=== PATIENT | female | born 1975 | race African-American/Black ===

== ENCOUNTER 2017-01-10 23:50 | Inpatient (IN) | payer MEDICAID ==
[~2017-01-10] VITALS: Ht 170.2 cm; Wt 160.5 kg
[~2017-01-10 23:50] MED LIST: AML5T PO; ATOR20TA PO; FURO20TA PO; LEVO500T3 PO; METH2.5T3 PO; OMEP20TA44 PO; PERCOT PO; POTA10SO11 PO
[2017-01-11] MEDS ORDERED: IPRATROPIUM BROM 0.5 MG/2.5ML INH SOL NEB ONE
[2017-01-11] MEDS ORDERED: methylPREDNISolone SOD SUCC 125 MG/2 ML VL IV ONE
[2017-01-11] MEDS ORDERED: ALBUTEROL SULF 2.5 MG/0.5ML(0.5%) NEB SOLN NEB ONE
[2017-01-11 00:15] LABS: DEFINITIVE VIEW TRANSMISSION; Hematocrit 44.7 % (36.0-46.0); Hemoglobin 14.7 g/dL (12.2-16.2); Mean Corpuscular Hemoglobin 31.8 pg (28.0-32.0); Mean Corpuscular Hgb Conc. 32.8 g/dL (32.0-36.0); Mean Platelet Volume 7.6 fL (7.4-10.4); Platelet Count (auto) 296 10^3/uL (140-450); Red Cell Distribution Width 15.9 % (11.6-16.0); SUSPECT VIEW TRANSMISSION; White Blood Cell 14.6 10^3/uL (4.4-10.8)
[2017-01-11] MEDS ORDERED: ONDANSETRON HCL 4 MG/2 ML VIAL IV ONE (00:30)
[2017-01-11] MEDS ORDERED: SODIUM CHLORIDE 0.9% 1,000 ML IV ONE (00:30)
[2017-01-11] MEDS ORDERED: KETOROLAC TROMETH 30 MG/ML 1ML VIAL IV ONE (00:30)
[2017-01-11 00:31] LABS: Anion Gap 10 (5-15); Blood Urea Nitrogen 7 mg/dL (7-18); Carbon Dioxide 25 mmol/L (21-32); Chloride 106 mmol/L (98-107); Glucose 122 mg/dL (74-106); Potassium 3.7 mmol/L (3.5-5.1); Sodium 141 mmol/L (136-145)
[2017-01-11 00:32] LABS: Albumin 3.2 g/dL (3.4-5.0); Aspartate Aminotransferase 36 U/L (15-37); Calcium 8.5 mg/dL (8.5-10.1); GFR African American 92 mL/min; GFR Non-African American 76 mL/min
[2017-01-11 00:36] LABS: Alkaline Phosphatase 86 U/L (45-117); Bilirubin, Total 0.3 mg/dL (0.2-1.0); Total Protein 7.1 g/dL (6.4-8.2)
[2017-01-11 00:38] LABS: Metamyelocytes % 0; Myelocytes % 0; Promyelocytes % 0; Reactive Lymphocytes 0
[2017-01-11 00:57] LABS: B-Type Natriuretic Peptide 9.5 pg/mL (0-100); Temperature: 22.2 C (20.0-25.0)
[2017-01-11] MEDS ORDERED: ONDANSETRON HCL 4 MG/2 ML VIAL ONE (01:04)
[2017-01-11 01:43] LABS: Hypersegmented Neutrophils Present; Platelet Estimate Adequate; RBC Morphology Normal
[2017-01-11] MEDS ORDERED: HYDROcodone-ACET 10/325MG TAB PO ONE (03:45)
[2017-01-11] MEDS ORDERED: IPRATROPIUM BROM 0.5 MG/2.5ML INH SOL NEB PRN ×2 (05:45→15:15)
[2017-01-11] MEDS ORDERED: MORPHINE SULF INJ 2 MG/ML SYRINGE 1ML IV PRN (05:45)
[2017-01-11] MEDS ORDERED: ALBUTEROL SULF 2.5 MG/0.5ML(0.5%) NEB SOLN NEB PRN ×2 (05:45→15:15)
[2017-01-11] MEDS ORDERED: NITROGLYCERIN 0.4 MG SL TAB SL PRN (05:45)
[2017-01-11] MEDS ORDERED: ACETAMINOPHEN 325 MG TAB PO PRN (05:45)
[2017-01-11] MEDS ORDERED: ONDANSETRON HCL 4 MG/2 ML VIAL IV PRN (05:45)
[2017-01-11 08:00] VITALS: BP 148/98
[2017-01-11 08:22] LABS: Urine Bilirubin Negative (Negative); Urine Blood Negative /uL (Negative); Urine Color Yellow (Yellow); Urine Ketone TRACE (Negative); Urine Mucus FEW (None Seen); Urine Nitrite Negative (Negative); Urine RBC 14 /hpf (0 - 4); Urine Squamous Epithelial Cell FEW /hpf (<5); Urine Urobilinogen Normal (Negative)
[2017-01-11 08:26] LABS: Urine Glucose 3+ mg/dL (Normal)
[2017-01-11] MEDS: cefTRIAXone 1GM/50ML D5W 50 ML IV SCH (08:58)
[2017-01-11] MEDS: ENOXAPARIN SOD 40 MG/0.4 ML SYRINGE SC SCH (09:19)
[2017-01-11] MEDS: MORPHINE SULF INJ 2 MG/ML SYRINGE 1ML IV PRN ×3 (09:19→20:13)
[2017-01-11] MEDS: FUROSEMIDE 20 MG TAB PO SCH (09:20)
[2017-01-11] MEDS: POTASSIUM CHL 20 Meq TABLET PO SCH (09:20)
[2017-01-11] MEDS: FAMOTIDINE 20 MG TAB PO SCH ×2 (09:20→22:51)
[2017-01-11] MEDS: methylPREDNISolone SOD SUCC 125 MG/2 ML VL IV SCH ×2 (09:20→22:51)
[2017-01-11] MEDS: amLODIPine BESYLATE 5 MG TAB PO SCH (09:21)
[2017-01-11 12:07] VITALS: BP 135/87
[2017-01-11 14:46] VITALS: BP 135/87
[2017-01-11 16:59] VITALS: BP 135/82
[2017-01-11] MEDS: ALBUTEROL SULF 2.5 MG/0.5ML(0.5%) NEB SOLN NEB SCH ×2 (17:44→21:51)
[2017-01-11] MEDS: IPRATROPIUM BROM 0.5 MG/2.5ML INH SOL NEB SCH ×2 (17:44→21:51)
[2017-01-11 22:00] VITALS: BP 139/90
[2017-01-11] MEDS: ATORVASTATIN 20 MG TAB PO SCH (22:51)
[2017-01-11] MEDS: TEMAZEPAM 15 MG CAP PO PRN (23:36)
[2017-01-12] MEDS: IPRATROPIUM BROM 0.5 MG/2.5ML INH SOL NEB SCH ×6 (02:00→22:28)
[2017-01-12] MEDS: ALBUTEROL SULF 2.5 MG/0.5ML(0.5%) NEB SOLN NEB SCH ×6 (02:00→22:28)
[2017-01-12 05:04] VITALS: BP 121/73
[2017-01-12 06:03] LABS: Hematocrit 43.8 % (36.0-46.0); Hemoglobin 14.3 g/dL (12.2-16.2); Mean Corpuscular Hemoglobin 32.1 pg (28.0-32.0); Mean Corpuscular Hgb Conc. 32.5 g/dL (32.0-36.0); Mean Corpuscular Volume 98.7 fL (80.0-100.0); Mean Platelet Volume 7.8 fL (7.4-10.4); Platelet Count (auto) 300 10^3/uL (140-450); Red Cell Distribution Width 16.9 % (11.6-16.0); SUSPECT VIEW TRANSMISSION; White Blood Cell 22.5 10^3/uL (4.4-10.8)
[2017-01-12 06:07] LABS: Metamyelocytes % 0; Myelocytes % 0; Promyelocytes % 0; Reactive Lymphocytes 0
[2017-01-12 06:33] LABS: BUN/Creatinine Ratio 13.6; Bilirubin, Total 0.2 mg/dL (0.2-1.0); Calcium 8.9 mg/dL (8.5-10.1); Magnesium 2.5 mg/dL (1.6-2.6); Potassium 5.1 mmol/L (3.5-5.1); Total Protein 7.3 g/dL (6.4-8.2)
[2017-01-12 06:57] LABS: Anisocytosis Slight; Macrocytosis Slight; Platelet Estimate Adequate; Polychromasia Slight
[2017-01-12] MEDS: MORPHINE SULF INJ 2 MG/ML SYRINGE 1ML IV PRN ×2 (08:37→13:48)
[2017-01-12] MEDS: cefTRIAXone 1GM/50ML D5W 50 ML IV SCH (08:37)
[2017-01-12 09:12] VITALS: BP 122/59
[2017-01-12] MEDS: FAMOTIDINE 20 MG TAB PO SCH ×2 (09:33→21:06)
[2017-01-12] MEDS: POTASSIUM CHL 20 Meq TABLET PO SCH (09:33)
[2017-01-12] MEDS: ENOXAPARIN SOD 40 MG/0.4 ML SYRINGE SC SCH (09:33)
[2017-01-12] MEDS: FUROSEMIDE 20 MG TAB PO SCH (09:34)
[2017-01-12] MEDS: methylPREDNISolone SOD SUCC 125 MG/2 ML VL IV SCH ×2 (09:35→21:06)
[2017-01-12] MEDS: amLODIPine BESYLATE 5 MG TAB PO SCH (09:35)
[2017-01-12] MEDS ORDERED: NICOTINE 21MG/24 HR TOPICAL PATCH TD ONE (12:45)
[2017-01-12 13:00] VITALS: BP_SYST 137; BP_SYST 184; BP_DIAS 87; BP_DIAS 90
[2017-01-12] MEDS ORDERED: diphenhdrAMINE HCL 25 MG CAP PO PRN (14:00)
[2017-01-12 15:16] LABS: Lactic Acid w/Reflex 3.7 mmol/L (0.4-2.0)
[2017-01-12 15:29] LABS: REFLEX LACTIC ACID YES OR NO YES
[2017-01-12] MEDS: HYDROcodone-ACET 5/325MG TAB PO PRN (21:04)
[2017-01-12] MEDS: ATORVASTATIN 20 MG TAB PO SCH (21:06)
[2017-01-12 22:00] VITALS: BP 108/51
[2017-01-12] MEDS: TEMAZEPAM 15 MG CAP PO PRN (22:14)
[2017-01-13] VITALS (7 sets, daily range): BP systolic 96–151; BP diastolic 66–91
[2017-01-13] MEDS: MORPHINE SULF INJ 2 MG/ML SYRINGE 1ML IV PRN ×3 (00:51→21:56)
[2017-01-13] MEDS: IPRATROPIUM BROM 0.5 MG/2.5ML INH SOL NEB SCH ×6 (02:00→22:42)
[2017-01-13] MEDS: ALBUTEROL SULF 2.5 MG/0.5ML(0.5%) NEB SOLN NEB SCH ×6 (02:00→22:42)
[2017-01-13 06:27] LABS: Basophils # (auto) 0.1 uL; Basophils % (auto) 0.5 % (0.0-2.0); Eosinophils # (auto) 0 uL; Hematocrit 41.6 % (36.0-46.0); Hemoglobin 13.9 g/dL (12.2-16.2); Lymphocytes % (auto) 4.9 % (10.0-50.0); Mean Corpuscular Hemoglobin 32.4 pg (28.0-32.0); Mean Corpuscular Hgb Conc. 33.5 g/dL (32.0-36.0); Mean Corpuscular Volume 96.7 fL (80.0-100.0); Mean Platelet Volume 8.2 fL (7.4-10.4); Monocytes # (auto) 0.4 uL; Monocytes % (auto) 2.1 % (0.0-12.0); Neutrophils # (auto) 18.8 uL; Neutrophils % (auto) 92.5 % (37.0-80.0); Platelet Count (auto) 295 10^3/uL (140-450); Red Cell Distribution Width 16.3 % (11.6-16.0); SUSPECT VIEW TRANSMISSION; White Blood Cell 20.3 10^3/uL (4.4-10.8)
[2017-01-13 06:52] LABS: BUN/Creatinine Ratio 18.8; Calcium 8.4 mg/dL (8.5-10.1); Magnesium 2.5 mg/dL (1.6-2.6); Potassium 4.3 mmol/L (3.5-5.1)
[2017-01-13] MEDS: amLODIPine BESYLATE 5 MG TAB PO SCH (10:00)
[2017-01-13] MEDS: FAMOTIDINE 20 MG TAB PO SCH ×2 (10:10→21:56)
[2017-01-13] MEDS: ENOXAPARIN SOD 40 MG/0.4 ML SYRINGE SC SCH (10:11)
[2017-01-13] MEDS: methylPREDNISolone SOD SUCC 125 MG/2 ML VL IV SCH ×2 (10:11→21:55)
[2017-01-13] MEDS: FUROSEMIDE 20 MG TAB PO SCH (10:11)
[2017-01-13] MEDS: NICOTINE 21MG/24 HR TOPICAL PATCH TD SCH (11:00)
[2017-01-13] MEDS ORDERED: DEXTROSE (50%) 50ML SYRG IV PRN ×2 (12:15→22:30)
[2017-01-13] MEDS: ACCU-CHEK COMFORT CURVE STRIP VI SCH ×3 (12:23→21:56)
[2017-01-13] MEDS: InsuLIN REG 1unit/0.01ml Soln (100units/ml) SC SCH ×3 (12:23→22:03)
[2017-01-13] MEDS: DOXYCYCLINE HYC 100MG/250ML 250 ML IV SCH (16:40)
[2017-01-13] MEDS: HYDROcodone-ACET 5/325MG TAB PO PRN (18:36)
[2017-01-13] MEDS: TEMAZEPAM 15 MG CAP PO PRN (21:56)
[2017-01-13] MEDS: ATORVASTATIN 20 MG TAB PO SCH (21:56)
[2017-01-14] VITALS (8 sets, daily range): BP systolic 98–158; BP diastolic 66–98
[2017-01-14] MEDS: DOXYCYCLINE HYC 100MG/250ML 250 ML IV SCH ×2 (01:35→14:00)
[2017-01-14] MEDS: ALBUTEROL SULF 2.5 MG/0.5ML(0.5%) NEB SOLN NEB SCH ×6 (02:00→22:28)
[2017-01-14] MEDS: IPRATROPIUM BROM 0.5 MG/2.5ML INH SOL NEB SCH ×6 (02:00→22:28)
[2017-01-14] MEDS: MORPHINE SULF INJ 2 MG/ML SYRINGE 1ML IV PRN ×4 (05:31→19:52)
[2017-01-14 05:56] LABS: Basophils # (auto) 0.1 uL; Basophils % (auto) 0.8 % (0.0-2.0); Eosinophils # (auto) 0 uL; Hematocrit 43.2 % (36.0-46.0); Hemoglobin 14.4 g/dL (12.2-16.2); Lymphocytes # (auto) 1.2 uL; Lymphocytes % (auto) 6.9 % (10.0-50.0); Mean Corpuscular Hemoglobin 32.5 pg (28.0-32.0); Mean Corpuscular Hgb Conc. 33.4 g/dL (32.0-36.0); Mean Corpuscular Volume 97.3 fL (80.0-100.0); Mean Platelet Volume 8.3 fL (7.4-10.4); Monocytes # (auto) 0.6 uL; Monocytes % (auto) 3.3 % (0.0-12.0); Platelet Count (auto) 294 10^3/uL (140-450); Red Cell Distribution Width 16.1 % (11.6-16.0); White Blood Cell 16.8 10^3/uL (4.4-10.8)
[2017-01-14 06:23] LABS: BUN/Creatinine Ratio 19.5; Calcium 8.1 mg/dL (8.5-10.1); Potassium 4.2 mmol/L (3.5-5.1)
[2017-01-14] MEDS: ACCU-CHEK COMFORT CURVE STRIP VI SCH ×3 (06:33→21:57)
[2017-01-14] MEDS: InsuLIN REG 1unit/0.01ml Soln (100units/ml) SC SCH ×4 (07:00→22:11)
[2017-01-14] MEDS: ENOXAPARIN SOD 40 MG/0.4 ML SYRINGE SC SCH (10:07)
[2017-01-14] MEDS: methylPREDNISolone SOD SUCC 125 MG/2 ML VL IV SCH (10:08)
[2017-01-14] MEDS: NICOTINE 21MG/24 HR TOPICAL PATCH TD SCH (10:08)
[2017-01-14] MEDS: FAMOTIDINE 20 MG TAB PO SCH ×2 (10:08→21:57)
[2017-01-14] MEDS: FUROSEMIDE 20 MG TAB PO SCH (10:09)
[2017-01-14] MEDS: amLODIPine BESYLATE 5 MG TAB PO SCH (10:11)
[2017-01-14 11:59] LABS: Lactic Acid w/Reflex 2.1 mmol/L (0.4-2.0)
[2017-01-14 12:03] LABS: REFLEX LACTIC ACID YES OR NO YES
[2017-01-14] MEDS ORDERED: DEXTROSE (50%) 50ML SYRG IV PRN (20:15)
[2017-01-14] MEDS: ATORVASTATIN 20 MG TAB PO SCH (21:57)
[2017-01-14] MEDS: TEMAZEPAM 15 MG CAP PO PRN (21:57)
[2017-01-14] MEDS ORDERED: methylPREDNISolone SOD SUCC 125 MG/2 ML VL IV SCH (22:00)
[2017-01-14] MEDS: methylPREDNISolone SOD SUCC 40 MG/ML VL IV SCH (22:09)
[2017-01-15] MEDS: MORPHINE SULF INJ 2 MG/ML SYRINGE 1ML IV PRN ×4 (00:22→15:10)
[2017-01-15] MEDS: DOXYCYCLINE HYC 100MG/250ML 250 ML IV SCH (01:31)
[2017-01-15] MEDS: IPRATROPIUM BROM 0.5 MG/2.5ML INH SOL NEB SCH ×4 (02:00→14:39)
[2017-01-15] MEDS: ALBUTEROL SULF 2.5 MG/0.5ML(0.5%) NEB SOLN NEB SCH ×4 (02:00→14:39)
[2017-01-15 05:03] VITALS: BP 139/79
[2017-01-15 05:47] LABS: Basophils # (auto) 0 uL; Eosinophils # (auto) 0 uL; Hematocrit 44.3 % (36.0-46.0); Hemoglobin 14.8 g/dL (12.2-16.2); Lymphocytes # (auto) 1.6 uL; Lymphocytes % (auto) 7.9 % (10.0-50.0); Mean Corpuscular Hemoglobin 32.5 pg (28.0-32.0); Mean Corpuscular Hgb Conc. 33.4 g/dL (32.0-36.0); Mean Corpuscular Volume 97.1 fL (80.0-100.0); Mean Platelet Volume 7.7 fL (7.4-10.4); Monocytes # (auto) 1.3 uL; Monocytes % (auto) 6.1 % (0.0-12.0); Neutrophils # (auto) 17.5 uL; Platelet Count (auto) 339 10^3/uL (140-450); Red Cell Distribution Width 16.2 % (11.6-16.0); White Blood Cell 20.4 10^3/uL (4.4-10.8)
[2017-01-15 06:22] LABS: Calcium 7.9 mg/dL (8.5-10.1); Potassium 4.4 mmol/L (3.5-5.1)
[2017-01-15] MEDS: ACCU-CHEK COMFORT CURVE STRIP VI SCH (06:53)
[2017-01-15] MEDS: InsuLIN REG 1unit/0.01ml Soln (100units/ml) SC SCH (06:57)
[2017-01-15] MEDS ORDERED: InsuLIN REG 1unit/0.01ml Soln (100units/ml) SC SCH (07:00)
[2017-01-15] MEDS: methylPREDNISolone SOD SUCC 40 MG/ML VL IV SCH (08:55)
[2017-01-15] MEDS: ENOXAPARIN SOD 40 MG/0.4 ML SYRINGE SC SCH (08:56)
[2017-01-15] MEDS: FAMOTIDINE 20 MG TAB PO SCH (08:57)
[2017-01-15] MEDS: amLODIPine BESYLATE 5 MG TAB PO SCH (08:58)
[2017-01-15] MEDS: FUROSEMIDE 20 MG TAB PO SCH (08:59)
[2017-01-15 09:00] VITALS: BP 156/94
[2017-01-15] MEDS: NICOTINE 21MG/24 HR TOPICAL PATCH TD SCH (10:00)
[2017-01-15] MEDS ORDERED: metFORMIN HYDROCHLORIDE 500 MG TAB PO ONE (11:00)
[2017-01-15] MEDS ORDERED: DOXY-216 PO (11:07)
[2017-01-15] MEDS ORDERED: ALBUAER3 IN (11:07)
[2017-01-15] MEDS ORDERED: METF-312 PO (11:07)
[2017-01-15] MEDS ORDERED: LISI-646 PO (11:09)
[2017-01-15] MEDS ORDERED: NIC21P TOP (11:09)
[2017-01-15 13:08] VITALS: BP 142/89
[2017-01-15 13:36] VITALS: BP 156/94
[2017-01-15] MEDS ORDERED: metFORMIN HYDROCHLORIDE 500 MG TAB PO SCH (18:00)
== END 2017-01-15 15:50 | disposition home or self-care (01) | DRG 133 ==
LOC: ER 23:50 → TELE 23:51 → TELE-EAST 01-11 07:45 → EAST 01-12 11:48
PROVIDERS: ADMIT Nurse Practitioner; ATTEND Internal Medicine
PROC: 5A09457 Assistance with Respiratory Ventilation, 24-96 Consecutive Hours, Continuous Positive Airway Pressure (ICD-10-PCS; principal; 2017-01-10)
DX: J96.01 Acute respiratory failure with hypoxia (principal); J45.52 Severe persistent asthma with status asthmaticus; I11.0 Hypertensive heart disease with heart failure; J44.0 Chronic obstructive pulmonary disease with (acute) lower respiratory infection; J44.1 Chronic obstructive pulmonary disease with (acute) exacerbation; I50.9 Heart failure, unspecified; Z68.43 Body mass index [BMI] 50.0-59.9, adult; E66.01 Morbid (severe) obesity due to excess calories; J20.9 Acute bronchitis, unspecified; G47.33 Obstructive sleep apnea (adult) (pediatric); E78.5 Hyperlipidemia, unspecified; E11.9 Type 2 diabetes mellitus without complications; F12.90 Cannabis use, unspecified, uncomplicated; F17.210 Nicotine dependence, cigarettes, uncomplicated; J96.21 Acute and chronic respiratory failure with hypoxia; K21.9 Gastro-esophageal reflux disease without esophagitis; T38.0X5A Adverse effect of glucocorticoids and synthetic analogues, initial encounter; Z80.1 Family history of malignant neoplasm of trachea, bronchus and lung; Z80.3 Family history of malignant neoplasm of breast; Z80.41 Family history of malignant neoplasm of ovary; Z80.8 Family history of malignant neoplasm of other organs or systems; Z82.3 Family history of stroke; Z82.49 Family history of ischemic heart disease and other diseases of the circulatory system; Z83.3 Family history of diabetes mellitus; Z87.442 Personal history of urinary calculi; E04.1 Nontoxic single thyroid nodule; F32.9 Major depressive disorder, single episode, unspecified; M19.90 Unspecified osteoarthritis, unspecified site; M06.9 Rheumatoid arthritis, unspecified; Z98.51 Tubal ligation status; Z80.9 Family history of malignant neoplasm, unspecified; Z71.89 Other specified counseling; Z80.0 Family history of malignant neoplasm of digestive organs; Z82.0 Family history of epilepsy and other diseases of the nervous system; Z86.73 Personal history of transient ischemic attack (TIA), and cerebral infarction without residual deficits; Z71.6 Tobacco abuse counseling
CPT/HCPCS: 36415; 36600; 71010; 71020; 76536; 80048; 80053; 80061; 81001; 81025; 82805; 82962; 83036; 83605; 83735; 83880; 84443; 84484; 85007; 85025; 85027; 87040; 93005; 94640; 96374; 96375; J0696; J1815; J1885; J2405; J3490

== ENCOUNTER 2017-02-10 11:21 | Inpatient (IN) | payer MEDICAID ==
[~2017-02-10] VITALS: Ht 170.2 cm; Wt 165.9 kg
[~2017-02-10 11:21] MED LIST changes: +ALBUAER3 IN; +DOXY-216 PO; +LEVO500T21 PO; -LEVO500T3 PO; +LISI-646 PO; +METF-370 PO; +NIC21P TOP
[2017-02-10] MEDS ORDERED: SODIUM CHLORIDE 0.9% 250 ML IV ONE (11:46)
[2017-02-10 12:13] LABS: Basophils # (auto) 0 uL; Basophils % (auto) 0.2 % (0.0-2.0); Eosinophils # (auto) 0.2 uL; Eosinophils % (auto) 2.2 % (0.0-7.0); Hematocrit 44.7 % (36.0-46.0); Lymphocytes # (auto) 2.5 uL; Lymphocytes % (auto) 28.1 % (10.0-50.0); Mean Corpuscular Hemoglobin 32.9 pg (28.0-32.0); Mean Corpuscular Hgb Conc. 33.6 g/dL (32.0-36.0); Mean Corpuscular Volume 97.9 fL (80.0-100.0); Mean Platelet Volume 7.9 fL (7.4-10.4); Monocytes # (auto) 0.9 uL; Monocytes % (auto) 9.7 % (0.0-12.0); Neutrophils # (auto) 5.3 uL; Neutrophils % (auto) 59.8 % (37.0-80.0); Platelet Count (auto) 313 10^3/uL (140-450); Red Cell Distribution Width 15.6 % (11.6-16.0); White Blood Cell 8.8 10^3/uL (4.4-10.8)
[2017-02-10 12:51] LABS: Albumin 3.3 g/dL (3.4-5.0); BUN/Creatinine Ratio 12.1; Bilirubin, Total 0.3 mg/dL (0.2-1.0); Calcium 8.6 mg/dL (8.5-10.1); Potassium 4.1 mmol/L (3.5-5.1); Total Protein 6.7 g/dL (6.4-8.2)
[2017-02-10] MEDS ORDERED: ONDANSETRON HCL 4 MG/2 ML VIAL IV ONE (13:30)
[2017-02-10] MEDS ORDERED: HYDROmorphone HCL 2 MG/ML VL IV ONE (13:30)
[2017-02-10] MEDS ORDERED: cefTRIAXone 1GM/50ML D5W 50 ML IV ONE (15:00)
[2017-02-10] MEDS ORDERED: CLINDAMYCIN 300MG IV 50 ML IV ONE (15:00)
[2017-02-10] MEDS ORDERED: DEXTROSE (50%) 50ML SYRG IV PRN (15:15)
[2017-02-10] MEDS ORDERED: DOCUSATE SOD 100 MG CAP PO PRN (15:15)
[2017-02-10] MEDS ORDERED: ACETAMINOPHEN 325 MG TAB PO PRN (15:15)
[2017-02-10] MEDS ORDERED: cloNIDine HCL 0.1 MG TAB PO PRN (15:15)
[2017-02-10] MEDS ORDERED: TEMAZEPAM 15 MG CAP PO PRN (15:15)
[2017-02-10] MEDS ORDERED: HYDROcodone-ACET 5/325MG TAB PO PRN (15:15)
[2017-02-10] MEDS ORDERED: LISINOPRIL 20 MG TAB PO ONE (15:30)
[2017-02-10] MEDS ORDERED: NICOTINE 21MG/24 HR TOPICAL PATCH TD ONE (15:30)
[2017-02-10] MEDS ORDERED: ENOXAPARIN SOD 40 MG/0.4 ML SYRINGE SC ONE (15:30)
[2017-02-10] MEDS ORDERED: amLODIPine BESYLATE 5 MG TAB PO ONE (15:30)
[2017-02-10] MEDS ORDERED: FAMOTIDINE 20 MG TAB PO ONE (15:30)
[2017-02-10] MEDS ORDERED: PANTOPRAZOLE 40 MG TAB PO ONE (15:30)
[2017-02-10] MEDS ORDERED: MULTIPLE VITAMIN TAB PO ONE (15:30)
[2017-02-10 17:18] VITALS: BP 150/80
[2017-02-10 17:41] VITALS: BP 150/80
[2017-02-10] MEDS: ACCU-CHEK COMFORT CURVE STRIP VI SCH ×2 (17:46→22:00)
[2017-02-10] MEDS: HYDROmorphone HCL 2 MG/ML VL IV PRN ×2 (17:59→22:15)
[2017-02-10] MEDS: ONDANSETRON HCL 4 MG/2 ML VIAL IV PRN ×2 (17:59→22:15)
[2017-02-10] MEDS: FUROSEMIDE 20 MG TAB PO SCH (18:00)
[2017-02-10] MEDS: InsuLIN REG 1unit/0.01ml Soln (100units/ml) SC SCH ×2 (18:02→22:00)
[2017-02-10] MEDS: Boost Glucose Control 8 Ounces PO SCH (18:34)
[2017-02-10 21:36] VITALS: BP 137/82
[2017-02-10] MEDS: POTASSIUM CHL 20 Meq TABLET PO SCH (22:33)
[2017-02-10] MEDS: SODIUM CHLOR 0.9% PF (SALINE LOCK) 10ML VIAL IV SCH (22:33)
[2017-02-10] MEDS: CLINDAMYCIN 300MG IV 50 ML IV SCH (22:33)
[2017-02-10] MEDS: FAMOTIDINE 20 MG TAB PO SCH (22:33)
[2017-02-10] MEDS: ATORVASTATIN 20 MG TAB PO SCH (22:33)
[2017-02-10 22:58] LABS: Urine Bilirubin Negative (Negative); Urine Blood 1+ /uL (Negative); Urine Color Yellow (Yellow); Urine Glucose Normal (Normal); Urine Ketone Negative (Negative); Urine Mucus FEW (None Seen); Urine Nitrite Negative (Negative); Urine RBC 33 /hpf (0 - 4); Urine Squamous Epithelial Cell FEW /hpf (<5); Urine pH 5.5 (5.0-8.0)
[2017-02-11] VITALS (8 sets, daily range): BP systolic 122–150; BP diastolic 65–84
[2017-02-11] MEDS: ALBUTEROL SULF 2.5 MG/0.5ML(0.5%) NEB SOLN NEB SCH ×4 (00:26→19:46)
[2017-02-11] MEDS: ONDANSETRON HCL 4 MG/2 ML VIAL IV PRN ×5 (03:14→19:52)
[2017-02-11] MEDS: HYDROmorphone HCL 2 MG/ML VL IV PRN ×5 (03:15→19:52)
[2017-02-11] MEDS: CLINDAMYCIN 300MG IV 50 ML IV SCH ×3 (06:03→22:00)
[2017-02-11] MEDS: SODIUM CHLOR 0.9% PF (SALINE LOCK) 10ML VIAL IV SCH ×3 (06:03→22:15)
[2017-02-11] MEDS: InsuLIN REG 1unit/0.01ml Soln (100units/ml) SC SCH ×4 (06:05→22:00)
[2017-02-11] MEDS: FUROSEMIDE 20 MG TAB PO SCH ×2 (06:05→17:05)
[2017-02-11] MEDS: ACCU-CHEK COMFORT CURVE STRIP VI SCH ×4 (06:05→22:15)
[2017-02-11 08:10] LABS: Albumin 2.7 g/dL (3.4-5.0); BUN/Creatinine Ratio 10.8; Calcium 7.8 mg/dL (8.5-10.1)
[2017-02-11 08:23] LABS: Bilirubin, Total 0.3 mg/dL (0.2-1.0); Total Protein 6.1 g/dL (6.4-8.2)
[2017-02-11 08:41] LABS: Basophils # (auto) 0 uL; Basophils % (auto) 0.2 % (0.0-2.0); Eosinophils # (auto) 0.2 uL; Eosinophils % (auto) 2.3 % (0.0-7.0); Hematocrit 41.8 % (36.0-46.0); Hemoglobin 14.1 g/dL (12.2-16.2); Lymphocytes # (auto) 2.6 uL; Lymphocytes % (auto) 32.4 % (10.0-50.0); Mean Corpuscular Hgb Conc. 33.6 g/dL (32.0-36.0); Mean Corpuscular Volume 98.2 fL (80.0-100.0); Mean Platelet Volume 7.5 fL (7.4-10.4); Monocytes # (auto) 0.8 uL; Monocytes % (auto) 10.1 % (0.0-12.0); Neutrophils # (auto) 4.4 uL; Platelet Count (auto) 292 10^3/uL (140-450); Red Cell Distribution Width 15.9 % (11.6-16.0); White Blood Cell 7.9 10^3/uL (4.4-10.8)
[2017-02-11] MEDS: cefTRIAXone 1GM/50ML D5W 50 ML IV SCH (08:42)
[2017-02-11] MEDS: Boost Glucose Control 8 Ounces PO SCH ×3 (08:42→17:05)
[2017-02-11] MEDS: ENOXAPARIN SOD 40 MG/0.4 ML SYRINGE SC SCH (09:26)
[2017-02-11] MEDS: NICOTINE 21MG/24 HR TOPICAL PATCH TD SCH (09:26)
[2017-02-11] MEDS: PANTOPRAZOLE 40 MG TAB PO SCH (09:27)
[2017-02-11] MEDS: LISINOPRIL 20 MG TAB PO SCH (09:27)
[2017-02-11] MEDS: FAMOTIDINE 20 MG TAB PO SCH ×2 (09:28→22:00)
[2017-02-11] MEDS: MULTIPLE VITAMIN TAB PO SCH (09:28)
[2017-02-11] MEDS: amLODIPine BESYLATE 5 MG TAB PO SCH (09:29)
[2017-02-11] MEDS: POTASSIUM CHL 20 Meq TABLET PO SCH ×2 (09:29→22:00)
[2017-02-11] MEDS: ATORVASTATIN 20 MG TAB PO SCH (22:00)
[2017-02-12] MEDS: ONDANSETRON HCL 4 MG/2 ML VIAL IV PRN ×4 (00:44→23:22)
[2017-02-12] MEDS: HYDROmorphone HCL 2 MG/ML VL IV PRN ×6 (00:44→23:22)
[2017-02-12 05:00] VITALS: BP 169/72
[2017-02-12] MEDS: FUROSEMIDE 20 MG TAB PO SCH ×2 (05:23→18:28)
[2017-02-12] MEDS: CLINDAMYCIN 300MG IV 50 ML IV SCH ×3 (05:23→22:01)
[2017-02-12] MEDS: SODIUM CHLOR 0.9% PF (SALINE LOCK) 10ML VIAL IV SCH ×3 (06:15→22:01)
[2017-02-12] MEDS: InsuLIN REG 1unit/0.01ml Soln (100units/ml) SC SCH ×4 (06:15→22:00)
[2017-02-12] MEDS: ACCU-CHEK COMFORT CURVE STRIP VI SCH ×4 (06:15→22:02)
[2017-02-12] MEDS: ALBUTEROL SULF 2.5 MG/0.5ML(0.5%) NEB SOLN NEB SCH ×4 (06:16→20:00)
[2017-02-12 08:00] VITALS: BP 142/65
[2017-02-12 09:00] VITALS: BP 111/67
[2017-02-12] MEDS: LISINOPRIL 20 MG TAB PO SCH (10:34)
[2017-02-12] MEDS: POTASSIUM CHL 20 Meq TABLET PO SCH ×2 (10:35→22:01)
[2017-02-12] MEDS: MULTIPLE VITAMIN TAB PO SCH (10:35)
[2017-02-12] MEDS: amLODIPine BESYLATE 5 MG TAB PO SCH (10:36)
[2017-02-12] MEDS: FAMOTIDINE 20 MG TAB PO SCH ×2 (10:36→22:01)
[2017-02-12] MEDS: PANTOPRAZOLE 40 MG TAB PO SCH (10:36)
[2017-02-12] MEDS: NICOTINE 21MG/24 HR TOPICAL PATCH TD SCH (10:37)
[2017-02-12] MEDS: ENOXAPARIN SOD 40 MG/0.4 ML SYRINGE SC SCH (10:37)
[2017-02-12] MEDS: cefTRIAXone 1GM/50ML D5W 50 ML IV SCH (10:37)
[2017-02-12] MEDS: Boost Glucose Control 8 Ounces PO SCH ×3 (10:41→18:27)
[2017-02-12 13:00] VITALS: BP 136/74
[2017-02-12 17:04] VITALS: BP 128/66
[2017-02-12] MEDS: ATORVASTATIN 20 MG TAB PO SCH (22:01)
[2017-02-12 22:17] VITALS: BP 139/79
[2017-02-13] MEDS ORDERED: diphenhdrAMINE HCL 50 MG/1 ML VL ONE (00:31)
[2017-02-13] MEDS ORDERED: diphenhdrAMINE HCL 50 MG/1 ML VL IV PRN (00:45)
[2017-02-13] MEDS: ALBUTEROL SULF 2.5 MG/0.5ML(0.5%) NEB SOLN NEB SCH ×3 (01:09→12:00)
[2017-02-13 05:46] VITALS: BP 113/69
[2017-02-13] MEDS: SODIUM CHLOR 0.9% PF (SALINE LOCK) 10ML VIAL IV SCH ×2 (05:49→14:01)
[2017-02-13] MEDS: CLINDAMYCIN 300MG IV 50 ML IV SCH ×2 (05:49→14:01)
[2017-02-13] MEDS: ACCU-CHEK COMFORT CURVE STRIP VI SCH ×2 (05:50→11:11)
[2017-02-13] MEDS: FUROSEMIDE 20 MG TAB PO SCH (05:50)
[2017-02-13] MEDS: InsuLIN REG 1unit/0.01ml Soln (100units/ml) SC SCH ×2 (05:50→11:12)
[2017-02-13] MEDS: HYDROmorphone HCL 2 MG/ML VL IV PRN ×3 (05:51→14:38)
[2017-02-13] MEDS: ONDANSETRON HCL 4 MG/2 ML VIAL IV PRN (05:51)
[2017-02-13 08:00] VITALS: BP 117/73
[2017-02-13] MEDS: Boost Glucose Control 8 Ounces PO SCH ×2 (08:34→12:47)
[2017-02-13 09:00] VITALS: BP 117/73
[2017-02-13] MEDS: NICOTINE 21MG/24 HR TOPICAL PATCH TD SCH (10:00)
[2017-02-13] MEDS: POTASSIUM CHL 20 Meq TABLET PO SCH (10:14)
[2017-02-13] MEDS: MULTIPLE VITAMIN TAB PO SCH (10:14)
[2017-02-13] MEDS: FAMOTIDINE 20 MG TAB PO SCH (10:14)
[2017-02-13] MEDS: amLODIPine BESYLATE 5 MG TAB PO SCH (10:14)
[2017-02-13] MEDS: cefTRIAXone 1GM/50ML D5W 50 ML IV SCH (10:14)
[2017-02-13] MEDS: PANTOPRAZOLE 40 MG TAB PO SCH (10:15)
[2017-02-13] MEDS: ENOXAPARIN SOD 40 MG/0.4 ML SYRINGE SC SCH (10:15)
[2017-02-13] MEDS: LISINOPRIL 20 MG TAB PO SCH (10:15)
[2017-02-13] MEDS ORDERED: CLIN1CAP4 PO (10:16)
[2017-02-13 12:33] VITALS: BP 117/73
[2017-02-13 12:44] VITALS: BP 127/83
== END 2017-02-13 15:50 | disposition home or self-care (01) | DRG 197 ==
LOC: ER 11:21 → WEST WING 11:22
PROVIDERS: ADMIT Internal Medicine; ATTEND Internal Medicine
DX: I83.92 Asymptomatic varicose veins of left lower extremity (principal); I11.0 Hypertensive heart disease with heart failure; L03.116 Cellulitis of left lower limb; E44.1 Mild protein-calorie malnutrition; F11.20 Opioid dependence, uncomplicated; K76.0 Fatty (change of) liver, not elsewhere classified; I50.9 Heart failure, unspecified; N20.0 Calculus of kidney; M71.20 Synovial cyst of popliteal space [Baker], unspecified knee; N13.9 Obstructive and reflux uropathy, unspecified; J44.9 Chronic obstructive pulmonary disease, unspecified; K21.9 Gastro-esophageal reflux disease without esophagitis; E66.01 Morbid (severe) obesity due to excess calories; E78.5 Hyperlipidemia, unspecified; F32.9 Major depressive disorder, single episode, unspecified; F17.210 Nicotine dependence, cigarettes, uncomplicated; M19.90 Unspecified osteoarthritis, unspecified site; E11.9 Type 2 diabetes mellitus without complications; G89.29 Other chronic pain; G47.30 Sleep apnea, unspecified; Z98.51 Tubal ligation status; Z80.1 Family history of malignant neoplasm of trachea, bronchus and lung; Z81.8 Family history of other mental and behavioral disorders; Z86.73 Personal history of transient ischemic attack (TIA), and cerebral infarction without residual deficits; Z82.49 Family history of ischemic heart disease and other diseases of the circulatory system; Z82.61 Family history of arthritis; Z83.3 Family history of diabetes mellitus; Z82.3 Family history of stroke; Z68.43 Body mass index [BMI] 50.0-59.9, adult
CPT/HCPCS: 36415; 51702; 70450; 74176; 76775; 80053; 80307; 81001; 82270; 82962; 83036; 84443; 84702; 85025; 85379; 87040; 87045; 87086; 87493; 87899; 93971; 94640; 94660; 94761; 96361; 96365; 96367; 96372; 96375; J0696; J1815; J2405; J3490

== ENCOUNTER 2017-03-20 16:16 | Emergency (ER) | payer MEDICAID ==
[~2017-03-20] VITALS: Ht 170.2 cm; Wt 154.2 kg
[~2017-03-20 16:16] MED LIST changes: +CLIN1CAP4 PO; -DOXY-216 PO; -LEVO500T21 PO; -PERCOT PO
[2017-03-20 16:51] VITALS: BP 134/94
[2017-03-20 17:35] LABS: Basophils # (auto) 0.1 uL; Basophils % (auto) 0.6 % (0.0-2.0); CONDITION Y; Eosinophils # (auto) 0.3 uL; Eosinophils % (auto) 2.2 % (0.0-7.0); Hematocrit 47.4 % (36.0-46.0); Hemoglobin 16.1 g/dL (12.2-16.2); Lymphocytes % (auto) 25.5 % (10.0-50.0); Mean Corpuscular Hemoglobin 32.8 pg (28.0-32.0); Mean Corpuscular Hgb Conc. 33.9 g/dL (32.0-36.0); Mean Corpuscular Volume 96.8 fL (80.0-100.0); Monocytes % (auto) 8.5 % (0.0-12.0); Neutrophils # (auto) 7.5 uL; Neutrophils % (auto) 63.2 % (37.0-80.0); Platelet Count (auto) 281 10^3/uL (140-450); Red Cell Distribution Width 15.5 % (11.6-16.0); White Blood Cell 11.9 10^3/uL (4.4-10.8)
[2017-03-20 17:57] LABS: Albumin 3.4 g/dL (3.4-5.0); Anion Gap 10 (5-15); Aspartate Aminotransferase 29 U/L (15-37); BUN/Creatinine Ratio 7.9; Blood Urea Nitrogen 8 mg/dL (7-18); Calcium 8.1 mg/dL (8.5-10.1); Carbon Dioxide 26 mmol/L (21-32); Chloride 105 mmol/L (98-107); GFR African American 77 mL/min; GFR Non-African American 64 mL/min; Glucose 84 mg/dL (74-106); Magnesium 1.7 mg/dL (1.6-2.6); Potassium 3.8 mmol/L (3.5-5.1); Sodium 141 mmol/L (136-145)
[2017-03-20 18:03] LABS: Alkaline Phosphatase 101 U/L (45-117); Bilirubin, Total 0.3 mg/dL (0.2-1.0); Total Protein 7.4 g/dL (6.4-8.2)
[2017-03-20 18:20] LABS: B-Type Natriuretic Peptide 4.72 pg/mL (0-100)
[2017-03-20 18:43] LABS: Temperature: 23.7 C (20.0-25.0)
== END 2017-03-20 21:09 | disposition left against medical advice (07) ==
LOC: ER 16:38
DX: R10.9 Unspecified abdominal pain (principal); R11.2 Nausea with vomiting, unspecified; R50.9 Fever, unspecified; Z53.21 Procedure and treatment not carried out due to patient leaving prior to being seen by health care provider
CPT/HCPCS: 36415; 80053; 83735; 83880; 84484; 84702; 85025; 93005

== ENCOUNTER 2017-03-27 23:48 | Emergency (ER) | payer MEDICAID ==
[~2017-03-27] VITALS: Ht 170.2 cm; Wt 149.7 kg
[2017-03-28 00:04] VITALS: BP 155/80
[2017-03-28 00:34] LABS: Basophils # (auto) 0.1 uL; Basophils % (auto) 1.2 % (0.0-2.0); Eosinophils # (auto) 0.3 uL; Hematocrit 45.3 % (36.0-46.0); Hemoglobin 14.6 g/dL (12.2-16.2); Lymphocytes # (auto) 2.8 uL; Lymphocytes % (auto) 26.3 % (10.0-50.0); Mean Corpuscular Hgb Conc. 32.3 g/dL (32.0-36.0); Mean Corpuscular Volume 95.8 fL (80.0-100.0); Monocytes # (auto) 1.1 uL; Monocytes % (auto) 9.8 % (0.0-12.0); Neutrophils # (auto) 6.5 uL; Neutrophils % (auto) 59.7 % (37.0-80.0); Platelet Count (auto) 280 10^3/uL (140-450); Red Cell Distribution Width 14.4 % (11.6-16.0); White Blood Cell 10.8 10^3/uL (4.4-10.8)
[2017-03-28 00:50] LABS: INR 0.93 (0.9-1.15); Prothrombin Time 10.1 sec (9.37-12.3)
[2017-03-28 00:58] LABS: Albumin 3.1 g/dL (3.4-5.0); Amylase 55 U/L (25-115); Anion Gap 8 (5-15); Aspartate Aminotransferase 18 U/L (15-37); BUN/Creatinine Ratio 9.5; Blood Urea Nitrogen 8 mg/dL (7-18); Calcium 8.4 mg/dL (8.5-10.1); Carbon Dioxide 26 mmol/L (21-32); Chloride 108 mmol/L (98-107); GFR African American 96 mL/min; GFR Non-African American 79 mL/min; Glucose 138 mg/dL (74-106); Sodium 142 mmol/L (136-145)
[2017-03-28 01:03] LABS: Alkaline Phosphatase 81 U/L (45-117); Bilirubin, Total 0.2 mg/dL (0.2-1.0); Total Protein 6.9 g/dL (6.4-8.2)
== END 2017-03-28 05:33 | disposition left against medical advice (07) ==
LOC: ER 23:48
DX: R10.9 Unspecified abdominal pain (principal); R11.2 Nausea with vomiting, unspecified; M79.605 Pain in left leg; M79.604 Pain in right leg; Z53.21 Procedure and treatment not carried out due to patient leaving prior to being seen by health care provider
CPT/HCPCS: 36415; 80053; 82150; 83690; 84484; 85025; 85610; 85730; 93005

== ENCOUNTER 2017-03-28 14:12 | Inpatient (IN) | payer MEDICAID ==
[~2017-03-28] VITALS: Ht 165.1 cm; Wt 161.0 kg
[2017-03-28 14:53] LABS: Basophils # (auto) 0 uL; Basophils % (auto) 0.3 % (0.0-2.0); CONDITION Y; Eosinophils # (auto) 0.2 uL; Eosinophils % (auto) 2.3 % (0.0-7.0); Hematocrit 43.8 % (36.0-46.0); Lymphocytes # (auto) 2.4 uL; Lymphocytes % (auto) 23.5 % (10.0-50.0); Mean Corpuscular Hemoglobin 32.8 pg (28.0-32.0); Mean Corpuscular Hgb Conc. 34.3 g/dL (32.0-36.0); Mean Corpuscular Volume 95.5 fL (80.0-100.0); Mean Platelet Volume 7.5 fL (7.4-10.4); Monocytes # (auto) 0.8 uL; Monocytes % (auto) 7.5 % (0.0-12.0); Neutrophils # (auto) 6.7 uL; Neutrophils % (auto) 66.4 % (37.0-80.0); Platelet Count (auto) 271 10^3/uL (140-450); Red Cell Distribution Width 15.9 % (11.6-16.0); White Blood Cell 10.1 10^3/uL (4.4-10.8)
[2017-03-28 15:07] LABS: Calcium 8.1 mg/dL (8.5-10.1); Potassium 3.8 mmol/L (3.5-5.1)
[2017-03-28 15:09] LABS: BUN/Creatinine Ratio 10.8
[2017-03-28 15:11] LABS: Bilirubin, Total 0.2 mg/dL (0.2-1.0); Total Protein 6.7 g/dL (6.4-8.2)
[2017-03-28] MEDS ORDERED: HYDROmorphone HCL 2 MG/ML VL IV ONE (15:15)
[2017-03-28] MEDS ORDERED: ONDANSETRON HCL 4 MG/2 ML VIAL IV ONE (15:15)
[2017-03-28] MEDS ORDERED: SODIUM CHLORIDE 0.9% 1,000 ML IV ONE ×2 (15:15→18:00)
[2017-03-28 17:08] LABS: Amylase 49 U/L (25-115)
[2017-03-28] MEDS ORDERED: KETOROLAC TROMETH 30 MG/ML 1ML VIAL IV ONE (17:45)
[2017-03-28 18:04] LABS: Urine Bilirubin Negative (Negative); Urine Color Yellow (Yellow); Urine Glucose Normal (Normal); Urine Ketone Negative (Negative); Urine Mucus FEW (None Seen); Urine Nitrite Negative (Negative); Urine RBC 11 /hpf (0 - 4); Urine Squamous Epithelial Cell FEW /hpf (<5); Urine pH 6.5 (5.0-8.0)
[2017-03-28 18:05] LABS: Urine Blood 1+ /uL (Negative)
[2017-03-28 18:20] LABS: B-Type Natriuretic Peptide 14.71 pg/mL (0-100)
[2017-03-28 18:28] LABS: Temperature: 22.9 C (20.0-25.0)
[2017-03-28] MEDS ORDERED: ACETAMINOPHEN 500 MG TAB PO PRN (18:30)
[2017-03-28] MEDS ORDERED: HYDROcodone-ACET 5/325MG TAB PO PRN (18:30)
[2017-03-28] MEDS ORDERED: LORazepam 0.5 MG TAB PO PRN (18:30)
[2017-03-28] MEDS ORDERED: TEMAZEPAM 15 MG CAP PO PRN (18:30)
[2017-03-28] MEDS ORDERED: ONDANSETRON HCL 4 MG/2 ML VIAL IV PRN (18:30)
[2017-03-28] MEDS ORDERED: DEXTROSE (50%) 50ML SYRG IV PRN (18:45)
[2017-03-28] MEDS ORDERED: NITROGLYCERIN 0.4 MG SL TAB SL PRN (18:45)
[2017-03-28] MEDS ORDERED: MORPHINE SULF INJ 2 MG/ML SYRINGE 1ML IV PRN (18:45)
[2017-03-28] MEDS ORDERED: amLODIPine BESYLATE 5 MG TAB PO ONE (19:00)
[2017-03-28] MEDS ORDERED: LISINOPRIL 20 MG TAB PO ONE (19:00)
[2017-03-28] MEDS: diphenhdrAMINE HCL 50 MG/1 ML VL IV PRN (19:35)
[2017-03-28] MEDS: MORPHINE SULF INJ 2 MG/ML SYRINGE 1ML IV PRN (19:35)
[2017-03-28 22:30] VITALS: BP 134/61
[2017-03-28] MEDS: ACCU-CHEK COMFORT CURVE STRIP VI SCH (23:00)
[2017-03-28] MEDS: InsuLIN REG 1unit/0.01ml Soln (100units/ml) SC SCH (23:00)
[2017-03-28] MEDS: ATORVASTATIN 20 MG TAB PO SCH (23:21)
[2017-03-29] MEDS: diphenhdrAMINE HCL 50 MG/1 ML VL IV PRN ×5 (00:04→22:29)
[2017-03-29] MEDS: MORPHINE SULF INJ 2 MG/ML SYRINGE 1ML IV PRN ×5 (00:05→22:21)
[2017-03-29 01:17] VITALS: BP 134/61
[2017-03-29 05:00] VITALS: BP 145/86
[2017-03-29] MEDS: ACCU-CHEK COMFORT CURVE STRIP VI SCH ×4 (06:13→22:30)
[2017-03-29] MEDS: InsuLIN REG 1unit/0.01ml Soln (100units/ml) SC SCH ×4 (06:13→22:00)
[2017-03-29 06:35] LABS: Basophils # (auto) 0 uL; Basophils % (auto) 0.3 % (0.0-2.0); CONDITION Y; Eosinophils # (auto) 0.3 uL; Hematocrit 42.8 % (36.0-46.0); Lymphocytes # (auto) 2.4 uL; Lymphocytes % (auto) 23.4 % (10.0-50.0); Mean Corpuscular Hemoglobin 32.1 pg (28.0-32.0); Mean Corpuscular Hgb Conc. 32.8 g/dL (32.0-36.0); Mean Corpuscular Volume 97.9 fL (80.0-100.0); Mean Platelet Volume 7.8 fL (7.4-10.4); Monocytes % (auto) 9.7 % (0.0-12.0); Neutrophils # (auto) 6.4 uL; Neutrophils % (auto) 63.6 % (37.0-80.0); Platelet Count (auto) 263 10^3/uL (140-450); Red Cell Distribution Width 15.6 % (11.6-16.0); White Blood Cell 10.1 10^3/uL (4.4-10.8)
[2017-03-29 07:05] LABS: Albumin 2.7 g/dL (3.4-5.0); Potassium 4.3 mmol/L (3.5-5.1)
[2017-03-29 07:08] LABS: BUN/Creatinine Ratio 12.5; Bilirubin, Total 0.2 mg/dL (0.2-1.0); Total Protein 6.2 g/dL (6.4-8.2)
[2017-03-29 09:00] VITALS: BP 122/73
[2017-03-29] MEDS: LISINOPRIL 20 MG TAB PO SCH (09:55)
[2017-03-29] MEDS: amLODIPine BESYLATE 5 MG TAB PO SCH (09:56)
[2017-03-29 13:00] VITALS: BP 133/74
[2017-03-29 16:58] VITALS: BP 114/70
[2017-03-29] MEDS: FUROSEMIDE 40 MG/4 ML VIAL IV SCH (17:36)
[2017-03-29 22:00] VITALS: BP 118/70
[2017-03-29] MEDS: POTASSIUM CHL 10 Meq TABLET PO SCH (22:29)
[2017-03-29] MEDS: ATORVASTATIN 20 MG TAB PO SCH (22:30)
[2017-03-30] MEDS: MORPHINE SULF INJ 2 MG/ML SYRINGE 1ML IV PRN ×5 (02:56→20:17)
[2017-03-30] MEDS: diphenhdrAMINE HCL 50 MG/1 ML VL IV PRN ×5 (02:57→20:17)
[2017-03-30] MEDS: FUROSEMIDE 40 MG/4 ML VIAL IV SCH ×2 (06:12→17:40)
[2017-03-30] MEDS: InsuLIN REG 1unit/0.01ml Soln (100units/ml) SC SCH ×4 (06:48→23:00)
[2017-03-30] MEDS: ACCU-CHEK COMFORT CURVE STRIP VI SCH ×4 (06:48→22:58)
[2017-03-30 09:00] VITALS: BP 145/74
[2017-03-30] MEDS: POTASSIUM CHL 10 Meq TABLET PO SCH ×2 (09:49→22:58)
[2017-03-30] MEDS: amLODIPine BESYLATE 5 MG TAB PO SCH (09:50)
[2017-03-30] MEDS: LISINOPRIL 20 MG TAB PO SCH (09:50)
[2017-03-30 13:00] VITALS: BP 150/78
[2017-03-30 17:00] VITALS: BP 141/78
[2017-03-30 21:46] VITALS: BP 139/84
[2017-03-30] MEDS: ATORVASTATIN 20 MG TAB PO SCH (22:57)
[2017-03-30] MEDS ORDERED: CYCLOBENZAPRINE HCL 10 MG TAB PO ONE (23:30)
[2017-03-31] MEDS: MORPHINE SULF INJ 2 MG/ML SYRINGE 1ML IV PRN ×6 (00:43→22:59)
[2017-03-31] MEDS: diphenhdrAMINE HCL 50 MG/1 ML VL IV PRN ×5 (00:43→22:59)
[2017-03-31 04:48] VITALS: BP 151/82
[2017-03-31] MEDS: FUROSEMIDE 40 MG/4 ML VIAL IV SCH ×2 (06:20→18:14)
[2017-03-31] MEDS: ACCU-CHEK COMFORT CURVE STRIP VI SCH ×4 (06:21→21:17)
[2017-03-31] MEDS: InsuLIN REG 1unit/0.01ml Soln (100units/ml) SC SCH ×4 (06:25→21:18)
[2017-03-31 06:48] LABS: BUN/Creatinine Ratio 16.9; Calcium 8.7 mg/dL (8.5-10.1); Potassium 3.9 mmol/L (3.5-5.1)
[2017-03-31 08:00] VITALS: BP 114/82
[2017-03-31 09:00] VITALS: BP 114/82
[2017-03-31] MEDS: CYCLOBENZAPRINE HCL 10 MG TAB PO PRN ×2 (09:15→19:50)
[2017-03-31] MEDS: POTASSIUM CHL 10 Meq TABLET PO SCH ×2 (09:16→19:49)
[2017-03-31] MEDS: amLODIPine BESYLATE 5 MG TAB PO SCH (09:16)
[2017-03-31] MEDS: LISINOPRIL 20 MG TAB PO SCH (09:16)
[2017-03-31] MEDS ORDERED: ALUM & MAG HYDROX-SIMETH LIQ(MAALOX) 30 ML PO ONE (11:45)
[2017-03-31] MEDS ORDERED: ALUM & MAG HYDROX-SIMETH LIQ(MAALOX) 30 ML PO PRN (11:45)
[2017-03-31 12:28] VITALS: BP 117/63
[2017-03-31 16:56] VITALS: BP 135/87
[2017-03-31] MEDS: ATORVASTATIN 20 MG TAB PO SCH (19:49)
[2017-03-31 21:55] VITALS: BP 148/73
[2017-04-01 04:52] VITALS: BP 97/55
[2017-04-01] MEDS: diphenhdrAMINE HCL 50 MG/1 ML VL IV PRN ×2 (05:46→10:35)
[2017-04-01] MEDS: MORPHINE SULF INJ 2 MG/ML SYRINGE 1ML IV PRN ×3 (05:47→14:09)
[2017-04-01] MEDS: FUROSEMIDE 40 MG/4 ML VIAL IV SCH (06:01)
[2017-04-01] MEDS: InsuLIN REG 1unit/0.01ml Soln (100units/ml) SC SCH ×2 (06:07→11:30)
[2017-04-01] MEDS: ACCU-CHEK COMFORT CURVE STRIP VI SCH ×2 (06:07→11:30)
[2017-04-01 09:00] VITALS: BP 125/73
[2017-04-01 09:01] LABS: Allen Test Yes; Base Excess -0.4 mmol/L (-2.0-2.0); Blood COHb 0.7 % (0.5-1.5); Blood MetHb 0.3 % (0.0-1.5); HCO3 24.4 mmol/L (22-26.0); HHb 7.9 % (0.0-5.0); MODE ROOM AIR; O2Hb 91.1 % (94.0-97.0); PCO2 40.8 mmHg (35.0-45.0); PCO2(T) 40.8 mmHg (35.0-45.0); PO2 71.2 mmHg (80.0-100.0); PO2(T) 71.2 mmHg (80.0-100.0); Sample Type Arterial; pH 7.395 (7.350-7.450)
[2017-04-01] MEDS: POTASSIUM CHL 10 Meq TABLET PO SCH (10:12)
[2017-04-01] MEDS: LISINOPRIL 20 MG TAB PO SCH (10:12)
[2017-04-01] MEDS: amLODIPine BESYLATE 5 MG TAB PO SCH (10:13)
[2017-04-01 11:29] VITALS: BP 125/73
[2017-04-01 13:00] VITALS: BP 124/62
== END 2017-04-01 14:40 | disposition home or self-care (01) | DRG 465 ==
LOC: ER 14:12 → EDBD 14:12 → TELE 14:13 → TELE-CENTR 22:50 → CENTRAL 03-30 14:30
PROVIDERS: ADMIT Nurse Practitioner Family; ATTEND Internal Medicine
DX: N20.0 Calculus of kidney (principal); I50.33 Acute on chronic diastolic (congestive) heart failure; E66.2 Morbid (severe) obesity with alveolar hypoventilation; K76.0 Fatty (change of) liver, not elsewhere classified; I11.0 Hypertensive heart disease with heart failure; E86.0 Dehydration; J44.9 Chronic obstructive pulmonary disease, unspecified; M71.20 Synovial cyst of popliteal space [Baker], unspecified knee; M19.90 Unspecified osteoarthritis, unspecified site; E11.9 Type 2 diabetes mellitus without complications; F17.210 Nicotine dependence, cigarettes, uncomplicated; F32.9 Major depressive disorder, single episode, unspecified; F20.9 Schizophrenia, unspecified; G89.29 Other chronic pain; E78.5 Hyperlipidemia, unspecified; K21.9 Gastro-esophageal reflux disease without esophagitis; Z86.73 Personal history of transient ischemic attack (TIA), and cerebral infarction without residual deficits; Z86.718 Personal history of other venous thrombosis and embolism; Z79.84 Long term (current) use of oral hypoglycemic drugs; Z87.442 Personal history of urinary calculi; Z79.899 Other long term (current) drug therapy; Z85.118 Personal history of other malignant neoplasm of bronchus and lung; Z82.3 Family history of stroke; Z98.51 Tubal ligation status
CPT/HCPCS: 36415; 36600; 71010; 71020; 73560; 74176; 80048; 80053; 81001; 82150; 82805; 82962; 83036; 83690; 83880; 84443; 84702; 85025; 85379; 93005; 93306; 93970; 96361; 96374; 96375; 96376; J1815; J1885; J2405

== ENCOUNTER 2017-05-20 14:57 | Emergency (ER) | payer MEDICAID ==
[~2017-05-20] VITALS: Ht 170.2 cm; Wt 149.7 kg
[~2017-05-20 14:57] MED LIST changes: -CLIN1CAP4 PO; -NIC21P TOP
[2017-05-20 15:06] VITALS: BP 153/80
[2017-05-20 15:34] LABS: Basophils # (auto) 0.1 uL; Eosinophils # (auto) 0.2 uL; Eosinophils % (auto) 1.3 % (0.0-7.0); Hematocrit 47.5 % (36.0-46.0); Hemoglobin 15.9 g/dL (12.2-16.2); Lymphocytes # (auto) 3.1 uL; Lymphocytes % (auto) 26.9 % (10.0-50.0); Mean Corpuscular Hemoglobin 32.4 pg (28.0-32.0); Mean Corpuscular Hgb Conc. 33.4 g/dL (32.0-36.0); Mean Platelet Volume 7.4 fL (7.4-10.4); Monocytes # (auto) 1.1 uL; Monocytes % (auto) 9.6 % (0.0-12.0); Neutrophils % (auto) 61.2 % (37.0-80.0); Nucleated Red Blood Cells % 0.1 %; Platelet Count (auto) 267 10^3/uL (140-450); Red Cell Distribution Width 15.4 % (11.6-16.0); White Blood Cell 11.5 10^3/uL (4.4-10.8)
[2017-05-20 16:11] LABS: Albumin 3.3 g/dL (3.4-5.0); Alkaline Phosphatase 90 U/L (45-117); Anion Gap 6 (5-15); Aspartate Aminotransferase 24 U/L (15-37); BUN/Creatinine Ratio 13.7; Bilirubin, Total 0.3 mg/dL (0.2-1.0); Blood Urea Nitrogen 10 mg/dL (7-18); Calcium 8.9 mg/dL (8.5-10.1); Carbon Dioxide 27 mmol/L (21-32); Chloride 105 mmol/L (98-107); GFR African American 112 mL/min; GFR Non-African American 93 mL/min; Glucose 109 mg/dL (74-106); Magnesium 2.1 mg/dL (1.6-2.6); Potassium 3.7 mmol/L (3.5-5.1); Sodium 138 mmol/L (136-145); Total Protein 7.3 g/dL (6.4-8.2)
[2017-05-20 16:56] LABS: Urine Bilirubin Negative (Negative); Urine Blood 2+ /uL (Negative); Urine Color Yellow (Yellow); Urine Glucose Normal (Normal); Urine Ketone Negative (Negative); Urine Mucus FEW (None Seen); Urine Nitrite Negative (Negative); Urine RBC 5 /hpf (0 - 4); Urine Squamous Epithelial Cell FEW /hpf (<5); Urine Urobilinogen Normal (Negative)
== END 2017-05-20 19:50 | disposition left against medical advice (07) ==
LOC: ER 14:59
DX: R06.02 Shortness of breath (principal); Z53.21 Procedure and treatment not carried out due to patient leaving prior to being seen by health care provider
CPT/HCPCS: 36415; 71020; 80053; 81001; 83735; 84484; 85025; 93005

== ENCOUNTER 2017-10-24 10:06 | Emergency (ER) | payer MEDICAID ==
[~2017-10-24] VITALS: Ht 170.2 cm; Wt 158.8 kg
[~2017-10-24 10:06] MED LIST changes: +ASPI81CH43 PO; -ATOR20TA PO; +ATOR20TA50 PO; +CAR3125T PO; +CLOP75TA28 PO; -FURO20TA PO; +INSREGI SC; -LISI-646 PO; +LISI10TA6 PO; +SPIR25TA88 PO
[2017-10-24 10:30] VITALS: BP 175/112
[2017-10-24] MEDS ORDERED: amLODIPine BESYLATE 5 MG TAB PO ONE (10:45)
[2017-10-24] MEDS ORDERED: methylPREDNISolone SOD SUCC 125 MG/2 ML VL IV ONE (12:00)
[2017-10-24] MEDS ORDERED: ALBUTEROL SULF 2.5 MG/0.5ML(0.5%) NEB SOLN NEB ONE (12:00)
[2017-10-24] MEDS ORDERED: IPRATROPIUM BROM 0.5 MG/2.5ML INH SOL NEB ONE (12:00)
[2017-10-24] MEDS ORDERED: FUROSEMIDE 40 MG/4 ML VIAL IV ONE (12:00)
[2017-10-24 12:29] LABS: Basophils # (auto) 0.1 uL; Basophils % (auto) 0.9 % (0.0-2.0); Eosinophils # (auto) 0.1 uL; Eosinophils % (auto) 1.2 % (0.0-7.0); Hematocrit 48.3 % (36.0-46.0); Hemoglobin 16.2 g/dL (12.2-16.2); Lymphocytes % (auto) 25.2 % (10.0-50.0); Mean Corpuscular Hemoglobin 32.9 pg (28.0-32.0); Mean Corpuscular Hgb Conc. 33.5 g/dL (32.0-36.0); Mean Corpuscular Volume 98.1 fL (80.0-100.0); Monocytes # (auto) 1.1 uL; Monocytes % (auto) 13.8 % (0.0-12.0); Neutrophils # (auto) 4.7 uL; Neutrophils % (auto) 58.9 % (37.0-80.0); Nucleated Red Blood Cells % 0.1 %; Platelet Count (auto) 227 10^3/uL (140-450); Red Blood Cells 4.92 10^6/uL (4.0-5.20); White Blood Cell 7.9 10^3/uL (4.4-10.8)
[2017-10-24 12:42] LABS: Alanine Aminotransferase 83 U/L (13-56); Albumin 3.5 g/dL (3.4-5.0); Anion Gap 7 (5-15); Aspartate Aminotransferase 65 U/L (15-37); Blood Urea Nitrogen 10 mg/dL (7-18); Calcium 8.8 mg/dL (8.5-10.1); Carbon Dioxide 29 mmol/L (21-32); Chloride 100 mmol/L (98-107); GFR African American 97 mL/min; GFR Non-African American 80 mL/min; Glucose 91 mg/dL (74-106); Potassium 4.1 mmol/L (3.5-5.1); Sodium 136 mmol/L (136-145)
[2017-10-24 13:02] LABS: Alkaline Phosphatase 103 U/L (45-117); Bilirubin, Total 0.3 mg/dL (0.2-1.0); Total Protein 7.7 g/dL (6.4-8.2)
== END 2017-10-24 16:16 | disposition left against medical advice (07) ==
LOC: ER 10:06
DX: I11.0 Hypertensive heart disease with heart failure (principal); R07.89 Other chest pain; I50.9 Heart failure, unspecified; E11.9 Type 2 diabetes mellitus without complications; J44.9 Chronic obstructive pulmonary disease, unspecified; F17.210 Nicotine dependence, cigarettes, uncomplicated; Z88.6 Allergy status to analgesic agent; Z79.899 Other long term (current) drug therapy; Z53.29 Procedure and treatment not carried out because of patient's decision for other reasons
CPT/HCPCS: 36415; 71046; 80053; 84484; 85025; 93005

== ENCOUNTER 2017-12-17 21:31 | Emergency (ER) | payer MEDICAID ==
[~2017-12-17] VITALS: Ht 180.3 cm; Wt 162.4 kg
[2017-12-17] MEDS: ENALAPRILAT 1.25 MG/ML-1ML VIAL IV ONE (22:00)
[2017-12-17] MEDS ORDERED: NITROGLYCERIN 0.4 MG SL TAB SL ONE (22:15)
[2017-12-17 22:23] LABS: Basophils # (auto) 0.1 uL; Eosinophils # (auto) 0.3 uL; Eosinophils % (auto) 2.3 % (0.0-7.0); Hematocrit 45.7 % (36.0-46.0); Hemoglobin 15.7 g/dL (12.2-16.2); Lymphocytes # (auto) 2.5 uL; Lymphocytes % (auto) 22.8 % (10.0-50.0); Mean Corpuscular Hemoglobin 33.9 pg (28.0-32.0); Mean Corpuscular Hgb Conc. 34.4 g/dL (32.0-36.0); Mean Corpuscular Volume 98.5 fL (80.0-100.0); Monocytes # (auto) 0.9 uL; Monocytes % (auto) 8.1 % (0.0-12.0); Neutrophils # (auto) 7.1 uL; Neutrophils % (auto) 65.8 % (37.0-80.0); Nucleated Red Blood Cells % 0.1 %; Platelet Count (auto) 279 10^3/uL (140-450); Red Blood Cells 4.64 10^6/uL (4.0-5.20); Red Cell Distribution Width 15.1 % (11.8-14.3); White Blood Cell 10.8 10^3/uL (4.4-10.8)
[2017-12-17 22:42] LABS: Alanine Aminotransferase 38 U/L (13-56); Albumin 3.1 g/dL (3.4-5.0); Alkaline Phosphatase 100 U/L (45-117); Anion Gap 6 (5-15); Aspartate Aminotransferase 32 U/L (15-37); BUN/Creatinine Ratio 8.4; Bilirubin, Total < 0.1 mg/dL (0.2-1.0); Blood Urea Nitrogen 8 mg/dL (7-18); Calcium 8.2 mg/dL (8.5-10.1); Carbon Dioxide 27 mmol/L (21-32); Chloride 107 mmol/L (98-107); GFR African American 83 mL/min; GFR Non-African American 69 mL/min; Glucose 153 mg/dL (74-106); INR 0.88 (0.9-1.15); Magnesium 2.3 mg/dL (1.6-2.6); Partial Thromboplastin Time 24.3 sec (22.64-33.71); Potassium 4.2 mmol/L (3.5-5.1); Prothrombin Time 9.6 sec (9.37-12.3); Sodium 140 mmol/L (136-145); Total Protein 7.3 g/dL (6.4-8.2)
[2017-12-18] MEDS: ENALAPRILAT 1.25 MG/ML-1ML VIAL IV ONE (00:45)
[2017-12-18 01:43] VITALS: BP 159/101
[2017-12-18 01:59] LABS: Amylase 46 U/L (25-115); Lipase 191 U/L (73-393)
[2017-12-18] MEDS ORDERED: LORazepam 2MG/ML-1ML VIAL IV ONE (02:15)
== END 2017-12-18 04:42 | disposition home or self-care (01) ==
LOC: ER 21:31
DX: F41.9 Anxiety disorder, unspecified (principal); E11.22 Type 2 diabetes mellitus with diabetic chronic kidney disease; I13.0 Hypertensive heart and chronic kidney disease with heart failure and stage 1 through stage 4 chronic kidney disease, or unspecified chronic kidney disease; N18.9 Chronic kidney disease, unspecified; J44.9 Chronic obstructive pulmonary disease, unspecified; F32.9 Major depressive disorder, single episode, unspecified; E11.9 Type 2 diabetes mellitus without complications; F17.210 Nicotine dependence, cigarettes, uncomplicated; E78.5 Hyperlipidemia, unspecified; E66.9 Obesity, unspecified; Z68.42 Body mass index [BMI] 45.0-49.9, adult; Z85.43 Personal history of malignant neoplasm of ovary; Z87.442 Personal history of urinary calculi; Z79.4 Long term (current) use of insulin
CPT/HCPCS: 36415; 71046; 74176; 80053; 82150; 83690; 83735; 83880; 84484; 84702; 85025; 85610; 85730; 93005; 93970; 94761; 96372; 96374; 96375; 99285; J2060

== ENCOUNTER 2018-01-26 02:03 | Emergency (ER) | payer MEDICAID ==
[~2018-01-26] VITALS: Ht 175.3 cm; Wt 136.1 kg
[2018-01-26 02:51] LABS: Hematocrit 46.5 % (36.0-46.0); Hemoglobin 15.5 g/dL (12.2-16.2); Mean Corpuscular Hemoglobin 32.5 pg (28.0-32.0); Mean Corpuscular Hgb Conc. 33.3 g/dL (32.0-36.0); Mean Corpuscular Volume 97.5 fL (80.0-100.0); Platelet Count (auto) 227 10^3/uL (140-450); Red Blood Cells 4.77 10^6/uL (4.0-5.20); Red Cell Distribution Width 15.6 % (11.8-14.3); White Blood Cell 11.4 10^3/uL (4.4-10.8)
[2018-01-26 03:00] LABS: Band Neutrophils % (manual) 0; Basophils % (manual) 0 (0.0-2.0); Blast Cells 0; Metamyelocytes % 0; Myelocytes % 0; Promyelocytes % 0; Reactive Lymphocytes 0
[2018-01-26 03:05] LABS: INR 0.93 (0.9-1.15); Partial Thromboplastin Time 26.9 sec (23.78-33.04)
[2018-01-26 03:07] LABS: Alanine Aminotransferase 47 U/L (13-56); Albumin 2.9 g/dL (3.4-5.0); Anion Gap 8 (5-15); Aspartate Aminotransferase 36 U/L (15-37); BUN/Creatinine Ratio 11.4; Blood Urea Nitrogen 8 mg/dL (7-18); Carbon Dioxide 26 mmol/L (21-32); Chloride 104 mmol/L (98-107); GFR African American 118 mL/min; GFR Non-African American 98 mL/min; Glucose 120 mg/dL (74-106); Magnesium 2.1 mg/dL (1.6-2.6); Potassium 4.1 mmol/L (3.5-5.1); Sodium 138 mmol/L (136-145)
[2018-01-26 03:10] LABS: Alkaline Phosphatase 80 U/L (45-117); Bilirubin, Total 0.3 mg/dL (0.2-1.0)
[2018-01-26 03:15] LABS: Beta HCG, Quantitative < 1 mlU/mL (1-3); Thyroid Stimulating Hormone 1.62 uIU/mL (0.358-3.74)
[2018-01-26 03:34] LABS: Eosinophils % (manual) 1 (0-7); Lymphocytes % (manual) 15 (10.0-50.0); Monocytes % (manual) 6 (0-12)
[2018-01-26] MEDS ORDERED: SODIUM CHLORIDE 0.9% 1,000 ML IV ONE (07:23)
[2018-01-26] MEDS ORDERED: METOCLOPRAMIDE HCL 5MG/ml INJ 2ml VIAL IV ONE (07:30)
[2018-01-26] MEDS ORDERED: KETOROLAC TROMETH 30 MG/ML 1ML VIAL IV ONE (07:30)
[2018-01-26 09:24] VITALS: BP 177/94
== END 2018-01-26 11:44 | disposition home or self-care (01) ==
LOC: ER 02:03 → EDBD 02:03 → ER 11:44
DX: R07.89 Other chest pain (principal); M06.9 Rheumatoid arthritis, unspecified; E66.01 Morbid (severe) obesity due to excess calories; N39.0 Urinary tract infection, site not specified; I13.0 Hypertensive heart and chronic kidney disease with heart failure and stage 1 through stage 4 chronic kidney disease, or unspecified chronic kidney disease; E11.22 Type 2 diabetes mellitus with diabetic chronic kidney disease; N18.9 Chronic kidney disease, unspecified; I50.9 Heart failure, unspecified; E78.5 Hyperlipidemia, unspecified; F17.210 Nicotine dependence, cigarettes, uncomplicated; Z68.41 Body mass index [BMI] 40.0-44.9, adult; Z79.899 Other long term (current) drug therapy; Z88.6 Allergy status to analgesic agent
CPT/HCPCS: 36415; 51702; 71045; 80053; 83735; 83880; 84443; 84484; 84702; 85007; 85027; 85610; 85730; 93005; 94761; 96361; 96374; 96375; 99285; J1885; J2765

== ENCOUNTER 2018-11-18 20:08 | Emergency (ER) | payer OTHER ==
[~2018-11-18] VITALS: Ht 170.2 cm; Wt 158.8 kg
[~2018-11-18 20:08] MED LIST changes: +OXY10CRT PO
[2018-11-18] MEDS ORDERED: HYDROmorphone HCL 2 MG/ML VL ONE (21:03)
[2018-11-18] MEDS ORDERED: ONDANSETRON HCL 4 MG/2 ML VIAL ONE (21:04)
[2018-11-18] MEDS ORDERED: ONDANSETRON HCL 4 MG/2 ML VIAL IV ONE (22:00)
[2018-11-18] MEDS ORDERED: HYDROmorphone HCL 2 MG/ML VL IV ONE (22:00)
[2018-11-18 22:42] LABS: Basophils # (auto) 0.2 uL; Basophils % (auto) 1.7 % (0.0-2.0); Eosinophils # (auto) 0.2 uL; Eosinophils % (auto) 2.1 % (0.0-7.0); Hematocrit 45.3 % (36.0-46.0); Hemoglobin 15.3 g/dL (12.2-16.2); Lymphocytes # (auto) 2.6 uL; Lymphocytes % (auto) 23.4 % (10.0-50.0); Mean Corpuscular Hemoglobin 33.5 pg (28.0-32.0); Mean Corpuscular Hgb Conc. 33.7 g/dL (32.0-36.0); Mean Corpuscular Volume 99.3 fL (80.0-100.0); Monocytes # (auto) 0.8 uL; Monocytes % (auto) 7.6 % (0.0-12.0); Neutrophils # (auto) 7.2 uL; Neutrophils % (auto) 65.2 % (37.0-80.0); Nucleated Red Blood Cells % 0.1 %; Platelet Count (auto) 244 10^3/uL (140-450); Red Blood Cells 4.56 10^6/uL (4.0-5.20); Red Cell Distribution Width 14.2 % (11.8-14.3)
[2018-11-18 23:04] LABS: Alanine Aminotransferase 60 U/L (13-56); Albumin 2.9 g/dL (3.4-5.0); Anion Gap 7 (5-15); Blood Urea Nitrogen 11 mg/dL (7-18); Calcium 8.3 mg/dL (8.5-10.1); Carbon Dioxide 27 mmol/L (21-32); Chloride 105 mmol/L (98-107); Glucose 138 mg/dL (74-106); INR 0.93 (0.9-1.15); Magnesium 1.9 mg/dL (1.6-2.6); Partial Thromboplastin Time 26.5 sec (23.78-33.04); Potassium 3.7 mmol/L (3.5-5.1); Sodium 139 mmol/L (136-145)
[2018-11-18 23:09] LABS: Alkaline Phosphatase 96 U/L (45-117); Aspartate Aminotransferase 45 U/L (15-37); BUN/Creatinine Ratio 15.1; Bilirubin, Total 0.2 mg/dL (0.2-1.0); GFR African American 112 mL/min; GFR Non-African American 92 mL/min; Total Protein 6.7 g/dL (6.4-8.2)
[2018-11-19] MEDS ORDERED: FUROSEMIDE 20 MG/2 ML VIAL ONE (00:13)
[2018-11-19] MEDS ORDERED: FUROSEMIDE 20 MG/2 ML VIAL IV ONE (00:15)
[2018-11-19 01:58] VITALS: BP 123/78
[2018-11-19] MEDS ORDERED: ONDANSETRON HCL 4 MG/2 ML VIAL ONE (02:41)
[2018-11-19] MEDS ORDERED: HYDROmorphone HCL 2 MG/ML VL ONE (02:41)
[2018-11-19] MEDS ORDERED: ONDANSETRON HCL 4 MG/2 ML VIAL IV ONE (02:45)
[2018-11-19] MEDS ORDERED: HYDROmorphone HCL 2 MG/ML VL IV ONE ×2 (02:45)
== END 2018-11-19 03:15 | disposition home or self-care (01) ==
LOC: EDBD 20:08 → ER 20:08
DX: R07.89 Other chest pain (principal); G89.4 Chronic pain syndrome; I13.0 Hypertensive heart and chronic kidney disease with heart failure and stage 1 through stage 4 chronic kidney disease, or unspecified chronic kidney disease; E11.22 Type 2 diabetes mellitus with diabetic chronic kidney disease; N18.9 Chronic kidney disease, unspecified; I50.9 Heart failure, unspecified; E78.5 Hyperlipidemia, unspecified; M19.90 Unspecified osteoarthritis, unspecified site; F17.210 Nicotine dependence, cigarettes, uncomplicated; Z98.51 Tubal ligation status; Z87.442 Personal history of urinary calculi; Z79.4 Long term (current) use of insulin; Z79.899 Other long term (current) drug therapy
CPT/HCPCS: 36415; 71045; 80053; 80320; 83735; 83880; 84443; 84484; 85025; 85610; 85730; 93005; 96374; 96375; 96376; 99284; J1170; J2405

== ENCOUNTER 2018-11-19 17:13 | Emergency (ER) | payer OTHER ==
[~2018-11-19] VITALS: Ht 170.2 cm; Wt 158.3 kg
[2018-11-19] MEDS ORDERED: cloNIDine HCL 0.1 MG TAB PO ONE (20:00)
[2018-11-19] MEDS ORDERED: ONDANSETRON HCL 4 MG/2 ML VIAL IV ONE (21:30)
[2018-11-19] MEDS ORDERED: HYDROmorphone HCL 2 MG/ML VL IV ONE (21:30)
[2018-11-19 22:33] LABS: Urine Bacteria NONE SEEN /hpf (None Seen); Urine Blood 2+ /uL (Negative); Urine Mucus FEW (None Seen); Urine Specific Gravity 1.024 (1.001-1.035); Urine WBC 4 /hpf (0 - 5)
[2018-11-19 23:00] VITALS: BP 139/72
== END 2018-11-19 23:21 | disposition home or self-care (01) ==
LOC: ER 17:13
DX: T83.84XA Pain due to genitourinary prosthetic devices, implants and grafts, initial encounter (principal); G89.29 Other chronic pain; M54.9 Dorsalgia, unspecified; E11.22 Type 2 diabetes mellitus with diabetic chronic kidney disease; I13.0 Hypertensive heart and chronic kidney disease with heart failure and stage 1 through stage 4 chronic kidney disease, or unspecified chronic kidney disease; N18.9 Chronic kidney disease, unspecified; I50.9 Heart failure, unspecified; F17.210 Nicotine dependence, cigarettes, uncomplicated; J44.9 Chronic obstructive pulmonary disease, unspecified; E78.5 Hyperlipidemia, unspecified; Z90.710 Acquired absence of both cervix and uterus; Z79.4 Long term (current) use of insulin; Z98.51 Tubal ligation status
CPT/HCPCS: 74176; 81001; 96374; 96375; 99284; J1170; J1940; J2405

== ENCOUNTER 2019-05-04 15:57 | Emergency (ER) | payer OTHER ==
[~2019-05-04] VITALS: Ht 170.2 cm; Wt 136.1 kg
[2019-05-04] MEDS ORDERED: SODIUM CHLORIDE 0.9% 1,000 ML IV ONE ×2 (16:05)
[2019-05-04 16:11] VITALS: BP 166/113
[2019-05-04] MEDS ORDERED: ASPirin 81 mg TAB PO ONE (16:45)
[2019-05-04 16:46] LABS: Basophils # (auto) 0.1 uL; Basophils % (auto) 0.7 % (0.0-2.0); Eosinophils # (auto) 0.2 uL; Lymphocytes # (auto) 1.9 uL; Monocytes # (auto) 0.8 uL
[2019-05-04 16:49] LABS: Eosinophils % (auto) 2.3 % (0.0-7.0); Hematocrit 46.3 % (36.0-46.0); Hemoglobin 15.8 g/dL (12.2-16.2); Lymphocytes % (auto) 24.3 % (10.0-50.0); Mean Corpuscular Hemoglobin 35.8 pg (28.0-32.0); Mean Corpuscular Hgb Conc. 34.2 g/dL (32.0-36.0); Mean Corpuscular Volume 104.9 fL (80.0-100.0); Monocytes % (auto) 9.4 % (0.0-12.0); Neutrophils # (auto) 5.1 uL; Neutrophils % (auto) 63.3 % (37.0-80.0); Nucleated Red Blood Cells % 0.1 %; Platelet Count (auto) 207 10^3/uL (140-450); Red Blood Cells 4.41 10^6/uL (4.0-5.20); Red Cell Distribution Width 15.8 % (11.8-14.3)
[2019-05-04 17:02] LABS: Urine Bacteria NONE SEEN /hpf (None Seen); Urine Blood TRACE /uL (Negative); Urine Specific Gravity 1.017 (1.001-1.035); Urine WBC 2 /hpf (0 - 5)
[2019-05-04 17:06] LABS: Alanine Aminotransferase 65 U/L (13-56); Albumin 2.9 g/dL (3.4-5.0); Anion Gap 7 (5-15); Blood Urea Nitrogen 9 mg/dL (7-18); Calcium 8.5 mg/dL (8.5-10.1); Carbon Dioxide 24 mmol/L (21-32); Chloride 106 mmol/L (98-107); Glucose 149 mg/dL (74-106); Potassium 3.9 mmol/L (3.5-5.1); Sodium 137 mmol/L (136-145)
[2019-05-04 17:11] LABS: Alkaline Phosphatase 91 U/L (45-117); Aspartate Aminotransferase 69 U/L (15-37); Bilirubin, Total 0.3 mg/dL (0.2-1.0); GFR African American 97 mL/min; GFR Non-African American 80 mL/min; INR 0.94 (0.9-1.15); Partial Thromboplastin Time 24.4 sec (23.64-32.05)
== END 2019-05-04 22:29 | disposition home or self-care (01) ==
LOC: EDBD 15:57 → ER 15:57 → EDUNIT# 15:57 → ER 22:29
DX: I24.9 Acute ischemic heart disease, unspecified (principal); I10 Essential (primary) hypertension; E11.9 Type 2 diabetes mellitus without complications; M19.90 Unspecified osteoarthritis, unspecified site; J44.9 Chronic obstructive pulmonary disease, unspecified; E78.5 Hyperlipidemia, unspecified; I13.0 Hypertensive heart and chronic kidney disease with heart failure and stage 1 through stage 4 chronic kidney disease, or unspecified chronic kidney disease; E11.22 Type 2 diabetes mellitus with diabetic chronic kidney disease; N18.9 Chronic kidney disease, unspecified; I50.9 Heart failure, unspecified; F17.210 Nicotine dependence, cigarettes, uncomplicated; Z79.01 Long term (current) use of anticoagulants; Z79.4 Long term (current) use of insulin; Z79.82 Long term (current) use of aspirin; Z79.899 Other long term (current) drug therapy; Z86.73 Personal history of transient ischemic attack (TIA), and cerebral infarction without residual deficits; Z87.442 Personal history of urinary calculi; Z90.710 Acquired absence of both cervix and uterus; Z98.51 Tubal ligation status
CPT/HCPCS: 36415; 71045; 80053; 81001; 83880; 84484; 85025; 85610; 85730; 93005

== ENCOUNTER 2020-07-27 12:07 | Emergency (ER) | payer OTHER ==
[~2020-07-27] VITALS: Ht 170.2 cm; Wt 137.9 kg
[~2020-07-27 12:07] MED LIST changes: +LISI-648 PO; -LISI10TA6 PO; +METH2.5T PO; -METH2.5T3 PO
[2020-07-27] MEDS ORDERED: ASPirin 81 mg TAB PO ONE (16:15)
[2020-07-27] MEDS ORDERED: MORPHINE SULF INJ 2 MG/ML SYRINGE 1ML IV ONE ×2 (17:15→18:45)
[2020-07-27] MEDS ORDERED: ONDANSETRON HCL 4 MG/2 ML VIAL IV ONE (17:15)
[2020-07-27] MEDS ORDERED: NITROGLYCERIN 0.4 MG SL TAB SL ONE (17:15)
[2020-07-27 17:57] LABS: Eosinophils # (auto) 0.3 10 ^3/uL (0-0.8); Nucleated Red Blood Cells % 0.1 %
[2020-07-27 17:59] LABS: Basophils # (auto) 0 10 ^3/uL (0-0.2); Basophils % (auto) 0.2 % (0.0-2.0); Eosinophils % (auto) 2.2 % (0.0-7.0); Hematocrit 42.8 % (36.0-46.0); Hemoglobin 14.9 g/dL (12.2-16.2); Mean Corpuscular Hemoglobin 35.8 pg (28.0-32.0); Mean Corpuscular Hgb Conc. 34.8 g/dL (32.0-36.0); Mean Corpuscular Volume 102.8 fL (80.0-100.0); Monocytes # (auto) 1.1 10 ^3/uL (0-1.3); Monocytes % (auto) 9.2 % (0.0-12.0); Neutrophils # (auto) 7.2 10 ^3/uL (1.6-8.6); Neutrophils % (auto) 62.4 % (37.0-80.0); Platelet Count (auto) 233 10^3/uL (140-450); Red Blood Cells 4.16 10^6/uL (4.0-5.20); Red Cell Distribution Width 15.3 % (11.8-14.3); White Blood Cell 11.5 10^3/uL (4.4-10.8)
[2020-07-27 18:01] VITALS: BP 158/85
[2020-07-27 18:18] LABS: INR 0.97 (0.9-1.15); Partial Thromboplastin Time 24.5 sec (23.0-31.2)
[2020-07-27 18:21] LABS: Alanine Aminotransferase 46 U/L (13-56); Anion Gap 5 (5-15); Aspartate Aminotransferase 36 U/L (15-37); BUN/Creatinine Ratio 11.1; Bilirubin, Total 0.3 mg/dL (0.2-1.0); Blood Urea Nitrogen 8 mg/dL (7-18); Calcium 8.5 mg/dL (8.5-10.1); Carbon Dioxide 27 mmol/L (21-32); Chloride 104 mmol/L (98-107); GFR African American 113 mL/min; GFR Non-African American 93 mL/min; Glucose 92 mg/dL (74-106); Potassium 4.1 mmol/L (3.5-5.1); Sodium 136 mmol/L (136-145); Total Protein 6.9 g/dL (6.4-8.2)
[2020-07-27 18:23] LABS: Alkaline Phosphatase 86 U/L (45-117)
== END 2020-07-27 19:35 | disposition home or self-care (01) ==
LOC: ER 12:07
DX: M71.22 Synovial cyst of popliteal space [Baker], left knee (principal); M71.21 Synovial cyst of popliteal space [Baker], right knee; E11.22 Type 2 diabetes mellitus with diabetic chronic kidney disease; I13.0 Hypertensive heart and chronic kidney disease with heart failure and stage 1 through stage 4 chronic kidney disease, or unspecified chronic kidney disease; N18.9 Chronic kidney disease, unspecified; I50.9 Heart failure, unspecified; E78.5 Hyperlipidemia, unspecified; Z98.51 Tubal ligation status; Z90.710 Acquired absence of both cervix and uterus; Z87.442 Personal history of urinary calculi; Z20.828 Contact with and (suspected) exposure to other viral communicable diseases
CPT/HCPCS: 36415; 71045; 80053; 83880; 84443; 84484; 85025; 85379; 85610; 85730; 87426; 93005; 93970; 96374; 96375; 96376; 99285; C9803; J2270; J2405; U0003

== ENCOUNTER 2020-12-22 11:49 | Emergency (ER) | payer OTHER ==
[~2020-12-22] VITALS: Ht 170.2 cm; Wt 136.1 kg
[~2020-12-22 11:49] MED LIST changes: +SPIR25TA PO; -SPIR25TA88 PO
[2020-12-22] MEDS ORDERED: FUROSEMIDE 40 MG/4 ML VIAL IV ONE (12:15)
[2020-12-22 12:59] LABS: Basophils # (auto) 0.1 10 ^3/uL (0-0.2); Basophils % (auto) 0.5 % (0.0-2.0); Eosinophils # (auto) 0.3 10 ^3/uL (0-0.8); Hematocrit 44.2 % (36.0-46.0); Hemoglobin 15.4 g/dL (12.2-16.2); Lymphocytes # (auto) 2.3 10 ^3/uL (0.4-5.4); Lymphocytes % (auto) 23.1 % (10.0-50.0); Mean Corpuscular Hemoglobin 35.8 pg (28.0-32.0); Mean Corpuscular Hgb Conc. 34.9 g/dL (32.0-36.0); Mean Corpuscular Volume 102.7 fL (80.0-100.0); Monocytes # (auto) 1.1 10 ^3/uL (0-1.3); Monocytes % (auto) 10.9 % (0.0-12.0); Neutrophils # (auto) 6.3 10 ^3/uL (1.6-8.6); Neutrophils % (auto) 62.5 % (37.0-80.0); Nucleated Red Blood Cells % 0.1 %; Platelet Count (auto) 228 10^3/uL (140-450); Red Cell Distribution Width 14.1 % (11.8-14.3)
[2020-12-22 13:14] LABS: INR 1.12 (0.9-1.15); Partial Thromboplastin Time 27.3 sec (23.0-31.2)
[2020-12-22 13:28] LABS: Anion Gap 7 (5-15); Blood Urea Nitrogen 6 mg/dL (7-18); Calcium 8.7 mg/dL (8.5-10.1); Carbon Dioxide 25 mmol/L (21-32); Chloride 105 mmol/L (98-107); Glucose 119 mg/dL (74-106); Potassium 4.3 mmol/L (3.5-5.1); Sodium 137 mmol/L (136-145)
[2020-12-22 13:34] LABS: Alanine Aminotransferase 44 U/L (13-56); Alkaline Phosphatase 78 U/L (45-117); Aspartate Aminotransferase 42 U/L (15-37); BUN/Creatinine Ratio 10.5; Bilirubin, Total 0.3 mg/dL (0.2-1.0); GFR African American 148 mL/min; GFR Non-African American 122 mL/min
[2020-12-22] MEDS ORDERED: IOHEXOL 350 MG/ML 100ML IJ ONE (13:59)
[2020-12-22 14:26] LABS: Urine Bacteria FEW /hpf (None Seen); Urine Blood Negative /uL (Negative); Urine Mucus FEW (None Seen); Urine Specific Gravity 1.011 (1.001-1.035); Urine WBC 1 /hpf (0 - 5)
[2020-12-22] MEDS ORDERED: ONDANSETRON HCL 4 MG/2 ML VIAL IV ONE (14:30)
[2020-12-22] MEDS ORDERED: MORPHINE SULF INJ 2 MG/ML SYRINGE 1ML IV ONE (14:30)
[2020-12-22 15:09] VITALS: BP 128/69
== END 2020-12-22 16:25 | disposition home or self-care (01) ==
LOC: EDBD 11:49 → ER 11:49 → EDUNIT# 11:49 → ER 16:18
DX: E11.22 Type 2 diabetes mellitus with diabetic chronic kidney disease (principal); I13.0 Hypertensive heart and chronic kidney disease with heart failure and stage 1 through stage 4 chronic kidney disease, or unspecified chronic kidney disease; N18.9 Chronic kidney disease, unspecified; R07.89 Other chest pain; I50.9 Heart failure, unspecified; F17.210 Nicotine dependence, cigarettes, uncomplicated; Z86.73 Personal history of transient ischemic attack (TIA), and cerebral infarction without residual deficits; Z87.442 Personal history of urinary calculi; Z90.710 Acquired absence of both cervix and uterus
CPT/HCPCS: 36415; 71045; 71275; 80053; 81001; 83880; 84484; 85025; 85379; 85610; 85730; 93005; 93971; 96374; 96375; 99285; J1940; J2270; J2405; Q9967

== ENCOUNTER 2021-05-10 15:34 | Emergency (ER) | payer OTHER ==
[~2021-05-10] VITALS: Ht 170.2 cm; Wt 136.1 kg
[~2021-05-10 15:34] MED LIST changes: -LISI-648 PO; +LISI-716 PO
[2021-05-10 16:24] LABS: Basophils # (auto) 0.1 10 ^3/uL (0-0.2); Basophils % (auto) 0.8 % (0.0-2.0); Eosinophils # (auto) 0.2 10 ^3/uL (0-0.8); Eosinophils % (auto) 3.4 % (0.0-7.0); Hemoglobin 14.2 g/dL (12.2-16.2); Lymphocytes % (auto) 28.9 % (10.0-50.0); Mean Corpuscular Hemoglobin 36.7 pg (28.0-32.0); Mean Corpuscular Hgb Conc. 35.5 g/dL (32.0-36.0); Mean Corpuscular Volume 103.4 fL (80.0-100.0); Monocytes % (auto) 13.4 % (0.0-12.0); Neutrophils # (auto) 3.8 10 ^3/uL (1.6-8.6); Neutrophils % (auto) 53.5 % (37.0-80.0); Nucleated Red Blood Cells % 0.1 %; Red Blood Cells 3.87 10^6/uL (4.0-5.20); Red Cell Distribution Width 17.6 % (11.8-14.3); White Blood Cell 7.1 10^3/uL (4.4-10.8)
[2021-05-10 16:46] LABS: Albumin 3.2 g/dL (3.4-5.0); BUN/Creatinine Ratio 11.6; Calcium 9.2 mg/dL (8.5-10.1); Magnesium 1.8 mg/dL (1.6-2.6); Potassium 4.2 mmol/L (3.5-5.1)
[2021-05-10 16:49] LABS: Bilirubin, Total 0.3 mg/dL (0.2-1.0); Total Protein 7.3 g/dL (6.4-8.2)
[2021-05-10] MEDS ORDERED: MORPHINE SULFATE INJECTION 2 MG/ML SYRG IV ONE (18:15)
[2021-05-10] MEDS ORDERED: ONDANSETRON HCL 4 MG/2 ML VIAL IV ONE (18:15)
[2021-05-10] MEDS ORDERED: ONDANSETRON ODT 4 MG TAB PO ONE (18:30)
[2021-05-10 21:13] VITALS: BP 154/98
[2021-05-10] MEDS ORDERED: diphenhdrAMINE HCL 50 MG/1 ML VL IV ONE (21:30)
[2021-05-10 23:50] LABS: Urine Bacteria NONE SEEN /hpf (None Seen); Urine Blood Negative /uL (Negative); Urine Mucus FEW (None Seen); Urine Specific Gravity 1.024 (1.001-1.035); Urine WBC 15 /hpf (0 - 5)
== END 2021-05-11 00:28 | disposition home or self-care (01) ==
LOC: ER 15:34
DX: R10.13 Epigastric pain (principal); I13.0 Hypertensive heart and chronic kidney disease with heart failure and stage 1 through stage 4 chronic kidney disease, or unspecified chronic kidney disease; E11.22 Type 2 diabetes mellitus with diabetic chronic kidney disease; N18.9 Chronic kidney disease, unspecified; I50.9 Heart failure, unspecified; Z87.891 Personal history of nicotine dependence; Z86.73 Personal history of transient ischemic attack (TIA), and cerebral infarction without residual deficits; Z90.710 Acquired absence of both cervix and uterus; Z79.82 Long term (current) use of aspirin; Z79.4 Long term (current) use of insulin; Z79.01 Long term (current) use of anticoagulants; Z79.899 Other long term (current) drug therapy
CPT/HCPCS: 36415; 71045; 74176; 80053; 81001; 83735; 85025; 96374; 96375; 99285; J1200; J2270; J2405; Q0162

== ENCOUNTER 2021-12-04 18:45 | Emergency (ER) | payer OTHER ==
[~2021-12-04] VITALS: Ht 170.2 cm; Wt 145.1 kg
[2021-12-04 19:58] LABS: Basophils # (auto) 0.1 10 ^3/uL (0-0.2); Eosinophils # (auto) 0.2 10 ^3/uL (0-0.8)
[2021-12-04 19:59] LABS: Basophils % (auto) 0.6 % (0.0-2.0); Eosinophils % (auto) 2.2 % (0.0-7.0); Hematocrit 43.4 % (36.0-46.0); Hemoglobin 15.5 g/dL (12.2-16.2); Mean Corpuscular Hemoglobin 35.6 pg (28.0-32.0); Mean Corpuscular Hgb Conc. 35.7 g/dL (32.0-36.0); Mean Corpuscular Volume 99.8 fL (80.0-100.0); Monocytes # (auto) 0.9 10 ^3/uL (0-1.3); Monocytes % (auto) 9.5 % (0.0-12.0); Neutrophils # (auto) 5.5 10 ^3/uL (1.6-8.6); Neutrophils % (auto) 56.7 % (37.0-80.0); Nucleated Red Blood Cells % 0.1 %; Red Blood Cells 4.35 10^6/uL (4.0-5.20); Red Cell Distribution Width 15.3 % (11.8-14.3); White Blood Cell 9.8 10^3/uL (4.4-10.8)
[2021-12-04 20:04] LABS: Urine Bacteria NONE SEEN /hpf (None Seen); Urine Blood Negative /uL (Negative); Urine Mucus FEW (None Seen); Urine Specific Gravity 1.032 (1.001-1.035); Urine WBC 5 /hpf (0 - 5)
[2021-12-04 20:12] LABS: Albumin 3.4 g/dL (3.4-5.0); Calcium 8.9 mg/dL (8.5-10.1)
[2021-12-04 20:18] LABS: BUN/Creatinine Ratio 9.9; Bilirubin, Total 0.3 mg/dL (0.2-1.0); Total Protein 7.4 g/dL (6.4-8.2)
[2021-12-05] MEDS ORDERED: MORPHINE SULFATE 4 MG/ML SYR/VIAL IV ONE (00:15)
[2021-12-05] MEDS ORDERED: ONDANSETRON HCL 4 MG/2 ML VIAL IV ONE (00:15)
[2021-12-05 02:17] VITALS: BP 164/101
[2021-12-05] MEDS ORDERED: AZIT250T8 PO (02:22)
[2021-12-05] MEDS ORDERED: AZIT250T9 PO (02:30)
[2021-12-05] MEDS ORDERED: AMOX250C3 PO (02:35)
== END 2021-12-05 02:41 | disposition home or self-care (01) ==
LOC: ER 18:47
DX: I13.0 Hypertensive heart and chronic kidney disease with heart failure and stage 1 through stage 4 chronic kidney disease, or unspecified chronic kidney disease (principal); E11.22 Type 2 diabetes mellitus with diabetic chronic kidney disease; N18.9 Chronic kidney disease, unspecified; I50.9 Heart failure, unspecified; F17.210 Nicotine dependence, cigarettes, uncomplicated; Z86.73 Personal history of transient ischemic attack (TIA), and cerebral infarction without residual deficits; Z90.710 Acquired absence of both cervix and uterus; Z79.899 Other long term (current) drug therapy; Z79.82 Long term (current) use of aspirin; Z79.01 Long term (current) use of anticoagulants
CPT/HCPCS: 36415; 71045; 80053; 81001; 83690; 83880; 84484; 85025; 85379; 93005; 96374; 96375; 99285; J2270; J2405

== ENCOUNTER 2022-01-22 09:20 | Emergency (ER) | payer OTHER ==
[~2022-01-22] VITALS: Ht 170.2 cm; Wt 145.1 kg
[~2022-01-22 09:20] MED LIST changes: +AMOX250C3 PO; +AZIT250T8 PO; +AZIT250T9 PO
[2022-01-22 09:36] VITALS: BP 167/85
== END 2022-01-22 10:29 | disposition left against medical advice (07) ==
LOC: ER 09:20
DX: R07.9 Chest pain, unspecified (principal); R06.02 Shortness of breath; F17.210 Nicotine dependence, cigarettes, uncomplicated; E11.22 Type 2 diabetes mellitus with diabetic chronic kidney disease; I13.0 Hypertensive heart and chronic kidney disease with heart failure and stage 1 through stage 4 chronic kidney disease, or unspecified chronic kidney disease; N18.9 Chronic kidney disease, unspecified; I50.9 Heart failure, unspecified; Z86.73 Personal history of transient ischemic attack (TIA), and cerebral infarction without residual deficits; Z87.442 Personal history of urinary calculi; Z90.710 Acquired absence of both cervix and uterus; Z98.51 Tubal ligation status
CPT/HCPCS: 93005

== ENCOUNTER 2022-09-03 06:34 | Inpatient (IN) | payer MEDICAID, OTHER ==
[~2022-09-03] VITALS: Ht 170.2 cm; Wt 150.0 kg
[2022-09-03 07:30] LABS: Basophils # (auto) 0 10 ^3/uL (0-0.2); Eosinophils # (auto) 0 10 ^3/uL (0-0.8); Eosinophils % (auto) 0.3 % (0.0-7.0); Lymphocytes # (auto) 0.4 10 ^3/uL (0.4-5.4); Neutrophils # (auto) 2.5 10 ^3/uL (1.6-8.6); White Blood Cell 3.2 10^3/uL (4.4-10.8)
[2022-09-03 07:33] LABS: Hematocrit 39.8 % (36.0-46.0); Hemoglobin 13.9 g/dL (12.2-16.2); Lymphocytes % (auto) 13.2 % (10.0-50.0); Mean Corpuscular Hemoglobin 36.9 pg (28.0-32.0); Mean Corpuscular Hgb Conc. 35.1 g/dL (32.0-36.0); Mean Corpuscular Volume 105.3 fL (80.0-100.0); Monocytes # (auto) 0.3 10 ^3/uL (0-1.3); Monocytes % (auto) 7.9 % (0.0-12.0); Neutrophils % (auto) 78.6 % (37.0-80.0); Nucleated Red Blood Cells % 0.2 %; Red Blood Cells 3.78 10^6/uL (4.0-5.20); Red Cell Distribution Width 17.9 % (11.8-14.3)
[2022-09-03 07:58] LABS: Albumin 3.1 g/dL (3.4-5.0); BUN/Creatinine Ratio 14.6; Calcium 8.1 mg/dL (8.5-10.1); Potassium 4.8 mmol/L (3.5-5.1)
[2022-09-03] MEDS ORDERED: IPRATROPIUM BROM 0.5 MG/2.5ML INH SOL NEB ONE (08:00)
[2022-09-03] MEDS ORDERED: methylPREDNISolone SOD SUCC 125 MG/2 ML VL IV ONE (08:00)
[2022-09-03] MEDS ORDERED: ALBUTEROL SULF 2.5 MG/0.5ML(0.5%) NEB SOLN NEB ONE (08:00)
[2022-09-03 08:01] LABS: Bilirubin, Total 0.7 mg/dL (0.2-1.0); Total Protein 6.2 g/dL (6.4-8.2)
[2022-09-03] MEDS ORDERED: cefTRIAXone 1GM/50ML D5W 50 ML IV ONE (08:15)
[2022-09-03] MEDS ORDERED: AZITHROMYCIN 500MG/ 250ML 250 ML IV ONE (08:15)
[2022-09-03] MEDS ORDERED: ENOXAPARIN SOD 150 MG/1 ML SYRINGE SC ONE (09:00)
[2022-09-03] MEDS ORDERED: ACETAMINOPHEN 325 MG TAB PO PRN (09:45)
[2022-09-03] MEDS ORDERED: DEXTROSE (50%) 50ML SYRG IV PRN (09:45)
[2022-09-03] MEDS ORDERED: ALBUTEROL SULF 2.5 MG/0.5ML(0.5%) NEB SOLN NEB PRN (09:45)
[2022-09-03] MEDS ORDERED: HYDROcodone-ACET 5/325MG TAB PO PRN (09:45)
[2022-09-03] MEDS ORDERED: FUROSEMIDE 20 MG/2 ML VIAL IV ONE (10:00)
[2022-09-03] MEDS ORDERED: METHOTREXATE 2.5 MG TAB PO SCH (10:00)
[2022-09-03] MEDS: OMEPRAZOLE 40 MG PO SCH (10:00)
[2022-09-03] MEDS: AZITHROMYCIN 500MG/ 250ML 250 ML IV SCH (10:00)
[2022-09-03] MEDS: ENOXAPARIN SOD 40 MG/0.4 ML SYRINGE SC SCH (10:00)
[2022-09-03] MEDS: methylPREDNISolone SOD SUCC 125 MG/2 ML VL IV SCH ×2 (10:00→22:14)
[2022-09-03] MEDS: LISINOPRIL 10 MG TAB PO SCH ×2 (10:00→21:59)
[2022-09-03] MEDS: ASCORBIC ACID 500 MG TAB PO SCH ×2 (10:24→22:16)
[2022-09-03] MEDS: ZINC SULFATE 220mg CAP or TAB PO SCH (10:24)
[2022-09-03] MEDS: MULTIPLE VITAMIN TAB PO SCH (10:24)
[2022-09-03] MEDS: SODIUM CHLORIDE 0.9% 1,000 ML IV SCH (10:33)
[2022-09-03] MEDS: IPRATROPIUM BROM 0.5 MG/2.5ML INH SOL NEB SCH ×4 (10:38→22:53)
[2022-09-03] MEDS: ALBUTEROL SULF 2.5 MG/0.5ML(0.5%) NEB SOLN NEB SCH ×4 (10:38→22:53)
[2022-09-03] MEDS: CARVEDILOL 3.125 MG TAB PO SCH ×2 (11:14→22:15)
[2022-09-03] MEDS: amLODIPine BESYLATE 5 MG TAB PO SCH (11:14)
[2022-09-03] MEDS: ASPirin 81 mg TAB PO SCH (11:14)
[2022-09-03] MEDS: SPIRONOLACTONE 25 MG TAB PO SCH (11:51)
[2022-09-03] MEDS: ACCU-CHEK COMFORT CURVE STRIP VI SCH ×3 (11:52→22:09)
[2022-09-03] MEDS: InsuLIN REG 1unit/0.01ml Soln (100units/ml) SC SCH ×3 (11:53→22:17)
[2022-09-03 12:53] LABS: Urine Bacteria FEW /hpf (None Seen); Urine Blood Negative /uL (Negative); Urine WBC 2 /hpf (0 - 5)
[2022-09-03 15:28] VITALS: BP 107/76
[2022-09-03] MEDS: ATORVASTATIN 20 MG TAB PO SCH (22:14)
[2022-09-03] MEDS: POTASSIUM CHL 20 Meq TABLET PO SCH (22:16)
[2022-09-03] MEDS: OXYCODONE W/ ACETAMINOPHEN 5/325MG TABLET PO PRN (23:52)
[2022-09-04] MEDS: SODIUM CHLORIDE 0.9% 1,000 ML IV SCH (00:44)
[2022-09-04 00:52] VITALS: BP 109/74
[2022-09-04] MEDS ORDERED: ATOR80TA PO (01:56)
[2022-09-04 05:00] VITALS: BP 135/86
[2022-09-04] MEDS: ALBUTEROL SULF 2.5 MG/0.5ML(0.5%) NEB SOLN NEB SCH ×5 (05:55→22:11)
[2022-09-04] MEDS: IPRATROPIUM BROM 0.5 MG/2.5ML INH SOL NEB SCH ×5 (05:55→22:12)
[2022-09-04] MEDS: ACCU-CHEK COMFORT CURVE STRIP VI SCH ×7 (06:00→21:25)
[2022-09-04] MEDS: InsuLIN REG 1unit/0.01ml Soln (100units/ml) SC SCH ×4 (06:15→21:37)
[2022-09-04 06:23] LABS: Mean Corpuscular Hemoglobin 36.5 pg (28.0-32.0); Mean Corpuscular Hgb Conc. 34.3 g/dL (32.0-36.0)
[2022-09-04 06:26] LABS: Hemoglobin 12.3 g/dL (12.2-16.2); Mean Corpuscular Volume 106.6 fL (80.0-100.0); Red Blood Cells 3.37 10^6/uL (4.0-5.20); Red Cell Distribution Width 17.7 % (11.8-14.3); White Blood Cell 6.5 10^3/uL (4.4-10.8)
[2022-09-04 06:42] LABS: Potassium 4.2 mmol/L (3.5-5.1)
[2022-09-04 06:47] LABS: Albumin 2.4 g/dL (3.4-5.0); BUN/Creatinine Ratio 23.7; Calcium 8.1 mg/dL (8.5-10.1)
[2022-09-04 06:50] LABS: Bilirubin, Total 0.3 mg/dL (0.2-1.0); Total Protein 6.2 g/dL (6.4-8.2)
[2022-09-04 07:27] LABS: Basophils % (manual) 0 (0.0-2.0); Blast Cells 0; Eosinophils % (manual) 0 (0-7); Myelocytes % 0; Promyelocytes % 0; Reactive Lymphocytes 0
[2022-09-04] MEDS: cefTRIAXone 1GM/50ML D5W 50 ML IV SCH (08:16)
[2022-09-04 09:00] VITALS: BP 107/59
[2022-09-04] MEDS: AZITHROMYCIN 500MG/ 250ML 250 ML IV SCH (09:23)
[2022-09-04] MEDS: OMEPRAZOLE 40 MG PO SCH (09:23)
[2022-09-04] MEDS: ASPirin 81 mg TAB PO SCH (09:23)
[2022-09-04] MEDS: methylPREDNISolone SOD SUCC 125 MG/2 ML VL IV SCH ×2 (09:23→21:22)
[2022-09-04] MEDS: CARVEDILOL 3.125 MG TAB PO SCH ×3 (09:24→21:23)
[2022-09-04] MEDS: POTASSIUM CHL 20 Meq TABLET PO SCH ×2 (09:24→09:58)
[2022-09-04] MEDS: SPIRONOLACTONE 25 MG TAB PO SCH (09:24)
[2022-09-04] MEDS: ZINC SULFATE 220mg CAP or TAB PO SCH (09:24)
[2022-09-04] MEDS: CLOPIDOGREL BISULFATE 75 MG TAB PO SCH (09:25)
[2022-09-04] MEDS: MULTIPLE VITAMIN TAB PO SCH (09:25)
[2022-09-04] MEDS: amLODIPine BESYLATE 5 MG TAB PO SCH (09:25)
[2022-09-04] MEDS: ENOXAPARIN SOD 40 MG/0.4 ML SYRINGE SC SCH (09:25)
[2022-09-04] MEDS: ASCORBIC ACID 500 MG TAB PO SCH (09:25)
[2022-09-04] MEDS: LISINOPRIL 10 MG TAB PO SCH (09:25)
[2022-09-04] MEDS ORDERED: FUROSEMIDE 20 MG TAB PO ONE (09:45)
[2022-09-04] MEDS ORDERED: DEXTROSE (50%) 50ML SYRG IV PRN (09:45)
[2022-09-04 10:18] LABS: Band Neutrophils % (manual) 76; Lymphocytes % (manual) 4 (10.0-50.0); Metamyelocytes % 3; Monocytes % (manual) 4 (0-12)
[2022-09-04] MEDS: NICOTINE 21MG/24 HR TOPICAL PATCH TD SCH (10:47)
[2022-09-04] MEDS: OXYCODONE W/ ACETAMINOPHEN 5/325MG TABLET PO PRN ×2 (10:47→19:29)
[2022-09-04 12:30] VITALS: BP 101/52
[2022-09-04 15:53] LABS: Creatinine, Urine 93 mg/dL (30.0-125.0); Protein, Urine 47.2 mg/dL (0.0-11.9); Sodium Urine < 5 mmol/L (40-220)
[2022-09-04 16:40] LABS: Cholesterol 159 mg/dL (< 200)
[2022-09-04 16:43] LABS: HDL Cholesterol 57 mg/dL (40-59); LDL Cholesterol 45 mg/dL (< 100); Triglycerides 371 mg/dL (< 150)
[2022-09-04 17:22] VITALS: BP 128/77
[2022-09-04] MEDS: LORazepam 0.5 MG TAB PO PRN (21:21)
[2022-09-04] MEDS: GABAPENTIN 300 MG CAP PO SCH (21:22)
[2022-09-04] MEDS: ATORVASTATIN 20 MG TAB PO SCH (21:22)
[2022-09-04] MEDS: INSULIN LANTUS (GLARGINE) 1 /0.01ml (100units/ml) SC SCH (21:37)
[2022-09-04 22:00] VITALS: BP 118/64
[2022-09-05] MEDS: ALBUTEROL SULF 2.5 MG/0.5ML(0.5%) NEB SOLN NEB SCH ×3 (02:00→10:38)
[2022-09-05] MEDS: IPRATROPIUM BROM 0.5 MG/2.5ML INH SOL NEB SCH ×6 (02:00→22:14)
[2022-09-05 05:00] VITALS: BP 117/63
[2022-09-05] MEDS: ACCU-CHEK COMFORT CURVE STRIP VI SCH ×8 (06:05→22:26)
[2022-09-05 06:11] LABS: White Blood Cell 9.9 10^3/uL (4.4-10.8)
[2022-09-05] MEDS: InsuLIN REG 1unit/0.01ml Soln (100units/ml) SC SCH ×4 (06:13→22:40)
[2022-09-05 06:15] LABS: Hematocrit 35.1 % (36.0-46.0); Hemoglobin 12.2 g/dL (12.2-16.2); Mean Corpuscular Hemoglobin 36.6 pg (28.0-32.0); Mean Corpuscular Hgb Conc. 34.7 g/dL (32.0-36.0); Mean Corpuscular Volume 105.3 fL (80.0-100.0); Red Blood Cells 3.34 10^6/uL (4.0-5.20); Red Cell Distribution Width 17.5 % (11.8-14.3)
[2022-09-05 06:22] LABS: Calcium 8.3 mg/dL (8.5-10.1); Potassium 4.7 mmol/L (3.5-5.1)
[2022-09-05 06:25] LABS: BUN/Creatinine Ratio 33.8
[2022-09-05 06:53] LABS: Basophils % (manual) 0 (0.0-2.0); Blast Cells 0; Eosinophils % (manual) 0 (0-7); Myelocytes % 0; Reactive Lymphocytes 0
[2022-09-05 08:27] LABS: Band Neutrophils % (manual) 9; Lymphocytes % (manual) 5 (10.0-50.0); Metamyelocytes % 2; Monocytes % (manual) 6 (0-12); Promyelocytes % 2
[2022-09-05 09:00] VITALS: BP 126/84
[2022-09-05] MEDS: ENOXAPARIN SOD 40 MG/0.4 ML SYRINGE SC SCH (09:16)
[2022-09-05] MEDS: cefTRIAXone 1GM/50ML D5W 50 ML IV SCH (09:16)
[2022-09-05] MEDS: methylPREDNISolone SOD SUCC 125 MG/2 ML VL IV SCH ×3 (09:16→22:39)
[2022-09-05] MEDS: MULTIPLE VITAMIN TAB PO SCH (09:17)
[2022-09-05] MEDS: NICOTINE 21MG/24 HR TOPICAL PATCH TD SCH (09:17)
[2022-09-05] MEDS: amLODIPine BESYLATE 5 MG TAB PO SCH (09:18)
[2022-09-05] MEDS: CARVEDILOL 3.125 MG TAB PO SCH ×2 (09:19→22:40)
[2022-09-05] MEDS: ASPirin 81 mg TAB PO SCH (09:19)
[2022-09-05] MEDS: SPIRONOLACTONE 25 MG TAB PO SCH (09:20)
[2022-09-05] MEDS: CLOPIDOGREL BISULFATE 75 MG TAB PO SCH (09:20)
[2022-09-05] MEDS: POTASSIUM CHL 20 Meq TABLET PO SCH (09:20)
[2022-09-05] MEDS: POTASSIUM CHL 10 Meq TABLET PO SCH (10:00)
[2022-09-05] MEDS: AZITHROMYCIN 500MG/ 250ML 250 ML IV SCH (10:45)
[2022-09-05] MEDS: FUROSEMIDE 20 MG TAB PO SCH (11:30)
[2022-09-05] MEDS: OXYCODONE W/ ACETAMINOPHEN 5/325MG TABLET PO PRN ×2 (11:34→18:08)
[2022-09-05 13:00] VITALS: BP 125/85
[2022-09-05] MEDS ORDERED: ALBUTEROL MEDNEB 2.5 mg/3ml NEB ONE (13:54)
[2022-09-05] MEDS ORDERED: ALBUTEROL MEDNEB 2.5 mg/3ml NEB NEB PRN (14:30)
[2022-09-05 17:00] VITALS: BP 119/74
[2022-09-05] MEDS: ALBUTEROL MEDNEB 2.5 mg/3ml NEB NEB SCH ×2 (19:01→22:14)
[2022-09-05] MEDS ORDERED: OMEPRAZOLE 20MG/10ML ORAL SUSP PO SCH (21:15)
[2022-09-05 22:00] VITALS: BP 161/100
[2022-09-05] MEDS ORDERED: PANTOPRAZOLE 40 MG TAB PO ONE (22:00)
[2022-09-05] MEDS ORDERED: PANTOPRAZOLE 40 MG TAB PO SCH (22:00)
[2022-09-05] MEDS: LORazepam 0.5 MG TAB PO PRN (22:39)
[2022-09-05] MEDS: GABAPENTIN 300 MG CAP PO SCH (22:40)
[2022-09-05] MEDS: ATORVASTATIN 20 MG TAB PO SCH (22:40)
[2022-09-05] MEDS: INSULIN LANTUS (GLARGINE) 1 /0.01ml (100units/ml) SC SCH (22:42)
[2022-09-05] MEDS: guaiFENesin 200 MG/10 ML UD PO PRN (23:52)
[2022-09-06] VITALS (7 sets, daily range): BP systolic 138–174; BP diastolic 69–107
[2022-09-06] MEDS: OXYCODONE W/ ACETAMINOPHEN 5/325MG TABLET PO PRN ×4 (01:03→23:50)
[2022-09-06] MEDS: ALBUTEROL MEDNEB 2.5 mg/3ml NEB NEB SCH ×6 (02:53→22:34)
[2022-09-06] MEDS: IPRATROPIUM BROM 0.5 MG/2.5ML INH SOL NEB SCH ×6 (02:53→22:34)
[2022-09-06] MEDS: ACCU-CHEK COMFORT CURVE STRIP VI SCH ×8 (06:03→22:08)
[2022-09-06] MEDS: InsuLIN REG 1unit/0.01ml Soln (100units/ml) SC SCH ×4 (06:42→22:18)
[2022-09-06] MEDS: cefTRIAXone 1GM/50ML D5W 50 ML IV SCH (09:42)
[2022-09-06] MEDS: AZITHROMYCIN 500MG/ 250ML 250 ML IV SCH (09:42)
[2022-09-06] MEDS: NICOTINE 21MG/24 HR TOPICAL PATCH TD SCH (09:43)
[2022-09-06] MEDS: MULTIPLE VITAMIN TAB PO SCH (09:44)
[2022-09-06] MEDS: methylPREDNISolone SOD SUCC 125 MG/2 ML VL IV SCH ×2 (09:44→21:20)
[2022-09-06] MEDS: ASPirin 81 mg TAB PO SCH (09:44)
[2022-09-06] MEDS: CLOPIDOGREL BISULFATE 75 MG TAB PO SCH (09:45)
[2022-09-06] MEDS: PANTOPRAZOLE 40 MG TAB PO SCH (09:45)
[2022-09-06] MEDS: POTASSIUM CHL 10 Meq TABLET PO SCH (09:45)
[2022-09-06] MEDS: amLODIPine BESYLATE 5 MG TAB PO SCH (09:46)
[2022-09-06] MEDS: CARVEDILOL 3.125 MG TAB PO SCH ×2 (09:47→21:23)
[2022-09-06] MEDS: FUROSEMIDE 20 MG TAB PO SCH (09:47)
[2022-09-06] MEDS: SPIRONOLACTONE 25 MG TAB PO SCH (09:47)
[2022-09-06] MEDS: ENOXAPARIN SOD 40 MG/0.4 ML SYRINGE SC SCH (09:48)
[2022-09-06] MEDS: guaiFENesin 200 MG/10 ML UD PO PRN (09:49)
[2022-09-06] MEDS ORDERED: OMEPRAZOLE 20MG/10ML ORAL SUSP PO SCH (10:00)
[2022-09-06] MEDS ORDERED: SALINE 0.65 % NASAL SPRAY 45ML BOTTLE EACHNOSTRI ONE (10:45)
[2022-09-06] MEDS: SALINE 0.65 % NASAL SPRAY 45ML BOTTLE EACHNOSTRI SCH ×3 (12:00→22:16)
[2022-09-06] MEDS: PROMETHAZINE W/CODEINE 5 ML ORAL SYRUP PO PRN ×2 (12:48→22:15)
[2022-09-06] MEDS: LORazepam 0.5 MG TAB PO PRN (21:20)
[2022-09-06] MEDS: GABAPENTIN 300 MG CAP PO SCH (21:20)
[2022-09-06] MEDS: ATORVASTATIN 20 MG TAB PO SCH (21:23)
[2022-09-06] MEDS: INSULIN LANTUS (GLARGINE) 1 /0.01ml (100units/ml) SC SCH (22:16)
[2022-09-07] MEDS: ALBUTEROL MEDNEB 2.5 mg/3ml NEB NEB SCH ×8 (02:00→22:29)
[2022-09-07] MEDS: IPRATROPIUM BROM 0.5 MG/2.5ML INH SOL NEB SCH ×8 (02:00→22:29)
[2022-09-07 05:00] VITALS: BP 143/77
[2022-09-07] MEDS: SALINE 0.65 % NASAL SPRAY 45ML BOTTLE EACHNOSTRI SCH ×4 (06:06→21:42)
[2022-09-07] MEDS: OXYCODONE W/ ACETAMINOPHEN 5/325MG TABLET PO PRN ×3 (06:06→22:56)
[2022-09-07] MEDS: ACCU-CHEK COMFORT CURVE STRIP VI SCH ×8 (06:20→21:29)
[2022-09-07] MEDS: InsuLIN REG 1unit/0.01ml Soln (100units/ml) SC SCH ×4 (06:20→21:44)
[2022-09-07 08:31] VITALS: BP 157/87
[2022-09-07] MEDS ORDERED: MILK OF MAGNESIA 30ML SUSP PO PRN (09:15)
[2022-09-07] MEDS: cefTRIAXone 1GM/50ML D5W 50 ML IV SCH (09:19)
[2022-09-07] MEDS: methylPREDNISolone SOD SUCC 125 MG/2 ML VL IV SCH (09:21)
[2022-09-07] MEDS: ASPirin 81 mg TAB PO SCH (09:21)
[2022-09-07] MEDS: POTASSIUM CHL 10 Meq TABLET PO SCH (09:23)
[2022-09-07] MEDS: PANTOPRAZOLE 40 MG TAB PO SCH (09:23)
[2022-09-07] MEDS: CARVEDILOL 3.125 MG TAB PO SCH ×2 (09:23→21:42)
[2022-09-07] MEDS: amLODIPine BESYLATE 5 MG TAB PO SCH (09:24)
[2022-09-07] MEDS: NICOTINE 21MG/24 HR TOPICAL PATCH TD SCH (09:25)
[2022-09-07] MEDS: FUROSEMIDE 20 MG TAB PO SCH (09:25)
[2022-09-07] MEDS: MULTIPLE VITAMIN TAB PO SCH (09:25)
[2022-09-07] MEDS: SPIRONOLACTONE 25 MG TAB PO SCH (09:25)
[2022-09-07] MEDS: PROMETHAZINE W/CODEINE 5 ML ORAL SYRUP PO PRN (09:26)
[2022-09-07] MEDS: INSULIN LANTUS (GLARGINE) 1 /0.01ml (100units/ml) SC SCH ×2 (09:47→21:43)
[2022-09-07] MEDS ORDERED: FUROSEMIDE 20 MG/2 ML VIAL IV ONE (10:15)
[2022-09-07] MEDS ORDERED: POTASSIUM CHL 20 Meq TABLET PO ONE (10:15)
[2022-09-07 12:30] VITALS: BP 152/78
[2022-09-07 16:31] VITALS: BP 154/89
[2022-09-07] MEDS: GABAPENTIN 300 MG CAP PO SCH (21:42)
[2022-09-07] MEDS: ATORVASTATIN 20 MG TAB PO SCH (21:42)
[2022-09-07 22:00] VITALS: BP 158/105
[2022-09-08] MEDS: ALBUTEROL MEDNEB 2.5 mg/3ml NEB NEB SCH ×6 (02:00→22:08)
[2022-09-08] MEDS: IPRATROPIUM BROM 0.5 MG/2.5ML INH SOL NEB SCH ×6 (02:00→22:08)
[2022-09-08 05:00] VITALS: BP 149/88
[2022-09-08 05:58] LABS: Potassium 3.9 mmol/L (3.5-5.1)
[2022-09-08 06:05] LABS: BUN/Creatinine Ratio 41.2; Calcium 8.1 mg/dL (8.5-10.1)
[2022-09-08] MEDS: ACCU-CHEK COMFORT CURVE STRIP VI SCH ×5 (06:05→22:00)
[2022-09-08] MEDS: SALINE 0.65 % NASAL SPRAY 45ML BOTTLE EACHNOSTRI SCH ×4 (06:15→23:18)
[2022-09-08] MEDS: InsuLIN REG 1unit/0.01ml Soln (100units/ml) SC SCH ×4 (06:15→22:00)
[2022-09-08 08:44] VITALS: BP 140/87
[2022-09-08] MEDS: FLUTICASONE PROP NASAL SPR 0.05 % (50MCG) 16GM EACHNOSTRI SCH ×2 (10:00→23:18)
[2022-09-08] MEDS: cefTRIAXone 1GM/50ML D5W 50 ML IV SCH (11:54)
[2022-09-08] MEDS: NICOTINE 21MG/24 HR TOPICAL PATCH TD SCH (11:55)
[2022-09-08] MEDS: predniSONE 20 MG TAB PO SCH (11:57)
[2022-09-08] MEDS: ASPirin 81 mg TAB PO SCH (11:57)
[2022-09-08] MEDS: PANTOPRAZOLE 40 MG TAB PO SCH (11:58)
[2022-09-08] MEDS: MULTIPLE VITAMIN TAB PO SCH (11:58)
[2022-09-08] MEDS: INSULIN LANTUS (GLARGINE) 1 /0.01ml (100units/ml) SC SCH ×2 (12:00→22:00)
[2022-09-08] MEDS: SPIRONOLACTONE 25 MG TAB PO SCH (12:00)
[2022-09-08] MEDS: amLODIPine BESYLATE 5 MG TAB PO SCH (12:01)
[2022-09-08] MEDS: FUROSEMIDE 20 MG TAB PO SCH (12:08)
[2022-09-08] MEDS: POTASSIUM CHL 10 Meq TABLET PO SCH (12:09)
[2022-09-08] MEDS: CARVEDILOL 3.125 MG TAB PO SCH ×2 (12:10→23:20)
[2022-09-08] MEDS: OXYCODONE W/ ACETAMINOPHEN 5/325MG TABLET PO PRN ×2 (12:21→23:55)
[2022-09-08 12:49] VITALS: BP 136/84
[2022-09-08] MEDS: PSEUDOEPHEDRINE HCL 30 MG TAB PO SCH ×2 (15:30→22:00)
[2022-09-08 16:49] VITALS: BP 140/87
[2022-09-08] MEDS ORDERED: CALCIUM CARB 500 MG CHEW TAB PO PRN (18:00)
[2022-09-08 21:50] VITALS: BP 128/89
[2022-09-08] MEDS: ATORVASTATIN 20 MG TAB PO SCH (23:20)
[2022-09-08] MEDS: GABAPENTIN 300 MG CAP PO SCH (23:20)
[2022-09-09] MEDS: IPRATROPIUM BROM 0.5 MG/2.5ML INH SOL NEB SCH ×4 (02:08→14:03)
[2022-09-09] MEDS: ALBUTEROL MEDNEB 2.5 mg/3ml NEB NEB SCH ×4 (02:08→14:03)
[2022-09-09 05:00] VITALS: BP 119/61
[2022-09-09] MEDS: PSEUDOEPHEDRINE HCL 30 MG TAB PO SCH ×2 (06:00→15:07)
[2022-09-09] MEDS: SALINE 0.65 % NASAL SPRAY 45ML BOTTLE EACHNOSTRI SCH ×2 (06:00→12:24)
[2022-09-09] MEDS: ACCU-CHEK COMFORT CURVE STRIP VI SCH ×2 (06:56→12:24)
[2022-09-09] MEDS: InsuLIN REG 1unit/0.01ml Soln (100units/ml) SC SCH ×2 (07:02→12:24)
[2022-09-09] MEDS: OXYCODONE W/ ACETAMINOPHEN 5/325MG TABLET PO PRN (07:17)
[2022-09-09 08:00] VITALS: BP 121/67
[2022-09-09 08:37] VITALS: BP 121/67
[2022-09-09] MEDS: cefTRIAXone 1GM/50ML D5W 50 ML IV SCH (09:18)
[2022-09-09] MEDS: ASPirin 81 mg TAB PO SCH (09:19)
[2022-09-09] MEDS: CARVEDILOL 3.125 MG TAB PO SCH (09:20)
[2022-09-09] MEDS: POTASSIUM CHL 10 Meq TABLET PO SCH (09:21)
[2022-09-09] MEDS: MULTIPLE VITAMIN TAB PO SCH (09:21)
[2022-09-09] MEDS: predniSONE 20 MG TAB PO SCH (09:21)
[2022-09-09] MEDS: amLODIPine BESYLATE 5 MG TAB PO SCH (09:21)
[2022-09-09] MEDS: SPIRONOLACTONE 25 MG TAB PO SCH (09:22)
[2022-09-09] MEDS: FUROSEMIDE 20 MG TAB PO SCH (09:22)
[2022-09-09] MEDS: NICOTINE 21MG/24 HR TOPICAL PATCH TD SCH (09:23)
[2022-09-09] MEDS: FLUTICASONE PROP NASAL SPR 0.05 % (50MCG) 16GM EACHNOSTRI SCH (09:32)
[2022-09-09] MEDS: INSULIN LANTUS (GLARGINE) 1 /0.01ml (100units/ml) SC SCH (09:42)
[2022-09-09] MEDS: PANTOPRAZOLE 40 MG TAB PO SCH (10:37)
[2022-09-09] MEDS ORDERED: PRED20TA2 PO (11:58)
[2022-09-09] MEDS ORDERED: LEVO500T31 PO (11:59)
[2022-09-09 12:37] VITALS: BP 125/73
[2022-09-09 13:00] VITALS: BP 125/76
[2022-09-09 13:11] VITALS: BP 125/76
== END 2022-09-09 15:10 | disposition home or self-care (01) | DRG 133 ==
LOC: ER 06:34 → OVERFLOW 09:41 → CENTRAL 23:30
PROVIDERS: ADMIT Nurse Practitioner Family; ATTEND Internal Medicine
DX: J96.20 Acute and chronic respiratory failure, unspecified whether with hypoxia or hypercapnia (principal); N17.0 Acute kidney failure with tubular necrosis; I50.31 Acute diastolic (congestive) heart failure; J18.9 Pneumonia, unspecified organism; I13.0 Hypertensive heart and chronic kidney disease with heart failure and stage 1 through stage 4 chronic kidney disease, or unspecified chronic kidney disease; E11.22 Type 2 diabetes mellitus with diabetic chronic kidney disease; Z99.81 Dependence on supplemental oxygen; Z68.43 Body mass index [BMI] 50.0-59.9, adult; J44.1 Chronic obstructive pulmonary disease with (acute) exacerbation; Z20.822 Contact with and (suspected) exposure to COVID-19; I48.91 Unspecified atrial fibrillation; E66.01 Morbid (severe) obesity due to excess calories; E78.5 Hyperlipidemia, unspecified; M19.90 Unspecified osteoarthritis, unspecified site; N18.9 Chronic kidney disease, unspecified; Z86.73 Personal history of transient ischemic attack (TIA), and cerebral infarction without residual deficits; Z83.3 Family history of diabetes mellitus; Z82.62 Family history of osteoporosis; Z82.5 Family history of asthma and other chronic lower respiratory diseases; Z82.49 Family history of ischemic heart disease and other diseases of the circulatory system; Z87.442 Personal history of urinary calculi; Z90.710 Acquired absence of both cervix and uterus; Z72.0 Tobacco use; Z82.3 Family history of stroke; Z82.0 Family history of epilepsy and other diseases of the nervous system; Z81.8 Family history of other mental and behavioral disorders; Z80.8 Family history of malignant neoplasm of other organs or systems; Z80.41 Family history of malignant neoplasm of ovary; Z80.3 Family history of malignant neoplasm of breast; Z80.1 Family history of malignant neoplasm of trachea, bronchus and lung; Z80.0 Family history of malignant neoplasm of digestive organs; F32.A Depression, unspecified
CPT/HCPCS: 36415; 71045; 76775; 78582; 80048; 80053; 80061; 81001; 82570; 82962; 83036; 83880; 83935; 84156; 84300; 84443; 84484; 85007; 85025; 85027; 85379; 87426; 87804; 93005; 93306; 94640; 96365; 96367; 96372; 96375; 96376; 99291; G0378; J0696; J1815

== ENCOUNTER 2022-10-25 15:49 | Emergency (ER) | payer MEDICAID ==
[~2022-10-25 15:49] MED LIST changes: +ATOR80TA PO; +LEVO500T31 PO; +PRED20TA2 PO
[2022-10-25] MEDS ORDERED: ONDANSETRON HCL 4 MG/2 ML VIAL IV ONE (16:30)
[2022-10-25] MEDS ORDERED: MORPHINE SULFATE 4 MG/ML SYR/VIAL IV ONE (16:30)
[2022-10-25 16:55] LABS: Basophils # (auto) 0 10 ^3/uL (0-0.2); Basophils % (auto) 0.2 % (0.0-2.0); Eosinophils # (auto) 0.1 10 ^3/uL (0-0.8); Eosinophils % (auto) 1.9 % (0.0-7.0); Hematocrit 40.1 % (36.0-46.0); Hemoglobin 14.2 g/dL (12.2-16.2); Lymphocytes # (auto) 2.1 10 ^3/uL (0.4-5.4); Lymphocytes % (auto) 34.4 % (10.0-50.0); Mean Corpuscular Hemoglobin 38.1 pg (28.0-32.0); Mean Corpuscular Hgb Conc. 35.4 g/dL (32.0-36.0); Mean Corpuscular Volume 107.5 fL (80.0-100.0); Monocytes # (auto) 0.4 10 ^3/uL (0-1.3); Neutrophils # (auto) 3.5 10 ^3/uL (1.6-8.6); Neutrophils % (auto) 57.5 % (37.0-80.0); Nucleated Red Blood Cells % 0.1 %; Red Blood Cells 3.73 10^6/uL (4.0-5.20); Red Cell Distribution Width 15.6 % (11.8-14.3); White Blood Cell 6.1 10^3/uL (4.4-10.8)
[2022-10-25 17:18] LABS: Calcium 8.7 mg/dL (8.5-10.1); Potassium 4.4 mmol/L (3.5-5.1)
[2022-10-25 17:25] LABS: Albumin 3.6 g/dL (3.4-5.0); BUN/Creatinine Ratio 11.2; Bilirubin, Total 0.4 mg/dL (0.2-1.0); Magnesium 2.2 mg/dL (1.6-2.6); Total Protein 6.6 g/dL (6.4-8.2)
[2022-10-25] MEDS ORDERED: AZIT1POW PO ×2 (17:55→18:01)
[2022-10-25] MEDS ORDERED: TRAM-297 PO ×2 (17:55→18:01)
[2022-10-25] MEDS ORDERED: METH4PAK PO ×2 (17:55→18:01)
[2022-10-25 21:25] VITALS: BP 158/90
== END 2022-10-25 21:25 | disposition home or self-care (01) ==
LOC: ER 15:49 → EDBD 15:49 → ER 21:25
DX: R07.89 Other chest pain (principal); J20.9 Acute bronchitis, unspecified; I13.0 Hypertensive heart and chronic kidney disease with heart failure and stage 1 through stage 4 chronic kidney disease, or unspecified chronic kidney disease; E11.22 Type 2 diabetes mellitus with diabetic chronic kidney disease; N18.9 Chronic kidney disease, unspecified; I50.9 Heart failure, unspecified; J44.9 Chronic obstructive pulmonary disease, unspecified; E78.5 Hyperlipidemia, unspecified; F17.210 Nicotine dependence, cigarettes, uncomplicated; Z86.73 Personal history of transient ischemic attack (TIA), and cerebral infarction without residual deficits; Z90.710 Acquired absence of both cervix and uterus; Z79.899 Other long term (current) drug therapy; Z79.82 Long term (current) use of aspirin; Z79.4 Long term (current) use of insulin; Z79.2 Long term (current) use of antibiotics; Z79.1 Long term (current) use of non-steroidal anti-inflammatories (NSAID)
CPT/HCPCS: 36415; 71045; 80053; 83735; 83880; 84484; 85025; 93005; 96374; 96375; 99285; J2270; J2405

== ENCOUNTER 2023-01-11 16:48 | Emergency (ER) | payer MEDICAID ==
[~2023-01-11] VITALS: Ht 167.6 cm; Wt 68.1 kg
[~2023-01-11 16:48] MED LIST changes: -AMOX250C3 PO; -ATOR20TA50 PO; -AZIT250T8 PO; -AZIT250T9 PO; -CLOP75TA28 PO; +GABA300C10 PO; -LEVO500T31 PO; +LOSA-39 PO; -OXY10CRT PO; -PRED20TA2 PO
[2023-01-11] MEDS ORDERED: ONDANSETRON HCL 4 MG/2 ML VIAL IM ONE (17:15)
[2023-01-11] MEDS ORDERED: HYDROmorphone HCL 2 MG/ML VL/or syr IM ONE (17:15)
[2023-01-11 17:55] LABS: Basophils # (auto) 0 10 ^3/uL (0-0.2); Eosinophils # (auto) 0.2 10 ^3/uL (0-0.8); Hemoglobin 14.4 g/dL (12.2-16.2)
[2023-01-11 17:57] LABS: Basophils % (auto) 0.2 % (0.0-2.0); Eosinophils % (auto) 1.7 % (0.0-7.0); Hematocrit 42.1 % (36.0-46.0); Lymphocytes # (auto) 3.1 10 ^3/uL (0.4-5.4); Lymphocytes % (auto) 30.6 % (10.0-50.0); Mean Corpuscular Hemoglobin 36.5 pg (28.0-32.0); Mean Corpuscular Hgb Conc. 34.2 g/dL (32.0-36.0); Mean Corpuscular Volume 106.5 fL (80.0-100.0); Monocytes # (auto) 1.1 10 ^3/uL (0-1.3); Monocytes % (auto) 10.7 % (0.0-12.0); Neutrophils # (auto) 5.8 10 ^3/uL (1.6-8.6); Neutrophils % (auto) 56.8 % (37.0-80.0); Nucleated Red Blood Cells % 0.4 %; Red Blood Cells 3.95 10^6/uL (4.0-5.20); Red Cell Distribution Width 15.2 % (11.8-14.3); White Blood Cell 10.2 10^3/uL (4.4-10.8)
[2023-01-11 18:11] LABS: Albumin 3.5 g/dL (3.4-5.0); BUN/Creatinine Ratio 18.8 (10.0-20.0); Calcium 8.7 mg/dL (8.5-10.1); Potassium 3.8 mmol/L (3.5-5.1)
[2023-01-11 18:14] LABS: Bilirubin, Total 0.2 mg/dL (0.2-1.0); Total Protein 6.6 g/dL (6.4-8.2)
[2023-01-11 19:56] LABS: Urine Bacteria FEW /hpf (None Seen); Urine Blood 1+ /uL (Negative); Urine Budding Yeast OCCASIONAL /hpf (None Seen); Urine Mucus FEW (None Seen); Urine Specific Gravity 1.029 (1.001-1.035); Urine WBC 6 /hpf (0 - 5)
[2023-01-11 20:17] VITALS: BP 145/88
== END 2023-01-11 22:17 | disposition left against medical advice (07) ==
LOC: EDBD 16:48 → ER 16:48
DX: M47.24 Other spondylosis with radiculopathy, thoracic region (principal); R11.2 Nausea with vomiting, unspecified; F17.210 Nicotine dependence, cigarettes, uncomplicated; M19.90 Unspecified osteoarthritis, unspecified site; E11.22 Type 2 diabetes mellitus with diabetic chronic kidney disease; I13.0 Hypertensive heart and chronic kidney disease with heart failure and stage 1 through stage 4 chronic kidney disease, or unspecified chronic kidney disease; N18.9 Chronic kidney disease, unspecified; I50.9 Heart failure, unspecified; J44.9 Chronic obstructive pulmonary disease, unspecified; F32.9 Major depressive disorder, single episode, unspecified; E78.5 Hyperlipidemia, unspecified; Z86.73 Personal history of transient ischemic attack (TIA), and cerebral infarction without residual deficits; Z87.442 Personal history of urinary calculi; Z87.440 Personal history of urinary (tract) infections
CPT/HCPCS: 36415; 74176; 80053; 81001; 83690; 85025; 96372; 99284; J1170; J2405

== ENCOUNTER 2023-03-14 12:49 | Emergency (ER) | payer MEDICAID ==
[~2023-03-14] VITALS: Ht 170.2 cm; Wt 138.6 kg
[~2023-03-14 12:49] MED LIST changes: +GABA-1250 PO; -GABA300C10 PO; -LISI-716 PO; +LISI10TA34 PO; -LOSA-39 PO; +LOSA100T58 PO
[2023-03-14 15:22] LABS: Basophils # (auto) 0 10 ^3/uL (0-0.2); Basophils % (auto) 0.3 % (0.0-2.0); Eosinophils # (auto) 0.1 10 ^3/uL (0-0.8); Lymphocytes # (auto) 1.7 10 ^3/uL (0.4-5.4); Monocytes # (auto) 1.3 10 ^3/uL (0-1.3); Nucleated Red Blood Cells % 0.2 %
[2023-03-14 15:23] LABS: Eosinophils % (auto) 1.6 % (0.0-7.0); Hematocrit 37.2 % (36.0-46.0); Lymphocytes % (auto) 18.8 % (10.0-50.0); Mean Corpuscular Hemoglobin 37.8 pg (28.0-32.0); Mean Corpuscular Hgb Conc. 34.9 g/dL (32.0-36.0); Mean Corpuscular Volume 108.2 fL (80.0-100.0); Monocytes % (auto) 14.3 % (0.0-12.0); Red Blood Cells 3.43 10^6/uL (4.0-5.20); Red Cell Distribution Width 16.9 % (11.8-14.3); White Blood Cell 9.2 10^3/uL (4.4-10.8)
[2023-03-14 15:47] LABS: INR 1.04 (0.9-1.15); Partial Thromboplastin Time 25.1 SEC (24.5-34.5)
[2023-03-14 15:51] LABS: Albumin 3.9 g/dL (3.4-5.0); BUN/Creatinine Ratio 14.3 (10.0-20.0); Calcium 8.3 mg/dL (8.5-10.1); Magnesium 2.2 mg/dL (1.6-2.6); Potassium 4.3 mmol/L (3.5-5.1)
[2023-03-14 15:54] LABS: Bilirubin, Total 0.4 mg/dL (0.2-1.0); Total Protein 6.8 g/dL (6.4-8.2)
[2023-03-14] MEDS ORDERED: AZITHROMYCIN 500MG/ 250ML 250 ML IV ONE (16:15)
[2023-03-14] MEDS ORDERED: DexAMETHasone SOD PHOS 10MG/1ML VIAL INJ IV ONE (16:15)
[2023-03-14] MEDS ORDERED: ALBUTEROL SULF 2.5 MG/0.5ML(0.5%) NEB SOLN NEB ONE (16:15)
[2023-03-14] MEDS ORDERED: MORPHINE SULFATE 4 MG/ML SYR/VIAL IV ONE (17:15)
[2023-03-14] MEDS ORDERED: diphenhdrAMINE HCL 50 MG/1 ML VL IV ONE (22:00)
[2023-03-14] MEDS ORDERED: PRED20TA2 PO (22:21)
[2023-03-14] MEDS ORDERED: IPRA0.00 IN (22:21)
[2023-03-14] MEDS ORDERED: VALA1TAB PO (22:21)
[2023-03-14] MEDS ORDERED: AZITTAB PO (22:21)
[2023-03-14 22:30] VITALS: BP 144/74
== END 2023-03-14 22:56 | disposition home or self-care (01) ==
LOC: EDBD 12:49 → ER 12:49
DX: R07.89 Other chest pain (principal); J44.1 Chronic obstructive pulmonary disease with (acute) exacerbation; E11.22 Type 2 diabetes mellitus with diabetic chronic kidney disease; I13.0 Hypertensive heart and chronic kidney disease with heart failure and stage 1 through stage 4 chronic kidney disease, or unspecified chronic kidney disease; N18.9 Chronic kidney disease, unspecified; I50.89 Other heart failure; E78.5 Hyperlipidemia, unspecified; F17.210 Nicotine dependence, cigarettes, uncomplicated; F12.10 Cannabis abuse, uncomplicated; Z87.442 Personal history of urinary calculi; Z86.73 Personal history of transient ischemic attack (TIA), and cerebral infarction without residual deficits; Z90.710 Acquired absence of both cervix and uterus; Z98.51 Tubal ligation status
CPT/HCPCS: 36415; 71045; 80053; 83735; 83880; 84484; 85025; 85610; 85730; 93005; 94640; 96365; 96366; 96375; 99285; J0456; J1100; J2270

== ENCOUNTER 2023-03-18 13:44 | Inpatient (IN) | payer MEDICAID ==
[~2023-03-18] VITALS: Ht 167.6 cm; Wt 146.3 kg
[~2023-03-18 13:44] MED LIST changes: +AZITTAB PO; +IPRA0.00 IN; +PRED20TA2 PO; +VALA1TAB PO
[2023-03-18] MEDS ORDERED: MORPHINE SULFATE 4 MG/ML SYR/VIAL IV ONE ×2 (14:30→20:00)
[2023-03-18] MEDS ORDERED: ONDANSETRON HCL 4 MG/2 ML VIAL IV ONE ×2 (14:30→20:00)
[2023-03-18 14:39] LABS: Albumin 3.7 g/dL (3.4-5.0); BUN/Creatinine Ratio 13.1 (10.0-20.0); Calcium 8.4 mg/dL (8.5-10.1); Potassium 4.1 mmol/L (3.5-5.1)
[2023-03-18 14:42] LABS: Bilirubin, Total 0.4 mg/dL (0.2-1.0); Total Protein 6.5 g/dL (6.4-8.2)
[2023-03-18 14:48] LABS: Basophils # (auto) 0 10 ^3/uL (0-0.2); Basophils % (auto) 0.3 % (0.0-2.0); Eosinophils # (auto) 0.1 10 ^3/uL (0-0.8); Hematocrit 38.1 % (36.0-46.0); Neutrophils # (auto) 9.5 10 ^3/uL (1.6-8.6)
[2023-03-18 14:49] LABS: Eosinophils % (auto) 0.7 % (0.0-7.0); Lymphocytes # (auto) 1.7 10 ^3/uL (0.4-5.4); Lymphocytes % (auto) 13.9 % (10.0-50.0); Mean Corpuscular Hemoglobin 37.2 pg (28.0-32.0); Mean Corpuscular Hgb Conc. 34.2 g/dL (32.0-36.0); Mean Corpuscular Volume 108.5 fL (80.0-100.0); Monocytes % (auto) 8.1 % (0.0-12.0); Nucleated Red Blood Cells % 0.6 %; Red Blood Cells 3.51 10^6/uL (4.0-5.20); Red Cell Distribution Width 16.5 % (11.8-14.3); White Blood Cell 12.3 10^3/uL (4.4-10.8)
[2023-03-18 15:41] LABS: Urine Bacteria NONE SEEN /hpf (None Seen); Urine Blood Negative /uL (Negative); Urine Mucus FEW (None Seen); Urine Specific Gravity 1.036 (1.001-1.035); Urine WBC 2 /hpf (0 - 5)
[2023-03-18] MEDS ORDERED: FUROSEMIDE 40 MG/4 ML VIAL IV ONE (17:00)
[2023-03-18] MEDS ORDERED: DexAMETHasone SOD PHOS 10MG/1ML VIAL INJ IV ONE (17:15)
[2023-03-18] MEDS ORDERED: ALBUTEROL SULF 2.5 MG/0.5ML(0.5%) NEB SOLN NEB PRN (22:00)
[2023-03-18] MEDS ORDERED: DEXTROSE (50%) 50ML SYRG IV PRN (22:00)
[2023-03-18] MEDS ORDERED: NITROGLYCERIN 0.4 MG SL TAB SL PRN (22:00)
[2023-03-18] MEDS ORDERED: IPRATROPIUM BROM 0.5 MG/2.5ML INH SOL NEB PRN (22:00)
[2023-03-18] MEDS ORDERED: ACETAMINOPHEN 325 MG TAB PO PRN (22:00)
[2023-03-18] MEDS ORDERED: AZITHROMYCIN 500MG/ 250ML 250 ML IV ONE (22:00)
[2023-03-18] MEDS: ACCU-CHEK COMFORT CURVE STRIP VI SCH (23:36)
[2023-03-18] MEDS: CARVEDILOL 3.125 MG TAB PO SCH (23:45)
[2023-03-18] MEDS: InsuLIN REG 1unit/0.01ml Soln (100units/ml) SC SCH (23:46)
[2023-03-18] MEDS: ATORVASTATIN 20 MG TAB PO SCH (23:46)
[2023-03-19] MEDS ORDERED: TEMAZEPAM 15 MG CAP PO ONE (00:30)
[2023-03-19 01:15] VITALS: BP 177/97
[2023-03-19] MEDS: HYDROcodone-ACET 5/325MG TAB PO PRN ×3 (01:42→10:38)
[2023-03-19] MEDS: ACCU-CHEK COMFORT CURVE STRIP VI SCH ×4 (06:11→22:02)
[2023-03-19] MEDS: FUROSEMIDE 20 MG/2 ML VIAL IV SCH ×2 (06:38→17:53)
[2023-03-19] MEDS: InsuLIN REG 1unit/0.01ml Soln (100units/ml) SC SCH ×4 (06:39→22:24)
[2023-03-19 06:44] LABS: Potassium 4.2 mmol/L (3.5-5.1)
[2023-03-19 06:53] LABS: Albumin 3.7 g/dL (3.4-5.0); BUN/Creatinine Ratio 18.8 (10.0-20.0); Bilirubin, Total 0.4 mg/dL (0.2-1.0); Calcium 8.9 mg/dL (8.5-10.1); Total Protein 7.3 g/dL (6.4-8.2)
[2023-03-19 06:57] LABS: Basophils # (auto) 0 10 ^3/uL (0-0.2); Eosinophils # (auto) 0 10 ^3/uL (0-0.8); Eosinophils % (auto) 0.1 % (0.0-7.0); Hemoglobin 13.4 g/dL (12.2-16.2); Lymphocytes # (auto) 1.1 10 ^3/uL (0.4-5.4); Monocytes # (auto) 0.7 10 ^3/uL (0-1.3); Neutrophils # (auto) 10.4 10 ^3/uL (1.6-8.6); Nucleated Red Blood Cells % 0.2 %; White Blood Cell 12.2 10^3/uL (4.4-10.8)
[2023-03-19 06:59] LABS: Hematocrit 37.9 % (36.0-46.0); Mean Corpuscular Hemoglobin 38.2 pg (28.0-32.0); Mean Corpuscular Hgb Conc. 35.2 g/dL (32.0-36.0); Mean Corpuscular Volume 108.4 fL (80.0-100.0); Monocytes % (auto) 5.4 % (0.0-12.0); Neutrophils % (auto) 85.5 % (37.0-80.0); Red Cell Distribution Width 16.7 % (11.8-14.3)
[2023-03-19] MEDS ORDERED: AZITHROMYCIN 500MG/ 250ML 250 ML IV SCH (10:00)
[2023-03-19] MEDS ORDERED: PANTOPRAZOLE 40 MG TAB PO SCH (10:00)
[2023-03-19] MEDS ORDERED: amLODIPine BESYLATE 5 MG TAB PO SCH (10:00)
[2023-03-19] MEDS ORDERED: predniSONE 20 MG TAB PO SCH (10:00)
[2023-03-19] MEDS: ENOXAPARIN SOD 40 MG/0.4 ML SYRINGE SC SCH (10:35)
[2023-03-19] MEDS: SPIRONOLACTONE 25 MG TAB PO SCH (10:36)
[2023-03-19] MEDS: CARVEDILOL 3.125 MG TAB PO SCH ×2 (10:37→22:23)
[2023-03-19] MEDS: LISINOPRIL 10 MG TAB PO SCH (10:38)
[2023-03-19] MEDS: MORPHINE SULFATE INJ 2 MG/ml SYRG IV PRN ×2 (13:38→20:35)
[2023-03-19] MEDS: NICOTINE 21MG/24 HR TOPICAL PATCH TD SCH (15:24)
[2023-03-19] MEDS: OXYCODONE W/ ACETAMINOPHEN 5/325MG TABLET PO PRN ×2 (17:53→19:43)
[2023-03-19] MEDS: IPRATROPIUM BROM 0.5 MG/2.5ML INH SOL NEB SCH (20:03)
[2023-03-19] MEDS: ALBUTEROL SULF 2.5 MG/0.5ML(0.5%) NEB SOLN NEB SCH (20:03)
[2023-03-19] MEDS: ATORVASTATIN 20 MG TAB PO SCH (22:22)
[2023-03-19] MEDS: methylPREDNISolone SOD SUCC 40 MG/ML VL IV SCH (22:22)
[2023-03-19] MEDS: TEMAZEPAM 15 MG CAP PO PRN (22:22)
[2023-03-19] MEDS: CEFEPIME 1GM/ 50ML 50 ML IV SCH (22:22)
[2023-03-20] MEDS: BUDESONIDE (INHALATION) 0.5 MG/2 ML NEB NEB SCH ×3 (01:48→18:00)
[2023-03-20] MEDS: ALBUTEROL SULF 2.5 MG/0.5ML(0.5%) NEB SOLN NEB SCH ×4 (01:48→18:00)
[2023-03-20] MEDS: IPRATROPIUM BROM 0.5 MG/2.5ML INH SOL NEB SCH ×4 (01:48→18:00)
[2023-03-20] MEDS: MORPHINE SULFATE INJ 2 MG/ml SYRG IV PRN ×4 (03:46→22:10)
[2023-03-20] MEDS: ONDANSETRON HCL 4 MG/2 ML VIAL IV PRN ×2 (03:47→20:49)
[2023-03-20] MEDS ORDERED: ALBUTEROL SULF 2.5 MG/0.5ML(0.5%) NEB SOLN NEB PRN (05:30)
[2023-03-20] MEDS ORDERED: IPRATROPIUM BROM 0.5 MG/2.5ML INH SOL NEB PRN (05:30)
[2023-03-20 06:11] LABS: Basophils # (auto) 0 10 ^3/uL (0-0.2); Eosinophils # (auto) 0 10 ^3/uL (0-0.8); Eosinophils % (auto) 0.1 % (0.0-7.0); Hemoglobin 12.8 g/dL (12.2-16.2); Monocytes # (auto) 0.8 10 ^3/uL (0-1.3); White Blood Cell 11.7 10^3/uL (4.4-10.8)
[2023-03-20 06:14] LABS: Hematocrit 37.1 % (36.0-46.0); Lymphocytes # (auto) 0.9 10 ^3/uL (0.4-5.4); Lymphocytes % (auto) 7.3 % (10.0-50.0); Mean Corpuscular Hemoglobin 37.5 pg (28.0-32.0); Mean Corpuscular Hgb Conc. 34.6 g/dL (32.0-36.0); Mean Corpuscular Volume 108.6 fL (80.0-100.0); Monocytes % (auto) 6.5 % (0.0-12.0); Neutrophils # (auto) 10.1 10 ^3/uL (1.6-8.6); Neutrophils % (auto) 86.1 % (37.0-80.0); Nucleated Red Blood Cells % 0.2 %; Red Blood Cells 3.42 10^6/uL (4.0-5.20); Red Cell Distribution Width 16.4 % (11.8-14.3)
[2023-03-20] MEDS: FUROSEMIDE 20 MG/2 ML VIAL IV SCH ×2 (06:19→17:13)
[2023-03-20] MEDS: CEFEPIME 1GM/ 50ML 50 ML IV SCH ×3 (06:19→21:15)
[2023-03-20 06:24] LABS: BUN/Creatinine Ratio 16.7 (10.0-20.0); Calcium 8.3 mg/dL (8.5-10.1); Potassium 4.2 mmol/L (3.5-5.1)
[2023-03-20] MEDS: ACCU-CHEK COMFORT CURVE STRIP VI SCH ×4 (07:00→21:13)
[2023-03-20] MEDS: InsuLIN REG 1unit/0.01ml Soln (100units/ml) SC SCH ×4 (07:03→21:14)
[2023-03-20] MEDS: OXYCODONE W/ ACETAMINOPHEN 5/325MG TABLET PO PRN ×2 (08:06→17:12)
[2023-03-20] MEDS: CARVEDILOL 3.125 MG TAB PO SCH ×2 (09:55→21:16)
[2023-03-20] MEDS: LISINOPRIL 10 MG TAB PO SCH (09:55)
[2023-03-20] MEDS: NICOTINE 21MG/24 HR TOPICAL PATCH TD SCH (09:55)
[2023-03-20] MEDS: SPIRONOLACTONE 25 MG TAB PO SCH (09:55)
[2023-03-20] MEDS: methylPREDNISolone SOD SUCC 40 MG/ML VL IV SCH ×2 (09:55→21:11)
[2023-03-20] MEDS: ENOXAPARIN SOD 40 MG/0.4 ML SYRINGE SC SCH (09:56)
[2023-03-20 12:53] VITALS: BP 151/87
[2023-03-20] MEDS ORDERED: FENO145T27 PO (16:05)
[2023-03-20] MEDS ORDERED: TIRZ7.5I SC (16:05)
[2023-03-20] MEDS ORDERED: VALA1TAB34 PO (16:05)
[2023-03-20 16:30] VITALS: BP 152/88
[2023-03-20] MEDS: ATORVASTATIN 20 MG TAB PO SCH (21:15)
[2023-03-20 22:00] VITALS: BP 132/77
[2023-03-20] MEDS ORDERED: MELATONIN 5 MG TAB PO ONE (22:00)
[2023-03-21 05:00] VITALS: BP 146/68
[2023-03-21 06:17] LABS: Basophils # (auto) 0.1 10 ^3/uL (0-0.2); Eosinophils # (auto) 0 10 ^3/uL (0-0.8); Hemoglobin 14.2 g/dL (12.2-16.2); Lymphocytes # (auto) 1.2 10 ^3/uL (0.4-5.4); Mean Corpuscular Hemoglobin 37.5 pg (28.0-32.0); Nucleated Red Blood Cells % 0.1 %; Red Cell Distribution Width 16.5 % (11.8-14.3)
[2023-03-21 06:21] LABS: Basophils % (auto) 0.7 % (0.0-2.0); Eosinophils % (auto) 0.1 % (0.0-7.0); Hematocrit 41.1 % (36.0-46.0); Lymphocytes % (auto) 7.7 % (10.0-50.0); Mean Corpuscular Hgb Conc. 34.5 g/dL (32.0-36.0); Mean Corpuscular Volume 108.7 fL (80.0-100.0); Monocytes # (auto) 1.3 10 ^3/uL (0-1.3); Monocytes % (auto) 8.6 % (0.0-12.0); Neutrophils # (auto) 12.7 10 ^3/uL (1.6-8.6); Neutrophils % (auto) 82.9 % (37.0-80.0); Red Blood Cells 3.78 10^6/uL (4.0-5.20); White Blood Cell 15.4 10^3/uL (4.4-10.8)
[2023-03-21 06:30] LABS: Potassium 4.7 mmol/L (3.5-5.1)
[2023-03-21 06:38] LABS: Albumin 3.7 g/dL (3.4-5.0); BUN/Creatinine Ratio 17.8 (10.0-20.0); Bilirubin, Total 0.4 mg/dL (0.2-1.0); Calcium 9.2 mg/dL (8.5-10.1); Total Protein 7.6 g/dL (6.4-8.2)
[2023-03-21] MEDS: IPRATROPIUM BROM 0.5 MG/2.5ML INH SOL NEB SCH ×5 (06:57→23:59)
[2023-03-21] MEDS: ALBUTEROL SULF 2.5 MG/0.5ML(0.5%) NEB SOLN NEB SCH ×4 (06:57→19:47)
[2023-03-21] MEDS: ACCU-CHEK COMFORT CURVE STRIP VI SCH ×4 (06:59→22:18)
[2023-03-21] MEDS: CEFEPIME 1GM/ 50ML 50 ML IV SCH ×3 (07:10→22:17)
[2023-03-21] MEDS: methylPREDNISolone SOD SUCC 40 MG/ML VL IV SCH ×3 (07:11→22:18)
[2023-03-21] MEDS: MORPHINE SULFATE INJ 2 MG/ml SYRG IV PRN ×4 (07:11→20:06)
[2023-03-21] MEDS: FUROSEMIDE 20 MG/2 ML VIAL IV SCH ×2 (07:11→17:10)
[2023-03-21] MEDS: InsuLIN REG 1unit/0.01ml Soln (100units/ml) SC SCH ×4 (07:20→22:23)
[2023-03-21 09:14] VITALS: BP 141/92
[2023-03-21] MEDS: BUDESONIDE (INHALATION) 0.5 MG/2 ML NEB NEB SCH ×2 (10:00→19:47)
[2023-03-21] MEDS: ENOXAPARIN SOD 40 MG/0.4 ML SYRINGE SC SCH (10:11)
[2023-03-21] MEDS: SPIRONOLACTONE 25 MG TAB PO SCH (10:11)
[2023-03-21] MEDS: LISINOPRIL 10 MG TAB PO SCH (10:11)
[2023-03-21] MEDS: NICOTINE 21MG/24 HR TOPICAL PATCH TD SCH (10:12)
[2023-03-21] MEDS: CARVEDILOL 3.125 MG TAB PO SCH ×2 (10:19→22:17)
[2023-03-21] MEDS: OXYCODONE W/ ACETAMINOPHEN 5/325MG TABLET PO PRN ×2 (10:27→17:03)
[2023-03-21] MEDS ORDERED: IOHEXOL 350 MG/ML 100ML IJ ONE (13:43)
[2023-03-21] MEDS ORDERED: BACLOFEN 10 MG TAB PO PRN (13:45)
[2023-03-21] MEDS: ONDANSETRON HCL 4 MG/2 ML VIAL IV PRN (19:57)
[2023-03-21 22:00] VITALS: BP 113/52
[2023-03-21] MEDS: ATORVASTATIN 20 MG TAB PO SCH (22:16)
[2023-03-21] MEDS: TEMAZEPAM 15 MG CAP PO PRN (22:28)
[2023-03-22 00:57] VITALS: BP 113/52
[2023-03-22] MEDS: ONDANSETRON HCL 4 MG/2 ML VIAL IV PRN ×2 (03:57→11:05)
[2023-03-22] MEDS: MORPHINE SULFATE INJ 2 MG/ml SYRG IV PRN ×2 (03:57→11:06)
[2023-03-22 05:00] VITALS: BP 119/54
[2023-03-22] MEDS: methylPREDNISolone SOD SUCC 40 MG/ML VL IV SCH ×2 (05:17→13:44)
[2023-03-22] MEDS: CEFEPIME 1GM/ 50ML 50 ML IV SCH (05:22)
[2023-03-22] MEDS: ACCU-CHEK COMFORT CURVE STRIP VI SCH ×2 (05:29→11:06)
[2023-03-22] MEDS: ALBUTEROL SULF 2.5 MG/0.5ML(0.5%) NEB SOLN NEB SCH ×3 (06:06→11:41)
[2023-03-22] MEDS: IPRATROPIUM BROM 0.5 MG/2.5ML INH SOL NEB SCH ×2 (06:06→11:41)
[2023-03-22] MEDS: BUDESONIDE (INHALATION) 0.5 MG/2 ML NEB NEB SCH (06:07)
[2023-03-22] MEDS: FUROSEMIDE 20 MG/2 ML VIAL IV SCH (06:28)
[2023-03-22] MEDS: InsuLIN REG 1unit/0.01ml Soln (100units/ml) SC SCH ×2 (06:41→11:35)
[2023-03-22] MEDS: ENOXAPARIN SOD 40 MG/0.4 ML SYRINGE SC SCH (08:26)
[2023-03-22] MEDS: NICOTINE 21MG/24 HR TOPICAL PATCH TD SCH (08:26)
[2023-03-22] MEDS: CARVEDILOL 3.125 MG TAB PO SCH (08:27)
[2023-03-22] MEDS: SPIRONOLACTONE 25 MG TAB PO SCH (08:27)
[2023-03-22] MEDS: LISINOPRIL 10 MG TAB PO SCH (08:27)
[2023-03-22 08:31] VITALS: BP 129/70
[2023-03-22] MEDS: OXYCODONE W/ ACETAMINOPHEN 5/325MG TABLET PO PRN (08:34)
[2023-03-22 12:53] VITALS: BP 132/52
[2023-03-22] MEDS ORDERED: PRED20TA2 PO (13:05)
[2023-03-22] MEDS ORDERED: NEBU1MIS14 XX (13:06)
[2023-03-22 13:13] VITALS: BP 127/81
== END 2023-03-22 15:03 | disposition home or self-care (01) | DRG 137 ==
LOC: ER 13:44 → EDBD 13:44 → TELE 21:54 → TELE-WESTW 03-20 12:31
PROVIDERS: ADMIT Nurse Practitioner Acute Care; ATTEND Nurse Practitioner Acute Care
DX: J15.6 Pneumonia due to other Gram-negative bacteria (principal); J96.21 Acute and chronic respiratory failure with hypoxia; I50.33 Acute on chronic diastolic (congestive) heart failure; I24.9 Acute ischemic heart disease, unspecified; Z68.43 Body mass index [BMI] 50.0-59.9, adult; J44.0 Chronic obstructive pulmonary disease with (acute) lower respiratory infection; E11.22 Type 2 diabetes mellitus with diabetic chronic kidney disease; I13.0 Hypertensive heart and chronic kidney disease with heart failure and stage 1 through stage 4 chronic kidney disease, or unspecified chronic kidney disease; J44.1 Chronic obstructive pulmonary disease with (acute) exacerbation; E66.01 Morbid (severe) obesity due to excess calories; E78.5 Hyperlipidemia, unspecified; F17.210 Nicotine dependence, cigarettes, uncomplicated; G89.4 Chronic pain syndrome; N18.9 Chronic kidney disease, unspecified; M06.9 Rheumatoid arthritis, unspecified; G47.33 Obstructive sleep apnea (adult) (pediatric); Z82.5 Family history of asthma and other chronic lower respiratory diseases; Z79.891 Long term (current) use of opiate analgesic; Z80.1 Family history of malignant neoplasm of trachea, bronchus and lung; Z98.891 History of uterine scar from previous surgery; Z99.81 Dependence on supplemental oxygen; Z90.710 Acquired absence of both cervix and uterus; Z87.442 Personal history of urinary calculi; Z86.73 Personal history of transient ischemic attack (TIA), and cerebral infarction without residual deficits
CPT/HCPCS: 36415; 36600; 70491; 71045; 71046; 80048; 80053; 81001; 82805; 82962; 83880; 84484; 85025; 85379; 93005; 94640; G0378; J1100; J1815; J2405

== ENCOUNTER 2023-08-22 17:43 | Emergency (ER) | payer MEDICAID ==
[~2023-08-22] VITALS: Ht 170.2 cm; Wt 118.1 kg
[~2023-08-22 17:43] MED LIST changes: +FENO145T27 PO; +NEBU1MIS14 XX; +TIRZ7.5I SC; +VALA1TAB34 PO
[2023-08-22 19:23] VITALS: BP 143/92; PULSE 98; RESP 18; O2SAT 95
== END 2023-08-22 17:50 | disposition left against medical advice (07) ==
LOC: ER 17:43 → EDBD 17:43 → EDUNIT# 17:43 → ER 17:50
DX: R10.2 Pelvic and perineal pain (principal); Z53.21 Procedure and treatment not carried out due to patient leaving prior to being seen by health care provider

== ENCOUNTER 2023-09-20 15:01 | Emergency (ER) | payer MEDICAID ==
[~2023-09-20] VITALS: Ht 170.2 cm; Wt 112.2 kg
[2023-09-20] MEDS ORDERED: HYDROmorphone HCL 2 MG/ML VL/or syr IM ONE (15:45)
[2023-09-20] MEDS ORDERED: ONDANSETRON ODT 4 MG TAB PO ONE (15:45)
[2023-09-20 16:21] VITALS: TEMP 99.2; O2SAT 94
[2023-09-20 16:39] LABS: Basophils # (auto) 0 10 ^3/uL (0-0.2); Basophils % (auto) 0.2 % (0.0-2.0); Hemoglobin 14.9 g/dL (12.2-16.2)
[2023-09-20 16:41] LABS: Eosinophils # (auto) 0.1 10 ^3/uL (0-0.8); Eosinophils % (auto) 1.1 % (0.0-7.0); Hematocrit 43.2 % (36.0-46.0); Lymphocytes # (auto) 1.3 10 ^3/uL (0.4-5.4); Lymphocytes % (auto) 11.1 % (10.0-50.0); Mean Corpuscular Hemoglobin 35.1 pg (28.0-32.0); Mean Corpuscular Hgb Conc. 34.5 g/dL (32.0-36.0); Mean Corpuscular Volume 101.6 fL (80.0-100.0); Monocytes % (auto) 8.5 % (0.0-12.0); Neutrophils # (auto) 9.6 10 ^3/uL (1.6-8.6); Neutrophils % (auto) 79.1 % (37.0-80.0); Nucleated Red Blood Cells % 0.1 %; Red Blood Cells 4.25 10^6/uL (4.0-5.20); Red Cell Distribution Width 18.1 % (11.8-14.3); White Blood Cell 12.2 10^3/uL (4.4-10.8)
[2023-09-20 16:59] VITALS: BP 152/99; PULSE 89; RESP 18
[2023-09-20 17:04] LABS: Alanine Aminotransferase 31 U/L (7-40); Albumin 4.3 g/dL (3.2-4.8); Alkaline Phosphatase 63 U/L (46-116); Anion Gap 5 (5-15); Aspartate Aminotransferase 28 U/L (13-40); BUN/Creatinine Ratio 7.4 (10.0-20.0); Blood Urea Nitrogen 6 mg/dL (9-23); Calcium 9.6 mg/dL (8.5-10.1); Carbon Dioxide 27 mmol/L (20-30); Chloride 105 mmol/L (98-107); Glucose 76 mg/dL (74-106); Potassium 3.8 mmol/L (3.5-5.1); Sodium 137 mmol/L (136-145)
[2023-09-20 17:05] LABS: Bilirubin, Total 0.7 mg/dL (0.2-1.0); Total Protein 6.9 g/dL (5.7-8.2)
[2023-09-20 18:58] LABS: COVID19 ANTIGEN SOFIA FIA NEGATIVE (NEGATIVE); Rapid Influenza A Negative (Negative); Rapid Influenza B Negative (Negative)
[2023-09-20 20:13] LABS: Urine Bacteria NONE SEEN /hpf (None Seen); Urine Blood Negative /uL (Negative); Urine Clarity Clear (Clear); Urine Color Yellow (Yellow); Urine Mucus FEW (None Seen); Urine Protein, UAD TRACE (Negative); Urine Specific Gravity 1.021 (1.001-1.035); Urine WBC 2 /hpf (0 - 5); Urine pH 6.5 (5.0-8.0)
[2023-09-20] MEDS ORDERED: ZOFR4T PO (20:33)
== END 2023-09-20 21:33 | disposition home or self-care (01) ==
LOC: ER 15:01
DX: M16.11 Unilateral primary osteoarthritis, right hip (principal); A08.4 Viral intestinal infection, unspecified; E11.22 Type 2 diabetes mellitus with diabetic chronic kidney disease; I13.0 Hypertensive heart and chronic kidney disease with heart failure and stage 1 through stage 4 chronic kidney disease, or unspecified chronic kidney disease; N18.9 Chronic kidney disease, unspecified; I50.89 Other heart failure; J44.9 Chronic obstructive pulmonary disease, unspecified; E78.5 Hyperlipidemia, unspecified; F17.210 Nicotine dependence, cigarettes, uncomplicated; F12.10 Cannabis abuse, uncomplicated; Z86.73 Personal history of transient ischemic attack (TIA), and cerebral infarction without residual deficits; Z87.442 Personal history of urinary calculi; Z90.710 Acquired absence of both cervix and uterus; Z20.822 Contact with and (suspected) exposure to COVID-19
CPT/HCPCS: 36415; 71045; 73502; 80053; 81001; 85025; 87426; 87804; 96372; 99284; J1170; Q0162; 72100

== ENCOUNTER 2024-01-13 12:00 | Emergency (ER) | payer MEDICAID ==
[~2024-01-13] VITALS: Ht 170.2 cm; Wt 111.2 kg
[~2024-01-13 12:00] MED LIST changes: -CAR3125T PO; +CARV-214 PO; +LOSA-535 PO; -LOSA100T58 PO; +METO-281 PO; +PANT40TA2 PO; +ZOFR4T PO
[2024-01-13] MEDS: cefTRIAXone SOD 1,000 MG VL IM ONE (16:44)
[2024-01-13] MEDS: KETOROLAC TROMETH 30 MG/ML 1ML VIAL IM ONE (16:45)
[2024-01-13] MEDS ORDERED: BACDST PO (17:14)
[2024-01-13] MEDS ORDERED: CEPH500C PO (17:14)
[2024-01-13 18:00] VITALS: BP 135/97; PULSE 95; RESP 17; TEMP 98.7; O2SAT 98
== END 2024-01-13 18:03 | disposition home or self-care (01) ==
LOC: ER 12:00
DX: L03.317 Cellulitis of buttock (principal); K76.89 Other specified diseases of liver; B02.9 Zoster without complications; M19.90 Unspecified osteoarthritis, unspecified site; I13.0 Hypertensive heart and chronic kidney disease with heart failure and stage 1 through stage 4 chronic kidney disease, or unspecified chronic kidney disease; E11.22 Type 2 diabetes mellitus with diabetic chronic kidney disease; N18.9 Chronic kidney disease, unspecified; I50.9 Heart failure, unspecified; J44.9 Chronic obstructive pulmonary disease, unspecified; F32.A Depression, unspecified; E78.5 Hyperlipidemia, unspecified; F17.210 Nicotine dependence, cigarettes, uncomplicated; F12.10 Cannabis abuse, uncomplicated; Z79.899 Other long term (current) drug therapy; Z86.73 Personal history of transient ischemic attack (TIA), and cerebral infarction without residual deficits; Z87.442 Personal history of urinary calculi; Z98.51 Tubal ligation status; Z87.440 Personal history of urinary (tract) infections; Z90.710 Acquired absence of both cervix and uterus
CPT/HCPCS: 96372; 99284; J0696; J1885

== ENCOUNTER 2024-04-22 08:34 | Inpatient (IN) | payer MEDICAID ==
[~2024-04-22] VITALS: Ht 170.2 cm; Wt 104.5 kg
[~2024-04-22 08:34] MED LIST changes: +BACDST PO; +CEPH500C PO
[2024-04-22 09:12] LABS: Urine Bacteria FEW /hpf (None Seen); Urine Blood Negative /uL (Negative); Urine Clarity Turbid (Clear); Urine Color Yellow (Yellow); Urine Mucus FEW (None Seen); Urine Protein, UAD Negative (Negative); Urine Specific Gravity 1.019 (1.001-1.035); Urine Urobilinogen 2 mg/dL (Negative); Urine WBC 29 /hpf (0 - 5); Urine pH 6.5 (5.0-9.0)
[2024-04-22 09:53] LABS: Basophils # (auto) 0 10 ^3/uL (0-0.2); Eosinophils # (auto) 0.1 10 ^3/uL (0-0.8); Mean Corpuscular Hemoglobin 37.6 pg (28.0-32.0); Neutrophils # (auto) 3.5 10 ^3/uL (1.6-8.6); Nucleated Red Blood Cells % 0.1 %
[2024-04-22 09:55] LABS: Basophils % (auto) 0.4 % (0.0-2.0); Eosinophils % (auto) 2.2 % (0.0-7.0); Hematocrit 40.5 % (36.0-46.0); Hemoglobin 14.4 g/dL (12.2-16.2); Lymphocytes # (auto) 2.3 10 ^3/uL (0.4-5.4); Mean Corpuscular Hgb Conc. 35.5 g/dL (32.0-36.0); Mean Corpuscular Volume 105.8 fL (80.0-100.0); Monocytes # (auto) 0.4 10 ^3/uL (0-1.3); Monocytes % (auto) 6.7 % (0.0-12.0); Neutrophils % (auto) 54.7 % (37.0-80.0); Red Blood Cells 3.83 10^6/uL (4.0-5.20); Red Cell Distribution Width 14.7 % (11.8-14.3); White Blood Cell 6.4 10^3/uL (4.4-10.8)
[2024-04-22 10:23] LABS: Alanine Aminotransferase 27 U/L (7-40); Albumin 4.3 g/dL (3.2-4.8); Alkaline Phosphatase 52 U/L (46-116); Anion Gap 1 (5-15); Aspartate Aminotransferase 37 U/L (13-40); BUN/Creatinine Ratio 13.8 (10.0-20.0); Bilirubin, Total 0.5 mg/dL (0.2-1.0); Blood Urea Nitrogen 11 mg/dL (9-23); Calcium 9.6 mg/dL (8.7-10.4); Carbon Dioxide 29 mmol/L (20-30); Chloride 108 mmol/L (98-107); Glucose 83 mg/dL (74-106); Magnesium 1.9 mg/dL (1.6-2.6); Sodium 138 mmol/L (136-145)
[2024-04-22 10:37] LABS: INR 1.03 (0.9-1.15); Partial Thromboplastin Time 24.6 SEC (24.5-34.5); Prothrombin Time 10.9 sec (9.3-11.8)
[2024-04-22] MEDS: cefTRIAXone 1GM/50ML D5W 50 ML IV ONE (12:00)
[2024-04-22 12:23] VITALS: TEMP 98.9; O2SAT 100
[2024-04-22] MEDS ORDERED: ACETAMINOPHEN 325 MG TAB PO PRN (12:45)
[2024-04-22] MEDS ORDERED: NITROGLYCERIN 0.4 MG SL TAB SL PRN (12:45)
[2024-04-22] MEDS ORDERED: ONDANSETRON HCL 4 MG/2 ML VIAL IV PRN (12:45)
[2024-04-22] MEDS ORDERED: DOCUSATE SOD 100 MG CAP PO PRN (12:45)
[2024-04-22] MEDS ORDERED: MORPHINE SULFATE INJ 2 MG/ml SYRG IV PRN ×2 (12:45)
[2024-04-22 12:54] VITALS: BP 155/99; PULSE 78; RESP 16
[2024-04-22] MEDS: ONDANSETRON HCL 4 MG/2 ML VIAL IV ONE (12:54)
[2024-04-22] MEDS: MORPHINE SULFATE 4 MG/ML SYR/VIAL IV ONE (12:54)
[2024-04-22] MEDS ORDERED: DEXTROSE (50%) 50ML SYRG IV PRN (13:00)
[2024-04-22] MEDS: SODIUM CHLOR 0.9% PF (SALINE LOCK) 10ML VIAL/SYR IV SCH (14:14)
[2024-04-22] MEDS ORDERED: InsuLIN REG 1unit/0.01ml Soln (100units/ml) SC SCH ×2 (17:00→22:00)
[2024-04-22] MEDS ORDERED: ACCU-CHEK COMFORT CURVE STRIP VI SCH (17:00)
[2024-04-22] MEDS ORDERED: GABAPENTIN 300 MG CAP PO SCH (22:00)
[2024-04-22] MEDS ORDERED: ATORVASTATIN 20 MG TAB PO SCH (22:00)
[2024-04-22] MEDS ORDERED: ASCORBIC ACID 500 MG TAB PO SCH (22:00)
[2024-04-23] MEDS ORDERED: cefTRIAXone 1GM/50ML D5W 50 ML IV SCH (09:00)
[2024-04-23] MEDS ORDERED: PANTOPRAZOLE 40 MG TAB PO SCH (10:00)
[2024-04-23] MEDS ORDERED: ZINC SULFATE 220mg CAP or TAB PO SCH (10:00)
[2024-04-23] MEDS ORDERED: MULTIPLE VITAMIN TAB PO SCH (10:00)
[2024-04-23] MEDS ORDERED: LOSARTAN POTASSIUM 50 MG TAB PO SCH (10:00)
[2024-04-23] MEDS ORDERED: PATIENTS OWN MEDICATION (Fenofibrate 1 TAB) PO SCH (10:00)
== END 2024-04-22 15:20 | disposition left against medical advice (07) | DRG 463 ==
LOC: EDBD 08:34 → ER 08:43 → OVERFLOW 12:53
PROVIDERS: ADMIT Nurse Practitioner Family; ATTEND Nurse Practitioner Family
DX: N39.0 Urinary tract infection, site not specified (principal); I50.9 Heart failure, unspecified; K76.0 Fatty (change of) liver, not elsewhere classified; I11.0 Hypertensive heart disease with heart failure; E11.9 Type 2 diabetes mellitus without complications; K38.1 Appendicular concretions; F32.A Depression, unspecified; E78.5 Hyperlipidemia, unspecified; M54.9 Dorsalgia, unspecified; F17.210 Nicotine dependence, cigarettes, uncomplicated; J44.9 Chronic obstructive pulmonary disease, unspecified; E66.01 Morbid (severe) obesity due to excess calories; M06.9 Rheumatoid arthritis, unspecified; G89.29 Other chronic pain; Z79.2 Long term (current) use of antibiotics; Z79.899 Other long term (current) drug therapy; Z79.82 Long term (current) use of aspirin; Z90.710 Acquired absence of both cervix and uterus; Z87.442 Personal history of urinary calculi; Z86.73 Personal history of transient ischemic attack (TIA), and cerebral infarction without residual deficits; Z68.36 Body mass index [BMI] 36.0-36.9, adult
CPT/HCPCS: 36415; 71046; 74176; 80053; 81001; 83735; 84484; 85025; 85610; 85730; 93005; G0378; J2405

== ENCOUNTER 2024-05-27 07:23 | Inpatient (IN) | payer MEDICAID ==
[2024-05-25 12:11] LABS: Basophils # (auto) 0 10 ^3/uL (0-0.2); Eosinophils # (auto) 0.2 10 ^3/uL (0-0.8); Lymphocytes # (auto) 3.4 10 ^3/uL (0.4-5.4); Monocytes # (auto) 0.6 10 ^3/uL (0-1.3); Red Cell Distribution Width 14.5 % (11.8-14.3)
[2024-05-25 12:14] LABS: Basophils % (auto) 0.4 % (0.0-2.0); Eosinophils % (auto) 3.2 % (0.0-7.0); Hematocrit 39.7 % (36.0-46.0); Hemoglobin 14.2 g/dL (12.2-16.2); Lymphocytes % (auto) 53.8 % (10.0-50.0); Mean Corpuscular Hemoglobin 37.6 pg (28.0-32.0); Mean Corpuscular Hgb Conc. 35.8 g/dL (32.0-36.0); Mean Corpuscular Volume 105.2 fL (80.0-100.0); Monocytes % (auto) 9.7 % (0.0-12.0); Neutrophils # (auto) 2.1 10 ^3/uL (1.6-8.6); Neutrophils % (auto) 32.9 % (37.0-80.0); Nucleated Red Blood Cells % 0.1 %; Platelet Count (auto) 279 10^3/uL (140-450); Red Blood Cells 3.77 10^6/uL (4.0-5.20); White Blood Cell 6.3 10^3/uL (4.4-10.8)
[2024-05-25 12:27] LABS: INR 1.04 (0.9-1.15); Partial Thromboplastin Time 25.1 SEC (24.5-34.5)
[2024-05-25 12:33] LABS: Urine Bacteria FEW /hpf (None Seen); Urine Blood Negative /uL (Negative); Urine Clarity Turbid (Clear); Urine Color Yellow (Yellow); Urine Hyaline Cast MANY /lpf (0 - 2); Urine Mucus FEW (None Seen); Urine Protein, UAD TRACE (Negative); Urine Specific Gravity 1.028 (1.001-1.035); Urine Urobilinogen Normal (Negative); Urine WBC 2 /hpf (0 - 5); Urine pH 5.5 (5.0-9.0)
[2024-05-25 13:04] LABS: Alanine Aminotransferase 19 U/L (7-40); Albumin 4.1 g/dL (3.2-4.8); Alkaline Phosphatase 54 U/L (46-116); Anion Gap 4 (5-15); Aspartate Aminotransferase 28 U/L (13-40); BUN/Creatinine Ratio 9.3 (10.0-20.0); Bilirubin, Total 0.4 mg/dL (0.2-1.0); Blood Urea Nitrogen 13 mg/dL (9-23); Calcium 9.7 mg/dL (8.7-10.4); Carbon Dioxide 26 mmol/L (20-30); Chloride 106 mmol/L (98-107); Glucose 83 mg/dL (74-106); Potassium 4.1 mmol/L (3.5-5.1); Sodium 136 mmol/L (136-145); Total Protein 6.9 g/dL (5.7-8.2)
[2024-05-27] VITALS (16 sets, daily range): BP systolic 107–140; BP diastolic 61–96; PULSE 52–79; RESP 10–21; TEMP 97.3–98; O2SAT 91–100
[~2024-05-27] VITALS: Ht 170.2 cm; Wt 104.0 kg
[~2024-05-27 07:23] MED LIST changes: -ALBUAER3 IN; -AML5T PO; -ATOR80TA PO; -AZITTAB PO; -BACDST PO; -CEPH500C PO; +CHOL20007 PO; +CYCL15CA27 PO; -FENO145T27 PO; +FENO54TA4 PO; +FURO1TAB31 PO; -IPRA0.00 IN; +MELO15TA29 PO; -METF-370 PO; -METO-281 PO; +MORP15TA PO; -NEBU1MIS14 XX; -OMEP20TA44 PO; -PANT40TA2 PO; +PERCOT PO; -POTA10SO11 PO; -PRED20TA2 PO; -SPIR25TA PO; +UPAD15TA PO; -VALA1TAB PO; -VALA1TAB34 PO; -ZOFR4T PO
[2024-05-27] MEDS ORDERED: ePHEDrine SULFATE 50 MG/ML AMP ONE (07:33)
[2024-05-27] MEDS ORDERED: fentaNYL CITRATE 100 MCG/2 ML VL ONE (07:33)
[2024-05-27] MEDS ORDERED: DexAMETHasone SOD PHOS 10MG/1ML VIAL INJ ONE (07:33)
[2024-05-27] MEDS ORDERED: ONDANSETRON HCL 4 MG/2 ML VIAL ONE (07:33)
[2024-05-27] MEDS ORDERED: PROPOFOL 10 MG/ML 20 ML IV ONE ×2 (07:33→09:55)
[2024-05-27] MEDS ORDERED: KETAMINE 50mg/ML 1ml syringe ONE (07:33)
[2024-05-27] MEDS ORDERED: MORPHINE SULF PF 5 MG/10 ML VIAL ONE (07:33)
[2024-05-27] MEDS ORDERED: GLYCOPYRROLATE 0.2 MG/ML 1ML VIAL ONE (07:33)
[2024-05-27] MEDS ORDERED: MIDAZOLAM HCL 2MG/2ML 2ml VIAL (1mg/ml) ONE (07:33)
[2024-05-27] MEDS ORDERED: EPINEPHrine HCL 1 MG/1 ML AMP ONE (07:38)
[2024-05-27] MEDS ORDERED: VANCOMYCIN HCL 1000 MG VL ONE (07:38)
[2024-05-27] MEDS ORDERED: TRANEXAMIC ACID 20 ML ONE (07:42)
[2024-05-27] MEDS ORDERED: ceFAZolin 2 GM/D5W100ml 100 ML IV ONE (08:10)
[2024-05-27] MEDS ORDERED: CEFEPIME 1GM/ 50ML 50 ML IV ONE (09:20)
[2024-05-27] MEDS ORDERED: MEPERIDINE HCL (25 MG/ML) 1ML VIAL ONE (11:14)
[2024-05-27] MEDS ORDERED: ONDANSETRON HCL 4 MG/2 ML VIAL IV PRN ×2 (11:15→11:30)
[2024-05-27] MEDS ORDERED: DexAMETHasone SOD PHOS 10MG/1ML VIAL INJ IV PRN (11:30)
[2024-05-27] MEDS ORDERED: oxyCODONE HCL 5MG TAB PO PRN (11:30)
[2024-05-27] MEDS ORDERED: SODIUM CHLORIDE 0.9% 1,000 ML IV SCH (11:30)
[2024-05-27] MEDS ORDERED: NALOXONE HCL 0.4 MG/ML VIAL IV PRN (11:30)
[2024-05-27] MEDS ORDERED: KETOROLAC TROMETH 30 MG/ML 1ML VIAL IV PRN (11:30)
[2024-05-27] MEDS: KETOROLAC TROMETH 30 MG/ML 1ML VIAL IV ONE (12:26)
[2024-05-27] MEDS: KETOROLAC TROMETH 30 MG/ML 1ML VIAL IV SCH (13:56)
[2024-05-27] MEDS: ACETAMINOPHEN 325 MG TAB PO SCH (13:56)
[2024-05-27] MEDS: oxyCODONE HCL 5MG TAB PO PRN (14:08)
[2024-05-27] MEDS ORDERED: DEXTROSE (50%) 50ML SYRG IV PRN (15:15)
[2024-05-27] MEDS ORDERED: CYCLOBENZAPRINE HCL 10 MG TAB PO PRN (15:15)
[2024-05-27] MEDS: ceFAZolin 2 GM/D5W50ml 50 ML IV SCH (15:47)
[2024-05-27] MEDS: diphenhdrAMINE HCL 50 MG/1 ML VL IV PRN (15:48)
[2024-05-27] MEDS: SODIUM CHLORIDE 0.9% 1,000 ML IV SCH (16:00)
[2024-05-27] MEDS: NICOTINE 7MG/24HR TOPICAL PATCH TD ONE (17:59)
[2024-05-27] MEDS: ACCU-CHEK COMFORT CURVE STRIP VI SCH (18:04)
[2024-05-27] MEDS: InsuLIN REG 1unit/0.01ml Soln (100units/ml) SC SCH (18:05)
[2024-05-27] MEDS: GABAPENTIN 300 MG CAP PO SCH (21:38)
[2024-05-27] MEDS: MORPHINE SULF 30 mg ER tab PO SCH (21:39)
[2024-05-27] MEDS: CARVEDILOL 3.125 MG TAB PO SCH (21:40)
[2024-05-27] MEDS ORDERED: LISINOPRIL 5 MG TAB PO SCH (22:00)
[2024-05-27] MEDS ORDERED: PATIENTS OWN MEDICATION (Lisinopril 10 MG) PO SCH (22:00)
[2024-05-27] MEDS: ceFAZolin 1GM/50ML 50 ML IV ONE ×2 (22:51→23:00)
[2024-05-28] VITALS (18 sets, daily range): BP systolic 105–139; BP diastolic 62–97; PULSE 55–67; RESP 14–18; TEMP 97.8–98.1; O2SAT 95–99
[2024-05-28] MEDS: ceFAZolin 1GM/50ML 50 ML IV ONE ×2 (06:00→06:47)
[2024-05-28 06:35] LABS: Basophils # (auto) 0 10 ^3/uL (0-0.2); Eosinophils # (auto) 0.1 10 ^3/uL (0-0.8); Monocytes # (auto) 0.5 10 ^3/uL (0-1.3); Red Cell Distribution Width 14.6 % (11.8-14.3)
[2024-05-28 06:38] LABS: Basophils % (auto) 0.2 % (0.0-2.0); Eosinophils % (auto) 1.7 % (0.0-7.0); Hematocrit 32.3 % (36.0-46.0); Hemoglobin 11.5 g/dL (12.2-16.2); Lymphocytes # (auto) 1.4 10 ^3/uL (0.4-5.4); Lymphocytes % (auto) 17.2 % (10.0-50.0); Mean Corpuscular Hemoglobin 38.1 pg (28.0-32.0); Mean Corpuscular Hgb Conc. 35.5 g/dL (32.0-36.0); Mean Corpuscular Volume 107.1 fL (80.0-100.0); Monocytes % (auto) 6.3 % (0.0-12.0); Neutrophils % (auto) 74.6 % (37.0-80.0); Platelet Count (auto) 181 10^3/uL (140-450); Red Blood Cells 3.01 10^6/uL (4.0-5.20)
[2024-05-28 06:49] LABS: Alanine Aminotransferase 18 U/L (7-40); Albumin 3.2 g/dL (3.2-4.8); Alkaline Phosphatase 37 U/L (46-116); Anion Gap 5 (5-15); Aspartate Aminotransferase 55 U/L (13-40); BUN/Creatinine Ratio 14.7 (10.0-20.0); Blood Urea Nitrogen 14 mg/dL (9-23); Calcium 8.5 mg/dL (8.7-10.4); Carbon Dioxide 22 mmol/L (20-30); Chloride 110 mmol/L (98-107); Glucose 78 mg/dL (74-106); Potassium 4.2 mmol/L (3.5-5.1); Sodium 137 mmol/L (136-145)
[2024-05-28 06:50] LABS: Bilirubin, Total 0.3 mg/dL (0.2-1.0); Total Protein 5.4 g/dL (5.7-8.2)
[2024-05-28] MEDS: NICOTINE 7MG/24HR TOPICAL PATCH TD SCH (08:56)
[2024-05-28] MEDS: FUROSEMIDE 40 MG TAB PO SCH (08:57)
[2024-05-28] MEDS: APIXABAN 2.5 MG TAB PO SCH (08:58)
[2024-05-28] MEDS ORDERED: LOSARTAN POTASSIUM 50 MG TAB PO SCH (10:00)
[2024-05-28] MEDS ORDERED: PATIENTS OWN MEDICATION (Losartan Potassium 1 TAB) PO SCH (10:00)
== END 2024-05-28 15:53 | disposition home or self-care (01) | DRG 324 ==
LOC: SUR 07:23 → OVERFLOW 11:25 → CENTRAL 14:58
PROVIDERS: ADMIT Orthopaedic Surgery; ATTEND Internal Medicine
PROC: 0SR904Z Replacement of Right Hip Joint with Ceramic on Polyethylene Synthetic Substitute, Open Approach (ICD-10-PCS; principal; 2024-05-27 08:42)
DX: M16.11 Unilateral primary osteoarthritis, right hip (principal); N17.0 Acute kidney failure with tubular necrosis; J96.10 Chronic respiratory failure, unspecified whether with hypoxia or hypercapnia; I50.32 Chronic diastolic (congestive) heart failure; I11.0 Hypertensive heart disease with heart failure; E66.9 Obesity, unspecified; M06.9 Rheumatoid arthritis, unspecified; G89.29 Other chronic pain; M79.7 Fibromyalgia; J44.9 Chronic obstructive pulmonary disease, unspecified; F17.210 Nicotine dependence, cigarettes, uncomplicated; E11.9 Type 2 diabetes mellitus without complications; Z86.718 Personal history of other venous thrombosis and embolism; Z80.0 Family history of malignant neoplasm of digestive organs; Z80.1 Family history of malignant neoplasm of trachea, bronchus and lung; Z80.3 Family history of malignant neoplasm of breast; Z80.41 Family history of malignant neoplasm of ovary; Z80.8 Family history of malignant neoplasm of other organs or systems; Z81.8 Family history of other mental and behavioral disorders; Z82.0 Family history of epilepsy and other diseases of the nervous system; Z82.3 Family history of stroke; Z82.49 Family history of ischemic heart disease and other diseases of the circulatory system; Z82.5 Family history of asthma and other chronic lower respiratory diseases; Z82.62 Family history of osteoporosis; Z83.3 Family history of diabetes mellitus; Z79.4 Long term (current) use of insulin; Z68.35 Body mass index [BMI] 35.0-35.9, adult
CPT/HCPCS: 36415; 71045; 72170; 73501; 80053; 81001; 82962; 83036; 84702; 85025; 85610; 85730; 86850; 86900; 86901; 97110; 97116; 97163; 97530; A4565; G0378; J0171; J1100; J1815; J1885; J2250; J2405; J2704

== ENCOUNTER 2024-09-08 08:57 | Inpatient (IN) | payer MEDICAID ==
[~2024-09-08] VITALS: Ht 170.2 cm; Wt 43.6 kg
--- NOTE | 2024-09-08 09:09 | ED.PDOC ---
History of Present Illness HPI Comments 49 y/o F presents with c/o right hip pain and swelling for 1x day, today. Patient endorses on cooking, last night, when she turned and heard a "pop," with symptoms onset ensuing afterwards. Patient comments on right hip replacement by Dr. Martin in May 2024. She denies having any additional associated symptoms or modifiers at this time. Chief Complaint: Lower Extremity Time Seen by MD: 09:00 Primary Care Provider: JAYSON Reviewed Notes: Nurses Notes, Medical Illustrator Notes, Medications, Allergies Allergies: Coded Allergies: No Known Drug Allergy (Verified Allergy, Unknown, 03/18/18) Home Meds Active Scripts Lisinopril (Lisinopril) 10 Mg Tab, 10 MG PO BID for 30 Days, #60 TAB Prov:[facility] 06/12/17 Insulin Regular (Human) (Novolin R) 100 Unit/Ml Inj, 0 UNITS SC ACHS for 30 Days, INJ Prov:[facility] 06/12/17 Carvedilol (COREG) 3.125 Mg Tab, 6.25 MG PO Q12HR for 30 Days, #120 TAB Prov:[facility] 06/12/17 Aspirin (Asa) 81 Mg Ch, 81 MG PO DAILY for 30 Days Prov:[facility] 06/12/17 Reported Medications Oxycodone W/ Acetaminophen (Percocet 5/325MG) 1 Tab Tb, 1 TAB PO QID, #120 TAB 05/25/24 Morphine Sulfate (Morphine Sulfate) 15 Mg Tab, 15 MG PO, TAB 05/25/24 Cyclobenzaprine HCl (Cyclobenzaprine Hydrochlo) 15 Mg Cap, 15 MG PO, CAP 05/25/24 Cholecalciferol (VITAMIN D3) 2,000 Unit Tab, 1 TAB PO DAILY, #30 TAB 5 Refills 05/25/24 Furosemide (Lasix) 40 Mg Tab, 40 MG PO, TAB 05/25/24 Meloxicam (Meloxicam) 15 Mg Tab, 1 TAB PO DAILY, #30 TAB 2 Refills 05/25/24 Upadacitinib (Rinvoq) 15 Mg Tab, 15 MG PO, TAB 05/25/24 Fenofibrate (Fenofibrate) 54 Mg Tab, 1 TAB PO DAILY, #30 TAB 5 Refills 05/25/24 Tirzepatide (Mounjaro) 7.5 Mg/0.5 Ml Inj, SC QWEEKLY 03/20/23 Losartan Potassium (Losartan Potassium) 100 Mg Tab, 1 TAB PO DAILY 11/12/22 Gabapentin (Gabapentin) 300 Mg Cap, 300 MG PO BID 11/12/22 Methotrexate (Methotrexate) 2.5 Mg Tab, 2.5 MG PO QWEEKLY, TAB 8 tablets weekly 11/17/13 Information Source: Patient, Emergency Med Personnel Mode of Arrival: EMS Severity: Moderate Timing: Days Duration: Since onset Prehospital treatment: None Past Medical History PAST MEDICAL HISTORY: Arthritis, CHF, CKF, COPD, CVA, Depression, DM, High Lipids, HTN, Kidney Stones, UTI'S Past Medical History (Other): DVT's without blood thinner medication placement Surgical History: , Hernia Repair, Hysterectomy, Tubal Ligation Surgical History (Other): right hip replacement INTERNATIONAL AFFAIRS VICE PRESIDENT History: No Pertinent INTERNATIONAL AFFA[employer] VICE PRESIDENT History Family History Family History: Reviewed,noncontributory to illness, Family hx of heart pascual, Family hx of lung pascual, Family hx of stroke Social History Smoker: Cigarettes, Less Than 1 Pack/Day Alcohol: Occasionally Drugs: Denies Drug Use Lives In: Home Musculoskeletal: reports: others (right hip pain and swelling ) All Other Systems: Reviewed and Negative (negative unless otherwise stated above or in HPI) Physical Exam General Appearance: No Apparent Distress, Normal HEENT: Normal ENT Inspection, Pharynx Normal, TMs Normal Neck: Full Range of Motion, Non-Tender, Normal, Normal Inspection Respiratory: Chest Non-Tender, Lungs Clear, No Accessory Muscle Use, No Respiratory Distress, Normal Breath Sounds Cardiovascular: No Edema, No JVD, No Murmur, No Gallop, Normal Peripheral Pulses, Regular Rate/Rhythm Breast Exam: Deferred Gastrointestinal: No Organomegaly, Non Tender, No Pulsatile Mass, Normal Bowel Sounds, Soft Genitalia: Deferred Pelvic: Deferred Rectal: Deferred Extremities: No calf tenderness, Normal capillary refill, No pedal edema, Other (shortening to right lower extremity, dorsalis pedis 2+) Musculoskeletal : Location: Right Extremity Location: Hip Apperance: Normal, Tenderness Neurologic: Alert, capital campaign fundraiser II-XII nml as Tested, No Motor Deficits, Normal Affect, Normal Mood, No Sensory Deficits Cerebellar Function: Normal Reflexes: Normal Skin: Dry, Normal Color, Warm Lymphatic: No Adenopathy Was a procedure done? Was a procedure done?: No Differential Dx Considerations may include: DVT, fracture, dislocation, contusions, bruising, hematoma, strain, sprain, contusion X-Ray, Labs, Meds, VS Vital Signs Date Time Temp Pulse Resp B/P (MAP) Pulse Ox O2 Delivery O2 Flow Rate FiO2 09/08/24 15:02 73 17 163/104 09/08/24 11:20 159/54 09/08/24 10:34 70 12 145/71 09/08/24 10:04 85 22 164/104 09/08/24 08:57 86 18 149/103 (118) 98 Lab Test 09/08/24 10:05 Range/Units White Blood Count 6.3 4.4-10.8 10^3/uL Red Blood Count 3.66 L 4.0-5.20 10^6/uL Hemoglobin 13.1 12.2-16.2 g/dL Hematocrit 38.1 36.0-46.0 % Mean Corpuscular Volume 103.9 H 80.0-100.0 fL Mean Corpuscular Hemoglobin 35.8 H 28.0-32.0 pg Mean Corpuscular Hemoglobin Concent 34.4 32.0-36.0 g/dL Red Cell Distribution Width 16.4 H 11.8-14.3 % Platelet Count 273 140-450 10^3/uL Mean Platelet Volume 6.5 L 6.9-10.8 fL Neutrophils (%) (Auto) 44.1 37.0-80.0 % Lymphocytes (%) (Auto) 47.3 10.0-50.0 % Monocytes (%) (Auto) 5.0 0.0-12.0 % Eosinophils (%) (Auto) 3.0 0.0-7.0 % Basophils (%) (Auto) 0.6 0.0-2.0 % Neutrophils # (Auto) 2.8 1.6-8.6 10 ^3/uL Lymphocytes # (Auto) 3.0 0.4-5.4 10 ^3/uL Monocytes # (Auto) 0.3 0-1.3 10 ^3/uL Eosinophils # (Auto) 0.2 0-0.8 10 ^3/uL Basophils # (Auto) 0 0-0.2 10 ^3/uL Nucleated Red Blood Cells 0.1 % Sodium Level 139 136-145 mmol/L Potassium Level 4.2 3.5-5.1 mmol/L Chloride Level 108 H 98-107 mmol/L Carbon Dioxide Level 23 20-31 mmol/L Anion Gap 8 5-15 Blood Urea Nitrogen 13 9-23 mg/dL Creatinine 0.86 0.550-1.02 mg/dL Glomerular Filtration Rate Calc 83 >90 mL/min BUN/Creatinine Ratio 15.1 10.0-20.0 Serum Glucose 77 74-106 mg/dL Calcium Level 9.6 8.7-10.4 mg/dL Current Medications Medications (Trade) Dose Ordered Sig/Lesia Route Start Time Stop Time Status Last Admin Morphine Sulfate 2 mg ONCE ONCE IV 09/08/24 09:15 09/08/24 09:16 DC 09/08/24 10:04 Fentanyl Citrate 25 mcg ONCE ONCE IV 09/08/24 10:00 09/08/24 10:01 DC 09/08/24 11:20 Sodium Chloride (Saline Lock Ns) 10 ml Q8HR IV 09/08/24 14:00 09/08/24 14:13 Ondansetron HCl (Zofran) 4 mg Q4HP PRN IV 09/08/24 12:15 09/08/24 15:03 Morphine Sulfate 2 mg Q4HPRN PRN IV 09/08/24 12:15 09/08/24 15:02 Time of 1ST Reevaluation: 09:30 Reevaluation 1ST: Unchanged Patient Education/Counseling: Diagnosis, Treatment Family Education/Counseling: No Family Present Departure 1 Departure Time of Disposition: 11:29 Impression: Primary Impression: Dislocation of hip prosthesis Qualified Codes: T84.029A - Dislocation of unspecified internal joint pro sthesis, initial encounter; Z96.649 - Presence of unspecified artificial hip joint Additional Impression: Hematoma Disposition: ADMITTED INPATIENT Condition: Stable Critical Care Note Critical Care Time?: Yes (55 min-critical care time only) Critical care comment: Due to concerns for patients condition deteriorating, the care required my highest level of attention and readiness to intervene. I assessed the patient, reviewed the medical records, ordered the appropriate tests and treatments, then reassessed for results and responsiveness. I communicated with medical personnel and consultants and formulated a plan of care. Total critical care time excludes any procedures Stability Stability form required: No Heart Score Heart Score: Heart Score Response (Comments) Value History N/A 0 EKG N/A 0 Age N/A 0 Risk Factors N/A 0 Troponin N/A 0 Total 0 I personally scribed for LYLE MAYES MD ([email or web address]) on 09/08/24 at 09:09. Electronically submitted by Won Saravia ([email or web address]). LYLE MAYES MD Sep 08, 2024 09:09
[2024-09-08] MEDS: MORPHINE SULFATE INJ 2 MG/ml SYRG IV ONE (10:04)
--- NOTE | 2024-09-08 10:15 | DVH ---
CLINICAL INFORMATION: 49 years old, Female; rip hip pain. TECHNIQUE: Axial CT images of the right hip were obtained without IV contrast. Coronal and sagittal r eformatted images were obtained, reviewed, and stored. All CT scans at this medical facility are p erformed using dose modulation techniques as appropriate to a performed exam including the following: Automated exposure control was utilized; adjustment of the MA and/or KV according to patient size; a nd use of iterative reconstruction technique. CTDIvol = 38.94, 0.41, 0.07 mGy DLP = 1506.06 mGy-cm COMPARISON: Radiographs dated 09/03/2024. FINDINGS: Dislocated right hip prosthesis with the femoral head component positioned anteriorly and s uperiorly relative to the acetabular cup. There is no evidence of acute fracture. Partially visualize d fluid collection along the lateral aspect of the right hip measuring at least 6.7 x 5.4 cm on the a xial images extending to 19.9 cm in craniocaudal dimension. Possible hematoma or postoperative collec tion. IMPRESSION: 1. Dislocated right hip prosthesis. 2. Large complex fluid collection in the subcutaneous tissues along the lateral aspect of the right h ip, possible hematoma or postoperative collection.
[2024-09-08 10:16] LABS: Basophils # (auto) 0 10 ^3/uL (0-0.2); Eosinophils # (auto) 0.2 10 ^3/uL (0-0.8); Hemoglobin 13.1 g/dL (12.2-16.2); Mean Corpuscular Hemoglobin 35.8 pg (28.0-32.0); Monocytes # (auto) 0.3 10 ^3/uL (0-1.3); Nucleated Red Blood Cells % 0.1 %; Red Cell Distribution Width 16.4 % (11.8-14.3)
[2024-09-08 10:18] LABS: Basophils % (auto) 0.6 % (0.0-2.0); Hematocrit 38.1 % (36.0-46.0); Lymphocytes % (auto) 47.3 % (10.0-50.0); Mean Corpuscular Hgb Conc. 34.4 g/dL (32.0-36.0); Mean Corpuscular Volume 103.9 fL (80.0-100.0); Neutrophils # (auto) 2.8 10 ^3/uL (1.6-8.6); Neutrophils % (auto) 44.1 % (37.0-80.0); Platelet Count (auto) 273 10^3/uL (140-450); Red Blood Cells 3.66 10^6/uL (4.0-5.20); White Blood Cell 6.3 10^3/uL (4.4-10.8)
[2024-09-08 10:40] LABS: Potassium 4.2 mmol/L (3.5-5.1); Sodium 139 mmol/L (136-145)
[2024-09-08 10:41] LABS: Anion Gap 8 (5-15); Calcium 9.6 mg/dL (8.7-10.4); Carbon Dioxide 23 mmol/L (20-31)
[2024-09-08 10:42] LABS: Chloride 108 mmol/L (98-107)
[2024-09-08 10:46] LABS: BUN/Creatinine Ratio 15.1 (10.0-20.0); Blood Urea Nitrogen 13 mg/dL (9-23); Glucose 77 mg/dL (74-106)
[2024-09-08] MEDS: fentaNYL CITRATE 100 MCG/2 ML VL IV ONE (11:20)
[2024-09-08] MEDS ORDERED: ACETAMINOPHEN 325 MG TAB PO PRN (12:15)
[2024-09-08] MEDS ORDERED: DEXTROSE (50%) 50ML SYRG IV PRN (12:15)
[2024-09-08] MEDS ORDERED: DOCUSATE SOD 100 MG CAP PO PRN (12:15)
[2024-09-08] MEDS: SODIUM CHLOR 0.9% PF (SALINE LOCK) 10ML VIAL/SYR IV SCH (14:13)
[2024-09-08] MEDS: MORPHINE SULFATE INJ 2 MG/ml SYRG IV PRN (15:02)
[2024-09-08] MEDS: ONDANSETRON HCL 4 MG/2 ML VIAL IV PRN (15:03)
--- NOTE | 2024-09-08 15:18 | DVHHP2 ---
History of Present Illness Reason for Visit: Dislocation of hip prosthesis History of Present Illness The patient is a 49-year-old female with multiple past medical history including CKF, CHF, COPD, CVA, DM, and hypertension who presented to [facility] ED with complaint of right hip pain and swelling for a proximally 1 day duration. Patient reports she was cooking last night when she turned and heard a pop sound from her right hips with symptoms of severe pain and swelling. Patient states she had right hip replacement by Dr. Martin in May 2024. Patient was seen and evaluated in the ED, laboratory data shows WBC 6.3, platelets 273, sodium 139, potassium 4.2, BUN 13, creatinine 0.86, GFR 83, glucose 77, calcium 9.6, blood pressure 159/54, pulse 85, temperature 97.9 F, O2 saturation 98% on room air. Left hip CT revealing dislocated right hip prosthesis. Patient was given IV morphine sulfate 2 mg x 1, please see medication orders section in the computer. On my assessment, patient denied chest pain, no headache, no dizziness, no diaphoresis, no shortness of breath, no nausea, no vomiting, no fever, no chills. Patient was admitted for further evaluation and medical management. Past Medical History Arthritis, CHF, CKF, COPD, CVA, Depression, DM, High Lipids, HTN, Kidney Stones, UTI'S DVT's without blood thinner medication placement Past Surgical History , Hernia Repair, Hysterectomy, Tubal Ligation, right hip replacement Family History Reviewed, noncontributory to the management of this case. Past Social History Patient lives at home, smokes cigarettes less than 1 pack per day, drinks alcohol occasionally, denies illicit drugs abuse. Review of Systems Constitutional: No: Fever, Chills, Sweats, Weakness, Malaise, Other Eyes: No: Pain, Vision change, Conjunctivae inflammation, Eyelid inflammation, Other, Redness ENT: No: Ear pain, Ear discharge, Nose pain, Nose discharge, Nose congestion, Mouth pain, Mouth swelling, Throat pain, Throat swelling, Other Respiratory: No: Cough, Dry, Shortness of breath, SOB with excertion, Wheezing, Hemoptysis, Pleuritic Pain, Sputum, Wheezing, Other Cardiovascular: No: Chest Pain, Palpitations, Orthopnea, Paroxysmal Noc. Dyspnea, Edema, Lt Headedness, Other Gastrointestinal: No: Nausea, Vomiting, Abdominal Pain, Diarrhea, Constipation, Melena, Hematochezia, Other Genitourinary: No Dysuria, No Frequency, No Incontinence, No Hematuria, No Retention, No Other Musculoskeletal: other (right hip pain and swelling ); No: neck pain, shoulder pain, arm pain, back pain, hand pain, leg pain, foot pain Skin: No: Rash, Lesions, Jaundice, Bruising, Other Neurological: No: Weakness, Numbness, Incoordination, Change in speech, Confusion, Seizures, Other Allergies: Coded Allergies: No Known Drug Allergy (Verified Allergy, Unknown, 03/18/18) Medications Current Medications Medications Dose Ordered Sig/Lesia Route Start Time Stop Time Status Last Admin Dose Admin Carvedilol 3.125 mg Q12HR PO 09/08/24 22:00 Aspirin 81 mg DAILY PO 09/09/24 10:00 Furosemide 40 mg DAILY IV 09/09/24 10:00 Hydralazine HCl 10 mg Q6HP PRN IV 09/08/24 12:15 Diagnostic Test (Pha) 1 strip ACHS 09/08/24 17:00 Insulin Human Regular ACHS SC 09/08/24 17:00 Dextrose 50 ml UD PRN IV 09/08/24 12:15 Sodium Chloride 10 ml Q8HR IV 09/08/24 14:00 09/08/24 14:13 10 ML Acetaminophen/ Hydrocodone Bitart 1 tab Q4HP PRN PO 09/08/24 12:15 Ondansetron HCl 4 mg Q4HP PRN IV 09/08/24 12:15 09/08/24 15:03 4 MG Docusate Sodium 100 mg BIDPRN PRN PO 09/08/24 12:15 Enoxaparin Sodium 40 mg DAILY SC 09/09/24 10:00 Acetaminophen 650 mg Q6HP PRN PO 09/08/24 12:15 Morphine Sulfate 2 mg Q4HPRN PRN IV 09/08/24 12:15 09/08/24 15:02 2 MG Exam Vital Signs Vital Signs Date Time Temp Pulse Resp B/P (MAP) Pulse Ox O2 Delivery O2 Flow Rate FiO2 09/08/24 15:02 73 17 163/104 09/08/24 08:57 98 General Appearance: Alert, Oriented X3, Cooperative, No acute distress HEENT: Atraumatic, PERRLA, EOMI, Mucous membr. moist/pink Respiratory: Clear to auscultation, Normal air movement Cardiovascular: Regular rate, Normal S1, Normal S2, No murmurs Abdominal: Normal bowel sounds, Soft, No tenderness, No hepatospenomegaly, No masses Extremities: No clubbing, No cyanosis, No edema, Normal pulses, Other (Right hip tenderness/swelling) Skin: No rashes, No breakdown, No significant lesion Neuro: Normal speech, Normal tone, Sensation intact, Cranial nerves 3-12 NL, Reflexes 2+, Other (Unsteady gait) Psych/Mental Status: Mental status NL, Mood NL Labs/Xrays Labs Test 09/08/24 10:05 Range/Units White Blood Count 6.3 4.4-10.8 10^3/uL Red Blood Count 3.66 L 4.0-5.20 10^6/uL Hemoglobin 13.1 12.2-16.2 g/dL Hematocrit 38.1 36.0-46.0 % Mean Corpuscular Volume 103.9 H 80.0-100.0 fL Mean Corpuscular Hemoglobin 35.8 H 28.0-32.0 pg Mean Corpuscular Hemoglobin Concent 34.4 32.0-36.0 g/dL Red Cell Distribution Width 16.4 H 11.8-14.3 % Platelet Count 273 140-450 10^3/uL Mean Platelet Volume 6.5 L 6.9-10.8 fL Neutrophils (%) (Auto) 44.1 37.0-80.0 % Lymphocytes (%) (Auto) 47.3 10.0-50.0 % Monocytes (%) (Auto) 5.0 0.0-12.0 % Eosinophils (%) (Auto) 3.0 0.0-7.0 % Basophils (%) (Auto) 0.6 0.0-2.0 % Neutrophils # (Auto) 2.8 1.6-8.6 10 ^3/uL Lymphocytes # (Auto) 3.0 0.4-5.4 10 ^3/uL Monocytes # (Auto) 0.3 0-1.3 10 ^3/uL Eosinophils # (Auto) 0.2 0-0.8 10 ^3/uL Basophils # (Auto) 0 0-0.2 10 ^3/uL Nucleated Red Blood Cells 0.1 % Sodium Level 139 136-145 mmol/L Potassium Level 4.2 3.5-5.1 mmol/L Chloride Level 108 H 98-107 mmol/L Carbon Dioxide Level 23 20-31 mmol/L Anion Gap 8 5-15 Blood Urea Nitrogen 13 9-23 mg/dL Creatinine 0.86 0.550-1.02 mg/dL Glomerular Filtration Rate Calc 83 >90 mL/min BUN/Creatinine Ratio 15.1 10.0-20.0 Serum Glucose 77 74-106 mg/dL Calcium Level 9.6 8.7-10.4 mg/dL PATIENT: JOHNNIE NUNEZ ACCT: [id number] UNIT: [id number] : 1975 LOC: ER ROOM / BED: / AGE / SEX: 49 / F ADM STATUS: REG ER SERVICE [id number] ORDERING PHYSICIAN: LYLE MAYES MD PROCEDURE(s): RHPCT - CT R HIP WITH OUT CONTRAST REASON: rip hip pain ORDER NUMBER(s): [id number], ACCESSION NUMBER(s): [id number] CLINICAL INFORMATION: 49 years old, Female; rip hip pain. TECHNIQUE: Axial CT images of the right hip were obtained without IV contrast. Coronal and sagittal reformatted images were obtained, reviewed, and stored. All CT scans at this medical facility are performed using dose modulation techniques as appropriate to a performed exam including the following: Automated exposure control was utilized; adjustment of the MA and/or KV according to patient size; and use of iterative reconstruction technique. CTDIvol = 38.94, 0.41, 0.07 mGy DLP = 1506.06 mGy-cm COMPARISON: Radiographs dated 09/03/2024. FINDINGS: Dislocated right hip prosthesis with the femoral head component positioned anteriorly and superiorly relative to the acetabular cup. There is no evidence of acute fracture. Partially visualized fluid collection along the lateral aspect of the right hip measuring at least 6.7 x 5.4 cm on the axial images extending to 19.9 cm in craniocaudal dimension. Possible hematoma or postoperative collection. IMPRESSION: 1. Dislocated right hip prosthesis. 2. Large complex fluid collection in the subcutaneous tissues along the lateral aspect of the right hip, possible hematoma or postoperative collection. Assessment/Plan Assessment/Plan Dislocation of hip prosthesis Unsteady gait Right hip pain Presence of unspecified artificial hip joint Hematoma Dislocation of unspecified internal joint prosthesis, initial encounter Plan 1. Admit to telemetry unit 2. Breathing treatment 3. Pain control management 4. Management of fluids and electrolytes 5. Consultation for orthopedic surgery 6. Diagnostic tests right hip CT 7. DVT prophylaxis-on Lovenox 8. Repeat labs CBC, CMP in a.m. 9. Continue with current medical management 10. Treatment plan discussed with patient and RN. Patient verbalized understanding. Plan discussed with: Patient, Other (RN) My Orders Orders - EMY DINH DNP Procedure Category Date Status Time Carvedilol Tablet PHA 09/08/24 In Process (Coreg Tablet) 22:00 Aspirin Tablet PHA 09/09/24 In Process 10:00 Furosemide Injection PHA 09/09/24 In Process (Lasix Injection) 10:00 Hydralazine Injection PHA 09/08/24 In Process (Apresoline Inject 12:15 Glucose Blood PHA 09/08/24 In Process (Accu-Chek Comfort 17:00 Insulin R (Human) PHA 09/08/24 In Process (Insulin R) 17:00 Dextrose 50% Syringe PHA 09/08/24 In Process 12:15 Allergies JULIET 09/08/24 In Process 12:10 Code Status CODE 09/08/24 Transmitted 12:10 Sodium Chloride Lock PHA 09/08/24 In Process (Saline Lock Ns) 14:00 Oxygen Per Hour RT 09/08/24 Transmitted 12:10 Hydrocodone-Acet PHA 09/08/24 In Process 5/325mg Tab ([place] 12:15 Ondansetron Hcl PHA 09/08/24 In Process (Zofran) 12:15 Docusate Sodium PHA 09/08/24 In Process Capsule (Colace 12:15 Enoxaparin Sodium PHA 09/09/24 In Process (Lovenox) 10:00 Fall Risk Precautions JULIET 09/08/[address] 12:10 Complete Blood Count LAB 09/09/24 Verified 04:00 Comprehensive LAB 09/09/24 Verified Metabolic Panel 04:00 Condition: Serious JULIET 09/08/24 In Process 12:10 Acetaminophen Tablet PHA 09/08/24 In Process (Tylenol Tablet) 12:15 Morphine Sulfate PHA 09/08/24 In Process Injection 12:15 Sequential JULIET 09/08/24 In Process Compression Device Problem List: (1) Dislocation of hip prosthesis (2) Right hip pain (3) Unsteady gait (4) Presence of unspecified artificial hip joint (5) Hematoma (6) Dislocation of unspecified internal joint prosthesis, initial encounter Date of Service: Sep 08, 2024 Billing Provider: EMY DINH DNP Common Visit Codes: [id number] INP/OBS CARE (HIGH) EMY DINH DNP Sep 08, 2024 15:18
[2024-09-08] MEDS ORDERED: MORPHINE SULFATE INJ 2 MG/ml SYRG IV PRN (15:30)
[2024-09-08] MEDS ORDERED: NITROGLYCERIN 0.4 MG SL TAB SL PRN (15:30)
[2024-09-08 17:10] VITALS: BP 149/94; PULSE 80; RESP 18; TEMP 98.6; O2SAT 99
[2024-09-08] MEDS: HYDROcodone-ACET 5/325MG TAB PO PRN (18:12)
[2024-09-08] MEDS: InsuLIN REG 1unit/0.01ml Soln (100units/ml) SC SCH (18:14)
[2024-09-08] MEDS: ACCU-CHEK COMFORT CURVE STRIP VI SCH (18:14)
[2024-09-08] MEDS ORDERED: MORP15TA PO (18:26)
[2024-09-08 18:54] LABS: Urine Bacteria None Seen /hpf (None Seen)
[2024-09-08 18:59] LABS: Urine Blood Negative /uL (Negative); Urine Clarity Clear (Clear); Urine Color Yellow (Yellow); Urine Hyaline Cast FEW /lpf (0 - 2); Urine Mucus FEW (None Seen); Urine Protein, UAD 1+ (Negative); Urine Specific Gravity 1.019 (1.001-1.035); Urine Squamous Epithelial Cell FEW /hpf (<5); Urine Urobilinogen Normal (Negative); Urine WBC 1 /hpf (0 - 5); Urine pH 6.5 (5.0-9.0)
[2024-09-08 20:00] VITALS: PULSE 87; RESP 17
[2024-09-08 21:00] VITALS: BP 124/71; PULSE 87; RESP 17; TEMP 97.7; O2SAT 94
[2024-09-08] MEDS: CARVEDILOL 3.125 MG TAB PO SCH (22:00)
[2024-09-09] VITALS (8 sets, daily range): BP systolic 122–170; BP diastolic 80–105; PULSE 69–106; RESP 16–18; TEMP 98.1–98.5; O2SAT 96–100
[2024-09-09] MEDS: hydrALAZINE HCL 20 MG/ML VL IV PRN (06:13)
[2024-09-09 06:36] LABS: Basophils # (auto) 0 10 ^3/uL (0-0.2); Eosinophils # (auto) 0.2 10 ^3/uL (0-0.8); Hemoglobin 12.5 g/dL (12.2-16.2); Lymphocytes # (auto) 1.6 10 ^3/uL (0.4-5.4); Monocytes # (auto) 0.4 10 ^3/uL (0-1.3)
[2024-09-09 06:39] LABS: Basophils % (auto) 0.3 % (0.0-2.0); Eosinophils % (auto) 2.9 % (0.0-7.0); Hematocrit 36.5 % (36.0-46.0); Lymphocytes % (auto) 21.2 % (10.0-50.0); Mean Corpuscular Hemoglobin 36.2 pg (28.0-32.0); Mean Corpuscular Hgb Conc. 34.2 g/dL (32.0-36.0); Mean Corpuscular Volume 105.9 fL (80.0-100.0); Monocytes % (auto) 5.3 % (0.0-12.0); Neutrophils # (auto) 5.4 10 ^3/uL (1.6-8.6); Neutrophils % (auto) 70.3 % (37.0-80.0); Nucleated Red Blood Cells % 0.1 %; Platelet Count (auto) 241 10^3/uL (140-450); Red Blood Cells 3.45 10^6/uL (4.0-5.20); White Blood Cell 7.7 10^3/uL (4.4-10.8)
[2024-09-09 07:06] LABS: Alanine Aminotransferase 19 U/L (7-40); Albumin 3.6 g/dL (3.2-4.8); Alkaline Phosphatase 51 U/L (46-116); Anion Gap 6 (5-15); Aspartate Aminotransferase 33 U/L (13-40); Bilirubin, Total 0.5 mg/dL (0.2-1.0); Blood Urea Nitrogen 12 mg/dL (9-23); Calcium 9.6 mg/dL (8.7-10.4); Carbon Dioxide 25 mmol/L (20-31); Glucose 80 mg/dL (74-106); Potassium 4.1 mmol/L (3.5-5.1); Sodium 139 mmol/L (136-145)
[2024-09-09 07:25] LABS: Chloride 108 mmol/L (98-107)
[2024-09-09] MEDS ORDERED: DexAMETHasone SOD PHOS 10MG/1ML VIAL INJ ONE (07:59)
[2024-09-09] MEDS ORDERED: LIDOCAINE HCL 2% TOP JELLY 5ML TOP ONE (07:59)
[2024-09-09] MEDS ORDERED: GLYCOPYRROLATE 0.2 MG/ML 1ML VIAL ONE (07:59)
[2024-09-09] MEDS ORDERED: PROPOFOL 10 MG/ML 20 ML IV ONE (07:59)
[2024-09-09] MEDS ORDERED: LIDOCAINE 2% (LOCAL ANESTH.) PF 5ml SDV ONE (07:59)
[2024-09-09] MEDS ORDERED: ONDANSETRON HCL 4 MG/2 ML VIAL ONE (07:59)
[2024-09-09] MEDS ORDERED: KETOROLAC TROMETH 30 MG/ML 1ML VIAL ONE (07:59)
--- NOTE | 2024-09-09 08:25 | DVHINCON2 ---
Date of service: Sep 09, 2024 Referring Physician ED Reason for Consultation right hip prosthetic dislocation History of Present Illness The patient is a 49-year-old female with pain right hip since 09/07/2024. Patient reports she was cooking dinner and sitting in swiveling walker then twisted and heard a pop in her right hip with associated pain and swelling. Patient came to ER yesterday and scheduled for urgent closed reduction but delayed due to patient being given meal in ER. Right total hip performed May 2024. Patient denies any other acute injuries though complains of swelling. Patient denied chest pain, headache, dizziness, shortness of breath, fever, or chills. Patient was admitted for further evaluation and medical management. Past Medical History CHF, CRF, COPD, CVA, Depression, DM, High Lipids, HTN, h/o Kidney Stones, h/o UTI'S h/o DVT's , rheumatoid arthritis, chronic pain/ narcotic therapy, obesity, h/o ovarian carcinoma Past Surgical History , Hernia Repair, Hysterectomy, Tubal Ligation, right hip replacement, IVC filter, gastric sleeve or bypass Family History Reviewed, noncontributory to the management of this case. Past Social History Patient lives at home, smokes cigarettes less than 1 pack per day, drinks alcohol occasionally, denies illicit drugs abuse. Family History: Cancer (lung) father GRANDMOM FH: schizophrenia brother Family history: Arthritis Family history: Asthma brother Family history: Cardiovascular disease mother father Family history: Diabetes mellitus mother Family history: Hypercholesterolemia (situation) Family history: Hypertension Family history: Thyroid disorder Renal stone Stroke mother father No Family History of: Alcoholism Cancer of colon Chronic obstructive lung disease (situation) Family history: Alzheimer's disease Family history: Autoimmune disease (situation) Family history: Blood disorder Family history: Congenital anomaly Family history: Coronary thrombosis Family history: Depression (situation) Family history: Diabetes in Family history: Glaucoma Family history: Osteoporosis Family history: Suicide (situation) Ischemic heart disease Malignant melanoma Malignant neoplasm of breast Malignant neoplasm of lung Malignant neoplasm of ovary Prostate cancer Seizure disorder (situation) Allergies: Coded Allergies: No Known Drug Allergy (Verified Allergy, Unknown, 03/18/18) Home Meds Active Scripts Lisinopril (Lisinopril) 10 Mg Tab, 10 MG PO BID for 30 Days, #60 TAB Prov:[facility] 06/12/17 Insulin Regular (Human) (Novolin R) 100 Unit/Ml Inj, 0 UNITS SC ACHS for 30 Days, INJ Prov:[facility] 06/12/17 Carvedilol (COREG) 3.125 Mg Tab, 6.25 MG PO Q12HR for 30 Days, #120 TAB [facility] 06/12/17 Aspirin (Asa) 81 Mg Ch, 81 MG PO DAILY for 30 Days Prov:JUSTO MICHEL [facility] 06/12/17 Reported Medications Morphine Sulfate (Morphine Sulfate) 15 Mg Tab, 1 TAB PO BID, #60 TAB 09/08/24 Oxycodone W/ Acetaminophen (Percocet 5/325MG) 1 Tab Tb, 1 TAB PO QID, #120 TAB 05/25/24 Morphine Sulfate (Morphine Sulfate) 15 Mg Tab, 15 MG PO, TAB 05/25/24 Cyclobenzaprine HCl (Cyclobenzaprine Hydrochlo) 15 Mg Cap, 15 MG PO, CAP 05/25/24 Cholecalciferol (VITAMIN D3) 2,000 Unit Tab, 1 TAB PO DAILY, #30 TAB 5 Refills 05/25/24 Furosemide (Lasix) 40 Mg Tab, 40 MG PO, TAB 05/25/24 Meloxicam (Meloxicam) 15 Mg Tab, 1 TAB PO DAILY, #30 TAB 2 Refills 05/25/24 Upadacitinib (Rinvoq) 15 Mg Tab, 15 MG PO, TAB 05/25/24 Fenofibrate (Fenofibrate) 54 Mg Tab, 1 TAB PO DAILY, #30 TAB 5 Refills 05/25/24 Tirzepatide (Mounjaro) 7.5 Mg/0.5 Ml Inj, SC QWEEKLY 03/20/23 Losartan Potassium (Losartan Potassium) 100 Mg Tab, 1 TAB PO DAILY 11/12/22 Gabapentin (Gabapentin) 300 Mg Cap, 300 MG PO BID 11/12/22 Methotrexate (Methotrexate) 2.5 Mg Tab, 2.5 MG PO QWEEKLY, TAB 8 tablets weekly 11/17/13 Current Medications Current Medications Medications (Trade) Dose Ordered Sig/Lesia Route PRN Reason Start Time Stop Time Status Last Admin Carvedilol (Coreg Tablet) 3.125 mg Q12HR PO 09/08/24 22:00 09/08/24 22:00 Aspirin 81 mg DAILY PO 09/09/24 10:00 Furosemide (Lasix Injection) 40 mg DAILY IV 09/09/24 10:00 Hydralazine HCl (Apresoline Injection) 10 mg Q6HP PRN IV SBP>150 09/08/24 12:15 09/09/24 06:13 Diagnostic Test (Pha) (Accu-Chek Comfort Curve T) 1 strip ACHS 09/08/24 17:00 09/09/24 06:11 Insulin Human Regular (InsuLIN R) ACHS SC 09/08/24 17:00 Dextrose 50 ml UD PRN IV Blood Sugar LESS THAN 60 09/08/24 12:15 Sodium Chloride (Saline Lock Ns) 10 ml Q8HR IV 09/08/24 14:00 09/09/24 06:04 Acetaminophen/ Hydrocodone Bitart ([place] 5/325MG Tab) 1 tab Q4HP PRN PO MODERATE PAIN (4-6 PAIN SCALE) 09/08/24 12:15 09/08/24 18:12 Ondansetron HCl (Zofran) 4 mg Q4HP PRN IV NAUSEA / VOMITING 09/08/24 12:15 09/08/24 15:03 Docusate Sodium (Colace Capsule) 100 mg BIDPRN PRN PO FOR CONSTIPATION 09/08/24 12:15 Enoxaparin Sodium (Lovenox) 40 mg DAILY SC 09/09/24 10:00 Acetaminophen (Tylenol Tablet) 650 mg Q6HP PRN PO PAIN SCALE 1-3 OR TEMP>100.4 09/08/24 12:15 Morphine Sulfate 2 mg Q4HPRN PRN IV SEVERE PAIN (7-10 PAIN SCALE) 09/08/24 12:15 09/09/24 05:34 Nitroglycerin (Ntrostat Sublingual) 0.4 mg Q5MINP PRN SL FOR CHEST PAIN 09/08/24 15:30 Morphine Sulfate 2 mg Q30M PRN IV FOR CHEST PAIN 09/08/24 15:30 Review of Systems negative on 10 point review except as above Vital Signs Vital Signs Date Time Temp Pulse Resp B/P (MAP) Pulse Ox O2 Delivery O2 Flow Rate FiO2 09/09/24 06:13 170/95 09/09/24 06:04 88 20 09/09/24 05:00 98.1 99 98.1 09/08/24 20:00 Nasal Cannula* 2 28 Physical Exam wdwn female in NAD alert and oriented x4 RLE short and rotated skin intact, wound healed , no erythema or local ttp fluctulant fluid collection on palpation Pain right hip with any PROM RLE no calf or foot edema no calf ttp intact flexion /extension ankle sensation intact 2+ DP pulse CT righthip: total hip anterior dislocation, large subq fluid collection Labs/Diagnostic Data Labs Test 09/09/24 06:07 09/09/24 05:24 09/08/24 18:53 Range/Units POC Glucose 86 70-106 mg/dl White Blood Count 7.7 4.4-10.8 10^3/uL Red Blood Count 3.45 L 4.0-5.20 10^6/uL Hemoglobin 12.5 12.2-16.2 g/dL Hematocrit 36.5 36.0-46.0 % Mean Corpuscular Volume 105.9 H 80.0-100.0 fL Mean Corpuscular Hemoglobin 36.2 H 28.0-32.0 pg Mean Corpuscular Hemoglobin Concent 34.2 32.0-36.0 g/dL Red Cell Distribution Width 16.0 H 11.8-14.3 % Platelet Count 241 140-450 10^3/uL Mean Platelet Volume 6.8 L 6.9-10.8 fL Neutrophils (%) (Auto) 70.3 37.0-80.0 % Lymphocytes (%) (Auto) 21.2 10.0-50.0 % Monocytes (%) (Auto) 5.3 0.0-12.0 % Eosinophils (%) (Auto) 2.9 0.0-7.0 % Basophils (%) (Auto) 0.3 0.0-2.0 % Neutrophils # (Auto) 5.4 1.6-8.6 10 ^3/uL Lymphocytes # (Auto) 1.6 0.4-5.4 10 ^3/uL Monocytes # (Auto) 0.4 0-1.3 10 ^3/uL Eosinophils # (Auto) 0.2 0-0.8 10 ^3/uL Basophils # (Auto) 0 0-0.2 10 ^3/uL Nucleated Red Blood Cells 0.1 % Sodium Level 139 136-145 mmol/L Potassium Level 4.1 3.5-5.1 mmol/L Chloride Level 108 H 98-107 mmol/L Carbon Dioxide Level 25 20-31 mmol/L Anion Gap 6 5-15 Blood Urea Nitrogen 12 9-23 mg/dL Creatinine 0.86 0.550-1.02 mg/dL Glomerular Filtration Rate Calc 83 >90 mL/min BUN/Creatinine Ratio 14.0 10.0-20.0 Serum Glucose 80 74-106 mg/dL Calcium Level 9.6 8.7-10.4 mg/dL Total Bilirubin 0.5 0.2-1.0 mg/dL Aspartate Amino Transferase (AST) 33 13-40 U/L Alanine Aminotransferase (ALT) 19 7-40 U/L Alkaline Phosphatase 51 46-116 U/L Total Protein 6.0 5.7-8.2 g/dL Albumin 3.6 3.2-4.8 g/dL Urine Color Yellow Yellow Urine Clarity Clear Clear Urine pH 6.5 5.0-9.0 Urine Specific [place] 1.019 1.001-1.035 Urine Protein 1+ H Negative Urine Ketones Negative Negative Urine Blood Negative Negative /uL Urine Nitrite Negative Negative Urine Bilirubin Negative Negative Urine Urobilinogen Normal Negative mg/dL Urine Leukocyte Esterase Negative Negative /uL Urine RBC 8 0 - 4 /hpf Urine WBC 1 0 - 5 /hpf Urine Squamous Epithelial Cells Few <5 /hpf Urine Bacteria None seen None Seen /hpf Urine Hyaline Casts Few 0 - 2 /lpf Urine Mucus Few None Seen Urine Glucose Normal Normal mg/dL Assessment acute right hip prosthetic dislocation seroma versus hematoma Plan/Recommendation Plan is for closed reduction under anesthesia I explained the diagnosis, prognosis, treatment options, procedure and risks which include but are not limited to failure of closed reduction, iatrogenic fracture, future recurrent dislocations, possibility of needing future open procedure, nerve injury, DVT, PE. Patient understood and agreed to proceed. All questions answered. Plan discussed with: Patient CLARK GRANADOS MD Sep 09, 2024 08:25
--- NOTE | 2024-09-09 09:28 | DVHOP2 ---
Operative Report - 2 Report Details Date: 09/09/24 Preop Diagnosis: Right prosthetic hip dislocation Postop Diagnosis: Right prosthetic hip dislocation Surgeon: Brian Martin MD Anesthesiologist: Edmund Smith CRNA Anesthesia: General Consent: The patient was informed of the risks and benefits of the procedure. These include but are not limited to complications of anesthesia, postoperative infection, incomplete relief of symptoms, recurrence of symptoms, damage to blood vessels, nerves and tendons, deep venous thrombosis, pulmonary embolism and possible need for repeat surgery in the future. Complications: None Estimated Blood Loss: None Fluids: See anesthesia record Findings: Right total hip anterior dislocation Indications for Surgery: Right total hip dislocation Name of Procedure Performed Closed reduction under anesthesia right total hip dislocation Procedure Details Procedure Details: Patient was brought to the operating room and left on her hospital bed and given general anesthetic. Surgical time-out performed verifying patient, laterality, and procedure. I then applied traction followed by internal rotation with palpable reduction and obvious improvement in deformity and leg length. X-ray confirmed right hip reduction. Patient tolerated the procedure well and was bro ught to recovery room in stable condition. Condition Stable Disposition Home BRIAN MARTIN MD Sep 09, 2024 09:28
--- NOTE | 2024-09-09 09:41 | DVH ---
CLINICAL INDICATION: HIP DISLOCATION TECHNIQUE: XY R HIP 1V XRAY Comparison: XY R HIP 1V XRAY on DOS: 05/27/24 FINDINGS/IMPRESSION: : Right hip arthroplasty. Unable to assess for definite satisfactory reduction as only single frontal view is provided.
[2024-09-09] MEDS ORDERED: fentaNYL CITRATE 100 MCG/2 ML VL IV PRN (09:45)
[2024-09-09] MEDS ORDERED: HYDROmorphone HCL 2 MG/ML VL/or syr IV PRN (09:45)
[2024-09-09] MEDS ORDERED: ePHEDrine SULFATE 50 MG/ML AMP IV PRN (09:45)
[2024-09-09] MEDS ORDERED: FLUMAZENIL 0.1 MG/ML INJ 10ML MDV IV PRN (09:45)
[2024-09-09] MEDS ORDERED: NALOXONE HCL 0.4 MG/ML VIAL IV PRN (09:45)
[2024-09-09] MEDS ORDERED: hydrALAZINE HCL 20 MG/ML VL IV PRN (09:45)
[2024-09-09] MEDS ORDERED: ONDANSETRON HCL 4 MG/2 ML VIAL IV PRN (09:45)
[2024-09-09] MEDS: FUROSEMIDE 40 MG/4 ML VIAL IV SCH (10:00)
[2024-09-09] MEDS ORDERED: HYDROcodone-ACET 5/325MG TAB PO PRN (10:00)
[2024-09-09] MEDS: oxyCODONE HCL 5MG TAB PO PRN (10:03)
[2024-09-09] MEDS: ASPirin 81 mg TAB PO SCH (10:58)
[2024-09-09] MEDS: ENOXAPARIN SOD 40 MG/0.4 ML SYRINGE SC SCH (10:59)
--- NOTE | 2024-09-09 11:40 | DVHPN2 ---
Subjective Patient states that her pain to her right hip has improved. Reviewed: Care Plan, H&P, Medications Changes from previous H/P or p: No Changes General: Per HPI Eyes: No Pain, No Vision change, No Conjunctivae inflammation, No Eyelid inflammation, No Other, No Redness ENT: No Ear pain, No Ear discharge, No Nose pain, No Nose discharge, No Nose congestion, No Mouth pain, No Mouth swelling, No Throat pain, No Throat swelling, No Other Cardiovascular: No Chest Pain, No Palpitations, No Orthopnea, No Paroxysmal Noc. Dyspnea, No Edema, No Lt Headedness, No Other Respiratory: No Cough, No Dry, No Shortness of breath, No SOB with excertion, No Wheezing, No Hemoptysis, No Pleuritic Pain, No Sputum, No Other Gastrointestinal: No Nausea, No Vomiting, No Abdominal Pain, No Diarrhea, No Constipation, No Melena, No Hematochezia, No Other Genitourinary: No Dysuria, No Frequency, No Incontinence, No Hematuria, No Retention, No Other Musculoskeletal: other (right hip pain and swelling ); No neck pain, No shoulder pain, No arm pain, No back pain, No hand pain, No leg pain, No foot pain Skin: No Rash, No Lesions, No Jaundice, No Bruising, No Other Objective Vitals Vital Signs Date Time Temp Pulse Resp B/P (MAP) Pulse Ox O2 Delivery O2 Flow Rate FiO2 09/09/24 11:00 83 148/84 09/09/24 10:23 Room Air 0 96 09/09/24 09:00 98.2 16 100 98.2 Intake/Output Intake and Output 09/09/24 06:59 Intake Total 800 ml Output Total 550 ml Balance 250 ml Intake Oral 800 ml Output Urine Total 550 ml General Appearance: Alert, Oriented X3, Cooperative, mild distress HEENT: Atraumatic, PERRLA Cardiovascular: Normal S1, Normal S2 Abdomen: Normal bowel sounds Musculoskeletal: Normal sensory function, Normal motor function Psych/Mental Status: Mental status NL, Mood NL Medications Current Medications Medications Dose Ordered Sig/Lesia Route Start Time Stop Time Status Last Admin Dose Admin Carvedilol 3.125 mg Q12HR PO 09/08/24 22:00 09/09/24 11:00 3.125 MG Aspirin 81 mg DAILY PO 09/09/24 10:00 09/09/24 10:58 81 MG Furosemide 40 mg DAILY IV 09/09/24 10:00 09/09/24 10:00 40 MG Hydralazine HCl 10 mg Q6HP PRN IV 09/08/24 12:15 09/09/24 06:13 10 MG Diagnostic Test (Pha) 1 strip ACHS 09/08/24 17:00 09/09/24 06:11 1 STRIP Insulin Human Regular ACHS SC 09/08/24 17:00 Dextrose 50 ml UD PRN IV 09/08/24 12:15 Sodium Chloride 10 ml Q8HR IV 09/08/24 14:00 09/09/24 06:04 10 ML Ondansetron HCl 4 mg Q4HP PRN IV 09/08/24 12:15 09/08/24 15:03 4 MG Docusate Sodium 100 mg BIDPRN PRN PO 09/08/24 12:15 Enoxaparin Sodium 40 mg DAILY SC 09/09/24 10:00 09/09/24 10:59 40 MG Acetaminophen 650 mg Q6HP PRN PO 09/08/24 12:15 Morphine Sulfate 2 mg Q4HPRN PRN IV 09/08/24 12:15 09/09/24 05:34 2 MG Nitroglycerin 0.4 mg Q5MINP PRN SL 09/08/24 15:30 Morphine Sulfate 2 mg Q30M PRN IV 09/08/24 15:30 Oxycodone HCl 10 mg ONCE PRN PO 09/09/24 09:45 09/09/24 10:03 10 MG Acetaminophen/ Hydrocodone Bitart 1 tab Q4HP PRN PO 09/09/24 10:00 Laboratory Results Laboratory Tests 09/09/24 05:24 Chemistry Test 09/09/24 05:24 Albumin 3.6 g/dL (3.2-4.8) Calcium Level 9.6 mg/dL (8.7-10.4) Total Protein 6.0 g/dL (5.7-8.2) LFT Test 09/09/24 05:24 Alanine Aminotransferase (ALT) 19 U/L (7-40) Alkaline Phosphatase 51 U/L (46-116) Aspartate Amino Transferase (AST) 33 U/L (13-40) Total Bilirubin 0.5 mg/dL (0.2-1.0) Urinalysis Test 09/08/24 18:53 09/09/24 08:40 Urine Color Yellow (Yellow) Urine Clarity Clear (Clear) Urine pH 6.5 (5.0-9.0) Urine Specific [place] 1.019 (1.001-1.035) Urine Protein 1+ (Negative) H Urine Ketones Negative (Negative) Urine Blood Negative /uL (Negative) Urine Nitrite Negative (Negative) Urine Bilirubin Negative (Negative) Urine Urobilinogen Normal mg/dL (Negative) Urine Leukocyte Esterase Negative /uL (Negative) Urine RBC 8 /hpf (0 - 4) Urine WBC 1 /hpf (0 - 5) Urine Squamous Epithelial Cells Few /hpf (<5) Urine Bacteria None seen /hpf (None Seen) Urine Hyaline Casts Few /lpf (0 - 2) Urine Mucus Few (None Seen) Urine Glucose Normal mg/dL (Normal) Urine Test Negative (Negative) Labs and/or images reviewed: Labs reviewed by me, Image(s) reviewed by me Assessment/Plan Assessment/Plan Impression: -dislocated right hip arthroplasty, status post closed reduction -chronic back pain -obesity -diabetes mellitus -osteoarthritis -primary hypertension Plan: -physical therapy consultation -DME: Walker -pain management -regular insulin sliding scale -reassess for discharge in a.m. Total time spent with patient discussing and formulating plan of care: 35 minutes. This medical document was created using an electronic medical record system with [employer] dictation system. Although this document has been carefully reviewed, there may still be some phonetic and typographical errors. These areas are purely typographical due to imperfections of the software programs, and do not reflect any compromise in the patient's medical care. Plan discussed with: Patient, Other (RN) My Orders Orders - LARY TEJADA NP Procedure Category Date Status Time Dme: Walker DME 09/09/24 Verified 11:35 Diphenhdramine PHA 09/09/24 Verified Capsule (Benadryl 11:45 Melatonin (Melatonin) PHA 09/09/24 Verified 22:00 Pt Request For Service PT 09/09/24 Verified 11:35 (Nf) Meloxicam PHA 09/10/24 Verified 10:00 Date of Service: Sep 09, 2024 Billing Provider: LARY TEJADA NP Common Visit Codes: [id number] INP/OBS CARE(HIGH) LARY TEJADA NP Sep 09, 2024 11:40
[2024-09-09] MEDS: diphenhdrAMINE HCL 25 MG CAP PO PRN (12:07)
[2024-09-09] MEDS: MELATONIN 5 MG TAB PO ONE (22:00)
[2024-09-10 01:00] VITALS: BP 136/86; PULSE 89; RESP 20; TEMP 98.5; O2SAT 93
[2024-09-10 05:00] VITALS: BP 132/84; PULSE 81; RESP 18; TEMP 98.2; O2SAT 94
[2024-09-10 08:00] VITALS: PULSE 72
[2024-09-10 08:47] VITALS: BP 136/89; PULSE 74; RESP 17; TEMP 98; O2SAT 95
--- NOTE | 2024-09-10 08:50 | DVH ---
Exam: US RIGHT LOWER EXTREMITY ULTRASOU Clinical History: right surgical hip for hematoma Comparison: CT dated 09/08/2024 Technique: Targeted sonographic evaluation of the soft tissues of the right hip was obtained utilizing grayscal e and color Doppler imaging. Findings/Impression: Fluid collection is present in the soft tissues lateral to the right hip measuring 9.8 x 7.3 x 9.4 cm possibly representing a postoperative seroma. Clinical correlation advised.
--- NOTE | 2024-09-10 10:21 | DVH ---
CLINICAL INDICATION: pain s/p fall TECHNIQUE: XY R KNEE 2V XRAY Comparison: None FINDINGS/IMPRESSION: : There is no evidence of acute fracture or dislocation. Severe tricompartmental degenerative changes. Coarse calcification in the lateral distal thigh may represent a prominent phlebolith or chronic post traumatic heterotopic ossification/calcification.
--- NOTE | 2024-09-10 10:27 | DVH ---
CLINICAL INDICATION: Pain, s/p fall TECHNIQUE: 2 radiographic views of the left knee were obtained. Comparison: None FINDINGS/IMPRESSION: There is no evidence of acute fracture or dislocation. Severe tricompartmental knee joint osteoarthrosis.
[2024-09-10 11:57] VITALS: BP 166/93; PULSE 98; RESP 17; TEMP 98.3; O2SAT 92
[2024-09-10] MEDS: MELOXICAM 15 MG PO SCH (12:03)
[2024-09-10 14:56] VITALS: BP 137/96; PULSE 88; RESP 17
--- NOTE | 2024-09-10 16:03 | DVHDS2 ---
Discharge Summary Date of Admission Sep 08, 2024 at 15:16 Date of Discharge: Sep 10, 2024 Admitting Diagnosis Dislocated right hip prosthesis Labs/Diagnostic Data: Laboratory Results Test 09/10/24 12:02 09/09/24 08:40 09/09/24 05:24 09/08/24 18:53 POC Glucose 112 mg/dl (70-106) Urine Test Negative (Negative) White Blood Count 7.7 10^3/uL (4.4-10.8) Red Blood Count 3.45 10^6/uL (4.0-5.20) Hemoglobin 12.5 g/dL (12.2-16.2) Hematocrit 36.5 % (36.0-46.0) Mean Corpuscular Volume 105.9 fL (80.0-100.0) Mean Corpuscular Hemoglobin 36.2 pg (28.0-32.0) Mean Corpuscular Hemoglobin Concent 34.2 g/dL (32.0-36.0) Red Cell Distribution Width 16.0 % (11.8-14.3) Platelet Count 241 10^3/uL (140-450) Mean Platelet Volume 6.8 fL (6.9-10.8) Neutrophils (%) (Auto) 70.3 % (37.0-80.0) Lymphocytes (%) (Auto) 21.2 % (10.0-50.0) Monocytes (%) (Auto) 5.3 % (0.0-12.0) Eosinophils (%) (Auto) 2.9 % (0.0-7.0) Basophils (%) (Auto) 0.3 % (0.0-2.0) Neutrophils # (Auto) 5.4 10 ^3/uL (1.6-8.6) Lymphocytes # (Auto) 1.6 10 ^3/uL (0.4-5.4) Monocytes # (Auto) 0.4 10 ^3/uL (0-1.3) Eosinophils # (Auto) 0.2 10 ^3/uL (0-0.8) Basophils # (Auto) 0 10 ^3/uL (0-0.2) Nucleated Red Blood Cells 0.1 % Sodium Level 139 mmol/L (136-145) Potassium Level 4.1 mmol/L (3.5-5.1) Chloride Level 108 mmol/L (98-107) Carbon Dioxide Level 25 mmol/L (20-31) Anion Gap 6 (5-15) Blood Urea Nitrogen 12 mg/dL (9-23) Creatinine 0.86 mg/dL (0.550-1.02) Glomerular Filtration Rate Calc 83 mL/min (>90) BUN/Creatinine Ratio 14.0 (10.0-20.0) Serum Glucose 80 mg/dL (74-106) Calcium Level 9.6 mg/dL (8.7-10.4) Total Bilirubin 0.5 mg/dL (0.2-1.0) Aspartate Amino Transferase (AST) 33 U/L (13-40) Alanine Aminotransferase (ALT) 19 U/L (7-40) Alkaline Phosphatase 51 U/L (46-116) Total Protein 6.0 g/dL (5.7-8.2) Albumin 3.6 g/dL (3.2-4.8) Beta HCG, Quantitative 1.7 mIU/mL (1.5-4.2) Urine Color Yellow (Yellow) Urine Clarity Clear (Clear) Urine pH 6.5 (5.0-9.0) Urine Specific [place] 1.019 (1.001-1.035) Urine Protein 1+ (Negative) Urine Ketones Negative (Negative) Urine Blood Negative /uL (Negative) Urine Nitrite Negative (Negative) Urine Bilirubin Negative (Negative) Urine Urobilinogen Normal mg/dL (Negative) Urine Leukocyte Esterase Negative /uL (Negative) Urine RBC 8 /hpf (0 - 4) Urine WBC 1 /hpf (0 - 5) Urine Squamous Epithelial Cells Few /hpf (<5) Urine Bacteria None seen /hpf (None Seen) Urine Hyaline Casts Few /lpf (0 - 2) Urine Mucus Few (None Seen) Urine Glucose Normal mg/dL (Normal) Other Laboratory Tests 09/09/24 05:24 Brief Hx & Hospital Course: History of Present Illness The patient is a 49-year-old female with multiple past medical history including CKF, CHF, COPD, CVA, DM, and hypertension who presented to [facility] ED with complaint of right hip pain and swelling for a proximally 1 day duration. Patient reports she was cooking last night when she turned and heard a pop sound from her right hips with symptoms of severe pain and swelling. Patient states she had right hip replacement by Dr. Martin in May 2024. Patient was seen and evaluated in the ED, laboratory data shows WBC 6.3, platelets 273, sodium 139, potassium 4.2, BUN 13, creatinine 0.86, GFR 83, glucose 77, calcium 9.6, blood pressure 159/54, pulse 85, temperature 97.9 F, O2 saturation 98% on room air. Left hip CT revealing dislocated right hip prosthesis. Patient was given IV morphine sulfate 2 mg x 1, please see medication orders section in the computer. On my assessment, patient denied chest pain, no headache, no dizziness, no diaphoresis, no shortness of breath, no nausea, no vomiting, no fever, no chills. Patient was admitted for further evaluation and medical management. Course of hospitalization: Patient was seen by orthopedic surgery, undergoing closed reduction on 09/09/2024. Patient has been seen by Physical therapy, with patient learning how to ambulate with minimal weight-bearing to right lower extremity with a walker. Patient will be discharged home and follow up with Orthopedic surgery within 1-2 weeks. Instructed to continue with mild weight-bearing to right lower extremity. While in the hospital, patient also had x-ray to bilateral knees which revealed chronic arthritic changes, no fractures. Ultrasound of right hip was also performed given swelling, negative findings hematoma. Findings were discussed with the patient. All questions answered. Physical examination General: Alert and Oriented x3. No acute distress. Well-nourished. Obese Eyes: EOMI. Anicteric. HENT: Moist mucous membranes. Lungs: Clear to auscultation bilaterally. No accessory muscle use. Cardiovascular: Regular rate and rhythm. No murmur. No JVD. Abdomen: Soft, non-tender and non-distended. No palpable masses. Extremities: No edema. Non-tender. Skin: No rashes or lesions. Warm. Neurologic: No focal neurological deficits. CN II-XII grossly intact, but not individually tested. Psychiatric: Cooperative. Appropriate mood and affect. Total time spent with patient discussing and formulating plan of care: 35 minutes. This medical document was created using an electronic medical record system with [employer] system. Although this document has been carefully reviewed, there may still be some phonetic and typographical errors. These areas are purely typographical due to imperfections of the software programs, and do not reflect any compromise in the patient's medical care. Consults/Reason for consult Orthopedic surgery: Right hip dislocation Operations or Procedures Closed reduction: 09/09/2024 Condition at Discharge: Fair Final Diagnosis/Problems List prosthetic hip dislocation Secondary Diagnosis: -chronic back pain -obesity -diabetes mellitus -osteoarthritis -primary hypertension Discharge Disposition: Home Discharge Instruct/Medications Diet: Consistent carbohydrate Activity: See Comment Activity comment: Do not cross legs. 10 % foot flat (partial) weight RLE with walker transfer off left leg Follow Up/Referral: call for appointment Dr Martin one week with right hip xrays Medications: resume home meds 36 Discharge Statement: "Patient was advised to return to the ER or call 911 if any headaches, dizziness, shortness of breath, chest pain, abdominal pain, bleeding, fevers, or worsening of medical condition. Patient was counseled about treatment plan, medications, possible side effects, patientverbalized understanding. All questions were answered to the best of my ability. This discharge took greater then 30 minutes in planning, reviewing documentation, counseling the patient, and discussing with other team members." DME: Diagnosis: Hip arthroplasty dislocation ASSESSMENT ASSESSMENT Assessment prosthetic hip dislocation Date of Service: Sep 10, 2024 Billing Provider: LARY TEJADA NP Common Visit Codes: [id number]/OBS DISCH DAY >30min LARY TEJADA NP Sep 10, 2024 16:03
== END 2024-09-10 16:00 | disposition home or self-care (01) | DRG 349 ==
LOC: ER 08:57 → EDBD 08:57 → TELE 15:16 → TELE-CENTR 16:35
PROVIDERS: ADMIT Nurse Practitioner Acute Care; ATTEND Nurse Practitioner Acute Care
PROC: 0QS6XZZ Reposition Right Upper Femur, External Approach (ICD-10-PCS; principal; 2024-09-09 09:05)
DX: T84.020A Dislocation of internal right hip prosthesis, initial encounter (principal); I13.0 Hypertensive heart and chronic kidney disease with heart failure and stage 1 through stage 4 chronic kidney disease, or unspecified chronic kidney disease; E11.22 Type 2 diabetes mellitus with diabetic chronic kidney disease; I50.9 Heart failure, unspecified; E66.9 Obesity, unspecified; F17.210 Nicotine dependence, cigarettes, uncomplicated; J44.9 Chronic obstructive pulmonary disease, unspecified; R26.81 Unsteadiness on feet; N18.9 Chronic kidney disease, unspecified; G89.29 Other chronic pain; Z90.710 Acquired absence of both cervix and uterus; Z86.73 Personal history of transient ischemic attack (TIA), and cerebral infarction without residual deficits; Z83.3 Family history of diabetes mellitus; Z82.62 Family history of osteoporosis; Z82.5 Family history of asthma and other chronic lower respiratory diseases; Z82.49 Family history of ischemic heart disease and other diseases of the circulatory system; Z82.3 Family history of stroke; Z82.0 Family history of epilepsy and other diseases of the nervous system; Z81.8 Family history of other mental and behavioral disorders; Z80.8 Family history of malignant neoplasm of other organs or systems; Z80.41 Family history of malignant neoplasm of ovary; Z80.3 Family history of malignant neoplasm of breast; Z80.1 Family history of malignant neoplasm of trachea, bronchus and lung; Z80.0 Family history of malignant neoplasm of digestive organs; Z85.43 Personal history of malignant neoplasm of ovary; Z86.718 Personal history of other venous thrombosis and embolism; Z87.442 Personal history of urinary calculi; Y84.8 Other medical procedures as the cause of abnormal reaction of the patient, or of later complication, without mention of misadventure at the time of the procedure; Y92.89 Other specified places as the place of occurrence of the external cause; Z68.34 Body mass index [BMI] 34.0-34.9, adult; Z79.4 Long term (current) use of insulin; Z79.82 Long term (current) use of aspirin; Z79.899 Other long term (current) drug therapy
CPT/HCPCS: 36415; 73501; 73560; 73700; 76881; 80048; 80053; 81001; 81025; 82962; 84702; 85025; 97110; 97116; 97163; 97530; 99291; G0378; J1100; J1815; J1885; J2003; J2405; J2704

== ENCOUNTER 2024-10-11 09:33 | Inpatient (IN) | payer MEDICAID ==
[~2024-10-11] VITALS: Ht 170.2 cm; Wt 111.5 kg
--- NOTE | 2024-10-11 09:52 | ED.PDOC ---
Musculoskeletal HPI Comments 49 year old female TEO presents to the ED with chief complaint of right hip dislocation. Patient reports that she had been sitting down when she twisted herself and accidentally dislocated her right hip. Patient relays that she had recent right hip replacement surgery and needed it redone on 09/07 for a previous dislocation, however, her orthopedist Dr. Martin had advised that if her right hip dislocates again, she needs the whole hip redone again. Patient states she had accidentally fell onto her right side when being transported to the car prior to her arrival. Patient notes she has had some mild chest pain and SOB for the past 2 days. Patient denies any numbness, weakness, dizziness, head injury, back injury, or N/V. Time Seen by MD: 09:44 Primary Care Provider: JAYSON Reviewed Notes: Nurses Notes, Bit Setter Notes, Medications, Allergies Allergies: Coded Allergies: No Known Drug Allergy (Verified Allergy, Unknown, 03/18/18) Home Meds Active Scripts Lisinopril (Lisinopril) 10 Mg Tab, 10 MG PO BID for 30 Days, #60 TAB Prov:[facility] 06/12/17 Insulin Regular (Human) (Novolin R) 100 Unit/Ml Inj, 0 UNITS SC ACHS for 30 Days, INJ Prov:JUSTO MICHEL [facility] 06/12/17 Carvedilol (COREG) 3.125 Mg Tab, 6.25 MG PO Q12HR for 30 Days, #120 TAB Prov:[facility] MICHEL [facility] 06/12/17 Aspirin (Asa) 81 Mg Ch, 81 MG PO DAILY for 30 Days Prov:JUSTO MICHEL [facility] 06/12/17 Reported Medications Morphine Sulfate (Morphine Sulfate) 15 Mg Tab, 1 TAB PO BID, #60 TAB 09/08/24 Oxycodone W/ Acetaminophen (Percocet 5/325MG) 1 Tab Tb, 1 TAB PO QID, #120 TAB 05/25/24 Morphine Sulfate (Morphine Sulfate) 15 Mg Tab, 15 MG PO, TAB 05/25/24 Cyclobenzaprine HCl (Cyclobenzaprine Hydrochlo) 15 Mg Cap, 15 MG PO, CAP 05/25/24 Cholecalciferol (VITAMIN D3) 2,000 Unit Tab, 1 TAB PO DAILY, #30 TAB 5 Refills 05/25/24 Furosemide (Lasix) 40 Mg Tab, 40 MG PO, TAB 05/25/24 Meloxicam (Meloxicam) 15 Mg Tab, 1 TAB PO DAILY, #30 TAB 2 Refills 05/25/24 Upadacitinib (Rinvoq) 15 Mg Tab, 15 MG PO, TAB 05/25/24 Fenofibrate (Fenofibrate) 54 Mg Tab, 1 TAB PO DAILY, #30 TAB 5 Refills 05/25/24 Tirzepatide (Mounjaro) 7.5 Mg/0.5 Ml Inj, SC QWEEKLY 03/20/23 Losartan Potassium (Losartan Potassium) 100 Mg Tab, 1 TAB PO DAILY 11/12/22 Gabapentin (Gabapentin) 300 Mg Cap, 300 MG PO BID 11/12/22 Methotrexate (Methotrexate) 2.5 Mg Tab, 2.5 MG PO QWEEKLY, TAB 8 tablets weekly 11/17/13 Information Source: Patient, Emergency Med Personnel Mode of Arrival: EMS Location: Right Extremity Location: Hip Timing: Hours Prehospital treatment: None Severity: Moderate Able to Move Extremity: No Bear Weight: No Pain: Moderate Mechanism: Twisting Circumstances: Spontaneous Onset of Symptoms: Spontaneous Symptoms: Pain DVT Risk Factors: NONE History of: Hip Operation Associated signs and symptoms: Hip pain Past Medical History PAST MEDICAL HISTORY: Arthritis, CHF, CKF, COPD, CVA, Depression, DM, High Lipids, HTN, Kidney Stones, UTI'S Surgical History: , Hernia Repair, Hysterectomy, Tubal Ligation Surgical History (Other): Rt hip replacement 09/07 TRUCKING SUPERVISOR History: No Pertinent TRUCKING SUPERVISOR History Family History Family History: Reviewed,noncontributory to illness, Family hx of heart pascual, Family hx of lung pascual, Family hx of stroke Social History Smoker: Cigarettes, Less Than 1 Pack/Day Alcohol: Occasionally Drugs: Denies Drug Use Lives In: Home Constitutional: denies: chills, diaphoresis, fatigue, fever, malaise, sweats, weakness, others EENTM: denies: blurred vision, double vision, ear bleeding, ear discharge, ear drainage, ear pain, ear ringing, eye pain, eye redness, hearing loss, mouth pain, mouth swelling, nasal discharge, nose bleeding, nose congestion, nose pain, photophobia, tearing, throat pain, throat swelling, voice changes, others Respiratory: reports: shortness of breath; denies: cough, hemoptysis, orthopnea, SOB at rest, SOB with excertion, stridor, wheezing, others Cardiovascular: reports: chest pain; denies: dizzy spells, diaphoresis, Dyspnea on exertion, edema, irregular heart beat, left arm pain, lightheadedness, palpitations, PND, syncope, others Gastrointestinal: denies: abdomen distended, abdominal pain, blood streaked bowels, constipated, diarrhea, dysphagia, difficulty swallowing, hematemesis, melena, nausea, poor appetite, poor fluid intake, rectal bleeding, rectal pain, vomiting, others Genitourinary: denies: abnormal vagina bleeding, burning, dyspareunia, dysuria, flank pain, frequency, hematuria, incontinence, pain, , vagina discharge, urgency, others Neurological: denies: dizziness, fainting, headache, left sided numbness, left sided weakness, numbness, paresthesia, pre-existing deficit, right sided numbness, right sided weakness, seizure, speech problems, tingling, tremors, weakness, others Musculoskeletal: reports: others (Rt hip pain/dislocation); denies: back pain, gout, joint pain, joint swelling, muscle pain, muscle stiffness, neck pain Integumetry: denies: bruises, change in color, change in hair/nails, dryness, laceration, lesions, lumps, rash, wounds, others Allergic/Immunocompromised: denies: Difficulty Healing, Frequent Infections, Hives, Itching, others Hematologic/Lymphatic: denies: anemia, blood clots, easy bleeding, easy bruising, swollen glands, others Endocrine: denies: excessive hunger, excessive sweating, excessive thirst, excessive urination, flushing, intolerance to cold, intolerance to heat, unexplained weight gain, unexplained weight loss, others Psychiatric: denies: anxiety, bipolar disorder, depression, hopeless, panic disorder, schizophrenia, sleepless, suicidal, others All Other Systems: Reviewed and Negative Physical Exam General Appearance: Moderate Distress, Normal HEENT: Normal ENT Inspection, PERRL/EOMI Neck: Full Range of Motion, Non-Tender, Normal, Normal Inspection Respiratory: Chest Non-Tender, Lungs Clear, No Accessory Muscle Use, No Respiratory Distress, Normal Breath Sounds Cardiovascular: No Edema, No JVD, No Murmur, No Gallop, Normal Peripheral Pulses, Regular Rate/Rhythm Breast Exam: Deferred Gastrointestinal: No Organomegaly, Non Tender, No Pulsatile Mass, Normal Bowel Sounds, Soft Genitalia: Deferred Pelvic: Deferred Rectal: Deferred Extremities: Decreased range of motion (Right lower extremity), No calf tenderness, Normal capillary refill, Non-tender, No pedal edema Musculoskeletal : Apperance: Normal Neurologic: Alert, unbundler II-XII nml as Tested, No Motor Deficits, Normal Affect, Normal Mood, No Sensory Deficits Cerebellar Function: NOT DONE Reflexes: NOT DONE Skin: Dry, Normal Color, Warm Peripheral Pulses: 3+ Radial (R), 3+ Radial (L) Lymphatic: No Adenopathy Was a procedure done? Was a procedure done?: No Differential Diagnosis EXT Differential Diagnosis: Dislocation X-Ray, Labs, Meds, VS Vital Signs Date Time Temp Pulse Resp B/P (MAP) Pulse Ox O2 Delivery O2 Flow Rate FiO2 10/11/24 10:42 70 17 140/65 10/11/24 10:16 70 19 159/60 (93) 99 10/11/24 10:13 Room Air* 0 21 10/11/24 10:12 70 19 159/60 10/11/24 09:49 98.2 85 16 162/98 (119) 99 Lab Test 10/11/24 10:40 Range/Units White Blood Count 14.9 H 4.4-10.8 10^3/uL Red Blood Count 3.88 L 4.0-5.20 10^6/uL Hemoglobin 13.5 12.2-16.2 g/dL Hematocrit 40.1 36.0-46.0 % Mean Corpuscular Volume 103.5 H 80.0-100.0 fL Mean Corpuscular Hemoglobin 34.9 H 28.0-32.0 pg Mean Corpuscular Hemoglobin Concent 33.7 32.0-36.0 g/dL Red Cell Distribution Width 16.0 H 11.8-14.3 % Platelet Count 378 140-450 10^3/uL Mean Platelet Volume 6.8 L 6.9-10.8 fL Neutrophils (%) (Auto) 80.0 37.0-80.0 % Lymphocytes (%) (Auto) 11.0 10.0-50.0 % Monocytes (%) (Auto) 8.9 0.0-12.0 % Eosinophils (%) (Auto) 0.0 0.0-7.0 % Basophils (%) (Auto) 0.1 0.0-2.0 % Neutrophils # (Auto) 11.9 H 1.6-8.6 10 ^3/uL Lymphocytes # (Auto) 1.6 0.4-5.4 10 ^3/uL Monocytes # (Auto) 1.3 0-1.3 10 ^3/uL Eosinophils # (Auto) 0 0-0.8 10 ^3/uL Basophils # (Auto) 0 0-0.2 10 ^3/uL Nucleated Red Blood Cells 0.1 % Sodium Level 139 136-145 mmol/L Potassium Level 4.0 3.5-5.1 mmol/L Chloride Level 108 H 98-107 mmol/L Carbon Dioxide Level 26 20-31 mmol/L Anion Gap 5 5-15 Blood Urea Nitrogen 20 9-23 mg/dL Creatinine 0.76 0.550-1.02 mg/dL Glomerular Filtration Rate Calc 96 >90 mL/min BUN/Creatinine Ratio 26.3 H 10.0-20.0 Serum Glucose 85 74-106 mg/dL Calcium Level 9.4 8.7-10.4 mg/dL Current Medications Medications (Trade) Dose Ordered Sig/Lesia Route Start Time Stop Time Status Last Admin Hydromorphone HCl (Dilaudid Injection) 1 mg ONCE ONCE IV 10/11/24 10:15 10/11/24 10:16 DC 10/11/24 10:12 Patient alert. Complaining of right hip pain. Hip dislocated. Vitals stable. Right lower extremity shortened. Was given Dilaudid. Saturation pristine on room air. Reviewed her previous visit. Explained to the patient. Continue cardiac monitoring. Orthopedic consultation. Time of 1ST Reevaluation: 10:44 Reevaluation 1ST: Unchanged Patient Education/Counseling: Diagnosis, Treatment Family Education/Counseling: No Family Present Departure 1 Departure Time of Disposition: 10:25 Impression: Primary Impression: Dislocation of hip prosthesis Qualified Codes: T84.029A - Dislocation of unspecified internal joint prosthesis, initial encounter; Z96.649 - Presence of unspecified artificial hip joint Disposition: ADMITTED INPATIENT Admit to: Med Surg Condition: Guarded Critical Care Note Critical Care Time?: Yes (45 min-critical care time only) Critical care comment: Hip dislocation Stability Stability form required: No Heart Score Heart Score: Heart Score Response (Comments) Value History N/A 0 EKG N/A 0 Age N/A 0 Risk Factors N/A 0 Troponin N/A 0 Total 0 I personally scribed for KAUSHIK JAMES MD ([email or web address]) on 10/11/24 at 09:52. Electronically submitted by Miguel Juarez ([email or web address]). KAUSHIK JAMES MD Oct 11, 2024 09:52
[2024-10-11] MEDS: HYDROcodone-ACET 10/325MG TAB PO ONE (10:09)
[2024-10-11] MEDS: HYDROmorphone HCL 2 MG/ML VL/or syr IV ONE ×2 (10:12→15:42)
[2024-10-11 10:56] LABS: Basophils # (auto) 0 10 ^3/uL (0-0.2); Basophils % (auto) 0.1 % (0.0-2.0); Eosinophils # (auto) 0 10 ^3/uL (0-0.8); Lymphocytes # (auto) 1.6 10 ^3/uL (0.4-5.4); Mean Corpuscular Volume 103.5 fL (80.0-100.0)
[2024-10-11 10:57] LABS: Hematocrit 40.1 % (36.0-46.0); Hemoglobin 13.5 g/dL (12.2-16.2); Mean Corpuscular Hemoglobin 34.9 pg (28.0-32.0); Mean Corpuscular Hgb Conc. 33.7 g/dL (32.0-36.0); Monocytes # (auto) 1.3 10 ^3/uL (0-1.3); Monocytes % (auto) 8.9 % (0.0-12.0); Neutrophils # (auto) 11.9 10 ^3/uL (1.6-8.6); Nucleated Red Blood Cells % 0.1 %; Platelet Count (auto) 378 10^3/uL (140-450); Red Blood Cells 3.88 10^6/uL (4.0-5.20); White Blood Cell 14.9 10^3/uL (4.4-10.8)
[2024-10-11 11:13] LABS: Sodium 139 mmol/L (136-145)
[2024-10-11 11:14] LABS: Anion Gap 5 (5-15); Calcium 9.4 mg/dL (8.7-10.4); Carbon Dioxide 26 mmol/L (20-31)
[2024-10-11 11:19] LABS: BUN/Creatinine Ratio 26.3 (10.0-20.0); Blood Urea Nitrogen 20 mg/dL (9-23); Glucose 85 mg/dL (74-106)
[2024-10-11 11:28] LABS: Chloride 108 mmol/L (98-107)
[2024-10-11 12:59] LABS: Urine Bacteria FEW /hpf (None Seen); Urine Blood Negative /uL (Negative); Urine Clarity Clear (Clear); Urine Color Yellow (Yellow); Urine Protein, UAD TRACE (Negative); Urine Squamous Epithelial Cell FEW /hpf (<5); Urine Urobilinogen 2 mg/dL (Negative); Urine WBC 5 /HPF (0-5); Urine pH 6.5 (5.0-9.0)
--- NOTE | 2024-10-11 14:31 | DVH ---
CLINICAL INFORMATION: 49 years old, Female; no clinical information provided TECHNIQUE: 2 views of the pelvis and right hip were obtained COMPARISON: XY PELVIS AP on DOS: 05/27/24 FINDINGS: Postsurgical changes of right total hip arthroplasty. Dislocation of the right hip prosthes is, with the femoral head positioned superiorly with respect to the acetabular cup. No acute fracture visualized. Mild soft tissue swelling. IMPRESSION: Dislocated right hip prosthesis as described above
[2024-10-11] MEDS ORDERED: HYDROcodone-ACET 5/325MG TAB PO PRN (16:45)
[2024-10-11] MEDS ORDERED: DEXTROSE (50%) 50ML SYRG IV PRN (16:45)
[2024-10-11] MEDS: InsuLIN REG 1unit/0.01ml Soln (100units/ml) SC SCH (17:00)
--- NOTE | 2024-10-11 17:13 | DVHHP2 ---
History of Present Illness Reason for Visit: Right hip pain History of Present Illness This 49-year-old female presents in the ED via EMS with a chief complaint of right hip pain. The patient reports that she had been sitting down when she twisted herself and accidentally dislocated right hip prosthesis. The patient with significant history of right total hip replacement initially in May 2024 and returned for a repair in August [address] Martin. Past medical history of hypertension, osteoarthritis, chronic pain syndrome, diabetes, COPD, CVA, hyperlipidemia, tobacco use, and obesity. Past Medical History As stated in HPI Past Surgical History Right hip surgery Family History Reviewed, non-contributory to the management of this case. Past Social History The patient lives at home Tobacco use one pack per day Denies illicit or ETOH abuse Review of Systems Constitutional: Yes: Malaise, Other (Chronic pain); No: Fever, Chills, Sweats, Weakness Eyes: No: Pain, Vision change, Conjunctivae inflammation, Eyelid inflammation, Other, Redness ENT: No: Ear pain, Ear discharge, Nose pain, Nose discharge, Nose congestion, Mouth pain, Mouth swelling, Throat pain, Throat swelling, Other Respiratory: No: Cough, Dry, Shortness of breath, SOB with excertion, Wheezing, Hemoptysis, Pleuritic Pain, Sputum, Wheezing, Other Cardiovascular: No: Chest Pain, Palpitations, Orthopnea, Paroxysmal Noc. Dyspnea, Edema, Lt Headedness, Other Gastrointestinal: No: Nausea, Vomiting, Abdominal Pain, Diarrhea, Constipation, Melena, Hematochezia, Other Genitourinary: No Dysuria, No Frequency, No Incontinence, No Hematuria, No Retention, No Other Musculoskeletal: other; No: neck pain, shoulder pain, arm pain, back pain, hand pain, leg pain, foot pain (Hip pain) Skin: No: Rash, Lesions, Jaundice, Bruising, Other Neurological: No: Weakness, Numbness, Incoordination, Change in speech, Con fusion, Seizures, Other Allergies: Coded Allergies: No Known Drug Allergy (Verified Allergy, Unknown, 03/18/18) Exam Vital Signs Vital Signs Date Time Temp Pulse Resp B/P (MAP) Pulse Ox O2 Delivery O2 Flow Rate FiO2 10/11/24 16:23 79 13 121/63 10/11/24 16:00 97 10/11/24 10:13 Room Air* 0 21 10/11/24 09:49 98.2 General Appearance: Alert, Oriented X3, Cooperative, moderate distress HEENT: Atraumatic, PERRLA, EOMI, Mucous membr. moist/pink Respiratory: Clear to auscultation, Normal air movement Cardiovascular: Regular rate, Normal S1, Normal S2 Abdominal: Normal bowel sounds, Soft, No tenderness Extremities: No clubbing, No cyanosis, Other (Right hip prosthesis dislocation, distal pulses intact, strong and palpable, capillary refill normal) Skin: No rashes Psych/Mental Status: Mental status NL Labs/Xrays Labs Test 10/11/24 11:55 10/11/24 10:40 Range/Units Urine Color Yellow Yellow Urine Clarity Clear Clear Urine pH 6.5 5.0-9.0 Urine Specific [place] 1.030 1.001-1.035 Urine Protein Trace H Negative Urine Ketones Negative Negative Urine Blood Negative Negative /uL Urine Nitrite Negative Negative Urine Bilirubin Negative Negative Urine Urobilinogen 2 H Negative mg/dL Urine Leukocyte Esterase Trace Negative /uL Urine RBC 2 0 - 4 /hpf Urine Microscopic WBC 5 0-5 /HPF Urine Squamous Epithelial Cells Few <5 /hpf Urine Calcium Oxalate Crystals Few None Seen Urine Bacteria Few H None Seen /hpf Urine Glucose Normal Normal mg/dL White Blood Count 14.9 H 4.4-10.8 10^3/uL Red Blood Count 3.88 L 4.0-5.20 10^6/uL Hemoglobin 13.5 12.2-16.2 g/dL Hematocrit 40.1 36.0-46.0 % Mean Corpuscular Volume 103.5 H 80.0-100.0 fL Mean Corpuscular Hemoglobin 34.9 H 28.0-32.0 pg Mean Corpuscular Hemoglobin Concent 33.7 32.0-36.0 g/dL Red Cell Distribution Width 16.0 H 11.8-14.3 % Platelet Count 378 140-450 10^3/uL Mean Platelet Volume 6.8 L 6.9-10.8 fL Neutrophils (%) (Auto) 80.0 37.0-80.0 % Lymphocytes (%) (Auto) 11.0 10.0-50.0 % Monocytes (%) (Auto) 8.9 0.0-12.0 % Eosinophils (%) (Auto) 0.0 0.0-7.0 % Basophils (%) (Auto) 0.1 0.0-2.0 % Neutrophils # (Auto) 11.9 H 1.6-8.6 10 ^3/uL Lymphocytes # (Auto) 1.6 0.4-5.4 10 ^3/uL Monocytes # (Auto) 1.3 0-1.3 10 ^3/uL Eosinophils # (Auto) 0 0-0.8 10 ^3/uL Basophils # (Auto) 0 0-0.2 10 ^3/uL Nucleated Red Blood Cells 0.1 % Sodium Level 139 136-145 mmol/L Potassium Level 4.0 3.5-5.1 mmol/L Chloride Level 108 H 98-107 mmol/L Carbon Dioxide Level 26 20-31 mmol/L Anion Gap 5 5-15 Blood Urea Nitrogen 20 9-23 mg/dL Creatinine 0.76 0.550-1.02 mg/dL Glomerular Filtration Rate Calc 96 >90 mL/min BUN/Creatinine Ratio 26.3 H 10.0-20.0 Serum Glucose 85 74-106 mg/dL Calcium Level 9.4 8.7-10.4 mg/dL PROCEDURE(s): PELVS - PELVIS AP REASON: u ORDER NUMBER(s): [id number], ACCESSION NUMBER(s): [id number] CLINICAL INFORMATION: 49 years old, Female; no clinical information provided TECHNIQUE: 2 views of the pelvis and right hip were obtained COMPARISON: XY PELVIS AP on DOS: 05/27/24 FINDINGS: Postsurgical changes of right total hip arthroplasty. Dislocation of the right hip prosthesis, with the femoral head positioned superiorly with respect to the acetabular cup. No acute fracture visualized. Mild soft tissue swelling. IMPRESSION: Dislocated right hip prosthesis as described above Assessment/Plan Assessment/Plan # dislocation of right hip prosthesis # s/p total right hip replacement # right hip pain Admit to medical unit Consult ortho Dr.Surdyka Agee PT PTT inr Meeks catheter # acute UTI Ceftriaxone Blood and urine culture # chronic pain syndrome # osteoarthritis Pain control Oxycodone Meloxicam # hypertension Carvedilol Lisinopril Hydralazine as needed Monitor BP # diabetes type 2 # diabetic peripheral neuropathy Insulin sliding scale Check A1c Statins Gabapentin # morbid obesity Lifestyle modification counseled # tobacco dependence Nicotine patch Smoking cessation counseled DVT prophylaxis Medical plan discussed with patient Plan discussed with: Patient My Orders Orders - NE DALEY Erik GRAPE CRUSHER Procedure Category Date Status Time Admit ADMIT 10/11/24 Transmitted 16:45 Code Status CODE 10/11/24 Transmitted 16:45 Hydrocodone-Acet PHA 10/11/24 Logged 5/325mg Tab ([place] 16:45 Ondansetron Hcl PHA 10/11/24 Logged (Zofran) 16:45 Enoxaparin Sodium PHA 10/12/24 Logged (Lovenox) 10:00 Fall Risk Precautions JULIET 10/11/[address] 16:45 Complete Blood Count LAB 10/12/24 Verified 04:00 Comprehensive LAB 10/12/24 Verified Metabolic Panel 04:00 Cardiac DIET 10/11/24 Transmitted Diet-2gna,Lofat,Lochol Dinner Condition: Fair JULIET 10/11/24 In Process 16:45 Acetaminophen Tablet PHA 10/11/24 Logged (Tylenol Tablet) 16:45 Morphine Sulfate PHA 10/11/24 Logged Injection 16:45 Orhtopedics Surgery REFER 10/11/24 Transmitted 16:45 Communication Order ORDERS 10/11/24 Transmitted 16:45 Glucose Blood PHA 10/11/24 Logged (Accu-Chek Comfort 17:00 Insulin R (Human) PHA 10/11/24 Logged (Insulin R) 17:00 Dextrose 50% Syringe PHA 10/11/24 Logged 16:45 Blood Culture DIOR 10/11/24 Logged 16:45 Urine Bacterial DIOR 10/11/24 Logged Culture 16:45 Ceftriaxone 1gm/50ml PHA 10/12/24 Logged D5w (Rocephin) 09:00 Ceftriaxone 1gm/50ml PHA 10/11/24 Logged D5w (Rocephin) 16:45 Hydralazine Injection PHA 10/11/24 Logged (Apresoline Inject 16:45 PTPTT LAB 10/11/24 Logged 16:45 Hemoglobin A1c LAB 10/11/24 Logged 16:45 Carvedilol Tablet PHA 10/11/24 Transmitted (Coreg Tablet) 22:00 Furosemide Tablet PHA 10/12/24 Transmitted (Lasix Tablet) 10:00 Gabapentin Capsule PHA 10/11/24 Transmitted (Neurontin Capsule) 22:00 Oxycodone W/ Acet PHA 10/11/24 Transmitted 5/325mg Tab (Percocet 18:00 (Nf) Fenofibrate PHA 10/12/24 Transmitted 10:00 (Nf) Lisinopril PHA 10/11/24 Transmitted 22:00 (Nf) Losartan PHA 10/12/24 Transmitted Potassium 10:00 (Nf) Meloxicam PHA 10/12/24 Transmitted 10:00 Date of Service: Oct 11, 2024 Billing Provider: NE DALEY Common Visit Codes: [id number] INP/OBS CARE (HIGH) NE DALEY Oct 11, 2024 17:13
[2024-10-11] MEDS: ACCU-CHEK COMFORT CURVE STRIP VI SCH (17:16)
[2024-10-11] MEDS: NICOTINE 14 MG/24HR TOPICAL PATCH TD ONE (17:23)
[2024-10-11] MEDS: cefTRIAXone 1GM/50ML D5W 50 ML IV ONE (17:23)
[2024-10-11 18:03] LABS: INR 0.97 (0.9-1.15); Partial Thromboplastin Time 21.9 SEC (24.5-34.5); Prothrombin Time 10.3 sec (9.3-11.8)
[2024-10-11] MEDS: OXYCODONE W/ ACETAMINOPHEN 5/325MG TABLET PO SCH (18:09)
[2024-10-11 18:58] VITALS: BP 157/93; PULSE 66; RESP 18; TEMP 98.1; O2SAT 96
[2024-10-11 21:00] VITALS: BP 161/80; PULSE 83; RESP 16; TEMP 98.6; O2SAT 96
[2024-10-11] MEDS: MORPHINE SULFATE INJ 2 MG/ml SYRG IV PRN (21:00)
[2024-10-11] MEDS ORDERED: PATIENTS OWN MEDICATION (Lisinopril 10 MG) PO SCH (22:00)
[2024-10-11] MEDS: GABAPENTIN 300 MG CAP PO SCH (22:35)
[2024-10-11] MEDS: MELATONIN 5 MG TAB PO PRN (22:36)
[2024-10-11] MEDS: CARVEDILOL 3.125 MG TAB PO SCH (22:37)
[2024-10-11] MEDS: hydrALAZINE HCL 20 MG/ML VL IV PRN (22:50)
[2024-10-12 05:00] VITALS: BP 152/74; PULSE 61; RESP 17; TEMP 97.7; O2SAT 98
[2024-10-12 07:08] LABS: Basophils # (auto) 0.1 10 ^3/uL (0-0.2); Eosinophils # (auto) 0.2 10 ^3/uL (0-0.8); Hemoglobin 13.4 g/dL (12.2-16.2); Lymphocytes # (auto) 1.9 10 ^3/uL (0.4-5.4); Monocytes # (auto) 0.9 10 ^3/uL (0-1.3)
[2024-10-12 07:11] LABS: Basophils % (auto) 0.7 % (0.0-2.0); Eosinophils % (auto) 1.7 % (0.0-7.0); Hematocrit 39.2 % (36.0-46.0); Lymphocytes % (auto) 20.8 % (10.0-50.0); Mean Corpuscular Hemoglobin 35.8 pg (28.0-32.0); Mean Corpuscular Hgb Conc. 34.1 g/dL (32.0-36.0); Mean Corpuscular Volume 104.8 fL (80.0-100.0); Neutrophils # (auto) 6.2 10 ^3/uL (1.6-8.6); Neutrophils % (auto) 66.8 % (37.0-80.0); Nucleated Red Blood Cells % 0.1 %; Platelet Count (auto) 306 10^3/uL (140-450); Red Blood Cells 3.74 10^6/uL (4.0-5.20); White Blood Cell 9.3 10^3/uL (4.4-10.8)
[2024-10-12 07:32] LABS: Alanine Aminotransferase 15 U/L (7-40); Alkaline Phosphatase 63 U/L (46-116); Calcium 8.8 mg/dL (8.7-10.4); Carbon Dioxide 28 mmol/L (20-31); Chloride 106 mmol/L (98-107)
[2024-10-12 07:33] LABS: Albumin 3.5 g/dL (3.2-4.8); Anion Gap 5 (5-15); Aspartate Aminotransferase 20 U/L (13-40); BUN/Creatinine Ratio 26.3 (10.0-20.0); Blood Urea Nitrogen 20 mg/dL (9-23); Glucose 86 mg/dL (74-106); Potassium 3.3 mmol/L (3.5-5.1); Sodium 139 mmol/L (136-145)
[2024-10-12 07:45] LABS: Bilirubin, Total 0.2 mg/dL (0.2-1.0)
[2024-10-12 08:20] VITALS: PULSE 64; RESP 16; O2SAT 99
[2024-10-12 09:00] VITALS: BP 141/89; PULSE 64; RESP 16; TEMP 97.4; O2SAT 99
[2024-10-12] MEDS: NICOTINE 14 MG/24HR TOPICAL PATCH TD SCH (10:00)
[2024-10-12 10:28] LABS: Hepatitis B Surface Antigen Negative (Negative); Hepatitis C Antibody Negative (Negative)
[2024-10-12] MEDS: LOSARTAN POTASSIUM 50 MG TAB PO SCH (10:32)
[2024-10-12] MEDS: ENOXAPARIN SOD 40 MG/0.4 ML SYRINGE SC SCH (10:34)
[2024-10-12] MEDS: FUROSEMIDE 40 MG TAB PO SCH (10:34)
[2024-10-12] MEDS: cefTRIAXone 1GM/50ML D5W 50 ML IV SCH (11:01)
--- NOTE | 2024-10-12 12:15 | DVHINCON2 ---
Date of service: Oct 12, 2024 Referring Physician ED Reason for Consultation Right hip prosthetic dislocation History of Present Illness This 49-year-old female presents in the ED via EMS with a chief complaint of right hip pain. The patient reports that she had been sitting down when she twi sted herself and accidentally dislocated right hip prosthesis. The patient with significant history of right total hip replacement initially in May 2024 and returned for reduction in August [address] Granados. Past medical history of hypertension, osteoarthritis, chronic pain syndrome, diabetes, COPD, CVA, hyperlipidemia, tobacco use, and obesity. Past Medical History As stated in HPI Past Surgical History Right total hip surgery May 2024 Family History Reviewed, non-contributory to the management of this case. Past Social History The patient lives at home Tobacco use one pack per day Denies illicit or ETOH abuse Family History: Cancer (lung) father GRANDMOM FH: schizophrenia brother Family history: Arthritis Family history: Asthma brother Family history: Cardiovascular disease mother father Family history: Diabetes mellitus mother Family history: Hypercholesterolemia (situation) Family history: Hypertension Family history: Thyroid disorder Renal stone Stroke mother father No Family History of: Alcoholism Cancer of colon Chronic obstructive lung disease (situation) Family history: Alzheimer's disease Family history: Autoimmune disease (situation) Family history: Blood disorder Family history: Congenital anomaly Family history: Coronary thrombosis Family history: Depression (situation) Family history: Diabetes in Family history: Glaucoma Family history: Osteoporosis Family history: Suicide (situation) Ischemic heart disease Malignant melanoma Malignant neoplasm of breast Malignant neoplasm of lung Malignant neoplasm of ovary Prostate cancer Seizure disorder (situation) Allergies: Coded Allergies: No Known Drug Allergy (Verified Allergy, Unknown, 03/18/18) Home Meds Active Scripts Lisinopril (Lisinopril) 10 Mg Tab, 10 MG PO BID for 30 Days, #60 TAB Prov:JUSTO MICHEL AGACNPBC 06/12/17 Insulin Regular (Human) (Novolin R) 100 Unit/Ml Inj, 0 UNITS SC ACHS for 30 Days, INJ Prov:JUSTO MICHEL AGACNPBC 06/12/17 Carvedilol (COREG) 3.125 Mg Tab, 6.25 MG PO Q12HR for 30 Days, #120 TAB Prov:JUSTO MICHEL AGACNPBC 06/12/17 Aspirin (Asa) 81 Mg Ch, 81 MG PO DAILY for 30 Days Prov:JUSTO MICHEL AGACNPBC 06/12/17 Reported Medications Morphine Sulfate (Morphine Sulfate) 15 Mg Tab, 1 TAB PO BID, #60 TAB 09/08/24 Oxycodone W/ Acetaminophen (Percocet 5/325MG) 1 Tab Tb, 1 TAB PO QID, #120 TAB 05/25/24 Morphine Sulfate (Morphine Sulfate) 15 Mg Tab, 15 MG PO, TAB 05/25/24 Cyclobenzaprine HCl (Cyclobenzaprine Hydrochlo) 15 Mg Cap, 15 MG PO, CAP 05/25/24 Cholecalciferol (VITAMIN D3) 2,000 Unit Tab, 1 TAB PO DAILY, #30 TAB 5 Refills 05/25/24 Furosemide (Lasix) 40 Mg Tab, 40 MG PO, TAB 05/25/24 Meloxicam (Meloxicam) 15 Mg Tab, 1 TAB PO DAILY, #30 TAB 2 Refills 05/25/24 Upadacitinib (Rinvoq) 15 Mg Tab, 15 MG PO, TAB 05/25/24 Fenofibrate (Fenofibrate) 54 Mg Tab, 1 TAB PO DAILY, #30 TAB 5 Refills 05/25/24 Tirzepatide (Mounjaro) 7.5 Mg/0.5 Ml Inj, SC QWEEKLY 03/20/23 Losartan Potassium (Losartan Potassium) 100 Mg Tab, 1 TAB PO DAILY 11/12/22 Gabapentin (Gabapentin) 300 Mg Cap, 300 MG PO BID 11/12/22 Methotrexate (Methotrexate) 2.5 Mg Tab, 2.5 MG PO QWEEKLY, TAB 8 tablets weekly 11/17/13 Current Medications Current Medications Medications (Trade) Dose Ordered Sig/Lesia Route PRN Reason Start Time Stop Time Status Last Admin Acetaminophen/ Hydrocodone Bitart (Wrights 5/325MG Tab) 1 tab Q4HP PRN PO MODERATE PAIN (4-6 PAIN SCALE) 10/11/24 16:45 Ondansetron HCl (Zofran) 4 mg Q4HP PRN IV NAUSEA / VOMITING 10/11/24 16:45 Enoxaparin Sodium (Lovenox) 40 mg DAILY SC 10/12/24 10:00 10/12/24 10:34 Acetaminophen (Tylenol Tablet) 650 mg Q6HP PRN PO PAIN SCALE 1-3 OR TEMP>100.4 10/11/24 16:45 Morphine Sulfate 2 mg Q4HPRN PRN IV SEVERE PAIN (7-10 PAIN SCALE) 10/11/24 16:45 10/12/24 10:51 Diagnostic Test (Pha) (Accu-Chek Comfort Curve T) 1 strip ACHS 10/11/24 17:00 10/12/24 05:56 Insulin Human Regular (InsuLIN R) ACHS SC 10/11/24 17:00 Dextrose 50 ml UD PRN IV Blood Sugar LESS THAN 60 10/11/24 16:45 Ceftriaxone Sodium 50 ml @ 100 mls/hr DAILY@09 IV 10/12/24 09:00 10/12/24 11:01 Hydralazine HCl (Apresoline Injection) 10 mg Q6HP PRN IV SBP>150 10/11/24 16:45 10/12/24 06:10 Carvedilol (Coreg Tablet) 6.25 mg Q12HR PO 10/11/24 22:00 10/12/24 10:33 Furosemide (Lasix Tablet) 40 mg DAILY PO 10/12/24 10:00 10/12/24 10:34 Gabapentin (Neurontin Capsule) 300 mg BID PO 10/11/24 22:00 10/12/24 10:34 Oxycodone/ Acetaminophen (Percocet 5/ 325MG Tablet) 1 tab QID PO 10/11/24 18:00 10/12/24 06:09 Patient Own Medication 1 tab DAILY PO 10/12/24 10:00 Patient Own Medication 10 mg BID PO 10/11/24 22:00 10/11/24 17:12 DC Losartan Potassium (Cozaar Tablet) 100 mg DAILY PO 10/12/24 10:00 10/12/24 10:32 Patient Own Medication 1 tab DAILY PO 10/12/24 10:00 Nicotine (Nicoderm 14MG/ 24HR) 1 patch DAILY TD 10/12/24 10:00 Melatonin (Melatonin) 10 mg HS PRN PO FOR INSOMNIA 10/11/24 22:00 10/11/24 22:36 Review of Systems Patient is recovering from recent cough and is currently being given IV anti biotics otherwise negative on 10 point review except as above Vital Signs Vital Signs Date Time Temp Pulse Resp B/P (MAP) Pulse Ox O2 Delivery O2 Flow Rate FiO2 10/12/24 10:51 72 18 119/82 10/12/24 09:00 97.4 99 97.4 10/11/24 20:00 Room Air* 0 21 Physical Exam Well-developed well-nourished female no acute distress Alert and oriented x4 Right lower extremity is short and rotated Any passive range of motion right lower extremity causes severe hip pain There is no calf edema or tenderness She is able to demonstrate some very minimal ankle dorsiflexion Sensation is diminished the lateral foot though this has been present since pre injury She has 2+ DP pulse X-ray right hip reveals prosthetic hip dislocation Labs/Diagnostic Data Labs Test 10/12/24 06:19 10/12/24 05:57 10/11/24 17:01 10/11/24 11:55 Range/Units White Blood Count 9.3 # 4.4-10.8 10^3/uL Red Blood Count 3.74 L 4.0-5.20 10^6/uL Hemoglobin 13.4 12.2-16.2 g/dL Hematocrit 39.2 36.0-46.0 % Mean Corpuscular Volume 104.8 H 80.0-100.0 fL Mean Corpuscular Hemoglobin 35.8 H 28.0-32.0 pg Mean Corpuscular Hemoglobin Concent 34.1 32.0-36.0 g/dL Red Cell Distribution Width 16.0 H 11.8-14.3 % Platelet Count 306 140-450 10^3/uL Mean Platelet Volume 6.9 6.9-10.8 fL Neutrophils (%) (Auto) 66.8 37.0-80.0 % Lymphocytes (%) (Auto) 20.8 10.0-50.0 % Monocytes (%) (Auto) 10.0 0.0-12.0 % Eosinophils (%) (Auto) 1.7 0.0-7.0 % Basophils (%) (Auto) 0.7 0.0-2.0 % Neutrophils # (Auto) 6.2 1.6-8.6 10 ^3/uL Lymphocytes # (Auto) 1.9 0.4-5.4 10 ^3/uL Monocytes # (Auto) 0.9 0-1.3 10 ^3/uL Eosinophils # (Auto) 0.2 0-0.8 10 ^3/uL Basophils # (Auto) 0.1 0-0.2 10 ^3/uL Nucleated Red Blood Cells 0.1 % Sodium Level 139 136-145 mmol/L Potassium Level 3.3 L 3.5-5.1 mmol/L Chloride Level 106 98-107 mmol/L Carbon Dioxide Level 28 20-31 mmol/L Anion Gap 5 5-15 Blood Urea Nitrogen 20 9-23 mg/dL Creatinine 0.76 0.550-1.02 mg/dL Glomerular Filtration Rate Calc 96 >90 mL/min BUN/Creatinine Ratio 26.3 H 10.0-20.0 Serum Glucose 86 74-106 mg/dL Calcium Level 8.8 8.7-10.4 mg/dL Total Bilirubin 0.2 0.2-1.0 mg/dL Aspartate Amino Transferase (AST) 20 13-40 U/L Alanine Aminotransferase (ALT) 15 7-40 U/L Alkaline Phosphatase 63 46-116 U/L Total Protein 6.0 5.7-8.2 g/dL Albumin 3.5 3.2-4.8 g/dL POC Glucose 83 70-106 mg/dl Prothrombin Time 10.3 9.3-11.8 sec Prothrombin Time INR 0.97 0.9-1.15 Activated Partial Thromboplast Time 21.9 L 24.5-34.5 SEC Hepatitis B Surface Antigen Negative Negative Hepatitis C Antibody Negative Negative Urine Color Yellow Yellow Urine Clarity Clear Clear Urine pH 6.5 5.0-9.0 Urine Specific [place] 1.030 1.001-1.035 Urine Protein Trace H Negative Urine Ketones Negative Negative Urine Blood Negative Negative /uL Urine Nitrite Negative Negative Urine Bilirubin Negative Negative Urine Urobilinogen 2 H Negative mg/dL Urine Leukocyte Esterase Trace Negative /uL Urine RBC 2 0 - 4 /hpf Urine Microscopic WBC 5 0-5 /HPF Urine Squamous Epithelial Cells Few <5 /hpf Urine Calcium Oxalate Crystals Few None Seen Urine Bacteria Few H None Seen /hpf Urine Glucose Normal Normal mg/dL Test 10/11/24 10:40 Range/Units Hemoglobin A1c < 4.0 <5.7 % A1C Microbiology Date/Time Source Procedure Growth Status 10/11/24 11:55 Voided Urine Urine Culture - Preliminary Resulted Assessment Recurrent dislocation right prosthetic hip Plan/Recommendation The patient has had two dislocations now without significant trauma for this reason I am recommending revision. Possibilities include the revising if acetabular shell and/or stem as well as placement of the dual mobility cup. I explained the diagnosis, prognosis, treatment options, procedure, and risks which include but are not limited to bleeding, transfusion, infection, recurrent dislocation, leg length discrepancy, nerve injury, DVT, and PE. Patient understood agreed to proceed. All questions answered. I anticipate surgery will be Saturday to allow time to get specialized equipment in house Plan discussed with: Patient CLARK GRANADOS MD Oct 12, 2024 12:15
[2024-10-12 13:00] VITALS: BP 123/80; PULSE 69; RESP 18; TEMP 98.4; O2SAT 98
--- NOTE | 2024-10-12 15:19 | DVHPN2 ---
Reviewed: Care Plan, H&P, Labs, Medications, Previous Orders, Radiology Changes from previous H/P or p: No Changes Eyes: No Pain, No Vision change, No Conjunctivae inflammation, No Eyelid inflammation, No Other, No Redness ENT: No Ear pain, No Ear discharge, No Nose pain, No Nose discharge, No Nose congestion, No Mouth pain, No Mouth swelling, No Throat pain, No Throat swelling, No Other Cardiovascular: No Chest Pain, No Palpitations, No Orthopnea, No Paroxysmal Noc. Dyspnea, No Edema, No Lt Headedness, No Other Respiratory: No Cough, No Dry, No Shortness of breath, No SOB with excertion, No Wheezing, No Hemoptysis, No Pleuritic Pain, No Sputum, No Other Gastrointestinal: No Nausea, No Vomiting, No Abdominal Pain, No Diarrhea, No Constipation, No Melena, No Hematochezia, No Other Genitourinary: No Dysuria, No Frequency, No Incontinence, No Hematuria, No Retention, No Other Musculoskeletal: other; No neck pain, No shoulder pain, No arm pain, No back pain, No hand pain, No leg pain, No foot pain (Hip pain) Skin: No Rash, No Lesions, No Jaundice, No Bruising, No Other Objective Vitals Vital Signs Date Time Temp Pulse Resp B/P (MAP) Pulse Ox O2 Delivery O2 Flow Rate FiO2 10/12/24 13:00 98.4 69 18 123/80 (94) 98 98.4 10/12/24 08:20 Room Air* 0 21 Intake/Output Intake and Output 10/12/24 07:00 Intake Total 700 ml Output Total 600 ml Balance 100 ml Intake Oral 700 ml Output Urine Total 600 ml Medications Current Medications Medications Dose Ordered Sig/Lesia Route Start Time Stop Time Status Last Admin Dose Admin Ondansetron HCl 4 mg Q4HP PRN IV 10/11/24 16:45 Enoxaparin Sodium 40 mg DAILY SC 10/12/24 10:00 10/12/24 10:34 40 MG Acetaminophen 650 mg Q6HP PRN PO 10/11/24 16:45 Diagnostic Test (Pha) 1 strip ACHS 10/11/24 17:00 10/12/24 12:29 1 STRIP Insulin Human Regular ACHS SC 10/11/24 17:00 Dextrose 50 ml UD PRN IV 10/11/24 16:45 Ceftriaxone Sodium 50 ml @ 100 mls/hr DAILY@09 IV 10/12/24 09:00 10/12/24 11:01 100 MLS/HR Hydralazine HCl 10 mg Q6HP PRN IV 10/11/24 16:45 10/12/24 06:10 10 MG Carvedilol 6.25 mg Q12HR PO 10/11/24 22:00 10/12/24 10:33 6.25 MG Furosemide 40 mg DAILY PO 10/12/24 10:00 10/12/24 10:34 40 MG Gabapentin 300 mg BID PO 10/11/24 22:00 10/12/24 10:34 300 MG Patient Own Medication 1 tab DAILY PO 10/12/24 10:00 Losartan Potassium 100 mg DAILY PO 10/12/24 10:00 10/12/24 10:32 100 MG Patient Own Medication 1 tab DAILY PO 10/12/24 10:00 Nicotine 1 patch DAILY TD 10/12/24 10:00 Melatonin 10 mg HS PRN PO 10/11/24 22:00 10/11/24 22:36 10 MG Morphine Sulfate 15 mg Q12HR PO 10/12/24 22:00 Oxycodone HCl 10 mg Q6HP PRN PO 10/12/24 12:30 Laboratory Results Laboratory Tests 10/12/24 06:19 Chemistry Test 10/12/24 06:19 Albumin 3.5 g/dL (3.2-4.8) Calcium Level 8.8 mg/dL (8.7-10.4) Total Protein 6.0 g/dL (5.7-8.2) Coagulation Test 10/11/24 17:01 Prothrombin Time 10.3 sec (9.3-11.8) Prothrombin Time INR 0.97 (0.9-1.15) Activated Partial Thromboplast Time 21.9 SEC (24.5-34.5) L LFT Test 10/12/24 06:19 Alanine Aminotransferase (ALT) 15 U/L (7-40) Alkaline Phosphatase 63 U/L (46-116) Aspartate Amino Transferase (AST) 20 U/L (13-40) Total Bilirubin 0.2 mg/dL (0.2-1.0) Urinalysis Test 10/11/24 11:55 Urine Color Yellow (Yellow) Urine Clarity Clear (Clear) Urine pH 6.5 (5.0-9.0) Urine Specific [place] 1.030 (1.001-1.035) Urine Protein Trace (Negative) H Urine Ketones Negative (Negative) Urine Blood Negative /uL (Negative) Urine Nitrite Negative (Negative) Urine Bilirubin Negative (Negative) Urine Urobilinogen 2 mg/dL (Negative) H Urine Leukocyte Esterase Trace /uL (Negative) Urine RBC 2 /hpf (0 - 4) Urine Microscopic WBC 5 /HPF (0-5) Urine Squamous Epithelial Cells Few /hpf (<5) Urine Calcium Oxalate Crystals Few (None Seen) Urine Bacteria Few /hpf (None Seen) H Urine Glucose Normal mg/dL (Normal) Microbiology Microbiology Date/Time Source Procedure Growth Status 10/11/24 11:55 Voided Urine Urine Culture - Preliminary Resulted Labs and/or images reviewed: Labs reviewed by me, Image(s) reviewed by me Assessment/Plan Assessment/Plan Recurrent dislocation right prosthetic hip Dr Martin planning for surgery on Saturday UTI: Rocephin Hypotension Osteoarthritis Chronic pain syndrome COPD CVA Hypercholesterolemia Moderate obesity Chronic current smoker Plan discussed with: Patient Date of Service: Oct 12, 2024 Billing Provider: LEILA RAMIREZ MD Common Visit Codes: [id number] INP/OBS CARE(HIGH) LEILA RAMIREZ MD Oct 12, 2024 15:19
[2024-10-12] MEDS: POTASSIUM CHL 20 Meq TABLET PO ONE (15:31)
[2024-10-12 16:55] VITALS: BP 110/60; PULSE 73; RESP 20; TEMP 98.6; O2SAT 98
[2024-10-12] MEDS: oxyCODONE HCL 5MG TAB PO PRN (17:43)
[2024-10-12] MEDS: MORPHINE SULF 15mg ER tab PO SCH (20:48)
[2024-10-12 21:00] VITALS: BP 131/86; PULSE 89; RESP 18; TEMP 98.5; O2SAT 98
[2024-10-12] MEDS: KETOROLAC TROMETH 30 MG/ML 1ML VIAL IV ONE (22:39)
[2024-10-13] VITALS (7 sets, daily range): BP systolic 97–122; BP diastolic 59–74; PULSE 60–76; RESP 16–20; TEMP 97.9–98.1; O2SAT 95–98
[2024-10-13] MEDS: ONDANSETRON HCL 4 MG/2 ML VIAL IV PRN (00:19)
--- NOTE | 2024-10-13 11:28 | DVHPN2 ---
Reviewed: Care Plan, H&P, Labs, Medications, Previous Orders, Radiology Changes from previous H/P or p: No Changes Eyes: No Pain, No Vision change, No Conjunctivae inflammation, No Eyelid inflammation, No Other, No Redness ENT: No Ear pain, No Ear discharge, No Nose pain, No Nose discharge, No Nose congestion, No Mouth pain, No Mouth swelling, No Throat pain, No Throat swelling, No Other Cardiovascular: No Chest Pain, No Palpitations, No Orthopnea, No Paroxysmal Noc. Dyspnea, No Edema, No Lt Headedness, No Other Respiratory: No Cough, No Dry, No Shortness of breath, No SOB with excertion, No Wheezing, No Hemoptysis, No Pleuritic Pain, No Sputum, No Other Gastrointestinal: No Nausea, No Vomiting, No Abdominal Pain, No Diarrhea, No Constipation, No Melena, No Hematochezia, No Other Genitourinary: No Dysuria, No Frequency, No Incontinence, No Hematuria, No Retention, No Other Musculoskeletal: other; No neck pain, No shoulder pain, No arm pain, No back pain, No hand pain, No leg pain, No foot pain (Hip pain) Skin: No Rash, No Lesions, No Jaundice, No Bruising, No Other Objective Vitals Vital Signs Date Time Temp Pulse Resp B/P (MAP) Pulse Ox O2 Delivery O2 Flow Rate FiO2 10/13/24 09:05 122/74 10/13/24 09:04 60 10/13/24 08:58 97.9 18 98 97.9 10/13/24 08:15 Room Air* 0 21 Intake/Output Intake and Output 10/13/24 07:00 Intake Total 2900 ml Output Total 3300 ml Balance -400 ml Intake Oral 2850 ml IV Total 50 ml Output Urine Total 3300 ml Medications Current Medications Medications Dose Ordered Sig/Lesia Route Start Time Stop Time Status Last Admin Dose Admin Ondansetron HCl 4 mg Q4HP PRN IV 10/11/24 16:45 10/13/24 00:19 4 MG Enoxaparin Sodium 40 mg DAILY SC 10/12/24 10:00 10/13/24 09:06 40 MG Acetaminophen 650 mg Q6HP PRN PO 10/11/24 16:45 Diagnostic Test (Pha) 1 strip ACHS 10/11/24 17:00 10/13/24 06:06 1 STRIP Insulin Human Regular ACHS SC 10/11/24 17:00 Dextrose 50 ml UD PRN IV 10/11/24 16:45 Ceftriaxone Sodium 50 ml @ 100 mls/hr DAILY@09 IV 10/12/24 09:00 10/13/24 08:50 100 MLS/HR Hydralazine HCl 10 mg Q6HP PRN IV 10/11/24 16:45 10/12/24 06:10 10 MG Carvedilol 6.25 mg Q12HR PO 10/11/24 22:00 10/13/24 09:04 6.25 MG Furosemide 40 mg DAILY PO 10/12/24 10:00 10/13/24 09:05 40 MG Gabapentin 300 mg BID PO 10/11/24 22:00 10/13/24 09:04 300 MG Patient Own Medication 1 tab DAILY PO 10/12/24 10:00 Losartan Potassium 100 mg DAILY PO 10/12/24 10:00 10/13/24 09:04 100 MG Patient Own Medication 1 tab DAILY PO 10/12/24 10:00 Nicotine 1 patch DAILY TD 10/12/24 10:00 10/13/24 09:06 1 PATCH Melatonin 10 mg HS PRN PO 10/11/24 22:00 10/11/24 22:36 10 MG Morphine Sulfate 15 mg Q12HR PO 10/12/24 22:00 10/13/24 11:02 15 MG Oxycodone HCl 10 mg Q6HP PRN PO 10/12/24 12:30 10/13/24 08:58 10 MG Laboratory Results Laboratory Tests 10/12/24 06:19 Urinalysis Test 10/11/24 11:55 Urine Color Yellow (Yellow) Urine Clarity Clear (Clear) Urine pH 6.5 (5.0-9.0) Urine Specific [place] 1.030 (1.001-1.035) Urine Protein Trace (Negative) H Urine Ketones Negative (Negative) Urine Blood Negative /uL (Negative) Urine Nitrite Negative (Negative) Urine Bilirubin Negative (Negative) Urine Urobilinogen 2 mg/dL (Negative) H Urine Leukocyte Esterase Trace /uL (Negative) Urine RBC 2 /hpf (0 - 4) Urine Microscopic WBC 5 /HPF (0-5) Urine Squamous Epithelial Cells Few /hpf (<5) Urine Calcium Oxalate Crystals Few (None Seen) Urine Bacteria Few /hpf (None Seen) H Urine Glucose Normal mg/dL (Normal) Microbiology Microbiology Date/Time Source Procedure Growth Status 10/11/24 17:01 Blood Blood Culture - Preliminary NO GROWTH AFTER 24 HOURS OF INCUBATION. Resulted 10/11/24 11:55 Voided Urine Urine Culture - Preliminary Resulted Labs and/or images reviewed: Labs reviewed by me, Image(s) reviewed by me Assessment/Plan Assessment/Plan Recurrent dislocation right prosthetic hip Dr Martin planning for surgery on Saturday Previous surgery for dislocation of the right hip: 09/10/2024 UTI: Urine cultures growing possible Enterococcus, continue Rocephin Hypotension Osteoarthritis Chronic pain syndrome COPD CVA Hypercholesterolemia Moderate obesity Chronic current smoker counseling Plan discussed with: Patient Date of Service: Oct 13, 2024 Billing Provider: LEILA RAMIREZ MD Common Visit Codes: [id number] INP/OBS CARE(HIGH) LEILA RAMIREZ MD Oct 13, 2024 11:28
[2024-10-13] MEDS ORDERED: KETOROLAC TROMETH 30 MG/ML 1ML VIAL IV PRN (12:00)
[2024-10-13] MEDS: KETOROLAC TROMETH 30 MG/ML 1ML VIAL IV SCH (12:10)
[2024-10-14] VITALS (7 sets, daily range): BP systolic 103–114; BP diastolic 59–66; PULSE 60–91; RESP 16–18; TEMP 97.1–98.7; O2SAT 93–99
[2024-10-14 06:00] LABS: Basophils # (auto) 0 10 ^3/uL (0-0.2); Basophils % (auto) 0.5 % (0.0-2.0); Eosinophils # (auto) 0.2 10 ^3/uL (0-0.8); Eosinophils % (auto) 2.2 % (0.0-7.0); Hematocrit 38.2 % (36.0-46.0); Hemoglobin 12.9 g/dL (12.2-16.2); Lymphocytes # (auto) 1.5 10 ^3/uL (0.4-5.4); Lymphocytes % (auto) 17.5 % (10.0-50.0); Mean Corpuscular Hemoglobin 35.3 pg (28.0-32.0); Mean Corpuscular Hgb Conc. 33.8 g/dL (32.0-36.0); Mean Corpuscular Volume 104.5 fL (80.0-100.0); Monocytes # (auto) 0.8 10 ^3/uL (0-1.3); Monocytes % (auto) 8.6 % (0.0-12.0); Neutrophils # (auto) 6.3 10 ^3/uL (1.6-8.6); Neutrophils % (auto) 71.2 % (37.0-80.0); Nucleated Red Blood Cells % 0.1 %; Platelet Count (auto) 307 10^3/uL (140-450); Red Blood Cells 3.65 10^6/uL (4.0-5.20); Red Cell Distribution Width 15.7 % (11.8-14.3); White Blood Cell 8.8 10^3/uL (4.4-10.8)
[2024-10-14] MEDS: ROPIVACAINE 0.5% (5MG/ML) 20ML AMPULE IJ ONE ×2 (07:06→08:16)
[2024-10-14] MEDS ORDERED: fentaNYL CITRATE 100 MCG/2 ML VL ONE (07:06)
[2024-10-14] MEDS ORDERED: MIDAZOLAM HCL 2MG/2ML 2ml VIAL (1mg/ml) ONE (07:07)
[2024-10-14] MEDS ORDERED: PROPOFOL 10 MG/ML 20 ML IV ONE (07:09)
[2024-10-14] MEDS: ceFAZolin 2 GM/D5W100ml 100 ML IV ONE (07:30)
[2024-10-14] MEDS: CEFEPIME 1GM/ 50ML 50 ML IV ONE (07:50)
[2024-10-14] MEDS: TRANEXAMIC ACID 20 ML ONE (07:55)
[2024-10-14] MEDS ORDERED: ePHEDrine SULFATE 50 MG/ML AMP ONE (08:12)
[2024-10-14] MEDS ORDERED: PHENYLEPHRINE HCL 10 MG/ML VL ONE (08:13)
[2024-10-14] MEDS: VANCOMYCIN HCL 1000 MG VL ONE (08:36)
--- NOTE | 2024-10-14 09:22 | DVHOP2 ---
Operative Report - 2 Report Details Date: 10/14/24 Preop Diagnosis: Recurrent dislocation right hip prosthesis Postop Diagnosis: Same Surgeon: Clark Granados MD Plant Associate: AGAPITO Jesus Anesthesiologist: Nata Anesthesia: Regional Drains: Prevena closed wound suction Implant: Patient was converted to [facility] dual mobility with 28 mm cobalt chrome head 42 mm inner sleeve and outer sleeve for 52 acetabular shell Consent: The patient was informed of the risks and benefits of the procedure. These include but are not limited to complications of anesthesia, postoperative infection, incomplete relief of symptoms, recurrence of symptoms, damage to blood vessels, nerves and tendons, deep venous thrombosis, pulmonary embolism and possible need for repeat surgery in the future. Complications: None Estimated Blood Loss: 50 cc Fluids: See anesthesia record Findings: Patient was easily reduced closed and after exposure the patient was actually stable on the table however she had ruptured her tensor fascia gary repair as well as her anterior gluteus medius repair and the anterior gluteus medius was atrophied and no longer repairable. She also had a large seroma with serosangui neous fluid. Acetabular shell and femoral implant were stable and there were no obvious signs of infection. Indications for Surgery: Recurrent dislocation right hip prosthesis Name of Procedure Performed Revision right acetabular shell to duomobility for recurrent dislocation right hip arthroplasty Procedure Details Procedure Details: Patient was brought to the operating room and given spinal anesthetic with adequate analgesia obtained. Patient was easily reduced on the table. Patient was transferred to the lateral decubitus position with the right hip up stabilized with hip positioners, lower extremities well padded, axillary roll applied. Preop patient received IV Ancef and IV cefepime as well as TXA. Surgical time-out was performed verifying patient, laterality, and procedure. Right hip and thigh were prepped and draped in sterile fashion. I made incision utilizing the previous incision. A large amount of serosanguineous fluid extruded and superficial fluid and tissues were cultured as well as deep tissues. It was immediately obvious that the fascia gary repair had dehisced as well as the gluteus medius anterior repair. Sutures were removed as encountered. I tested stability which was actually fairly good however given that the patient had suffered these recurrent dislocations I opted to revise the hip to a dual mobility type bearing. I dislocated the hip and tapped off the head with a tamp. I then used a curved osteotome to remove the polyethylene. I irrigated copiously with experience antibacterial irrigant. I tapped in the shell for the dual mobility. I then trialed and found the hip to be stable. Abrupt the 42 liner and combined it with the 28 mm femoral head on the back table I then cleared and dried the [place] taper and tapped it on and reduced the hip which was again quite stable. I applied a g of vancomycin in the deep wound. I carefully dissected out the fascia and repaired it with 1. Ethibond interrupted [id number]. I applied another g of vancomycin to the superficial wound and repaired the deep subQ with 0 Vicryl superficial subQ with 2-0 Vicryl and skin with katia. We then applied the Prevena closed wound suction dressing. Patient tolerated the procedure well was brought to recovery room in stable condition. Specimen: G stain, aerobic and anaerobic cultures of the deep and superficial soft tissues. Condition Stable Disposition Still a Patient CLARK GRANADOS MD Oct 14, 2024 09:22
--- NOTE | 2024-10-14 09:57 | DVH ---
CLINICAL INDICATION: postop TECHNIQUE: XY PELVIS AP Comparison: XY PELVIS AP on DOS: 10/11/24, XY PELVIS AP on DOS: 05/27/24 FINDINGS/IMPRESSION: : Right hip arthroplasty. Degenerative changes of the left hip.
[2024-10-14] MEDS: PREGABALIN 25 MG CAP PO SCH (10:00)
--- NOTE | 2024-10-14 11:00 | DVHPN2 ---
Reviewed: Care Plan, H&P, Labs, Medications, Previous Orders, Radiology Changes from previous H/P or p: No Changes Eyes: No Pain, No Vision change, No Conjunctivae inflammation, No Eyelid inflammation, No Other, No Redness ENT: No Ear pain, No Ear discharge, No Nose pain, No Nose discharge, No Nose congestion, No Mouth pain, No Mouth swelling, No Throat pain, No Throat swelling, No Other Cardiovascular: No Chest Pain, No Palpitations, No Orthopnea, No Paroxysmal Noc. Dyspnea, No Edema, No Lt Headedness, No Other Respiratory: No Cough, No Dry, No Shortness of breath, No SOB with excertion, No Wheezing, No Hemoptysis, No Pleuritic Pain, No Sputum, No Other Gastrointestinal: No Nausea, No Vomiting, No Abdominal Pain, No Diarrhea, No Constipation, No Melena, No Hematochezia, No Other Genitourinary: No Dysuria, No Frequency, No Incontinence, No Hematuria, No Retention, No Other Musculoskeletal: other; No neck pain, No shoulder pain, No arm pain, No back pain, No hand pain, No leg pain, No foot pain (Hip pain) Skin: No Rash, No Lesions, No Jaundice, No Bruising, No Other Objective Vitals Vital Signs Date Time Temp Pulse Resp B/P (MAP) Pulse Ox O2 Delivery O2 Flow Rate FiO2 10/14/24 10:00 97.1 63 16 103/63 (76) 98 97.1 10/14/24 09:22 Mask 6.0 10/14/24 09:22 98 Intake/Output Intake and Output 10/14/24 07:00 Intake Total 950 ml Output Total 2000 ml Balance -1050 ml Intake Oral 800 ml IV Total 150 ml Output Urine Total 2000 ml Medications Current Medications Medications Dose Ordered Sig/Lesia Route Start Time Stop Time Status Last Admin Dose Admin Ondansetron HCl 4 mg Q4HP PRN IV 10/11/24 16:45 10/13/24 00:19 4 MG Acetaminophen 650 mg Q6HP PRN PO 10/11/24 16:45 Diagnostic Test (Pha) 1 strip ACHS 10/11/24 17:00 10/14/24 06:17 1 STRIP Insulin Human Regular ACHS SC 10/11/24 17:00 10/13/24 22:32 2 UNITS Dextrose 50 ml UD PRN IV 10/11/24 16:45 Ceftriaxone Sodium 50 ml @ 100 mls/hr DAILY@09 IV 10/12/24 09:00 10/13/24 08:50 100 MLS/HR Hydralazine HCl 10 mg Q6HP PRN IV 10/11/24 16:45 10/12/24 06:10 10 MG Carvedilol 6.25 mg Q12HR PO 10/11/24 22:00 10/13/24 22:20 6.25 MG Furosemide 40 mg DAILY PO 10/12/24 10:00 10/13/24 09:05 40 MG Gabapentin 300 mg BID PO 10/11/24 22:00 10/13/24 22:20 300 MG Patient Own Medication 1 tab DAILY PO 10/12/24 10:00 Losartan Potassium 100 mg DAILY PO 10/12/24 10:00 10/13/24 09:04 100 MG Patient Own Medication 1 tab DAILY PO 10/12/24 10:00 Nicotine 1 patch DAILY TD 10/12/24 10:00 10/13/24 09:06 1 PATCH Melatonin 10 mg HS PRN PO 10/11/24 22:00 10/13/24 23:50 10 MG Morphine Sulfate 15 mg Q12HR PO 10/12/24 22:00 10/13/24 22:19 15 MG Oxycodone HCl 10 mg Q6HP PRN PO 10/12/24 12:30 10/13/24 15:20 10 MG Ketorolac Tromethamine 30 mg Q6HR IV 10/13/24 12:00 10/18/24 11:59 10/14/24 05:02 30 MG Pregabalin 50 mg BID PO 10/14/24 10:00 Apixaban 2.5 mg BID PO 10/15/24 10:00 11/19/24 09:59 Cefazolin Sodium/ Dextrose 50 ml @ 50 mls/hr Q8HR IV 10/14/24 14:00 10/14/24 22:59 Sodium Chloride 1,000 ml @ 125 mls/hr Q8H IV 10/14/24 11:30 Ketorolac Tromethamine 15 mg Q6HR IV 10/14/24 12:00 10/19/24 11:59 Laboratory Results Laboratory Tests 10/12/24 06:19 10/14/24 05:32 Urinalysis Test 10/11/24 11:55 Urine Color Yellow (Yellow) Urine Clarity Clear (Clear) Urine pH 6.5 (5.0-9.0) Urine Specific [place] 1.030 (1.001-1.035) Urine Protein Trace (Negative) H Urine Ketones Negative (Negative) Urine Blood Negative /uL (Negative) Urine Nitrite Negative (Negative) Urine Bilirubin Negative (Negative) Urine Urobilinogen 2 mg/dL (Negative) H Urine Leukocyte Esterase Trace /uL (Negative) Urine RBC 2 /hpf (0 - 4) Urine Microscopic WBC 5 /HPF (0-5) Urine Squamous Epithelial Cells Few /hpf (<5) Urine Calcium Oxalate Crystals Few (None Seen) Urine Bacteria Few /hpf (None Seen) H Urine Glucose Normal mg/dL (Normal) Microbiology Microbiology Date/Time Source Procedure Growth Status 10/11/24 17:01 Blood Blood Culture - Preliminary NO GROWTH AFTER 48 HOURS OF INCUBATION. Resulted 10/11/24 11:55 Voided Urine Urine Culture - Final Enterococcus faecalis Complete Labs and/or images reviewed: Labs reviewed by me, Image(s) reviewed by me Assessment/Plan Assessment/Plan Recurrent dislocation right prosthetic hip Status post Revision right acetabular shell to duomobility for recurrent dislocation right hip arthroplasty by Dr Martin on 10-14-24 Previous surgery for dislocation of the right hip: 09/10/2024 UTI: Urine cultures growing Enterococcus faecalis: DC Rocephin, start Invanz 1 g IV daily for 3 weeks Hypotension Osteoarthritis Chronic pain syndrome COPD CVA Hypercholesterolemia Moderate obesity Chronic current smoker counseling Noris test Physical therapy Plan discussed with: Patient My Orders Orders - LEILA RAMIREZ MD Procedure Category Date Status Time Ketorolac Injection PHA 10/13/24 In Process (Toradol Injection) 12:00 Date of Service: Oct 14, 2024 Billing Provider: LIELA RAMIREZ MD Common Visit Codes: [id number] INP/OBS CARE(HIGH) LEILA RAMIREZ MD Oct 14, 2024 11:00
[2024-10-14] MEDS: SODIUM CHLORIDE 0.9% 1,000 ML IV SCH (11:49)
[2024-10-14] MEDS: KETOROLAC TROMETH 30 MG/ML 1ML VIAL IV SCH (13:18)
[2024-10-14] MEDS: ceFAZolin 2 GM/D5W50ml 50 ML IV SCH (13:19)
[2024-10-14] MEDS: ERTAPENEM SOD INJ 1 GM in SODIUM CHL 0.9% 50 ML IV ONE (15:28)
[2024-10-14] MEDS: ACETAMINOPHEN 325 MG TAB PO PRN (16:55)
[2024-10-15] MEDS: HYDROcodone-ACET 10/325MG TAB PO ONE (00:15)
[2024-10-15 01:00] VITALS: BP 109/68; PULSE 88; RESP 18; TEMP 98.5; O2SAT 98
[2024-10-15 01:49] LABS: COVID19 ANTIGEN SOFIA FIA NEGATIVE (NEGATIVE)
[2024-10-15 05:00] VITALS: BP 108/46; PULSE 81; RESP 18; TEMP 98.6; O2SAT 96
[2024-10-15 06:35] LABS: Basophils # (auto) 0 10 ^3/uL (0-0.2); Eosinophils # (auto) 0.2 10 ^3/uL (0-0.8); Eosinophils % (auto) 1.8 % (0.0-7.0); Hemoglobin 12.6 g/dL (12.2-16.2); Mean Corpuscular Volume 103.8 fL (80.0-100.0); Nucleated Red Blood Cells % 0.1 %; Red Cell Distribution Width 15.6 % (11.8-14.3)
[2024-10-15 06:38] LABS: Basophils % (auto) 0.2 % (0.0-2.0); Hematocrit 36.9 % (36.0-46.0); Lymphocytes % (auto) 10.6 % (10.0-50.0); Mean Corpuscular Hemoglobin 35.3 pg (28.0-32.0); Monocytes # (auto) 0.8 10 ^3/uL (0-1.3); Monocytes % (auto) 8.9 % (0.0-12.0); Neutrophils # (auto) 7.3 10 ^3/uL (1.6-8.6); Neutrophils % (auto) 78.5 % (37.0-80.0); Platelet Count (auto) 272 10^3/uL (140-450); Red Blood Cells 3.56 10^6/uL (4.0-5.20); White Blood Cell 9.3 10^3/uL (4.4-10.8)
[2024-10-15 06:44] LABS: Anion Gap 6 (5-15); Calcium 8.8 mg/dL (8.7-10.4); Carbon Dioxide 25 mmol/L (20-31); Chloride 107 mmol/L (98-107); Sodium 138 mmol/L (136-145)
[2024-10-15 06:45] LABS: Potassium 3.5 mmol/L (3.5-5.1)
[2024-10-15 06:50] LABS: BUN/Creatinine Ratio 26.7 (10.0-20.0); Blood Urea Nitrogen 20 mg/dL (9-23); Glucose 97 mg/dL (74-106)
[2024-10-15 08:30] VITALS: BP 106/59; PULSE 63; RESP 20; TEMP 98.1; O2SAT 98
[2024-10-15] MEDS: ERTAPENEM SOD INJ 1 GM in SODIUM CHL 0.9% 50 ML IV SCH (10:00)
--- NOTE | 2024-10-15 10:05 | DVHPN2 ---
Reviewed: Care Plan, H&P, Labs, Medications, Previous Orders, Radiology Changes from previous H/P or p: No Changes Eyes: No Pain, No Vision change, No Conjunctivae inflammation, No Eyelid inflammation, No Other, No Redness ENT: No Ear pain, No Ear discharge, No Nose pain, No Nose discharge, No Nose congestion, No Mouth pain, No Mouth swelling, No Throat pain, No Throat swelling, No Other Cardiovascular: No Chest Pain, No Palpitations, No Orthopnea, No Paroxysmal Noc. Dyspnea, No Edema, No Lt Headedness, No Other Respiratory: No Cough, No Dry, No Shortness of breath, No SOB with excertion, No Wheezing, No Hemoptysis, No Pleuritic Pain, No Sputum, No Other Gastrointestinal: No Nausea, No Vomiting, No Abdominal Pain, No Diarrhea, No Constipation, No Melena, No Hematochezia, No Other Genitourinary: No Dysuria, No Frequency, No Incontinence, No Hematuria, No Retention, No Other Musculoskeletal: other; No neck pain, No shoulder pain, No arm pain, No back pain, No hand pain, No leg pain, No foot pain (Hip pain) Skin: No Rash, No Lesions, No Jaundice, No Bruising, No Other Objective Vitals Vital Signs Date Time Temp Pulse Resp B/P (MAP) Pulse Ox O2 Delivery O2 Flow Rate FiO2 10/15/24 08:30 98.1 63 20 106/59 (75) 98 98.1 10/14/24 20:00 Room Air* 0 21 Intake/Output Intake and Output 10/15/24 07:00 Intake Total 2220 ml Output Total 1750 ml Balance 470 ml Intake Oral 1750 ml IV Total 470 ml Output Urine Total 1750 ml Medications Current Medications Medications Dose Ordered Sig/Lesia Route Start Time Stop Time Status Last Admin Dose Admin Ondansetron HCl 4 mg Q4HP PRN IV 10/11/24 16:45 10/13/24 00:19 4 MG Acetaminophen 650 mg Q6HP PRN PO 10/11/24 16:45 10/14/24 16:55 650 MG Diagnostic Test (Pha) 1 strip ACHS 10/11/24 17:00 10/15/24 06:18 1 STRIP Insulin Human Regular ACHS SC 10/11/24 17:00 10/13/24 22:32 2 UNITS Dextrose 50 ml UD PRN IV 10/11/24 16:45 Hydralazine HCl 10 mg Q6HP PRN IV 10/11/24 16:45 10/12/24 06:10 10 MG Carvedilol 6.25 mg Q12HR PO 10/11/24 22:00 10/14/24 21:23 6.25 MG Furosemide 40 mg DAILY PO 10/12/24 10:00 10/14/24 11:51 40 MG Gabapentin 300 mg BID PO 10/11/24 22:00 10/14/24 21:10 300 MG Patient Own Medication 1 tab DAILY PO 10/12/24 10:00 Losartan Potassium 100 mg DAILY PO 10/12/24 10:00 10/13/24 09:04 100 MG Patient Own Medication 1 tab DAILY PO 10/12/24 10:00 Nicotine 1 patch DAILY TD 10/12/24 10:00 10/13/24 09:06 1 PATCH Melatonin 10 mg HS PRN PO 10/11/24 22:00 10/13/24 23:50 10 MG Morphine Sulfate 15 mg Q12HR PO 10/12/24 22:00 10/14/24 21:11 15 MG Oxycodone HCl 10 mg Q6HP PRN PO 10/12/24 12:30 10/15/24 00:58 10 MG Ketorolac Tromethamine 30 mg Q6HR IV 10/13/24 12:00 10/18/24 11:59 10/14/24 05:02 30 MG Pregabalin 50 mg BID PO 10/14/24 10:00 10/14/24 21:10 50 MG Apixaban 2.5 mg BID PO 10/15/24 10:00 11/19/24 09:59 Sodium Chloride 1,000 ml @ 125 mls/hr Q8H IV 10/14/24 11:30 10/14/24 11:49 125 MLS/HR Ketorolac Tromethamine 15 mg Q6HR IV 10/14/24 12:00 10/19/24 11:59 10/15/24 06:20 15 MG Ertapenem 1 gm/ Sodium Chloride 50 ml @ 100 mls/hr DAILY IV 10/15/24 10:00 Laboratory Results Laboratory Tests 10/15/24 05:36 Chemistry Test 10/15/24 05:36 Calcium Level 8.8 mg/dL (8.7-10.4) Urinalysis Test 10/11/24 11:55 Urine Color Yellow (Yellow) Urine Clarity Clear (Clear) Urine pH 6.5 (5.0-9.0) Urine Specific [place] 1.030 (1.001-1.035) Urine Protein Trace (Negative) H Urine Ketones Negative (Negative) Urine Blood Negative /uL (Negative) Urine Nitrite Negative (Negative) Urine Bilirubin Negative (Negative) Urine Urobilinogen 2 mg/dL (Negative) H Urine Leukocyte Esterase Trace /uL (Negative) Urine RBC 2 /hpf (0 - 4) Urine Microscopic WBC 5 /HPF (0-5) Urine Squamous Epithelial Cells Few /hpf (<5) Urine Calcium Oxalate Crystals Few (None Seen) Urine Bacteria Few /hpf (None Seen) H Urine Glucose Normal mg/dL (Normal) Microbiology Microbiology Date/Time Source Procedure Growth Status 10/14/24 08:05 Hip Gram Stain - Final Resulted 10/14/24 08:05 Hip Anaerobic Culture Pending Resulted 10/14/24 08:05 Hip Aerobic Culture Pending Resulted 10/11/24 17:01 Blood Blood Culture - Preliminary NO GROWTH AFTER 72 HOURS OF INCUBATION. Resulted 10/11/24 11:55 Voided Urine Urine Culture - Final Enterococcus faecalis Complete Labs and/or images reviewed: Labs reviewed by me, Image(s) reviewed by me Assessment/Plan Assessment/Plan Recurrent dislocation right prosthetic hip Status post Revision right acetabular shell to duomobility for recurrent dislocation right hip arthroplasty by Dr Martin on 10-14-24 Previous surgery for dislocation of the right hip: 09/10/2024 Complicated UTI cultures growing Enterococcus faecalis: Continue Invanz 1 g IV daily for three weeks Hypotension Osteoarthritis Chronic pain syndrome COPD CVA Hypercholesterolemia Moderate obesity Chronic current smoker counseling Noris test Physical therapy ordered Plan discussed with: Patient My Orders Orders - LEILA RAMIREZ MD Procedure Category Date Status Time Ertapenem Sod Inj PHA 10/15/24 In Process (Invanz) 10:00 Pt Request For Service PT 10/14/24 Logged 11:28 Pt Request For Service PT 10/15/24 Logged 09:48 Hydromorphone PHA 10/15/24 Logged Injection (Dilaudid 10:00 Date of Service: Oct 15, 2024 Billing Provider: LEILA RAMIREZ MD Common Visit Codes: [id number] INP/OBS CARE(HIGH) LEILA RAMIREZ MD Oct 15, 2024 10:05
[2024-10-15] MEDS: APIXABAN 2.5 MG TAB PO SCH (10:12)
[2024-10-15] MEDS: HYDROmorphone HCL 2 MG/ML VL/or syr IV PRN (11:17)
--- NOTE | 2024-10-15 11:50 | DVHPN2 ---
Progress Note - Dictate Date Seen: Oct 15, 2024 Medical Necessity Reason Pt with a Central, PICC or Fol: Yes The following are medically ne: Meeks Catheter Subjective Patient was lying comfortably in bed during my evaluation and reports some postoperative hip pain and has not yet been able to get up and walk with physical therapy due to the pain. Patient notes that the pain is somewhat improved with the help pain medication. Patient is otherwise feeling well denying any other complaints or concerns during my evaluation. vital signs Vital Sign Date Time Temp Pulse Resp B/P (MAP) Pulse Ox O2 Delivery O2 Flow Rate FiO2 10/15/24 11:17 65 20 106/59 10/15/24 08:30 98.1 98 98.1 10/14/24 20:00 Room Air* 0 21 Total Intake and Output 10/14/24 10/14/24 10/15/24 15:00 23:00 07:00 Intake Total 370 ml 1050 ml 800 ml Output Total 50 ml 600 ml 1100 ml Balance 320 ml 450 ml -300 ml medications Current Medications Medications Dose Ordered Sig/Lesia Route Start Time Stop Time Status Last Admin Dose Admin Ondansetron HCl 4 mg Q4HP PRN IV 10/11/24 16:45 10/13/24 00:19 4 MG Acetaminophen 650 mg Q6HP PRN PO 10/11/24 16:45 10/14/24 16:55 650 MG Diagnostic Test (Pha) 1 strip ACHS 10/11/24 17:00 10/15/24 06:18 1 STRIP Insulin Human Regular ACHS SC 10/11/24 17:00 10/13/24 22:32 2 UNITS Dextrose 50 ml UD PRN IV 10/11/24 16:45 Hydralazine HCl 10 mg Q6HP PRN IV 10/11/24 16:45 10/12/24 06:10 10 MG Carvedilol 6.25 mg Q12HR PO 10/11/24 22:00 10/15/24 10:14 6.25 MG Furosemide 40 mg DAILY PO 10/12/24 10:00 10/15/24 10:17 40 MG Gabapentin 300 mg BID PO 10/11/24 22:00 10/15/24 10:11 300 MG Patient Own Medication 1 tab DAILY PO 10/12/24 10:00 Losartan Potassium 100 mg DAILY PO 10/12/24 10:00 10/15/24 10:15 100 MG Patient Own Medication 1 tab DAILY PO 10/12/24 10:00 Nicotine 1 patch DAILY TD 10/12/24 10:00 10/15/24 10:21 1 PATCH Melatonin 10 mg HS PRN PO 10/11/24 22:00 10/13/24 23:50 10 MG Pregabalin 50 mg BID PO 10/14/24 10:00 10/15/24 10:11 50 MG Apixaban 2.5 mg BID PO 10/15/24 10:00 11/19/24 09:59 10/15/24 10:12 2.5 MG Sodium Chloride 1,000 ml @ 125 mls/hr Q8H IV 10/14/24 11:30 10/15/24 11:45 125 MLS/HR Ertapenem 1 gm/ Sodium Chloride 50 ml @ 100 mls/hr DAILY IV 10/15/24 10:00 Hydromorphone HCl 2 mg Q4HPRN PRN IV 10/15/24 10:00 10/15/24 11:17 2 MG objective A&O x4 in no acute distress Hip range of motion grossly limited with pain on movement Prevena dressing clean, dry, intact, and maintaining suction Mild distal edema and right calf tenderness to palpation Neurovascularly intact with cap refill less than 2 seconds laboratory and microbiology Laboratory Tests 10/15/24 05:36 Test 10/15/24 05:36 Range/Units Serum Glucose 97 74-106 mg/dL Assessment/Plan Continue current management as well as pain control. Pending culture results and placed consult for Infectious Disease for an evaluation given preliminary results show positive Gram stains. Advised patient to take it easy for the next six weeks and to avoid crossing her legs or any extraneous exercise. I have also ordered a venous Doppler ultrasound of her right lower extremity due to some mild edema and some calf tenderness to the patient on physical exam. We will reconvene with the patient tomorrow for further evaluation. She understood and agreed. Plan discussed with: Patient MILES RODRIGUEZ Oct 15, 2024 11:50
--- NOTE | 2024-10-15 12:45 | DVH ---
Right lower extremity venous duplex Clinical History: RLE edema and calf TTP s/p R FITO Comparison: None Findings: Duplex Doppler evaluation of the deep venous system of the right lower extremity from the common femo ral vein to the popliteal vein including color Doppler and spectral/pulsed waveform analysis was perf ormed. The common femoral vein demonstrates appropriate compressibility and waveform variability. There is compressibility/patency of the great saphenous vein at the proximal thigh. The femoral vein demonstrates appropriate compressibility and waveform variability. The deep femoral vein demonstrates appropriate compressibility and waveform variability. The popliteal vein demonstrates appropriate compressibility and waveform variability. There is normal compressibility at the tibioperoneal trunk. 6 cm right lower extremity Madison's cyst. Impression: No right femoropopliteal venous thrombosis. If clinical concern/symptoms persist or worsen, short-interval follow-up study is suggested.
[2024-10-15 13:00] VITALS: BP 103/52; PULSE 52; RESP 20; TEMP 98.1; O2SAT 95
[2024-10-15 16:30] VITALS: BP 100/55; PULSE 80; RESP 20; TEMP 97.7; O2SAT 96
--- NOTE | 2024-10-15 20:48 | DVHINCON2 ---
Family History: Cancer (lung) father GRANDMOM FH: schizophrenia brother Family history: Arthritis Family history: Asthma brother Family history: Cardiovascular disease mother father Family history: Diabetes mellitus mother Family history: Hypercholesterolemia (situation) Family history: Hypertension Family history: Thyroid disorder Renal stone Stroke mother father No Family History of: Alcoholism Cancer of colon Chronic obstructive lung disease (situation) Family history: Alzheimer's disease Family history: Autoimmune disease (situation) Family history: Blood disorder Family history: Congenital anomaly Family history: Coronary thrombosis Family history: Depression (situation) Family history: Diabetes in Family history: Glaucoma Family history: Osteoporosis Family history: Suicide (situation) Ischemic heart disease Malignant melanoma Malignant neoplasm of breast Malignant neoplasm of lung Malignant neoplasm of ovary Prostate cancer Seizure disorder (situation) Allergies: Coded Allergies: No Known Drug Allergy (Verified Allergy, Unknown, 03/18/18) Home Meds Active Scripts Lisinopril (Lisinopril) 10 Mg Tab, 10 MG PO BID for 30 Days, #60 TAB Prov:JUSTO MICHEL [facility] 06/12/17 Insulin Regular (Human) (Novolin R) 100 Unit/Ml Inj, 0 UNITS SC ACHS for 30 Days, INJ Prov:JUSTO MICHEL AGACNPBC 06/12/17 Carvedilol (COREG) 3.125 Mg Tab, 6.25 MG PO Q12HR for 30 Days, #120 TAB Prov:JUSTO MICHEL AGACNPBC 06/12/17 Aspirin (Asa) 81 Mg Ch, 81 MG PO DAILY for 30 Days Prov:JUSTO MICHEL AGAPB 06/12/17 Reported Medications Morphine Sulfate (Morphine Sulfate) 15 Mg Tab, 1 TAB PO BID, #60 TAB 09/08/24 Oxycodone W/ Acetaminophen (Percocet 5/325MG) 1 Tab Tb, 1 TAB PO QID, #120 TAB 05/25/24 Morphine Sulfate (Morphine Sulfate) 15 Mg Tab, 15 MG PO, TAB 05/25/24 Cyclobenzaprine HCl (Cyclobenzaprine Hydrochlo) 15 Mg Cap, 15 MG PO, CAP 05/25/24 Cholecalciferol (VITAMIN D3) 2,000 Unit Tab, 1 TAB PO DAILY, #30 TAB 5 Refills 05/25/24 Furosemide (Lasix) 40 Mg Tab, 40 MG PO, TAB 05/25/24 Meloxicam (Meloxicam) 15 Mg Tab, 1 TAB PO DAILY, #30 TAB 2 Refills 05/25/24 Upadacitinib (Rinvoq) 15 Mg Tab, 15 MG PO, TAB 05/25/24 Fenofibrate (Fenofibrate) 54 Mg Tab, 1 TAB PO DAILY, #30 TAB 5 Refills 05/25/24 Tirzepatide (Mounjaro) 7.5 Mg/0.5 Ml Inj, SC QWEEKLY 03/20/23 Losartan Potassium (Losartan Potassium) 100 Mg Tab, 1 TAB PO DAILY 11/12/22 Gabapentin (Gabapentin) 300 Mg Cap, 300 MG PO BID 11/12/22 Methotrexate (Methotrexate) 2.5 Mg Tab, 2.5 MG PO QWEEKLY, TAB 8 tablets weekly 11/17/13 Current Medications Current Medications Medications (Trade) Dose Ordered Sig/Lesia Route PRN Reason Start Time Stop Time Status Last Admin Apixaban (Eliquis) 2.5 mg BID PO 10/15/24 10:00 11/19/24 09:59 10/15/24 10:12 Ertapenem 1 gm/ Sodium Chloride 50 ml @ 100 mls/hr DAILY IV 10/15/24 10:00 10/15/24 10:00 Hydromorphone HCl (Dilaudid Injection) 2 mg Q4HPRN PRN IV MODERATE PAIN (4-6 PAIN SCALE) 10/15/24 10:00 10/15/24 15:37 Vital Signs Vital Signs Date Time Temp Pulse Resp B/P (MAP) Pulse Ox O2 Delivery O2 Flow Rate FiO2 10/15/24 19:45 69 20 106/64 10/15/24 16:30 97.7 96 97.7 10/15/24 08:00 Room Air* 0 21 Labs/Diagnostic Data Labs Test 10/15/24 17:17 10/15/24 05:36 10/15/24 01:15 10/14/24 05:32 Range/Units POC Glucose 103 70-106 mg/dl White Blood Count 9.3 4.4-10.8 10^3/uL Red Blood Count 3.56 L 4.0-5.20 10^6/uL Hemoglobin 12.6 12.2-16.2 g/dL Hematocrit 36.9 36.0-46.0 % Mean Corpuscular Volume 103.8 H 80.0-100.0 fL Mean Corpuscular Hemoglobin 35.3 H 28.0-32.0 pg Mean Corpuscular Hemoglobin Concent 34.0 32.0-36.0 g/dL Red Cell Distribution Width 15.6 H 11.8-14.3 % Platelet Count 272 140-450 10^3/uL Mean Platelet Volume 7.0 6.9-10.8 fL Neutrophils (%) (Auto) 78.5 37.0-80.0 % Lymphocytes (%) (Auto) 10.6 10.0-50.0 % Monocytes (%) (Auto) 8.9 0.0-12.0 % Eosinophils (%) (Auto) 1.8 0.0-7.0 % Basophils (%) (Auto) 0.2 0.0-2.0 % Neutrophils # (Auto) 7.3 1.6-8.6 10 ^3/uL Lymphocytes # (Auto) 1.0 0.4-5.4 10 ^3/uL Monocytes # (Auto) 0.8 0-1.3 10 ^3/uL Eosinophils # (Auto) 0.2 0-0.8 10 ^3/uL Basophils # (Auto) 0 0-0.2 10 ^3/uL Nucleated Red Blood Cells 0.1 % Sodium Level 138 136-145 mmol/L Potassium Level 3.5 3.5-5.1 mmol/L Chloride Level 107 98-107 mmol/L Carbon Dioxide Level 25 20-31 mmol/L Anion Gap 6 5-15 Blood Urea Nitrogen 20 9-23 mg/dL Creatinine 0.75 0.550-1.02 mg/dL Glomerular Filtration Rate Calc 98 >90 mL/min BUN/Creatinine Ratio 26.7 H 10.0-20.0 Serum Glucose 97 74-106 mg/dL Calcium Level 8.8 8.7-10.4 mg/dL SARS-CoV-2 Antigen (Rapid) Negative NEGATIVE Beta HCG, Quantitative 0.6 L 1.5-4.2 mIU/mL Test 10/12/24 06:19 10/11/24 17:01 10/11/24 11:55 10/11/24 10:40 Range/Units Total Bilirubin 0.2 0.2-1.0 mg/dL Aspartate Amino Transferase (AST) 20 13-40 U/L Alanine Aminotransferase (ALT) 15 7-40 U/L Alkaline Phosphatase 63 46-116 U/L Total Protein 6.0 5.7-8.2 g/dL Albumin 3.5 3.2-4.8 g/dL Prothrombin Time 10.3 9.3-11.8 sec Prothrombin Time INR 0.97 0.9-1.15 Activated Partial Thromboplast Time 21.9 L 24.5-34.5 SEC Hepatitis B Surface Antigen Negative Negative Hepatitis C Antibody Negative Negative Urine Color Yellow Yellow Urine Clarity Clear Clear Urine pH 6.5 5.0-9.0 Urine Specific [place] 1.030 1.001-1.035 Urine Protein Trace H Negative Urine Ketones Negative Negative Urine Blood Negative Negative /uL Urine Nitrite Negative Negative Urine Bilirubin Negative Negative Urine Urobilinogen 2 H Negative mg/dL Urine Leukocyte Esterase Trace Negative /uL Urine RBC 2 0 - 4 /hpf Urine Microscopic WBC 5 0-5 /HPF Urine Squamous Epithelial Cells Few <5 /hpf Urine Calcium Oxalate Crystals Few None Seen Urine Bacteria Few H None Seen /hpf Urine Glucose Normal Normal mg/dL Hemoglobin A1c < 4.0 <5.7 % A1C Microbiology Date/Time Source Procedure Growth Status 10/14/24 08:05 Hip Gram Stain - Final Resulted 10/14/24 08:05 Hip Anaerobic Culture - Preliminary Resulted 10/14/24 08:05 Hip Aerobic Culture - Preliminary Resulted 10/11/24 17:01 Blood Blood Culture - Preliminary NO GROWTH AFTER 72 HOURS OF INCUBATION. Resulted 10/11/24 11:55 Voided Urine Urine Culture - Final Enterococcus faecalis Complete OC MARES MD Oct 15, 2024 20:48
[2024-10-16] VITALS (7 sets, daily range): BP systolic 102–110; BP diastolic 57–72; PULSE 64–102; RESP 16–20; TEMP 97.4–99.3; O2SAT 93–100
[2024-10-16] MEDS: LACTULOSE 20Gm/30ML SOLN PO ONE (09:30)
--- NOTE | 2024-10-16 09:30 | DVHPN2 ---
Reviewed: Care Plan, H&P, Labs, Medications, Previous Orders, Radiology Changes from previous H/P or p: No Changes Eyes: No Pain, No Vision change, No Conjunctivae inflammation, No Eyelid inflammation, No Other, No Redness ENT: No Ear pain, No Ear discharge, No Nose pain, No Nose discharge, No Nose congestion, No Mouth pain, No Mouth swelling, No Throat pain, No Throat swelling, No Other Cardiovascular: No Chest Pain, No Palpitations, No Orthopnea, No Paroxysmal Noc. Dyspnea, No Edema, No Lt Headedness, No Other Respiratory: No Cough, No Dry, No Shortness of breath, No SOB with excertion, No Wheezing, No Hemoptysis, No Pleuritic Pain, No Sputum, No Other Gastrointestinal: No Nausea, No Vomiting, No Abdominal Pain, No Diarrhea, No Constipation, No Melena, No Hematochezia, No Other Genitourinary: No Dysuria, No Frequency, No Incontinence, No Hematuria, No Retention, No Other Musculoskeletal: other; No neck pain, No shoulder pain, No arm pain, No back pain, No hand pain, No leg pain, No foot pain (Hip pain) Skin: No Rash, No Lesions, No Jaundice, No Bruising, No Other Objective Vitals Vital Signs Date Time Temp Pulse Resp B/P (MAP) Pulse Ox O2 Delivery O2 Flow Rate FiO2 10/16/24 06:55 78 16 107/61 10/16/24 05:00 97.4 98 97.4 10/15/24 20:00 Room Air* 0 21 Intake/Output Intake and Output 10/16/24 07:00 Intake Total 2575 ml Output Total 1550 ml Balance 1025 ml Intake Oral 900 ml IV Total 1675 ml Output Urine Total 1550 ml Medications Current Medications Medications Dose Ordered Sig/Lesia Route Start Time Stop Time Status Last Admin Dose Admin Ondansetron HCl 4 mg Q4HP PRN IV 10/11/24 16:45 10/13/24 00:19 4 MG Acetaminophen 650 mg Q6HP PRN PO 10/11/24 16:45 10/14/24 16:55 650 MG Diagnostic Test (Pha) 1 strip ACHS 10/11/24 17:00 10/16/24 06:48 1 STRIP Insulin Human Regular ACHS SC 10/11/24 17:00 10/16/24 06:48 2 UNITS Dextrose 50 ml UD PRN IV 10/11/24 16:45 Hydralazine HCl 10 mg Q6HP PRN IV 10/11/24 16:45 10/12/24 06:10 10 MG Carvedilol 6.25 mg Q12HR PO 10/11/24 22:00 10/15/24 22:19 6.25 MG Furosemide 40 mg DAILY PO 10/12/24 10:00 10/15/24 10:17 40 MG Gabapentin 300 mg BID PO 10/11/24 22:00 10/15/24 22:16 300 MG Patient Own Medication 1 tab DAILY PO 10/12/24 10:00 Losartan Potassium 100 mg DAILY PO 10/12/24 10:00 10/15/24 10:15 100 MG Patient Own Medication 1 tab DAILY PO 10/12/24 10:00 Nicotine 1 patch DAILY TD 10/12/24 10:00 10/15/24 10:21 1 PATCH Melatonin 10 mg HS PRN PO 10/11/24 22:00 10/13/24 23:50 10 MG Pregabalin 50 mg BID PO 10/14/24 10:00 10/15/24 22:16 50 MG Apixaban 2.5 mg BID PO 10/15/24 10:00 11/19/24 09:59 10/15/24 22:16 2.5 MG Sodium Chloride 1,000 ml @ 125 mls/hr Q8H IV 10/14/24 11:30 10/16/24 00:33 125 MLS/HR Ertapenem 1 gm/ Sodium Chloride 50 ml @ 100 mls/hr DAILY IV 10/15/24 10:00 10/15/24 10:00 100 MLS/HR Hydromorphone HCl 2 mg Q4HPRN PRN IV 10/15/24 10:00 10/16/24 05:09 2 MG Laboratory Results Laboratory Tests 10/15/24 05:36 Urinalysis Test 10/11/24 11:55 Urine Color Yellow (Yellow) Urine Clarity Clear (Clear) Urine pH 6.5 (5.0-9.0) Urine Specific [place] 1.030 (1.001-1.035) Urine Protein Trace (Negative) H Urine Ketones Negative (Negative) Urine Blood Negative /uL (Negative) Urine Nitrite Negative (Negative) Urine Bilirubin Negative (Negative) Urine Urobilinogen 2 mg/dL (Negative) H Urine Leukocyte Esterase Trace /uL (Negative) Urine RBC 2 /hpf (0 - 4) Urine Microscopic WBC 5 /HPF (0-5) Urine Squamous Epithelial Cells Few /hpf (<5) Urine Calcium Oxalate Crystals Few (None Seen) Urine Bacteria Few /hpf (None Seen) H Urine Glucose Normal mg/dL (Normal) Microbiology Microbiology Date/Time Source Procedure Growth Status 10/14/24 08:05 Hip Gram Stain - Final Resulted 10/14/24 08:05 Hip Anaerobic Culture - Preliminary Resulted 10/14/24 08:05 Hip Aerobic Culture - Preliminary Resulted 10/11/24 17:01 Blood Blood Culture - Preliminary NO GROWTH AFTER 72 HOURS OF INCUBATION. Resulted 10/11/24 11:55 Voided Urine Urine Culture - Final Enterococcus faecalis Complete Labs and/or images reviewed: Labs reviewed by me, Image(s) reviewed by me Assessment/Plan Assessment/Plan Recurrent dislocation right prosthetic hip Status post Revision right acetabular shell to duomobility for recurrent dislocation right hip arthroplasty by Dr Martin on 10-14-24 Previous surgery for dislocation of the right hip: 09/10/2024 blood cultures negative, joint fluid cultures from the operation site negative for any bacteria. Complicated UTI cultures growing Enterococcus faecalis: Continue Invanz 1 g IV daily for three weeks Hypotension Osteoarthritis Chronic pain syndrome COPD CVA Hypercholesterolemia Moderate obesity Chronic current smoker counseling Noris test neg Physical therapy ordered Patient Willing to be discharged to [place] [facility] for 2-3 weeks of IV antibiotics for UTI Plan discussed with: Patient My Orders Orders - LEILA RAMIREZ MD Procedure Category Date Status Time Pt Request For Service PT 10/15/24 Logged 09:48 Hydromorphone PHA 10/15/24 In Process Injection (Dilaudid 10:00 Insert Midline ORDERS 10/15/24 Transmitted 10:48 Communication Order ORDERS 10/15/24 Transmitted 10:48 Lactulose Oral PHA 10/16/24 Logged 09:30 Date of Service: Oct 16, 2024 Billing Provider: LEILA RAMIREZ MD Common Visit Codes: [id number] INP/OBS CARE(HIGH) LEILA RAMIREZ MD Oct 16, 2024 09:30
--- NOTE | 2024-10-16 12:02 | DVHPN2 ---
Progress Note - Dictate Date Seen: Oct 16, 2024 Medical Necessity Reason Pt with a Central, PICC or Fol: Yes The following are medically ne: PICC Line, Meeks Catheter Subjective Patient has no new complaints. Awaiting arrangements for home IV antibiotics. vital signs Vital Sign Date Time Temp Pulse Resp B/P (MAP) Pulse Ox O2 Delivery O2 Flow Rate FiO2 10/16/24 09:40 68 110/65 10/16/24 09:34 20 10/16/24 08:30 98.7 93 98.7 10/15/24 20:00 Room Air* 0 21 Total Intake and Output 10/15/24 10/15/24 10/16/24 15:00 23:00 07:00 Intake Total 50 ml 680 ml 1845 ml Output Total 500 ml 1050 ml Balance 50 ml 180 ml 795 ml medications Current Medications Medications Dose Ordered Sig/Lesia Route Start Time Stop Time Status Last Admin Dose Admin Ondansetron HCl 4 mg Q4HP PRN IV 10/11/24 16:45 10/13/24 00:19 4 MG Acetaminophen 650 mg Q6HP PRN PO 10/11/24 16:45 10/14/24 16:55 650 MG Diagnostic Test (Pha) 1 strip ACHS 10/11/24 17:00 10/16/24 06:48 1 STRIP Insulin Human Regular ACHS SC 10/11/24 17:00 10/16/24 06:48 2 UNITS Dextrose 50 ml UD PRN IV 10/11/24 16:45 Hydralazine HCl 10 mg Q6HP PRN IV 10/11/24 16:45 10/12/24 06:10 10 MG Carvedilol 6.25 mg Q12HR PO 10/11/24 22:00 10/16/24 09:40 6.25 MG Furosemide 40 mg DAILY PO 10/12/24 10:00 10/16/24 09:39 40 MG Gabapentin 300 mg BID PO 10/11/24 22:00 10/16/24 09:39 300 MG Patient Own Medication 1 tab DAILY PO 10/12/24 10:00 Losartan Potassium 100 mg DAILY PO 10/12/24 10:00 10/16/24 09:38 100 MG Patient Own Medication 1 tab DAILY PO 10/12/24 10:00 Nicotine 1 patch DAILY TD 10/12/24 10:00 10/15/24 10:21 1 PATCH Melatonin 10 mg HS PRN PO 10/11/24 22:00 10/13/24 23:50 10 MG Pregabalin 50 mg BID PO 10/14/24 10:00 10/16/24 09:37 50 MG Apixaban 2.5 mg BID PO 10/15/24 10:00 11/19/24 09:59 10/15/24 22:16 2.5 MG Sodium Chloride 1,000 ml @ 125 mls/hr Q8H IV 10/14/24 11:30 10/16/24 00:33 125 MLS/HR Ertapenem 1 gm/ Sodium Chloride 50 ml @ 100 mls/hr DAILY IV 10/15/24 10:00 10/16/24 09:43 100 MLS/HR Hydromorphone HCl 2 mg Q4HPRN PRN IV 10/15/24 10:00 10/16/24 09:34 2 MG objective Alert and oriented x4 Right hip dressing is intact Calf has no edema or tenderness Distal neurovascularly intact Cultures reveal positive Gram stain for cocci though rare white cells and no positive cultures at this time. Incidentally, there was no definite evidence for infection intra operatively though she did have a large amount of serosanguineous fluid. Addition, she had dehisced her fascia repair as well as her gluteus medius repair. laboratory and microbiology Laboratory Tests 10/15/24 05:36 Test 10/15/24 05:36 Range/Units Serum Glucose 97 74-106 mg/dL Assessment/Plan Recurrent dislocation right prosthetic hip postop day 2. s/p revision to dual mobility cup, repair of fascial dehiscence, and antibacterial wash out Possible infection union Plan: Patient was instructed on partial weight-bearing right lower extremity with walker. Patient is to avoid any type of transfer or pivot on the right side. She does complain of some skin irritation from the Prevena so I advised switching her over to an Aquacel dressing which can stay on for about a week. After one week she should be switched to daily dry dressing IV antibiotics per Infectious Disease Follow up Orthopedics two weeks Stable for transfer when appropriate arrangements for home care had been made. We will need Infectious Disease recommendations for antibiotics prior to discharge. She will need home health nursing for the IV antibiotics. Plan discussed with: Patient CLARK GRANADOS MD Oct 16, 2024 12:02
[2024-10-16] MEDS: PIPERACILLIN-TAZO 4.5GM 100 ML IV SCH (18:42)
--- NOTE | 2024-10-16 20:53 | DVHINCON2 ---
YURI MARTINEZ RESIDENT 10/16/242052: Date of service: Oct 16, [address] leonard Reason for Consultation hip joint infection History of Present Illness Patient is 49-year-old female with past medical history of Chronic obstructive pulmonary disease, hypertension, diabetes mellitus, rheumatoid arthritis, nicotine dependence, questionable CHF, TIA, CKD, LAKISHA who came to the hospital for right hip pain. As per patient she has been having accident and dislocation of right hip prosthesis, with worsening swelling and pain. As per patient she underwent right hip total arthroplasty on 05/29/2024, requiring closed reduction on September 28, 2024 and patient underwent revision of right occipital ratio for recurrent dislocation of right hip arthroplasty on 10/14/2024. Patient denying any other symptoms at this point including fever, chills, abdominal pain, dysuria, any other symptoms. Infectious disease consultation was done for positive for g stain Gram-negative rods/Gram-positive cocci sample from right hip during procedure. No any other complaints at this point. Surgical historyL right hip arthroplasty on 05/29/2024 Closed reduction under anesthesia on 09/19/2024 Revision of right acetabular shell for recurrent dislocation on 10/14/2024 Allergies none Social history patient lives with family, tobacco use one pack per day, no alcohol use. Family History: Cancer (lung) father GRANDMOM FH: schizophrenia brother Family history: Arthritis Family history: Asthma brother Family history: Cardiovascular disease mother father Family history: Diabetes mellitus mother Family history: Hypercholesterolemia (situation) Family history: Hypertension Family history: Thyroid disorder Renal stone Stroke mother father No Family History of: Alcoholism Cancer of colon Chronic obstructive lung disease (situation) Family history: Alzheimer's disease Family history: Autoimmune disease (situation) Family history: Blood disorder Family history: Congenital anomaly Family history: Coronary thrombosis Family history: Depression (situation) Family history: Diabetes in Family history: Glaucoma Family history: Osteoporosis Family history: Suicide (situation) Ischemic heart disease Malignant melanoma Malignant neoplasm of breast Malignant neoplasm of lung Malignant neoplasm of ovary Prostate cancer Seizure disorder (situation) Allergies: Coded Allergies: No Known Drug Allergy (Verified Allergy, Unknown, 03/18/18) Home Meds Active Scripts Lisinopril (Lisinopril) 10 Mg Tab, 10 MG PO BID for 30 Days, #60 TAB Prov:JUSTO MICHEL AGACNPB 06/12/17 Insulin Regular (Human) (Novolin R) 100 Unit/Ml Inj, 0 UNITS SC ACHS for 30 Days, INJ Prov:JUST[facility]HEL [facility] 06/12/17 Carvedilol (COREG) 3.125 Mg Tab, 6.25 MG PO Q12HR for 30 Days, #120 TAB Prov:JUSTO MICHEL [facility] 06/12/17 Aspirin (Asa) 81 Mg Ch, 81 MG PO DAILY for 30 Days Prov:JUSTO MICHEL [facility] 06/12/17 Reported Medications Morphine Sulfate (Morphine Sulfate) 15 Mg Tab, 1 TAB PO BID, #60 TAB 09/08/24 Oxycodone W/ Acetaminophen (Percocet 5/325MG) 1 Tab Tb, 1 TAB PO QID, #120 TAB 05/25/24 Morphine Sulfate (Morphine Sulfate) 15 Mg Tab, 15 MG PO, TAB 05/25/24 Cyclobenzaprine HCl (Cyclobenzaprine Hydrochlo) 15 Mg Cap, 15 MG PO, CAP 05/25/24 Cholecalciferol (VITAMIN D3) 2,000 Unit Tab, 1 TAB PO DAILY, #30 TAB 5 Refills 05/25/24 Furosemide (Lasix) 40 Mg Tab, 40 MG PO, TAB 05/25/24 Meloxicam (Meloxicam) 15 Mg Tab, 1 TAB PO DAILY, #30 TAB 2 Refills 05/25/24 Upadacitinib (Rinvoq) 15 Mg Tab, 15 MG PO, TAB 05/25/24 Fenofibrate (Fenofibrate) 54 Mg Tab, 1 TAB PO DAILY, #30 TAB 5 Refills 05/25/24 Tirzepatide (Mounjaro) 7.5 Mg/0.5 Ml Inj, SC QWEEKLY 03/20/23 Losartan Potassium (Losartan Potassium) 100 Mg Tab, 1 TAB PO DAILY 11/12/22 Gabapentin (Gabapentin) 300 Mg Cap, 300 MG PO BID 11/12/22 Methotrexate (Methotrexate) 2.5 Mg Tab, 2.5 MG PO QWEEKLY, TAB 8 tablets weekly 11/17/13 Current Medications Current Medications Medications (Trade) Dose Ordered Sig/Lesia Route PRN Reason Start Time Stop Time Status Last Admin Piperacillin Sod/ Tazobactam Sod 100 ml @ 25 mls/hr Q6HR IV 10/16/24 18:00 10/16/24 18:42 Review of Systems Patient complaining of right hip pain, no any other new complaints. Eyes: No Pain, No Vision change, No Conjunctivae inflammation, No Eyelid inflammation, No Other, No Redness ENT: No Ear pain, No Ear discharge, No Nose pain, No Nose discharge, No Nose congestion, No Mouth pain, No Mouth swelling, No Throat pain, No Throat swell ing, No Other Cardiovascular: No Chest Pain, No Palpitations, No Orthopnea, No Paroxysmal Noc. Dyspnea, No Edema, No Lt Headedness, No Other Respiratory: No Cough, No Dry, No Shortness of breath, No SOB with excertion, No Wheezing, No Hemoptysis, No Pleuritic Pain, No Sputum, No Other Gastrointestinal: No Nausea, No Vomiting, No Abdominal Pain, No Diarrhea, No Constipation, No Melena, No Hematochezia, No Other Genitourinary: No Dysuria, No Frequency, No Incontinence, No Hematuria, No Retention, No Other Musculoskeletal: No other, No neck pain, No shoulder pain, No arm pain, No back pain, No hand pain, No leg pain, No foot pain Skin: No Rash, No Lesions, No Jaundice, No Bruising, No Other Vital Signs Vital Signs Date Time Temp Pulse Resp B/P (MAP) Pulse Ox O2 Delivery O2 Flow Rate FiO2 10/16/24 18:48 69 20 110/72 10/16/24 16:30 98.1 95 98.1 10/16/24 08:00 Room Air* 0 21 Physical Exam General Appearance: Cooperative. Well developed. Well nourished. NAD Head Exam: Normal inspection Neck Exam: Normal inspection. Non-tender. Normal alignment Pulmonary/Respiratory: Chest non-tender. Clear bilateral breath sounds Cardiovascular/Chest: Regular rate and rhythm. No murmurs. No JVD. Peripheral Pulses: 2+ Radial (R). 2+ Radial (L). 2+ Pedal (R). 2+ Pedal (L) Abdominal Exam: Normal bowel sounds. Soft. Nontender. No hepatospenomegaly. No masses Ankle Exam: Negative ankle edema Lower extremities: Negative lower extremity edema, presence of wound VAC over right hip. Neuro/Mental Status: A&O x4. Coherent Thoughts/Psych: Normal thought pattern. Appropriate mood and affect. Good judgement and insight Appearance: In no acute distress Skin Exam: Normal inspection. Normal color. Warm. Dry Labs/Diagnostic Data Labs Test 10/16/24 17:07 10/15/24 05:36 10/15/24 01:15 10/14/24 05:32 Range/Units POC Glucose 94 70-106 mg/dl White Blood Count 9.3 4.4-10.8 10^3/uL Red Blood Count 3.56 L 4.0-5.20 10^6/uL Hemoglobin 12.6 12.2-16.2 g/dL Hematocrit 36.9 36.0-46.0 % Mean Corpuscular Volume 103.8 H 80.0-100.0 fL Mean Corpuscular Hemoglobin 35.3 H 28.0-32.0 pg Mean Corpuscular Hemoglobin Concent 34.0 32.0-36.0 g/dL Red Cell Distribution Width 15.6 H 11.8-14.3 % Platelet Count 272 140-450 10^3/uL Mean Platelet Volume 7.0 6.9-10.8 fL Neutrophils (%) (Auto) 78.5 37.0-80.0 % Lymphocytes (%) (Auto) 10.6 10.0-50.0 % Monocytes (%) (Auto) 8.9 0.0-12.0 % Eosinophils (%) (Auto) 1.8 0.0-7.0 % Basophils (%) (Auto) 0.2 0.0-2.0 % Neutrophils # (Auto) 7.3 1.6-8.6 10 ^3/uL Lymphocytes # (Auto) 1.0 0.4-5.4 10 ^3/uL Monocytes # (Auto) 0.8 0-1.3 10 ^3/uL Eosinophils # (Auto) 0.2 0-0.8 10 ^3/uL Basophils # (Auto) 0 0-0.2 10 ^3/uL Nucleated Red Blood Cells 0.1 % Sodium Level 138 136-145 mmol/L Potassium Level 3.5 3.5-5.1 mmol/L Chloride Level 107 98-107 mmol/L Carbon Dioxide Level 25 20-31 mmol/L Anion Gap 6 5-15 Blood Urea Nitrogen 20 9-23 mg/dL Creatinine 0.75 0.550-1.02 mg/dL Glomerular Filtration Rate Calc 98 >90 mL/min BUN/Creatinine Ratio 26.7 H 10.0-20.0 Serum Glucose 97 74-106 mg/dL Calcium Level 8.8 8.7-10.4 mg/dL SARS-CoV-2 Antigen (Rapid) Negative NEGATIVE Beta HCG, Quantitative 0.6 L 1.5-4.2 mIU/mL Test 10/12/24 06:19 10/11/24 17:01 10/11/24 11:55 10/11/24 10:40 Range/Units Total Bilirubin 0.2 0.2-1.0 mg/dL Aspartate Amino Transferase (AST) 20 13-40 U/L Alanine Aminotransferase (ALT) 15 7-40 U/L Alkaline Phosphatase 63 46-116 U/L Total Protein 6.0 5.7-8.2 g/dL Albumin 3.5 3.2-4.8 g/dL Prothrombin Time 10.3 9.3-11.8 sec Prothrombin Time INR 0.97 0.9-1.15 Activated Partial Thromboplast Time 21.9 L 24.5-34.5 SEC Hepatitis B Surface Antigen Negative Negative Hepatitis C Antibody Negative Negative Urine Color Yellow Yellow Urine Clarity Clear Clear Urine pH 6.5 5.0-9.0 Urine Specific [place] 1.030 1.001-1.035 Urine Protein Trace H Negative Urine Ketones Negative Negative Urine Blood Negative Negative /uL Urine Nitrite Negative Negative Urine Bilirubin Negative Negative Urine Urobilinogen 2 H Negative mg/dL Urine Leukocyte Esterase Trace Negative /uL Urine RBC 2 0 - 4 /hpf Urine Microscopic WBC 5 0-5 /HPF Urine Squamous Epithelial Cells Few <5 /hpf Urine Calcium Oxalate Crystals Few None Seen Urine Bacteria Few H None Seen /hpf Urine Glucose Normal Normal mg/dL Hemoglobin A1c < 4.0 <5.7 % A1C Microbiology Date/Time Source Procedure Growth Status 10/14/24 08:05 Hip Gram Stain - Final Resulted 10/14/24 08:05 Hip Anaerobic Culture - Preliminary Resulted 10/14/24 08:05 Hip Aerobic Culture - Preliminary Resulted 10/11/24 17:01 Blood Blood Culture - Final NO GROWTH AFTER 5 DAYS OF INCUBATION. Complete 10/11/24 11:55 Voided Urine Urine Culture - Final Enterococcus faecalis Complete Assessment Right hip joint infection Status post Revision right acetabular shell to duomobility for recurrent dislocation right hip arthroplasty by Dr Martin on 10-14-24 UTI Osteoarthritis Morbid obesity History of Chronic obstructive pulmonary disease, not exacerbation History of CVA Plan/recommendation Dr Guo -continue IV Zosyn while patient is in hospital, social service has been consulted for arrangement of IV antibiotic IV Zosyn 18 g 24 hour continuously for six days via PICC line, weekly CBC, CMP, ESR, CRP -fax results to [phone] -follow with ID in four weeks -reviewed deep culture of right hip: G stain showed Gram-negative rods/Gram-positive cocci, no growth from culture. -reviewed operative report of status post revision right eye subdural shell: Patient was given IV antibiotic during operation, large amount of serosanguineous fluid extruded and superficial fluid and tissue were cultured during procedure. -urine culture showed Enterococcus faecalis, IV antibiotic change from ertapenem to Zosyn -rest of the management as per primary care physician -patient counseled on current plan and primary care physician and ID follow-up. Plan discussed with: Patient, Other (RN) OC GUO MD 10/18/24 1401: Family History: Cancer (lung) father GRANDMOM FH: schizophrenia brother Family history: Arthritis Family history: Asthma brother Family history: Cardiovascular disease mother father Family history: Diabetes mellitus mother Family history: Hypercholesterolemia (situation) Family history: Hypertension Family history: Thyroid disorder Renal stone Stroke mother father No Family History of: Alcoholism Cancer of colon Chronic obstructive lung disease (situation) Family history: Alzheimer's disease Family history: Autoimmune disease (situation) Family history: Blood disorder Family history: Congenital anomaly Family history: Coronary thrombosis Family history: Depression (situation) Family history: Diabetes in Family history: Glaucoma Family history: Osteoporosis Family history: Suicide (situation) Ischemic heart disease Malignant melanoma Malignant neoplasm of breast Malignant neoplasm of lung Malignant neoplasm of ovary Prostate cancer Seizure disorder (situation) Allergies: Coded Allergies: No Known Drug Allergy (Verified Allergy, Unknown, 03/18/18) Home Meds Active Scripts Lisinopril (Lisinopril) 10 Mg Tab, 10 MG PO BID for 30 Days, #60 TAB Prov:JUSTO MICHEL AGACNPBC 06/12/17 Insulin Regular (Human) (Novolin R) 100 Unit/Ml Inj, 0 UNITS SC ACHS for 30 Days, INJ Prov:JUSTO MICHEL AGACNPBC 06/12/17 Carvedilol (COREG) 3.125 Mg Tab, 6.25 MG PO Q12HR for 30 Days, #120 TAB Prov:JUSTO MICHEL AGACNPB 06/12/17 Aspirin (Asa) 81 Mg Ch, 81 MG PO DAILY for 30 Days Prov:JUSTO MICHEL AGACNPB 06/12/17 Reported Medications Morphine Sulfate (Morphine Sulfate) 15 Mg Tab, 1 TAB PO BID, #60 TAB 09/08/24 Oxycodone W/ Acetaminophen (Percocet 5/325MG) 1 Tab Tb, 1 TAB PO QID, #120 TAB 05/25/24 Morphine Sulfate (Morphine Sulfate) 15 Mg Tab, 15 MG PO, TAB 05/25/24 Cyclobenzaprine HCl (Cyclobenzaprine Hydrochlo) 15 Mg Cap, 15 MG PO, CAP 05/25/24 Cholecalciferol (VITAMIN D3) 2,000 Unit Tab, 1 TAB PO DAILY, #30 TAB 5 Refills 05/25/24 Furosemide (Lasix) 40 Mg Tab, 40 MG PO, TAB 05/25/24 Meloxicam (Meloxicam) 15 Mg Tab, 1 TAB PO DAILY, #30 TAB 2 Refills 05/25/24 Upadacitinib (Rinvoq) 15 Mg Tab, 15 MG PO, TAB 05/25/24 Fenofibrate (Fenofibrate) 54 Mg Tab, 1 TAB PO DAILY, #30 TAB 5 Refills 05/25/24 Tirzepatide (Mounjaro) 7.5 Mg/0.5 Ml Inj, SC QWEEKLY 03/20/23 Losartan Potassium (Losartan Potassium) 100 Mg Tab, 1 TAB PO DAILY 11/12/22 Gabapentin (Gabapentin) 300 Mg Cap, 300 MG PO BID 11/12/22 Methotrexate (Methotrexate) 2.5 Mg Tab, 2.5 MG PO QWEEKLY, TAB 8 tablets weekly 11/17/13 Assessment Attending Addendum: Case discussed with Dr. Martinez. at the time of visit. Seen by Dr Martinez and reviewed assesment and plan . Patient is a 49 year old female with a history of COPD , hypertension , diabetes , rheumatoid arthritis , nicotine dependance, JOSE ROBERTO CKD. presences with right hip pain and states she had an accident 05/2024 where she had a right hip arthroplasty and states it never really healed right and has swelling and was admitted for sepsis and pneumonia immediately afterwards . Her hip continued to be swollen and had difficulty walking and pain , had a dislocation and closed reduction procedure on 09/19 and states still continues to have swelling and had a hematoma that had to be drain and now she underwent revision of the right occipital ratio for recurrent dislocation of the right hip on 10/14/2024 and there was concern for infection during the operative procedure so orthopedics is requesting antibiotic recommendation from infectious disease . Has no allergy and lives with family ,smokes 1 pack of cigarette a day and no alcohol use . 12 point review of systems was performed and patient states having pain and swelling of the hip , physical exam shows shes S/P right hip arthroplasty with wound vac present over the hip draining dark fibrious exidate , temp is 98.1 and BP is 110/72 , whitecount is 9.3, BUN 20 and creatine 9.75 . during operative procedures microbiology cultures unknow , urine cultures growing enterococcus vicallus and sensitive to vancomycin and ampicillin . blood cultures are no growth to date . during operative procedure on 10/14 were notations of a large amount of serosyneous fluid that extruded from superficial tissues and cultures were aquired from the deep tissues and notations that the facia ladder repair had to hiss as well as the gluteus medius of the hip . the polyathylene was removed and the patient had a gram of vancomycin inserted . operative cultures preliminary showed gram negative rods on gram steam but no growth is seen , patient did receive ceftriaxone prior to surgery and currently on ertapenum plan : recommend stopping ertapenem and switch to Zosyn for 6 weeks via IV 18 grams every 24 hours and given continuously . patient should follow up with infectious disease in 4 weeks to determine if additional ideal antibiotic therapy is needed , expect patient will require several months of IV/oral antibiotics to keep infection at bay until inflammation is controlled given that this is a DAIR procedure and remains a high risk of reinfection . follow up on speciation sensitivities of operative cultures. patient should follow with orthopedics for wound care management remaining plan per Dr Martinez in agreement with assessment and plan per above, 12 point review of system was done to patient during physical exam . In addition recommend the plan i have listed YURI MARTINEZ Oct 16, 2024 20:53 CO GUO MD Oct 18, 2024 14:01
[2024-10-17] VITALS (8 sets, daily range): BP systolic 92–136; BP diastolic 43–84; PULSE 73–86; RESP 15–18; TEMP 97.2–99.3; O2SAT 92–100
--- NOTE | 2024-10-17 09:32 | DVHPN2 ---
Reviewed: Care Plan, H&P, Labs, Medications, Previous Orders, Radiology Changes from previous H/P or p: No Changes Eyes: No Pain, No Vision change, No Conjunctivae inflammation, No Eyelid inflammation, No Other, No Redness ENT: No Ear pain, No Ear discharge, No Nose pain, No Nose discharge, No Nose congestion, No Mouth pain, No Mouth swelling, No Throat pain, No Throat swelling, No Other Cardiovascular: No Chest Pain, No Palpitations, No Orthopnea, No Paroxysmal Noc. Dyspnea, No Edema, No Lt Headedness, No Other Respiratory: No Cough, No Dry, No Shortness of breath, No SOB with excertion, No Wheezing, No Hemoptysis, No Pleuritic Pain, No Sputum, No Other Gastrointestinal: No Nausea, No Vomiting, No Abdominal Pain, No Diarrhea, No Constipation, No Melena, No Hematochezia, No Other Genitourinary: No Dysuria, No Frequency, No Incontinence, No Hematuria, No Retention, No Other Musculoskeletal: other; No neck pain, No shoulder pain, No arm pain, No back pain, No hand pain, No leg pain, No foot pain (Hip pain) Skin: No Rash, No Lesions, No Jaundice, No Bruising, No Other Objective Vitals Vital Signs Date Time Temp Pulse Resp B/P (MAP) Pulse Ox O2 Delivery O2 Flow Rate FiO2 10/17/24 08:30 75 16 106/59 10/17/24 08:00 Room Air* 0 21 10/17/24 05:00 97.8 97 97.8 Intake/Output Intake and Output 10/17/24 07:00 Intake Total 1270 ml Output Total 420 ml Balance 850 ml Intake Oral 1020 ml IV Total 250 ml Output Urine Total 420 ml # Voids 3 # Bowel Movements 1 Medications Current Medications Medications Dose Ordered Sig/Lesia Route Start Time Stop Time Status Last Admin Dose Admin Ondansetron HCl 4 mg Q4HP PRN IV 10/11/24 16:45 10/13/24 00:19 4 MG Acetaminophen 650 mg Q6HP PRN PO 10/11/24 16:45 10/14/24 16:55 650 MG Diagnostic Test (Pha) 1 strip ACHS 10/11/24 17:00 10/17/24 06:22 1 STRIP Insulin Human Regular ACHS SC 10/11/24 17:00 10/16/24 06:48 2 UNITS Dextrose 50 ml UD PRN IV 10/11/24 16:45 Hydralazine HCl 10 mg Q6HP PRN IV 10/11/24 16:45 10/12/24 06:10 10 MG Carvedilol 6.25 mg Q12HR PO 10/11/24 22:00 10/16/24 22:56 6.25 MG Furosemide 40 mg DAILY PO 10/12/24 10:00 10/16/24 09:39 40 MG Gabapentin 300 mg BID PO 10/11/24 22:00 10/16/24 22:55 300 MG Patient Own Medication 1 tab DAILY PO 10/12/24 10:00 Losartan Potassium 100 mg DAILY PO 10/12/24 10:00 10/16/24 09:38 100 MG Patient Own Medication 1 tab DAILY PO 10/12/24 10:00 Nicotine 1 patch DAILY TD 10/12/24 10:00 10/15/24 10:21 1 PATCH Melatonin 10 mg HS PRN PO 10/11/24 22:00 10/13/24 23:50 10 MG Pregabalin 50 mg BID PO 10/14/24 10:00 10/16/24 22:55 50 MG Apixaban 2.5 mg BID PO 10/15/24 10:00 11/19/24 09:59 10/16/24 22:55 2.5 MG Sodium Chloride 1,000 ml @ 125 mls/hr Q8H IV 10/14/24 11:30 10/16/24 00:33 125 MLS/HR Hydromorphone HCl 2 mg Q4HPRN PRN IV 10/15/24 10:00 10/17/24 08:30 2 MG Piperacillin Sod/ Tazobactam Sod 100 ml @ 25 mls/hr Q6HR IV 10/16/24 18:00 10/17/24 06:18 25 MLS/HR Laboratory Results Laboratory Tests 10/15/24 05:36 Urinalysis Test 10/11/24 11:55 Urine Color Yellow (Yellow) Urine Clarity Clear (Clear) Urine pH 6.5 (5.0-9.0) Urine Specific [place] 1.030 (1.001-1.035) Urine Protein Trace (Negative) H Urine Ketones Negative (Negative) Urine Blood Negative /uL (Negative) Urine Nitrite Negative (Negative) Urine Bilirubin Negative (Negative) Urine Urobilinogen 2 mg/dL (Negative) H Urine Leukocyte Esterase Trace /uL (Negative) Urine RBC 2 /hpf (0 - 4) Urine Microscopic WBC 5 /HPF (0-5) Urine Squamous Epithelial Cells Few /hpf (<5) Urine Calcium Oxalate Crystals Few (None Seen) Urine Bacteria Few /hpf (None Seen) H Urine Glucose Normal mg/dL (Normal) Microbiology Microbiology Date/Time Source Procedure Growth Status 10/14/24 08:05 Hip Gram Stain - Final Resulted 10/14/24 08:05 Hip Anaerobic Culture - Preliminary Resulted 10/14/24 08:05 Hip Aerobic Culture - Preliminary Resulted 10/11/24 17:01 Blood Blood Culture - Final NO GROWTH AFTER 5 DAYS OF INCUBATION. Complete 10/11/24 11:55 Voided Urine Urine Culture - Final Enterococcus faecalis Complete Labs and/or images reviewed: Labs reviewed by me, Image(s) reviewed by me Assessment/Plan Assessment/Plan Right hip joint infection: Zosyn 18 g per 24 hours continuous for six days per ID Dr. Guo Status post Revision right acetabular shell to duomobility for recurrent dislocation right hip arthroplasty by Dr Martin on 10-14-24 UTI with E faecalis continue Zosyn Osteoarthritis Morbid obesity History of Chronic obstructive pulmonary disease, not exacerbation History of CVA COPD Hypercholesterolemia No penitentiary facility accepting the patient because of her age Plan discussed with: Patient My Orders Orders - LEILA RAMIREZ MD Procedure Category Date Status Time Pt Request For Service PT 10/16/24 Logged 09:42 Date of Service: Oct 17, 2024 Billing Provider: LEILA RAMIREZ MD Common Visit Codes: [id number] INP/OBS CARE(HIGH) LEILA RAMIREZ MD Oct 17, 2024 09:32
[2024-10-18 01:00] VITALS: BP 100/37; PULSE 68; RESP 18; TEMP 97.9; O2SAT 95
[2024-10-18 05:00] VITALS: BP 163/46; PULSE 61; RESP 17; TEMP 98.5; O2SAT 95
[2024-10-18 09:00] VITALS: BP 105/63; PULSE 70; RESP 20; TEMP 98.2; O2SAT 97
--- NOTE | 2024-10-18 10:35 | DVHPN2 ---
Reviewed: Care Plan, H&P, Labs, Medications, Previous Orders, Radiology Changes from previous H/P or p: No Changes Eyes: No Pain, No Vision change, No Conjunctivae inflammation, No Eyelid inflammation, No Other, No Redness ENT: No Ear pain, No Ear discharge, No Nose pain, No Nose discharge, No Nose congestion, No Mouth pain, No Mouth swelling, No Throat pain, No Throat swelling, No Other Cardiovascular: No Chest Pain, No Palpitations, No Orthopnea, No Paroxysmal Noc. Dyspnea, No Edema, No Lt Headedness, No Other Respiratory: No Cough, No Dry, No Shortness of breath, No SOB with excertion, No Wheezing, No Hemoptysis, No Pleuritic Pain, No Sputum, No Other Gastrointestinal: No Nausea, No Vomiting, No Abdominal Pain, No Diarrhea, No Constipation, No Melena, No Hematochezia, No Other Genitourinary: No Dysuria, No Frequency, No Incontinence, No Hematuria, No Retention, No Other Musculoskeletal: other; No neck pain, No shoulder pain, No arm pain, No back pain, No hand pain, No leg pain, No foot pain (Hip pain) Skin: No Rash, No Lesions, No Jaundice, No Bruising, No Other Objective Vitals Vital Signs Date Time Temp Pulse Resp B/P (MAP) Pulse Ox O2 Delivery O2 Flow Rate FiO2 10/18/24 09:20 116/73 10/18/24 08:45 72 18 10/18/24 08:00 Room Air* 0 21 10/18/24 05:00 98.5 95 98.5 Intake/Output Intake and Output 10/18/24 07:00 Intake Total 2260 ml Balance 2260 ml Intake Oral 2060 ml IV Total 200 ml # Voids 10 Medications Current Medications Medications Dose Ordered Sig/Lesia Route Start Time Stop Time Status Last Admin Dose Admin Ondansetron HCl 4 mg Q4HP PRN IV 10/11/24 16:45 10/13/24 00:19 4 MG Acetaminophen 650 mg Q6HP PRN PO 10/11/24 16:45 10/14/24 16:55 650 MG Diagnostic Test (Pha) 1 strip ACHS 10/11/24 17:00 10/18/24 06:11 1 STRIP Insulin Human Regular ACHS SC 10/11/24 17:00 10/16/24 06:48 2 UNITS Dextrose 50 ml UD PRN IV 10/11/24 16:45 Hydralazine HCl 10 mg Q6HP PRN IV 10/11/24 16:45 10/12/24 06:10 10 MG Carvedilol 6.25 mg Q12HR PO 10/11/24 22:00 10/17/24 21:24 6.25 MG Furosemide 40 mg DAILY PO 10/12/24 10:00 10/18/24 09:20 40 MG Gabapentin 300 mg BID PO 10/11/24 22:00 10/18/24 09:19 300 MG Patient Own Medication 1 tab DAILY PO 10/12/24 10:00 Losartan Potassium 100 mg DAILY PO 10/12/24 10:00 10/16/24 09:38 100 MG Patient Own Medication 1 tab DAILY PO 10/12/24 10:00 Nicotine 1 patch DAILY TD 10/12/24 10:00 10/15/24 10:21 1 PATCH Melatonin 10 mg HS PRN PO 10/11/24 22:00 10/17/24 22:19 10 MG Pregabalin 50 mg BID PO 10/14/24 10:00 10/18/24 09:19 50 MG Apixaban 2.5 mg BID PO 10/15/24 10:00 11/19/24 09:59 10/18/24 09:19 2.5 MG Sodium Chloride 1,000 ml @ 125 mls/hr Q8H IV 10/14/24 11:30 10/17/24 11:30 125 MLS/HR Hydromorphone HCl 2 mg Q4HPRN PRN IV 10/15/24 10:00 10/18/24 08:15 2 MG Piperacillin Sod/ Tazobactam Sod 100 ml @ 25 mls/hr Q6HR IV 10/16/24 18:00 10/18/24 06:06 25 MLS/HR Laboratory Results Laboratory Tests 10/15/24 05:36 Urinalysis Test 10/11/24 11:55 Urine Color Yellow (Yellow) Urine Clarity Clear (Clear) Urine pH 6.5 (5.0-9.0) Urine Specific [place] 1.030 (1.001-1.035) Urine Protein Trace (Negative) H Urine Ketones Negative (Negative) Urine Blood Negative /uL (Negative) Urine Nitrite Negative (Negative) Urine Bilirubin Negative (Negative) Urine Urobilinogen 2 mg/dL (Negative) H Urine Leukocyte Esterase Trace /uL (Negative) Urine RBC 2 /hpf (0 - 4) Urine Microscopic WBC 5 /HPF (0-5) Urine Squamous Epithelial Cells Few /hpf (<5) Urine Calcium Oxalate Crystals Few (None Seen) Urine Bacteria Few /hpf (None Seen) H Urine Glucose Normal mg/dL (Normal) Microbiology Microbiology Date/Time Source Procedure Growth Status 10/14/24 08:05 Hip Gram Stain - Final Resulted 10/14/24 08:05 Hip Anaerobic Culture - Preliminary Resulted 10/14/24 08:05 Hip Aerobic Culture - Preliminary Resulted 10/11/24 17:01 Blood Blood Culture - Final NO GROWTH AFTER 5 DAYS OF INCUBATION. Complete 10/11/24 11:55 Voided Urine Urine Culture - Final Enterococcus faecalis Complete Labs and/or images reviewed: Labs reviewed by me, Image(s) reviewed by me Assessment/Plan Assessment/Plan Right hip joint infection: Zosyn 18 g per 24 hours continuous for six days per ID Dr. Guo Status post Revision right acetabular shell to duomobility for recurrent dislocation right hip arthroplasty by Dr Martin on 10-14-24 UTI with E faecalis continue Zosyn Osteoarthritis Morbid obesity History of Chronic obstructive pulmonary disease, not exacerbation History of CVA COPD Chronic current smoker: Counseling Hypercholesterolemia No longterm facility accepting the patient because of her age Plan discussed with: Patient My Orders Orders - LEILA RAMIREZ MD Procedure Category Date Status Time * Wound Consult CONS 10/17/24 Transmitted Cleanse Wound With JULIET 10/17/24 In Process Wound Clean 13:41 Date of Service: Oct 18, 2024 Billing Provider: LEILA RAMIREZ MD Common Visit Codes: [id number] INP/OBS CARE(HIGH) LEILA RAMIREZ MD Oct 18, 2024 10:35
[2024-10-18 12:20] LABS: INR 0.95 (0.9-1.15); Prothrombin Time 10.1 sec (9.3-11.8)
[2024-10-18 13:00] VITALS: BP 96/65; PULSE 88; RESP 20; TEMP 98; O2SAT 95
[2024-10-18] MEDS: LIDOCAINE 1% (LOCAL ANESTH.) PF 5ml SDV ID ONE (14:30)
[2024-10-18] MEDS: HYDROmorphone HCL 2 MG/ML VL/or syr IV PRN (14:41)
[2024-10-18 17:00] VITALS: BP 131/57; PULSE 73; RESP 20; TEMP 99.5; O2SAT 93
[2024-10-18 21:00] VITALS: BP 134/78; PULSE 81; RESP 20; TEMP 99.2; O2SAT 94
--- NOTE | 2024-10-18 22:50 | DVHPN2 ---
Consult Progress Note Date Seen: Oct 18, 2024 Subjective Patient reports: Other (having some mild pain at the hip , some drainage in the wound VAC , wound VAC has been removed today , mild swelling and redness at surgical site ) Objective vital signs Vital Sign Date Time Temp Pulse Resp B/P (MAP) Pulse Ox O2 Delivery O2 Flow Rate FiO2 10/18/24 21:35 81 134/75 10/18/24 19:03 20 10/18/24 17:00 99.5 93 99.5 10/18/24 08:00 Room Air* 0 21 Total Intake and Output 10/17/24 10/17/24 10/18/24 15:00 23:00 07:00 Intake Total 100 ml 1660 ml 500 ml Balance 100 ml 1660 ml 500 ml medications Current Medications Medications Dose Ordered Sig/Lesia Route Start Time Stop Time Status Last Admin Dose Admin Ondansetron HCl 4 mg Q4HP PRN IV 10/11/24 16:45 10/13/24 00:19 4 MG Acetaminophen 650 mg Q6HP PRN PO 10/11/24 16:45 10/14/24 16:55 650 MG Diagnostic Test (Pha) 1 strip ACHS 10/11/24 17:00 10/18/24 17:00 1 STRIP Insulin Human Regular ACHS SC 10/11/24 17:00 10/18/24 21:40 2 UNITS Dextrose 50 ml UD PRN IV 10/11/24 16:45 Hydralazine HCl 10 mg Q6HP PRN IV 10/11/24 16:45 10/12/24 06:10 10 MG Carvedilol 6.25 mg Q12HR PO 10/11/24 22:00 10/18/24 21:35 6.25 MG Furosemide 40 mg DAILY PO 10/12/24 10:00 10/18/24 09:20 40 MG Gabapentin 300 mg BID PO 10/11/24 22:00 10/18/24 21:35 300 MG Patient Own Medication 1 tab DAILY PO 10/12/24 10:00 Losartan Potassium 100 mg DAILY PO 10/12/24 10:00 10/16/24 09:38 100 MG Patient Own Medication 1 tab DAILY PO 10/12/24 10:00 Nicotine 1 patch DAILY TD 10/12/24 10:00 10/15/24 10:21 1 PATCH Melatonin 10 mg HS PRN PO 10/11/24 22:00 10/17/24 22:19 10 MG Pregabalin 50 mg BID PO 10/14/24 10:00 10/18/24 21:34 50 MG Apixaban 2.5 mg BID PO 10/15/24 10:00 11/19/24 09:59 10/18/24 21:35 2.5 MG Sodium Chloride 1,000 ml @ 125 mls/hr Q8H IV 10/14/24 11:30 10/17/24 11:30 125 MLS/HR Piperacillin Sod/ Tazobactam Sod 100 ml @ 25 mls/hr Q6HR IV 10/16/24 18:00 10/18/24 20:46 25 MLS/HR Hydromorphone HCl 2 mg Q4HPRN PRN IV 10/18/24 11:45 10/18/24 19:03 2 MG Sodium Chloride 10 ml QSHIFT@10,22 IV 10/18/24 22:00 General Appearance: Cooperative. Well developed. Well nourished. NAD Head Exam: Normal inspection Neck Exam: Normal inspection. Non-tender. Normal alignment Pulmonary/Respiratory: Chest non-tender. Clear bilateral breath sounds Cardiovascular/Chest: Regular rate and rhythm. No murmurs. No JVD. Peripheral Pulses: 2+ Radial (R). 2+ Radial (L). 2+ Pedal (R). 2+ Pedal (L) Abdominal Exam: Normal bowel sounds. Soft. Nontender. No hepatospenomegaly. No masses Ankle Exam: Negative ankle edema Lower extremities: Negative lower extremity edema, presence of wound VAC over right hip. Neuro/Mental Status: A&O x4. Coherent Thoughts/Psych: Normal thought pattern. Appropriate mood and affect. Good judgement and insight Appearance: In no acute distress Skin Exam: Normal inspection. Normal color. Warm. Dry laboratory and microbiology Laboratory Tests 10/15/24 05:36 Test 10/15/24 05:36 Range/Units Serum Glucose 97 74-106 mg/dL Problem List/Assessment/Plan Problems(with codes): (1) ANGINA PECTORIS NEC/NOS (2) ABDOMINAL PAIN, UNSPECIFIED SITE (3) CHEST PAIN NOS (4) Pickwickian syndrome (5) Obesity (BMI 35.0-39.9 without comorbidity) (6) Hypertension (7) COPD Problem List/Assessment/Plan Assessment : Patient is a 49 year old female with a history of COPD , hypertension , diabetes , rheumatoid arthritis , nicotine dependance, JOSE ROBERTO CKD. presences with right hip pain and states she had an accident 05/2024 where she had a right hip arthroplasty and states it never really healed right and has swelling and was admitted for sepsis and pneumonia immediately afterwards . Her hip continued to be swollen and had difficulty walking and pain , had a dislocation and closed reduction procedure on 09/19 and states still continues to have swelling and had a hematoma that had to be drain and now she underwent revision of the right occipital ratio for recurrent dislocation of the right hip on 10/14/2024 and there was concern for infection during the operative procedure so orthopedics is requesting antibiotic recommendation from infectious disease . Has no allergy and lives with family ,smokes 1 pack of cigarette a day and no alcohol use . 12 point review of systems was performed and patient states having pain and swelling of the hip , physical exam shows shes S/P right hip arthroplasty with wound vac present over the hip draining dark fibrinous exidate , temp is 98.1 and BP is 110/72 , whitecount is 9.3, BUN 20 and creatine 9.75 . during operative procedures microbiology cultures unknown , urine cultures growing enterococcus vicallus and sensitive to vancomycin and ampicillin . blood cultures are no growth to date . during operative procedure on 10/14 were notations of a large amount of seroserous fluid that extruded from superficial tissues and cultures were acquired from the deep tissues and notations that the facia ladder repair had to hiss as well as the gluteus medius of the hip . the polyethylene was removed and the patient had a gram of vancomycin inserted . operative cultures preliminary showed gram negative rods on gram steam but no growth is seen , patient did receive ceftriaxone prior to surgery and currently on ertapenem 10/17: No drainage in the wound VAC . Patient is growing gram positive cocci on gram stain but cultures are continuing to remain negative plan : - Continue vancomycin for 6 weeks - Continue Ceftriaxone for 6 weeks - Will make adjustment to home antibiotic regimen -patient should follow up with infectious disease in 4 weeks to determine if additional ideal antibiotic therapy is needed -expect patient will require several months of IV/oral antibiotics to keep infection at bay until inflammation is controlled given that this is a DAIR procedure and remains a high risk of reinfection -follow up on speciation sensitivities of operative cultures -patient should follow with orthopedics for wound care management Plan discussed with: Other OC MARES MD Oct 18, 2024 22:50
--- NOTE | 2024-10-18 22:50 | DVHPN2 ---
Consult Progress Note Date Seen: Oct 17, 2024 Subjective Patient reports: Other (not having any pain on surgical site , site is still very swollen and tender on right hip. no drainage ) Objective vital signs Vital Sign Date Time Temp Pulse Resp B/P (MAP) Pulse Ox O2 Delivery O2 Flow Rate FiO2 10/18/24 21:35 81 134/75 10/18/24 19:03 20 10/18/24 17:00 99.5 93 99.5 10/18/24 08:00 Room Air* 0 21 Total Intake and Output 10/17/24 10/17/24 10/18/24 15:00 23:00 07:00 Intake Total 100 ml 1660 ml 500 ml Balance 100 ml 1660 ml 500 ml medications Current Medications Medications Dose Ordered Sig/Lesia Route Start Time Stop Time Status Last Admin Dose Admin Ondansetron HCl 4 mg Q4HP PRN IV 10/11/24 16:45 10/13/24 00:19 4 MG Acetaminophen 650 mg Q6HP PRN PO 10/11/24 16:45 10/14/24 16:55 650 MG Diagnostic Test (Pha) 1 strip ACHS 10/11/24 17:00 10/18/24 17:00 1 STRIP Insulin Human Regular ACHS SC 10/11/24 17:00 10/18/24 21:40 2 UNITS Dextrose 50 ml UD PRN IV 10/11/24 16:45 Hydralazine HCl 10 mg Q6HP PRN IV 10/11/24 16:45 10/12/24 06:10 10 MG Carvedilol 6.25 mg Q12HR PO 10/11/24 22:00 10/18/24 21:35 6.25 MG Furosemide 40 mg DAILY PO 10/12/24 10:00 10/18/24 09:20 40 MG Gabapentin 300 mg BID PO 10/11/24 22:00 10/18/24 21:35 300 MG Patient Own Medication 1 tab DAILY PO 10/12/24 10:00 Losartan Potassium 100 mg DAILY PO 10/12/24 10:00 10/16/24 09:38 100 MG Patient Own Medication 1 tab DAILY PO 10/12/24 10:00 Nicotine 1 patch DAILY TD 10/12/24 10:00 10/15/24 10:21 1 PATCH Melatonin 10 mg HS PRN PO 10/11/24 22:00 10/17/24 22:19 10 MG Pregabalin 50 mg BID PO 10/14/24 10:00 10/18/24 21:34 50 MG Apixaban 2.5 mg BID PO 10/15/24 10:00 11/19/24 09:59 10/18/24 21:35 2.5 MG Sodium Chloride 1,000 ml @ 125 mls/hr Q8H IV 10/14/24 11:30 10/17/24 11:30 125 MLS/HR Piperacillin Sod/ Tazobactam Sod 100 ml @ 25 mls/hr Q6HR IV 10/16/24 18:00 10/18/24 20:46 25 MLS/HR Hydromorphone HCl 2 mg Q4HPRN PRN IV 10/18/24 11:45 10/18/24 19:03 2 MG Sodium Chloride 10 ml QSHIFT@10,22 IV 10/18/24 22:00 General Appearance: Cooperative. Well developed. Well nourished. NAD Head Exam: Normal inspection Neck Exam: Normal inspection. Non-tender. Normal alignment Pulmonary/Respiratory: Chest non-tender. Clear bilateral breath sounds Cardiovascular/Chest: Regular rate and rhythm. No murmurs. No JVD. Peripheral Pulses: 2+ Radial (R). 2+ Radial (L). 2+ Pedal (R). 2+ Pedal (L) Abdominal Exam: Normal bowel sounds. Soft. Nontender. No hepatospenomegaly. No masses Ankle Exam: Negative ankle edema Lower extremities: Negative lower extremity edema, presence of wound VAC over right hip. Neuro/Mental Status: A&O x4. Coherent Thoughts/Psych: Normal thought pattern. Appropriate mood and affect. Good judgement and insight Appearance: In no acute distress Skin Exam: Normal inspection. Normal color. Warm. Dry laboratory and microbiology Laboratory Tests 10/15/24 05:36 Test 10/15/24 05:36 Range/Units Serum Glucose 97 74-106 mg/dL Problem List/Assessment/Plan Problems(with codes): (1) ANGINA PECTORIS NEC/NOS (2) ABDOMINAL PAIN, UNSPECIFIED SITE (3) CHEST PAIN NOS (4) Chest pain (5) Obesity (BMI 35.0-39.9 without comorbidity) (6) Musculoskeletal chest pain Problem List/Assessment/Plan Assessment : Patient is a 49 year old female with a history of COPD , hypertension , diabetes , rheumatoid arthritis , nicotine dependance, JOSE ROBERTO CKD. presences with right hip pain and states she had an accident 05/2024 where she had a right hip arthroplasty and states it never really healed right and has swelling and was admitted for sepsis and pneumonia immediately afterwards . Her hip continued to be swollen and had difficulty walking and pain , had a dislocation and closed reduction procedure on 09/19 and states still continues to have swelling and had a hematoma that had to be drain and now she underwent revision of the right occipital ratio for recurrent dislocation of the right hip on 10/14/2024 and there was concern for infection during the operative procedure so orthopedics is requesting antibiotic recommendation from infectious disease . Has no allergy and lives with family ,smokes 1 pack of cigarette a day and no alcohol use . 12 point review of systems was performed and patient states having pain and swelling of the hip , physical exam shows shes S/P right hip arthroplasty with wound vac present over the hip draining dark fibrinous exidate , temp is 98.1 and BP is 110/72 , whitecount is 9.3, BUN 20 and creatine 9.75 . during operative procedures microbiology cultures unknown , urine cultures growing enterococcus vicallus and sensitive to vancomycin and ampicillin . blood cultures are no growth to date . during operative procedure on 10/14 were notations of a large amount of seroserous fluid that extruded from superficial tissues and cultures were acquired from the deep tissues and notations that the facia ladder repair had to hiss as well as the gluteus medius of the hip . the polyethylene was removed and the patient had a gram of vancomycin inserted . operative cultures preliminary showed gram negative rods on gram steam but no growth is seen , patient did receive ceftriaxone prior to surgery and currently on ertapenem 10/17: No drainage in the wound VAC . Patient is growing gram positive cocci on gram stain but cultures are continuing to remain negative plan : - in light of gram negative cocci and gram negative chano on gram stain recommend initiating vancomycin for 6 weeks - Stop Zosyn - Start Ceftriaxone for 6 weeks - Will make adjustment to home antibiotic regimen -patient should follow up with infectious disease in 4 weeks to determine if additional ideal antibiotic therapy is needed -expect patient will require several months of IV/oral antibiotics to keep infection at bay until inflammation is controlled given that this is a DAIR procedure and remains a high risk of reinfection -follow up on speciation sensitivities of operative cultures -patient should follow with orthopedics for wound care management Plan discussed with: Other OC MARES MD Oct 18, 2024 22:50
[2024-10-18] MEDS ORDERED: VANCOMYCIN PER PHARMACY 0 MG IV SCH (23:00)
[2024-10-18] MEDS: SODIUM CHLOR 0.9% PF (SALINE LOCK) 10ML VIAL/SYR IV SCH (23:18)
[2024-10-18] MEDS: VANCOMYCIN 1GM/250ML KIT 250 ML IV SCH (23:19)
[2024-10-19] VITALS (7 sets, daily range): BP systolic 109–149; BP diastolic 47–103; PULSE 68–77; RESP 16–20; TEMP 97.3–99.3; O2SAT 93–96
[2024-10-19] MEDS: cefTRIAXone 2GM/50ML D5W 50 ML IV SCH (11:01)
--- NOTE | 2024-10-19 12:09 | DVHPN2 ---
Reviewed: Care Plan, H&P, Labs, Medications, Previous Orders, Radiology Changes from previous H/P or p: No Changes Eyes: No Pain, No Vision change, No Conjunctivae inflammation, No Eyelid inflammation, No Other, No Redness ENT: No Ear pain, No Ear discharge, No Nose pain, No Nose discharge, No Nose congestion, No Mouth pain, No Mouth swelling, No Throat pain, No Throat swelling, No Other Cardiovascular: No Chest Pain, No Palpitations, No Orthopnea, No Paroxysmal Noc. Dyspnea, No Edema, No Lt Headedness, No Other Respiratory: No Cough, No Dry, No Shortness of breath, No SOB with excertion, No Wheezing, No Hemoptysis, No Pleuritic Pain, No Sputum, No Other Gastrointestinal: No Nausea, No Vomiting, No Abdominal Pain, No Diarrhea, No Constipation, No Melena, No Hematochezia, No Other Genitourinary: No Dysuria, No Frequency, No Incontinence, No Hematuria, No Retention, No Other Musculoskeletal: other; No neck pain, No shoulder pain, No arm pain, No back pain, No hand pain, No leg pain, No foot pain (Hip pain) Skin: No Rash, No Lesions, No Jaundice, No Bruising, No Other Objective Vitals Vital Signs Date Time Temp Pulse Resp B/P (MAP) Pulse Ox O2 Delivery O2 Flow Rate FiO2 10/19/24 10:36 109/49 10/19/24 10:00 98 10/19/24 08:56 16 10/19/24 08:30 97.3 94 97.3 10/19/24 07:30 Room Air* 0 21 Intake/Output Intake and Output 10/19/24 07:00 Intake Total 2000 ml Output Total 1001 ml Balance 999 ml Intake Oral 1300 ml IV Total 700 ml Output Urine Total 1000 ml Stool Total 1 ml # Voids 7 Medications Current Medications Medications Dose Ordered Sig/Lesia Route Start Time Stop Time Status Last Admin Dose Admin Ondansetron HCl 4 mg Q4HP PRN IV 10/11/24 16:45 10/13/24 00:19 4 MG Acetaminophen 650 mg Q6HP PRN PO 10/11/24 16:45 10/14/24 16:55 650 MG Diagnostic Test (Pha) 1 strip ACHS 10/11/24 17:00 10/19/24 06:03 1 STRIP Insulin Human Regular ACHS SC 10/11/24 17:00 10/18/24 21:40 2 UNITS Dextrose 50 ml UD PRN IV 10/11/24 16:45 Hydralazine HCl 10 mg Q6HP PRN IV 10/11/24 16:45 10/12/24 06:10 10 MG Carvedilol 6.25 mg Q12HR PO 10/11/24 22:00 10/18/24 21:35 6.25 MG Furosemide 40 mg DAILY PO 10/12/24 10:00 10/19/24 10:36 40 MG Gabapentin 300 mg BID PO 10/11/24 22:00 10/19/24 10:35 300 MG Patient Own Medication 1 tab DAILY PO 10/12/24 10:00 Losartan Potassium 100 mg DAILY PO 10/12/24 10:00 10/16/24 09:38 100 MG Patient Own Medication 1 tab DAILY PO 10/12/24 10:00 Nicotine 1 patch DAILY TD 10/12/24 10:00 10/15/24 10:21 1 PATCH Melatonin 10 mg HS PRN PO 10/11/24 22:00 10/17/24 22:19 10 MG Pregabalin 50 mg BID PO 10/14/24 10:00 10/19/24 10:35 50 MG Apixaban 2.5 mg BID PO 10/15/24 10:00 11/19/24 09:59 10/19/24 10:35 2.5 MG Sodium Chloride 1,000 ml @ 125 mls/hr Q8H IV 10/14/24 11:30 10/17/24 11:30 125 MLS/HR Hydromorphone HCl 2 mg Q4HPRN PRN IV 10/18/24 11:45 10/19/24 08:56 2 MG Sodium Chloride 10 ml QSHIFT@10,22 IV 10/18/24 22:00 10/19/24 10:41 10 ML Vancomycin HCl 0 ml @ 0 mls/hr UD IV 10/18/24 23:00 UNV Ceftriaxone Sodium/Dextrose 50 ml @ 50 mls/hr DAILY IV 10/19/24 10:00 10/19/24 11:01 50 MLS/HR Laboratory Results Laboratory Tests 10/15/24 05:36 Urinalysis Test 10/11/24 11:55 Urine Color Yellow (Yellow) Urine Clarity Clear (Clear) Urine pH 6.5 (5.0-9.0) Urine Specific [place] 1.030 (1.001-1.035) Urine Protein Trace (Negative) H Urine Ketones Negative (Negative) Urine Blood Negative /uL (Negative) Urine Nitrite Negative (Negative) Urine Bilirubin Negative (Negative) Urine Urobilinogen 2 mg/dL (Negative) H Urine Leukocyte Esterase Trace /uL (Negative) Urine RBC 2 /hpf (0 - 4) Urine Microscopic WBC 5 /HPF (0-5) Urine Squamous Epithelial Cells Few /hpf (<5) Urine Calcium Oxalate Crystals Few (None Seen) Urine Bacteria Few /hpf (None Seen) H Urine Glucose Normal mg/dL (Normal) Microbiology Microbiology Date/Time Source Procedure Growth Status 10/14/24 08:05 Hip Gram Stain - Final Resulted 10/14/24 08:05 Hip Anaerobic Culture - Final Resulted 10/14/24 08:05 Hip Aerobic Culture - Preliminary Resulted 10/11/24 17:01 Blood Blood Culture - Final NO GROWTH AFTER 5 DAYS OF INCUBATION. Complete 10/11/24 11:55 Voided Urine Urine Culture - Final Enterococcus faecalis Complete Labs and/or images reviewed: Labs reviewed by me, Image(s) reviewed by me Assessment/Plan Assessment/Plan Right hip joint infection: Antibiotics changed to Rocephin 2 g IV daily, vancomycin 1 g IV daily by ID Dr. Guo Status post Revision right acetabular shell to duomobility for recurrent dislocation right hip arthroplasty by Dr Martin on 10-14-24 UTI with E faecalis continue Zosyn Osteoarthritis Morbid obesity History of Chronic obstructive pulmonary disease, not exacerbation History of CVA COPD Chronic current smoker: Counseling Hypercholesterolemia Lan [phone] Plan discussed with: Patient My Orders Orders - LEILA RAMIREZ MD Procedure Category Date Status Time Change Dressing Prn JULIET 10/18/24 In Process 15:01 Sodium Chloride Lock PHA 10/18/24 In Process (Saline Lock Ns) 22:00 Do Not Use Picc For [facility] 10/18/24 In Process Blood Cult 15:01 May Draw Blood From [facility] 10/18/24 In Process Picc 15:01 Ok To Use Picc JULIET 10/18/24 In Process 15:01 Change Picc Dressing [facility] 10/18/24 In Process Q7 Days 15:01 Us Guided Vascular US 10/18/24 Taken Access 15:01 Date of Service: Oct 19, 2024 Billing Provider: LEILA RAMIREZ MD Common Visit Codes: [id number] INP/OBS CARE(HIGH) LEILA RAMIREZ MD Oct 19, 2024 12:09
--- NOTE | 2024-10-19 13:39 | DVH ---
Exam: US US GUIDED VASCULAR ACCESS Clinical History: For PICC Line insertion Comparison: None Findings: Targeted sonographic evaluation of the upper extremity veinwas obtained utilizing grayscale and color Doppler imaging. IMPRESSION: Sonographic assistance for central line placement. Please refer to procedural report for detailed fin dings.
--- NOTE | 2024-10-19 13:57 | DVH ---
CLINICAL INDICATION: Rt hip placement. TECHNIQUE: XY R HIP 1V XRAY Comparison: None FINDINGS/IMPRESSION: : Right hip arthroplasty.
--- NOTE | 2024-10-19 14:14 | DVHPN2 ---
Progress Note - Dictate Date Seen: Oct 19, 2024 Medical Necessity Reason Pt with a Central, PICC or Fol: No The following are medically ne: PICC Line, Meeks Catheter Subjective States hip "popped" a couple times. Wants reassurance. vital signs Vital Sign Date Time Temp Pulse Resp B/P (MAP) Pulse Ox O2 Delivery O2 Flow Rate FiO2 10/19/24 14:04 77 18 135/80 10/19/24 12:30 98.8 95 98.8 10/19/24 07:30 Room Air* 0 21 Total Intake and Output 10/18/24 10/18/24 10/19/24 15:00 23:00 07:00 Intake Total 350 ml 250 ml 1400 ml Output Total 1 ml 1000 ml Balance 350 ml 249 ml 400 ml medications Current Medications Medications Dose Ordered Sig/Lesia Route Start Time Stop Time Status Last Admin Dose Admin Ondansetron HCl 4 mg Q4HP PRN IV 10/11/24 16:45 10/13/24 00:19 4 MG Acetaminophen 650 mg Q6HP PRN PO 10/11/24 16:45 10/14/24 16:55 650 MG Diagnostic Test (Pha) 1 strip ACHS 10/11/24 17:00 10/19/24 06:03 1 STRIP Dextrose 50 ml UD PRN IV 10/11/24 16:45 Hydralazine HCl 10 mg Q6HP PRN IV 10/11/24 16:45 10/12/24 06:10 10 MG Carvedilol 6.25 mg Q12HR PO 10/11/24 22:00 10/18/24 21:35 6.25 MG Furosemide 40 mg DAILY PO 10/12/24 10:00 10/19/24 10:36 40 MG Gabapentin 300 mg BID PO 10/11/24 22:00 10/19/24 10:35 300 MG Patient Own Medication 1 tab DAILY PO 10/12/24 10:00 Losartan Potassium 100 mg DAILY PO 10/12/24 10:00 10/16/24 09:38 100 MG Patient Own Medication 1 tab DAILY PO 10/12/24 10:00 Nicotine 1 patch DAILY TD 10/12/24 10:00 10/15/24 10:21 1 PATCH Melatonin 10 mg HS PRN PO 10/11/24 22:00 10/17/24 22:19 10 MG Pregabalin 50 mg BID PO 10/14/24 10:00 10/19/24 10:35 50 MG Apixaban 2.5 mg BID PO 10/15/24 10:00 11/19/24 09:59 10/19/24 10:35 2.5 MG Hydromorphone HCl 2 mg Q4HPRN PRN IV 10/18/24 11:45 10/19/24 14:04 2 MG Sodium Chloride 10 ml QSHIFT@10,22 IV 10/18/24 22:00 10/19/24 10:41 10 ML Vancomycin HCl 0 ml @ 0 mls/hr UD IV 10/18/24 23:00 Ceftriaxone Sodium/Dextrose 50 ml @ 50 mls/hr DAILY IV 10/19/24 10:00 10/19/24 11:01 50 MLS/HR Vancomycin HCl 250 ml @ 250 mls/hr Q8H IV 10/19/24 17:00 Insulin Human Regular BIDAC SC 10/19/24 21:00 objective Alert and oriented x4 Right hip dressing is intact Calf has no edema or tenderness Distal neurovascularly intact xray right hip reveals no changes from postop. Hip is reduced. laboratory and microbiology Laboratory Tests 10/15/24 05:36 Test 10/15/24 05:36 Range/Units Serum Glucose 97 74-106 mg/dL Assessment/Plan Recurrent dislocation right prosthetic hip. s/p revision to dual mobility cup, repair of fascial dehiscence, and antibacterial wash out Possible infection Plan: Patient was instructed on partial weight-bearing right lower extremity with walker. Patient is to avoid any type of transfer or pivot on the right side. Hip is reduced. Follow up Orthopedics two weeks Stable for transfer when appropriate arrangements for home care had been made. We will need Infectious Disease recommendations for antibiotics prior to discharge. She will need home health nursing for the IV antibiotics. Plan discussed with: Patient, Other (nurse) CLARK GRANADOS MD Oct 19, 2024 14:14
[2024-10-19] MEDS: VANCOMYCIN 1GM/250ML KIT 250 ML IV SCH (18:10)
[2024-10-19] MEDS: InsuLIN REG 1unit/0.01ml Soln (100units/ml) SC SCH (21:24)
[2024-10-19] MEDS: ACCU-CHEK COMFORT CURVE STRIP VI SCH (21:24)
[2024-10-20 01:00] VITALS: BP 109/81; PULSE 71; RESP 20; TEMP 98.1; O2SAT 96
[2024-10-20 05:00] VITALS: BP 104/63; PULSE 68; RESP 19; TEMP 98.4; O2SAT 93
[2024-10-20 07:16] LABS: Eosinophils # (auto) 0.5 10 ^3/uL (0-0.8); Hemoglobin 10.5 g/dL (12.2-16.2); Lymphocytes # (auto) 1.3 10 ^3/uL (0.4-5.4); Monocytes # (auto) 1.2 10 ^3/uL (0-1.3)
[2024-10-20 07:19] LABS: Basophils # (auto) 0 10 ^3/uL (0-0.2); Basophils % (auto) 0.6 % (0.0-2.0); Eosinophils % (auto) 6.8 % (0.0-7.0); Hematocrit 30.9 % (36.0-46.0); Lymphocytes % (auto) 16.6 % (10.0-50.0); Mean Corpuscular Hemoglobin 34.9 pg (28.0-32.0); Mean Corpuscular Hgb Conc. 34.1 g/dL (32.0-36.0); Mean Corpuscular Volume 102.5 fL (80.0-100.0); Monocytes % (auto) 14.7 % (0.0-12.0); Neutrophils # (auto) 4.8 10 ^3/uL (1.6-8.6); Neutrophils % (auto) 61.3 % (37.0-80.0); Nucleated Red Blood Cells % 0.2 %; Platelet Count (auto) 231 10^3/uL (140-450); Red Blood Cells 3.02 10^6/uL (4.0-5.20); White Blood Cell 7.8 10^3/uL (4.4-10.8)
[2024-10-20 08:10] VITALS: RESP 18
[2024-10-20 09:00] VITALS: BP 102/67; PULSE 64; RESP 17; TEMP 98.2; O2SAT 97
--- NOTE | 2024-10-20 11:11 | DVHPN2 ---
Reviewed: Care Plan, H&P, Labs, Medications, Previous Orders, Radiology Changes from previous H/P or p: No Changes Eyes: No Pain, No Vision change, No Conjunctivae inflammation, No Eyelid inflammation, No Other, No Redness ENT: No Ear pain, No Ear discharge, No Nose pain, No Nose discharge, No Nose congestion, No Mouth pain, No Mouth swelling, No Throat pain, No Throat swelling, No Other Cardiovascular: No Chest Pain, No Palpitations, No Orthopnea, No Paroxysmal Noc. Dyspnea, No Edema, No Lt Headedness, No Other Respiratory: No Cough, No Dry, No Shortness of breath, No SOB with excertion, No Wheezing, No Hemoptysis, No Pleuritic Pain, No Sputum, No Other Gastrointestinal: No Nausea, No Vomiting, No Abdominal Pain, No Diarrhea, No Constipation, No Melena, No Hematochezia, No Other Genitourinary: No Dysuria, No Frequency, No Incontinence, No Hematuria, No Retention, No Other Musculoskeletal: other; No neck pain, No shoulder pain, No arm pain, No back pain, No hand pain, No leg pain, No foot pain (Hip pain) Skin: No Rash, No Lesions, No Jaundice, No Bruising, No Other Objective Vitals Vital Signs Date Time Temp Pulse Resp B/P (MAP) Pulse Ox O2 Delivery O2 Flow Rate FiO2 10/20/24 09:48 102/67 10/20/24 09:47 64 10/20/24 09:00 98.2 17 97 98.2 10/20/24 08:10 Room Air* 0 21 Intake/Output Intake and Output 10/20/24 07:00 Intake Total 1060 ml Balance 1060 ml Intake Oral 1010 ml IV Total 50 ml # Voids 8 # Bowel Movements 2 Medications Current Medications Medications Dose Ordered Sig/Lesia Route Start Time Stop Time Status Last Admin Dose Admin Ondansetron HCl 4 mg Q4HP PRN IV 10/11/24 16:45 10/13/24 00:19 4 MG Acetaminophen 650 mg Q6HP PRN PO 10/11/24 16:45 10/14/24 16:55 650 MG Dextrose 50 ml UD PRN IV 10/11/24 16:45 Hydralazine HCl 10 mg Q6HP PRN IV 10/11/24 16:45 10/12/24 06:10 10 MG Carvedilol 6.25 mg Q12HR PO 10/11/24 22:00 10/20/24 09:47 6.25 MG Furosemide 40 mg DAILY PO 10/12/24 10:00 10/20/24 09:47 40 MG Gabapentin 300 mg BID PO 10/11/24 22:00 10/20/24 09:47 300 MG Patient Own Medication 1 tab DAILY PO 10/12/24 10:00 Losartan Potassium 100 mg DAILY PO 10/12/24 10:00 10/20/24 09:48 100 MG Patient Own Medication 1 tab DAILY PO 10/12/24 10:00 Nicotine 1 patch DAILY TD 10/12/24 10:00 10/15/24 10:21 1 PATCH Melatonin 10 mg HS PRN PO 10/11/24 22:00 10/17/24 22:19 10 MG Pregabalin 50 mg BID PO 10/14/24 10:00 10/20/24 09:46 50 MG Apixaban 2.5 mg BID PO 10/15/24 10:00 11/19/24 09:59 10/20/24 09:47 2.5 MG Hydromorphone HCl 2 mg Q4HPRN PRN IV 10/18/24 11:45 10/20/24 05:11 2 MG Sodium Chloride 10 ml QSHIFT@10,22 IV 10/18/24 22:00 10/20/24 09:48 10 ML Vancomycin HCl 0 ml @ 0 mls/hr UD IV 10/18/24 23:00 Ceftriaxone Sodium/Dextrose 50 ml @ 50 mls/hr DAILY IV 10/19/24 10:00 10/20/24 09:46 50 MLS/HR Vancomycin HCl 250 ml @ 250 mls/hr Q8H IV 10/19/24 17:00 10/20/24 09:45 250 MLS/HR Insulin Human Regular BIDAC SC 10/19/24 21:00 10/20/24 06:42 2 UNITS Diagnostic Test (Pha) 1 strip BID 10/19/24 21:00 10/19/24 21:41 1 STRIP Laboratory Results Laboratory Tests 10/15/24 05:36 10/20/24 06:10 Urinalysis Test 10/11/24 11:55 Urine Color Yellow (Yellow) Urine Clarity Clear (Clear) Urine pH 6.5 (5.0-9.0) Urine Specific [place] 1.030 (1.001-1.035) Urine Protein Trace (Negative) H Urine Ketones Negative (Negative) Urine Blood Negative /uL (Negative) Urine Nitrite Negative (Negative) Urine Bilirubin Negative (Negative) Urine Urobilinogen 2 mg/dL (Negative) H Urine Leukocyte Esterase Trace /uL (Negative) Urine RBC 2 /hpf (0 - 4) Urine Microscopic WBC 5 /HPF (0-5) Urine Squamous Epithelial Cells Few /hpf (<5) Urine Calcium Oxalate Crystals Few (None Seen) Urine Bacteria Few /hpf (None Seen) H Urine Glucose Normal mg/dL (Normal) Microbiology Microbiology Date/Time Source Procedure Growth Status 10/14/24 08:05 Hip Gram Stain - Final Resulted 10/14/24 08:05 Hip Anaerobic Culture - Final Resulted 10/14/24 08:05 Hip Aerobic Culture - Preliminary Resulted 10/11/24 17:01 Blood Blood Culture - Final NO GROWTH AFTER 5 DAYS OF INCUBATION. Complete 10/11/24 11:55 Voided Urine Urine Culture - Final Enterococcus faecalis Complete Labs and/or images reviewed: Labs reviewed by me, Image(s) reviewed by me Assessment/Plan Assessment/Plan Right hip joint infection: Antibiotics changed to Rocephin 2 g IV daily, vancomycin 1 g IV q.[address] Guo to be given for six weeks by home health Status post Revision right acetabular shell to duomobility for recurrent dislocation right hip arthroplasty by Dr Martin on 10-14-24 UTI with E faecalis treated with Zosyn Osteoarthritis Morbid obesity History of Chronic obstructive pulmonary disease, not exacerbation History of CVA COPD Chronic current smoker: Counseling Hypercholesterolemia Lan [phone] Offered alf facility placement for IV antibiotics but the patient and refused and wanted to go home on home health Cleared for discharge by Orthopedic and ID Plan discussed with: Patient My Orders Orders - LEILA RAMIREZ MD Procedure Category Date Status Time Insulin R (Human) PHA 10/19/24 In Process (Insulin R) 21:00 Glucose Blood PHA 10/19/24 In Process (Accu-Chek Comfort 21:00 * Rock Wool Insulator CONS 10/20/24 Verified Consult Home Health Nursing REFER 10/20/24 Verified 11:06 Date of Service: Oct 20, 2024 Billing Provider: LEILA RAMIREZ MD Common Visit Codes: [id number] INP/OBS CARE(HIGH) LEILA RAMIREZ MD Oct 20, 2024 11:11
--- NOTE | 2024-10-20 11:23 | DVHDS2 ---
Discharge Summary Date of Admission Oct 11, 2024 at 16:45 Date of Discharge: Oct 20, 2024 Admitting Diagnosis Dislocation of the right hip Wounds: Revision of right hip surgery Labs/Diagnostic Data: Laboratory Results Test 10/20/24 06:37 10/20/24 06:10 10/18/24 11:40 10/15/24 05:36 POC Glucose 133 mg/dl (70-106) White Blood Count 7.8 10^3/uL (4.4-10.8) Red Blood Count 3.02 10^6/uL (4.0-5.20) Hemoglobin 10.5 g/dL (12.2-16.2) Hematocrit 30.9 % (36.0-46.0) Mean Corpuscular Volume 102.5 fL (80.0-100.0) Mean Corpuscular Hemoglobin 34.9 pg (28.0-32.0) Mean Corpuscular Hemoglobin Concent 34.1 g/dL (32.0-36.0) Red Cell Distribution Width 15.0 % (11.8-14.3) Platelet Count 231 10^3/uL (140-450) Mean Platelet Volume 7.4 fL (6.9-10.8) Neutrophils (%) (Auto) 61.3 % (37.0-80.0) Lymphocytes (%) (Auto) 16.6 % (10.0-50.0) Monocytes (%) (Auto) 14.7 % (0.0-12.0) Eosinophils (%) (Auto) 6.8 % (0.0-7.0) Basophils (%) (Auto) 0.6 % (0.0-2.0) Neutrophils # (Auto) 4.8 10 ^3/uL (1.6-8.6) Lymphocytes # (Auto) 1.3 10 ^3/uL (0.4-5.4) Monocytes # (Auto) 1.2 10 ^3/uL (0-1.3) Eosinophils # (Auto) 0.5 10 ^3/uL (0-0.8) Basophils # (Auto) 0 10 ^3/uL (0-0.2) Nucleated Red Blood Cells 0.2 % Creatinine 0.63 mg/dL (0.550-1.02) Glomerular Filtration Rate Calc 109 mL/min (>90) Prothrombin Time 10.1 sec (9.3-11.8) Prothrombin Time INR 0.95 (0.9-1.15) Activated Partial Thromboplast Time 27.0 SEC (24.5-34.5) Sodium Level 138 mmol/L (136-145) Potassium Level 3.5 mmol/L (3.5-5.1) Chloride Level 107 mmol/L (98-107) Carbon Dioxide Level 25 mmol/L (20-31) Anion Gap 6 (5-15) Blood Urea Nitrogen 20 mg/dL (9-23) BUN/Creatinine Ratio 26.7 (10.0-20.0) Serum Glucose 97 mg/dL (74-106) Calcium Level 8.8 mg/dL (8.7-10.4) Test 10/15/24 01:15 10/14/24 05:32 10/12/24 06:19 10/11/24 17:01 SARS-CoV-2 Antigen (Rapid) Negative (NEGATIVE) Beta HCG, Quantitative 0.6 mIU/mL (1.5-4.2) Total Bilirubin 0.2 mg/dL (0.2-1.0) Aspartate Amino Transferase (AST) 20 U/L (13-40) Alanine Aminotransferase (ALT) 15 U/L (7-40) Alkaline Phosphatase 63 U/L (46-116) Total Protein 6.0 g/dL (5.7-8.2) Albumin 3.5 g/dL (3.2-4.8) Hepatitis B Surface Antigen Negative (Negative) Hepatitis C Antibody Negative (Negative) Test 10/11/24 11:55 10/11/24 10:40 Urine Color Yellow (Yellow) Urine Clarity Clear (Clear) Urine pH 6.5 (5.0-9.0) Urine Specific [place] 1.030 (1.001-1.035) Urine Protein Trace (Negative) Urine Ketones Negative (Negative) Urine Blood Negative /uL (Negative) Urine Nitrite Negative (Negative) Urine Bilirubin Negative (Negative) Urine Urobilinogen 2 mg/dL (Negative) Urine Leukocyte Esterase Trace /uL (Negative) Urine RBC 2 /hpf (0 - 4) Urine Microscopic WBC 5 /HPF (0-5) Urine Squamous Epithelial Cells Few /hpf (<5) Urine Calcium Oxalate Crystals Few (None Seen) Urine Bacteria Few /hpf (None Seen) Urine Glucose Normal mg/dL (Normal) Hemoglobin A1c < 4.0 % A1C (<5.7) Other Laboratory Tests 10/20/24 06:10 10/15/24 05:36 Brief Hx & Hospital Course: 49-year-old female with a previous history of right hip surgery came in with a possible dislocation of the right hip. Underwent revision right acetabular shell to duoimmobility for recurrent dislocation right hip arthroplasty by Dr. Martin on 10-14-24. Patient received physical therapy while in the hospital history of CVA COPD morbid obesity chronic current smoker hypercholesterolemia. urine grew E faecalis treated with Zosyn Seen by ID Dr. Alberto Guo for possible right hip infection he advised Rocephin 2 g IV daily for six weeks and vancomycin 1 g IV q.8 hours for six weeks at home by home health and the patient is discharged on home health with the above antibiotics. She will follow up with the orthopedic two weeks and ID doctor in four weeks. Patient was offered [facility] facility services for the IV antibiotics and physical therapy the patient and refused Consults/Reason for consult ID Dr Alberto Guo Operations or Procedures Revision of right surgery Condition at Discharge: Fair Final Diagnosis/Problems List Right hip joint infection: Antibiotics changed to Rocephin 2 g IV daily, vancomycin 1 g IV q.8 hours by ADILSON Guo to be given for six weeks by home health Status post Revision right acetabular shell to duomobility for recurrent dislocation right hip arthroplasty by Dr Martin on 10-14-24 UTI with E faecalis treated with Zosyn Osteoarthritis Morbid obesity History of Chronic obstructive pulmonary disease, not exacerbation History of CVA COPD Chronic current smoker: Counseling Hypercholesterolemia Discharge Disposition: Home with Health Services Discharge Instruct/Medications Diet: Regular Activity: Light activity Activity comment: Weight-bearing as tolerated right lower extremity Follow Up/Referral: Follow up with your primary Dr in one week Follow up with the orthopedic Dr. Martin in two weeks Follow up with the ID Dr. Alberto Guo in 4 weeks Medications: Rocephin 2 g IV daily for six weeks Vancomycin 1 g IV q.8 hours for six weeks Pharmacy to adjust the dosage of vancomycin based on the levels 35 (Time taken for discharge summary 35 minutes) Discharge Statement: "Patient was advised to return to the ER or call 911 if any headaches, dizziness, shortness of breath, chest pain, abdominal pain, bleeding, fevers, or worsening of medical condition. Patient was counseled about treatment plan, medications, possible side effects, patientverbalized understanding. All questions were answered to the best of my ability. This discharge took greater then 30 minutes in planning, reviewing documentation, counseling the patient, and discussing with other team members." ASSESSMENT ASSESSMENT Hospital Course Status post revision hip surgery right hip Assessment Right hip joint infection: Antibiotics changed to Rocephin 2 g IV daily, vancomycin 1 g IV q.[address] Guo to be given for six weeks by home health Status post Revision right acetabular shell to duomobility for recurrent dislocation right hip arthroplasty by Dr Martin on 10-14-24 UTI with E faecalis treated with Zosyn Osteoarthritis Morbid obesity History of Chronic obstructive pulmonary disease, not exacerbation History of CVA COPD Chronic current smoker: Counseling Hypercholesterolemia Date of Service: Oct 20, 2024 Billing Provider: LEILA RAMIREZ MD Common Visit Codes: [id number] DISCH DAY >30min LEILA RAMIREZ MD Oct 20, 2024 11:23
[2024-10-20 12:32] VITALS: BP 118/50; PULSE 74
[2024-10-20 13:00] VITALS: BP 118/80; PULSE 72; RESP 19; TEMP 97.1; O2SAT 94
--- NOTE | 2024-10-21 23:06 | DVHPN2 ---
Consult Progress Note Date Seen: Oct 19, 2024 Subjective Patient reports: Other (no large amoutns of drainage coming out of wound vac , the area is red and swollen ) Objective vital signs Vital Sign Date Time Temp Pulse Resp B/P (MAP) Pulse Ox O2 Delivery O2 Flow Rate FiO2 10/20/24 13:00 97.1 72 19 118/80 (93) 94 97.1 10/20/24 08:10 Room Air* 0 21 Total Intake and Output 10/20/24 10/20/24 10/21/24 15:00 23:00 07:00 Intake Total 300 ml Balance 300 ml medications General Appearance: Cooperative. Well developed. Well nourished. NAD Head Exam: Normal inspection Neck Exam: Normal inspection. Non-tender. Normal alignment Pulmonary/Respiratory: Chest non-tender. Clear bilateral breath sounds Cardiovascular/Chest: Regular rate and rhythm. No murmurs. No JVD. Peripheral Pulses: 2+ Radial (R). 2+ Radial (L). 2+ Pedal (R). 2+ Pedal (L) Abdominal Exam: Normal bowel sounds. Soft. Nontender. No hepatospenomegaly. No masses Ankle Exam: Negative ankle edema Lower extremities: Negative lower extremity edema, presence of wound VAC over right hip. Neuro/Mental Status: A&O x4. Coherent Thoughts/Psych: Normal thought pattern. Appropriate mood and affect. Good judgement and insight Appearance: In no acute distress Skin Exam: Normal inspection. Normal color. Warm. Dry laboratory and microbiology Laboratory Tests 10/20/24 06:10 10/15/24 05:36 Test 10/15/24 05:36 Range/Units Serum Glucose 97 74-106 mg/dL Problem List/Assessment/Plan Problems(with codes): (1) Uncontrolled hypertension (2) Right sided abdominal pain (3) Hepatic steatosis (4) UTI (urinary tract infection) (5) Morbid obesity (6) Presence of vena cava filter (7) History of diabetes mellitus resolved following bariatric surgery (8) ANGINA PECTORIS NEC/NOS (9) ABDOMINAL PAIN, UNSPECIFIED SITE (10) CHEST PAIN NOS (11) Chest pain Problem List/Assessment/Plan Assessment : Patient is a 49 year old female with a history of COPD , hypertension , diabetes , rheumatoid arthritis , nicotine dependance, JOSE ROBERTO CKD. presences with right hip pain and states she had an accident 05/2024 where she had a right hip arthroplasty and states it never really healed right and has swelling and was admitted for sepsis and pneumonia immediately afterwards . Her hip continued to be swollen and had difficulty walking and pain , had a dislocation and closed reduction procedure on 09/19 and states still continues to have swelling and had a hematoma that had to be drain and now she underwent revision of the right occipital ratio for recurrent dislocation of the right hip on 10/14/2024 and there was concern for infection during the operative procedure so orthopedics is requesting antibiotic recommendation from infectious disease . Has no allergy and lives with family ,smokes 1 pack of cigarette a day and no alcohol use . 12 point review of systems was performed and patient states having pain and swelling of the hip , physical exam shows shes S/P right hip arthroplasty with wound vac present over the hip draining dark fibrinous exidate , temp is 98.1 and BP is 110/72 , whitecount is 9.3, BUN 20 and creatine 9.75 . during operative procedures microbiology cultures unknown , urine cultures growing enterococcus vicallus and sensitive to vancomycin and ampicillin . blood cultures are no growth to date . during operative procedure on 10/14 were notations of a large amount of seroserous fluid that extruded from superficial tissues and cultures were acquired from the deep tissues and notations that the facia ladder repair had to hiss as well as the gluteus medius of the hip . the polyethylene was removed and the patient had a gram of vancomycin inserted . operative cultures preliminary showed gram negative rods on gram steam but no growth is seen , patient did receive ceftriaxone prior to surgery and currently on ertapenem 10/17: No drainage in the wound VAC . Patient is growing gram positive cocci on gram stain but cultures are continuing to remain negative 10/19: whitecount is 9.3 plan : - Continue IV vancomycin for 6 weeks - Continue Ceftriaxone for 6 weeks - follow up with infectious disease in 4 weeks - Will make adjustment to home antibiotic regimen -patient should follow up with infectious disease in 4 weeks to determine if additional ideal antibiotic therapy is needed -expect patient will require several months of IV/oral antibiotics to keep infection at bay until inflammation is controlled given that this is a DAIR procedure and remains a high risk of reinfection -follow up on speciation sensitivities of operative cultures -patient should follow with orthopedics for wound care management Plan discussed with: OC Sheikh MD Oct 21, 2024 23:06
--- NOTE | 2024-10-21 23:09 | DVHPN2 ---
Consult Progress Note Date Seen: Oct 20, 2024 Subjective Patient reports: Other (tolerating antibiotics and only draining febrinous exidate ) Objective vital signs Vital Sign Date Time Temp Pulse Resp B/P (MAP) Pulse Ox O2 Delivery O2 Flow Rate FiO2 10/20/24 13:00 97.1 72 19 118/80 (93) 94 97.1 10/20/24 08:10 Room Air* 0 21 Total Intake and Output 10/20/24 10/20/24 10/21/24 15:00 23:00 07:00 Intake Total 300 ml Balance 300 ml medications General Appearance: Cooperative. Well developed. Well nourished. NAD Head Exam: Normal inspection Neck Exam: Normal inspection. Non-tender. Normal alignment Pulmonary/Respiratory: Chest non-tender. Clear bilateral breath sounds Cardiovascular/Chest: Regular rate and rhythm. No murmurs. No JVD. Peripheral Pulses: 2+ Radial (R). 2+ Radial (L). 2+ Pedal (R). 2+ Pedal (L) Abdominal Exam: Normal bowel sounds. Soft. Nontender. No hepatospenomegaly. No masses Ankle Exam: Negative ankle edema Lower extremities: Negative lower extremity edema, presence of wound VAC over right hip. Neuro/Mental Status: A&O x4. Coherent Thoughts/Psych: Normal thought pattern. Appropriate mood and affect. Good judgement and insight Appearance: In no acute distress Skin Exam: Normal inspection. Normal color. Warm. Dry laboratory and microbiology Laboratory Tests 10/20/24 06:10 10/15/24 05:36 Test 10/15/24 05:36 Range/Units Serum Glucose 97 74-106 mg/dL Problem List/Assessment/Plan Problems(with codes): (1) ABDOMINAL PAIN, UNSPECIFIED SITE (2) CHEST PAIN NOS (3) Pickwickian syndrome (4) Chest pain (5) Obesity (BMI 35.0-39.9 without comorbidity) (6) Angina pectoris (7) Musculoskeletal chest pain Problem List/Assessment/Plan Assessment : Patient is a 49 year old female with a history of COPD , hypertension , diabetes , rheumatoid arthritis , nicotine dependance, JOSE ROBERTO CKD. presences with right hip pain and states she had an accident 05/2024 where she had a right hip arthroplasty and states it never really healed right and has swelling and was admitted for sepsis and pneumonia immediately afterwards . Her hip continued to be swollen and had difficulty walking and pain , had a dislocation and closed reduction procedure on 09/19 and states still continues to have swelling and had a hematoma that had to be drain and now she underwent revision of the right occipital ratio for recurrent dislocation of the right hip on 10/14/2024 and there was concern for infection during the operative procedure so orthopedics is requesting antibiotic recommendation from infectious disease . Has no allergy and lives with family ,smokes 1 pack of cigarette a day and no alcohol use . 12 point review of systems was performed and patient states having pain and swelling of the hip , physical exam shows shes S/P right hip arthroplasty with wound vac present over the hip draining dark fibrinous exidate , temp is 98.1 and BP is 110/72 , whitecount is 9.3, BUN 20 and creatine 9.75 . during operative procedures microbiology cultures unknown , urine cultures growing enterococcus vicallus and sensitive to vancomycin and ampicillin . blood cultures are no growth to date . during operative procedure on 10/14 were notations of a large amount of seroserous fluid that extruded from superficial tissues and cultures were acquired from the deep tissues and notations that the facia ladder repair had to hiss as well as the gluteus medius of the hip . the polyethylene was removed and the patient had a gram of vancomycin inserted . operative cultures preliminary showed gram negative rods on gram steam but no growth is seen , patient did receive ceftriaxone prior to surgery and currently on ertapenem 10/17: No drainage in the wound VAC . Patient is growing gram positive cocci on gram stain but cultures are continuing to remain negative 10/19: whitecount is 9.3 10/20: whitecount is 7.8 , cultures are no growth to date besides gram stain being positive for GBC and GNR plan : - Continue IV vancomycin for 6 weeks - Continue Ceftriaxone for 6 weeks - follow up with infectious disease in 4 weeks - Will make adjustment to home antibiotic regimen -patient should follow up with infectious disease in 4 weeks to determine if additional ideal antibiotic therapy is needed -expect patient will require several months of IV/oral antibiotics to keep infection at bay until inflammation is controlled given that this is a DAIR procedure and remains a high risk of reinfection -follow up on speciation sensitivities of operative cultures -patient should follow with orthopedics for wound care management Plan discussed with: OC Sheikh MD Oct 21, 2024 23:09
== END 2024-10-20 14:31 | disposition home or self-care (01) | DRG 323 ==
LOC: EDBD 09:33 → EDUNIT# 09:33 → ER 09:33 → OVERFLOW 16:45 → EAST 18:47
PROVIDERS: ADMIT Family Medicine; ATTEND Family Medicine
PROC: 0SW90JZ Revision of Synthetic Substitute in Right Hip Joint, Open Approach (ICD-10-PCS; principal; 2024-10-14 07:24)
PROC: 05HF33Z Insertion of Infusion Device into Left Cephalic Vein, Percutaneous Approach (ICD-10-PCS; 2024-10-15)
PROC: B54NZZA Ultrasonography of Left Upper Extremity Veins, Guidance (ICD-10-PCS; 2024-10-15)
PROC: 02HV33Z Insertion of Infusion Device into Superior Vena Cava, Percutaneous Approach (ICD-10-PCS; 2024-10-18)
PROC: B548ZZA Ultrasonography of Superior Vena Cava, Guidance (ICD-10-PCS; 2024-10-18)
DX: T84.020A Dislocation of internal right hip prosthesis, initial encounter (principal); M00.9 Pyogenic arthritis, unspecified; E11.22 Type 2 diabetes mellitus with diabetic chronic kidney disease; E11.42 Type 2 diabetes mellitus with diabetic polyneuropathy; I50.9 Heart failure, unspecified; B95.2 Enterococcus as the cause of diseases classified elsewhere; I13.0 Hypertensive heart and chronic kidney disease with heart failure and stage 1 through stage 4 chronic kidney disease, or unspecified chronic kidney disease; E66.01 Morbid (severe) obesity due to excess calories; E78.00 Pure hypercholesterolemia, unspecified; N39.0 Urinary tract infection, site not specified; J44.9 Chronic obstructive pulmonary disease, unspecified; G89.4 Chronic pain syndrome; F17.210 Nicotine dependence, cigarettes, uncomplicated; M06.9 Rheumatoid arthritis, unspecified; N18.9 Chronic kidney disease, unspecified; F32.A Depression, unspecified; Z20.822 Contact with and (suspected) exposure to COVID-19; Y79.2 Prosthetic and other implants, materials and accessory orthopedic devices associated with adverse incidents; Z79.4 Long term (current) use of insulin; Z79.899 Other long term (current) drug therapy; Z79.82 Long term (current) use of aspirin; Z90.710 Acquired absence of both cervix and uterus; Z86.73 Personal history of transient ischemic attack (TIA), and cerebral infarction without residual deficits; Y92.89 Other specified places as the place of occurrence of the external cause; Z81.8 Family history of other mental and behavioral disorders; Z82.5 Family history of asthma and other chronic lower respiratory diseases; Z82.49 Family history of ischemic heart disease and other diseases of the circulatory system; Z83.3 Family history of diabetes mellitus; Z80.1 Family history of malignant neoplasm of trachea, bronchus and lung; Z82.0 Family history of epilepsy and other diseases of the nervous system; Z80.0 Family history of malignant neoplasm of digestive organs; Z80.8 Family history of malignant neoplasm of other organs or systems; Z80.41 Family history of malignant neoplasm of ovary; Z80.3 Family history of malignant neoplasm of breast; Z87.442 Personal history of urinary calculi; Z82.62 Family history of osteoporosis; Z71.6 Tobacco abuse counseling; Z82.3 Family history of stroke; Z68.36 Body mass index [BMI] 36.0-36.9, adult
CPT/HCPCS: 36415; 36569; 72170; 73501; 76937; 80048; 80053; 81001; 82565; 82962; 83036; 84702; 85025; 85610; 85730; 86803; 86850; 86900; 86901; 87040; 87070; 87075; 87086; 87088; 87186; 87205; 87340; 87426; 93971; 97110; 97116; 97163; 97530; 99291; G0378; J1335; J1815; J1885; J2250; J2405; J2543; J2704

== ENCOUNTER 2024-11-09 16:54 | Inpatient (IN) | payer MEDICAID ==
[~2024-11-09] VITALS: Ht 170.2 cm; Wt 107.5 kg
--- NOTE | 2024-11-09 17:02 | ECG ---
[facility] Test Date: 2024-11-09 Test Time: 17:00:51 Pat Name: JOHNNIE NUNEZ Department: er Room: 0244A Gender: F Button Riveter: jenna : 1975 Requested By: RIZWANA SORENSON Order Number: [id number] Reading MD: Cesar Art Measurements Intervals [place] Rate: 85 P: 5 MS: 144 QRS: -45 QRSD: 92 T: -22 QT: 513 QTc: 611 Interpretive Statements Sinus rhythm Left anterior fascicular block Abnormal R-wave progression, late transition Probable left ventricular hypertrophy Borderline T abnormalities, diffuse leads Prolonged QT interval Electronically Signed On 11-14-2024 17:24:04 PST by Cesar Art Please click the below link to view image of tracing.
--- NOTE | 2024-11-09 18:14 | ECG ---
[facility] Test Date: 2024-11-09 Test Time: 18:13:51 Pat Name: JOHNNIE NUNEZ Department: er Room: [facility]24[facility] Gender: F Room Attendants: [email or web address] : 1975 Requested By: RIZWANA SORENSON Order Number: [id number] Reading MD: Cesar Art Measurements Intervals [place] Rate: 80 P: 48 OK: 151 QRS: -22 QRSD: 91 T: 20 QT: 402 QTc: 464 Interpretive Statements Sinus rhythm Borderline left axis deviation Borderline T wave abnormalities Electronically Signed On 11-14-2024 17:26:11 PST by Cesar Art Please click the below link to view image of tracing.
[2024-11-09 18:31] LABS: Basophils # (auto) 0.1 10 ^3/uL (0-0.2); Basophils % (auto) 0.6 % (0.0-2.0); Eosinophils # (auto) 0.5 10 ^3/uL (0-0.8); Eosinophils % (auto) 6.7 % (0.0-7.0); Hematocrit 38.3 % (36.0-46.0); Hemoglobin 13.2 g/dL (12.2-16.2); Lymphocytes # (auto) 1.6 10 ^3/uL (0.4-5.4); Lymphocytes % (auto) 19.8 % (10.0-50.0); Mean Corpuscular Hemoglobin 34.3 pg (28.0-32.0); Mean Corpuscular Hgb Conc. 34.5 g/dL (32.0-36.0); Mean Corpuscular Volume 99.4 fL (80.0-100.0); Monocytes # (auto) 0.4 10 ^3/uL (0-1.3); Monocytes % (auto) 5.5 % (0.0-12.0); Neutrophils # (auto) 5.5 10 ^3/uL (1.6-8.6); Neutrophils % (auto) 67.4 % (37.0-80.0); Platelet Count (auto) 221 10^3/uL (140-450); Red Blood Cells 3.85 10^6/uL (4.0-5.20); Red Cell Distribution Width 14.9 % (11.8-14.3); White Blood Cell 8.2 10^3/uL (4.4-10.8)
--- NOTE | 2024-11-09 18:49 | DVH ---
CHEST RADIOGRAPH Indication: cp Technique: Single frontal view of the chest was obtained Comparison: XY CHEST PORTABLE on DOS: 05/28/24, XY CHEST PORTABLE on DOS: 09/20/23, XY CHEST PORTABLE o n DOS: 03/20/23 FINDINGS: Lines and Tubes: None Lungs: No focal consolidation. Pleura: No effusion. No pneumothorax. Cardiomediastinal contours: Unremarkable Bones: No acute osseous abnormality. IMPRESSION: 1. No acute cardiopulmonary disease.
[2024-11-09 19:03] LABS: Alanine Aminotransferase 12 U/L (7-40); Albumin 3.9 g/dL (3.2-4.8); Alkaline Phosphatase 62 U/L (46-116); Anion Gap 9 (5-15); Aspartate Aminotransferase 25 U/L (13-40); BUN/Creatinine Ratio 16.2 (10.0-20.0); Bilirubin, Total 0.5 mg/dL (0.2-1.0); Blood Urea Nitrogen 11 mg/dL (9-23); Calcium 9.1 mg/dL (8.7-10.4); Carbon Dioxide 22 mmol/L (20-31); Chloride 106 mmol/L (98-107); Glucose 88 mg/dL (74-106); Potassium 3.6 mmol/L (3.5-5.1); Sodium 137 mmol/L (136-145); Total Protein 6.7 g/dL (5.7-8.2)
--- NOTE | 2024-11-09 19:31 | ED.PDOC ---
Musculoskeletal HPI Comments HPI: Poor Historian. 49 y.o female presents to the ED via EMS for a chief complaint of right arm discomfort x 1 week where PICC line was placed. Patient was recently discharged from this ED on 10/21/24 after a 2 week admission due to right hip dislocation and postsurgical complication and infection. Patient is currently on IV antibiotics and Percocet Patient was sent by her PCP regarding her complaints to rule out DVT. Patient states she is not improving overall since her discharge from the hospital. The following below list her complaint and final diagnose from [facility] medical records from her recent discharge 49-year-old female with a previous history of right hip surgery came in with a possible dislocation of the right hip. Underwent revision right acetabular shell to duoimmobility for recurrent dislocation right hip arthroplasty by Dr. Martin on 10-14-24. Patient received physical therapy while in the hospital history of CVA COPD morbid obesity chronic current smoker hypercholesterolemia. urine grew E faecalis treated with Zosyn Seen by ID Dr. Alberto Guo for possible right hip infection he advised Rocephin 2 g IV daily for six weeks and vancomycin 1 g IV q.8 hours for six weeks at home by home health and the patient is discharged on home health with the above antibiotics. She will follow up with the orthopedic two weeks and ID doctor in four weeks. Patient was offered [facility] facility services for the IV antibiotics and physical therapy the patient and refused Consults/Reason for consult ID Dr Alberto Guo Operations or Procedures Revision of right surgery Final Diagnosis/Problems List Right hip joint infection: Antibiotics changed to Rocephin 2 g IV daily, vancomycin 1 g IV q.[address] Guo to be given for six weeks by home health Status post Revision right acetabular shell to duomobility for recurrent dislocation right hip arthroplasty by Dr Martin on 10-14-24 UTI with E faecalis treated with Zosyn Osteoarthritis Morbid obesity History of Chronic obstructive pulmonary disease, not exacerbation History of CVA COPD Chronic current smoker: Counseling Hypercholesterolemia Discharge Disposition: Home with Health Services Patient is receiving Vancomycin twice a day via PICC line to the right upper arm. Additionally, patient complains of nausea, vomiting, and right lower abdominal pain x 4 days. Patient does have reoccurring RLQ pain. Initial Vital Signs: Temp : BP: 152/100 HR: 86 RR: 18 SpO2: 98% RA Past Medical History: Depression, DM, hyperlipidemia, HTN, kidney stones, UTI's, CHF, CKF, COPD, CVA, arthritis Past Surgical History: Hysterectomy, tubal ligation, -section, right hip replacement REVIEW OF SYSTEMS: CONSTITUTIONAL: Denies acute: fever, diaphoresis, chills, HEAD: Denies acute: headache, photophobia Eyes: Denies acute: Double vision, vision loss, eye pain, eye discharge. EARS: Denies acute: tinnitus, hearing loss, ear discharge, ear pain, THROAT: Denies acute: sore throat, swelling, difficulty swallowing , pain with swallowing, change in voice. NECK: Denies acute: neck pain, neck swelling, stiff neck. HEART: Denies acute : chest pain, palpitations, LUNGS: Denies acute: SOB, wheezing, cough, hemoptysis ABDOMEN: Denies acute: diarrhea, melena , hematemesis, hematochezia SKIN: Denies acute: rash, redness, lesions, itchiness. EXTREMITIES: Denies acute: calf pain, numbness, tingling, weakness, denies pain in extremity. Denies acute: Low back pain. Neuro: Denies acute: focal neurological deficit, motor or sensory focal neurological deficit, tremors, seizure like activity, confusion, dizziness, change in mental status, loss of bowel or bladder function, cauda equina like symptoms. : Denies acute: dysuria, hematuria, flank pain, increase in urinary frequency. PSYCH: Denies acute: hallucination, suicidal ideation, homicidal ideation. FEMALE: Denies acute: abnormal vaginal bleeding, foul odor, unusual discharge. PHYSICAL EXAM: General: no acute distress, awake and alert. Head: normocephalic, atraumatic. Neck: supple, trachea is midline, no swelling. Throat: Normal phonation. Eyes:, no erythema, no purulent discharge, no proptosis, no icterus. Heart: regular rate, regular rhythm, no significant murmur appreciated. Lungs: no apparent respiratory distress, Able to speak in full sentences. No wheezing, no rhonchi, no crackles. No stridors Clear to auscultation bilaterally. Abdomen: non tender to palpation, non distended, soft, no guarding, no rebound, + bowel sounds. Neuro: Awake, Alert, oriented to name, self, situation, follows commands GCS=15. Speech is normal. Skin: no petechia, no purpura, no cyanosis, non-pale, not jaundice. Lower extremities: --no - Pitting edema no deformity, no focal swelling, no calf TTP. Evaluation of the right hip surgical site looks normal. No evidence of infection. No erythema, no swelling, surgical scar healed well. Decreased range of motion of the right lower extremity secondary to right hip pain and instruction not to move the hip due to multiple hip dislocations in the recent past. Right upper extremity: No apparent swelling or erythema. PICC line is noted. Radial pulses palpable. Patient is neurovascularly intact in the affected extremity. Makes eye contact. moves all four extremities. Face: no apparent facial droop. ED COURSE: Chief Complaint: Chest Pain Time Seen by MD: 19:06 Primary Care Provider: JAYSON Reviewed Notes: Nurses Notes, Allergies Allergies: Coded Allergies: No Known Drug Allergy (Verified Allergy, Unknown, 03/18/18) Home Meds Active Scripts Lisinopril (Lisinopril) 10 Mg Tab, 10 MG PO BID for 30 Days, #60 TAB Prov:JUSTO MICHEL Jie [facility] 06/12/17 Insulin Regular (Human) (Novolin R) 100 Unit/Ml Inj, 0 UNITS SC ACHS for 30 Days, INJ Prov:JUSTO MICHEL Jie AGAPB 06/12/17 Carvedilol (COREG) 3.125 Mg Tab, 6.25 MG PO Q12HR for 30 Days, #120 TAB Prov:JUSTO MICHEL Jie AGACNPBC 06/12/17 Aspirin (Asa) 81 Mg Ch, 81 MG PO DAILY for 30 Days Prov:JUSTO MICHEL Jie AGACNPB 06/12/17 Reported Medications Morphine Sulfate (Morphine Sulfate) 15 Mg Tab, 1 TAB PO BID, #60 TAB 09/08/24 Oxycodone W/ Acetaminophen (Percocet 5/325MG) 1 Tab Tb, 1 TAB PO QID, #120 TAB 05/25/24 Morphine Sulfate (Morphine Sulfate) 15 Mg Tab, 15 MG PO, TAB 05/25/24 Cyclobenzaprine HCl (Cyclobenzaprine Hydrochlo) 15 Mg Cap, 15 MG PO, CAP 05/25/24 Cholecalciferol (VITAMIN D3) 2,000 Unit Tab, 1 TAB PO DAILY, #30 TAB 5 Refills 05/25/24 Furosemide (Lasix) 40 Mg Tab, 40 MG PO, TAB 05/25/24 Meloxicam (Meloxicam) 15 Mg Tab, 1 TAB PO DAILY, #30 TAB 2 Refills 05/25/24 Upadacitinib (Rinvoq) 15 Mg Tab, 15 MG PO, TAB 05/25/24 Fenofibrate (Fenofibrate) 54 Mg Tab, 1 TAB PO DAILY, #30 TAB 5 Refills 05/25/24 Tirzepatide (Mounjaro) 7.5 Mg/0.5 Ml Inj, SC QWEEKLY 03/20/23 Losartan Potassium (Losartan Potassium) 100 Mg Tab, 1 TAB PO DAILY 11/12/22 Gabapentin (Gabapentin) 300 Mg Cap, 300 MG PO BID 11/12/22 Methotrexate (Methotrexate) 2.5 Mg Tab, 2.5 MG PO QWEEKLY, TAB 8 tablets weekly 11/17/13 Information Source: Patient Mode of Arrival: EMS Past Medical History PAST MEDICAL HISTORY: Arthritis, CHF, CKF, COPD, CVA, Depression, DM, High Lipids, HTN, Kidney Stones, UTI'S Surgical History: , Hernia Repair, Hysterectomy, Tubal Ligation 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 Was a procedure done?: No Differential Diagnosis EXT Differential Diagnosis: Cellulitis, Compartment Syndrome, Sprain, Dislocation, Myocardial Infarction, Contusion, Other (Leg swellingDdx include but not limited to DVT, ischemic limb, pitting edema, volume overload, CHF, cellulitis, hematoma, compartment syndrome, dependent edema, ) X-Ray, Labs, Meds, VS Vital Signs Date Time Temp Pulse Resp B/P (MAP) Pulse Ox O2 Delivery O2 Flow Rate FiO2 11/09/24 20:12 135/94 11/09/24 20:06 97.8 90 19 135/74 (94) 97 97.8 11/09/24 18:13 80 11/09/24 17:00 85 11/09/24 16:54 98.4 86 18 152/100 (117) 98 Lab Test 11/09/24 19:25 11/09/24 18:24 11/09/24 17:12 Range/Units Urine Color Yellow Yellow Urine Clarity Clear Clear Urine pH 7.0 5.0-9.0 Urine Specific [place] 1.030 1.001-1.035 Urine Protein Trace H Negative Urine Ketones Negative Negative Urine Blood Negative Negative /uL Urine Nitrite Negative Negative Urine Bilirubin Negative Negative Urine Urobilinogen Normal Negative mg/dL Urine Leukocyte Esterase Negative Negative /uL Urine RBC 3 0 - 4 /hpf Urine Microscopic WBC 2 0-5 /HPF Urine Squamous Epithelial Cells Few <5 /hpf Urine Bacteria Few H None Seen /hpf Urine Mucus Few None Seen Urine Yeast (Budding) Occasional None Seen /hpf Urine Glucose Normal Normal mg/dL Urine Opiates Screen Pos NEGATIVE Urine Fentanyl Screen Neg NEGATIVE Urine Barbiturates Screen Neg NEGATIVE Urine Phencyclidine Screen Neg NEGATIVE Urine Amphetamines Screen Neg NEGATIVE Urine Benzodiazepines Screen Neg NEGATIVE Urine Cocaine Screen Neg NEGATIVE Urine Cannabinoids Screen Pos NEGATIVE Troponin I High Sensitivity < 3 L < 3 L </=34 ng/L White Blood Count 8.2 4.4-10.8 10^3/uL Red Blood Count 3.85 L 4.0-5.20 10^6/uL Hemoglobin 13.2 12.2-16.2 g/dL Hematocrit 38.3 36.0-46.0 % Mean Corpuscular Volume 99.4 80.0-100.0 fL Mean Corpuscular Hemoglobin 34.3 H 28.0-32.0 pg Mean Corpuscular Hemoglobin Concent 34.5 32.0-36.0 g/dL Red Cell Distribution Width 14.9 H 11.8-14.3 % Platelet Count 221 140-450 10^3/uL Mean Platelet Volume 7.8 6.9-10.8 fL Neutrophils (%) (Auto) 67.4 37.0-80.0 % Lymphocytes (%) (Auto) 19.8 10.0-50.0 % Monocytes (%) (Auto) 5.5 0.0-12.0 % Eosinophils (%) (Auto) 6.7 0.0-7.0 % Basophils (%) (Auto) 0.6 0.0-2.0 % Neutrophils # (Auto) 5.5 1.6-8.6 10 ^3/uL Lymphocytes # (Auto) 1.6 0.4-5.4 10 ^3/uL Monocytes # (Auto) 0.4 0-1.3 10 ^3/uL Eosinophils # (Auto) 0.5 0-0.8 10 ^3/uL Basophils # (Auto) 0.1 0-0.2 10 ^3/uL Nucleated Red Blood Cells 0.0 % D-Dimer, Quantitative 4.09 H 0.0-0.49 mg/L FEU Sodium Level 137 136-145 mmol/L Potassium Level 3.6 3.5-5.1 mmol/L Chloride Level 106 98-107 mmol/L Carbon Dioxide Level 22 20-31 mmol/L Anion Gap 9 5-15 Blood Urea Nitrogen 11 9-23 mg/dL Creatinine 0.68 0.550-1.02 mg/dL Glomerular Filtration Rate Calc 107 >90 mL/min BUN/Creatinine Ratio 16.2 10.0-20.0 Serum Glucose 88 74-106 mg/dL Lactic Acid Level 1.4 0.4-2.0 mmol/L Calcium Level 9.1 8.7-10.4 mg/dL Total Bilirubin 0.5 0.2-1.0 mg/dL Aspartate Amino Transferase (AST) 25 13-40 U/L Alanine Aminotransferase (ALT) 12 7-40 U/L Alkaline Phosphatase 62 46-116 U/L B-Type Natriuretic Peptide 7.86 0-100 pg/mL Total Protein 6.7 5.7-8.2 g/dL Albumin 3.9 3.2-4.8 g/dL Current Medications Medications (Trade) Dose Ordered Sig/Lesia Route Start Time Stop Time Status Last Admin Fentanyl Citrate 100 mcg ONCE ONCE IV 11/09/24 20:00 11/09/24 20:01 DC 11/09/24 20:[address] [address] Ph: [phone] DIAGNOSTIC IMAGING Diagnostic Imaging Report : [id number] Signed PATIENT: JOHNNIE NUNEZ ACCT: [id number] UNIT: [id number] : 1975 LOC: ER ROOM / BED: / AGE / SEX: 49 / F ADM STATUS: REG ER SERVICE [id number] ORDERING PHYSICIAN: RIZWANA SORENSON DO PROCEDURE(s): CXRP - CHEST PORTABLE REASON: cp ORDER NUMBER(s): [id number], ACCESSION NUMBER(s): [id number] CHEST RADIOGRAPH Indication: cp Technique: Single frontal view of the chest was obtained Comparison: XY CHEST PORTABLE on DOS: 05/28/24, XY CHEST PORTABLE on DOS: 09/20/23, XY CHEST PORTABLE on DOS: 03/20/23 FINDINGS: Lines and Tubes: None Lungs: No focal consolidation. Pleura: No effusion. No pneumothorax. Cardiomediastinal contours: Unremarkable Bones: No acute osseous abnormality. IMPRESSION: 1. No acute cardiopulmonary disease. ATED BY: RADHA SALGADO Jr., DO DICTATED DATE/TIME: 11/09/241846 SIGNED BY: RADHA SALGADO Jr., SIGNED DATE/TIME: 11/09/241846 CC: [place] [id number] Ph: [phone] DIAGNOSTIC IMAGING Diagnostic Imaging Report : [id number] Signed PATIENT: JOHNNIE NUNEZ ACCT: [id number] UNIT: [id number] : 1975 LOC: ER ROOM / BED: / AGE / SEX: 49 / F ADM STATUS: REG ER SERVICE 1915 ORDERING PHYSICIAN: RIZWANA SORENSON DO PROCEDURE(s): RUDVT - Rt Upper DVT REASON: pain ORDER NUMBER(s): [id number], ACCESSION NUMBER(s): [id number] RIGHT Upper Extremity Venous Duplex Clinical History: pain Comparison: US RT LOWER DVT on DOS: 10/15/24 Technique: Duplex Doppler evaluation of the venous system of the RIGHT lower neck and upper extremity including color Doppler and spectral/pulsed waveform analysis was performed. Findings: The internal jugular vein demonstrates appropriate compressibility and waveform variability. The subclavian vein is patent on color Doppler evaluation without intraluminal thrombus and demonstrates waveform variability. The visualized portion of the brachiocephalic vein is patent on color Doppler evaluation without intraluminal thrombus and demonstrates waveform variability. The axillary vein demonstrates appropriate compressibility and waveform variability. The brachial veins demonstrate appropriate compressibility and patency on Doppl er evaluation. The basilic vein demonstrates appropriate compressibility and patency on Doppler evaluation. The cephalic vein demonstrates appropriate compressibility and patency on Doppler evaluation. Impression: 1. No venous thrombus identified in the RIGHT upper extremity vessels evaluated above. 2. If clinical concern/symptoms persist or worsen, short-interval follow-up s maura is suggested. ATED BY: RADHA SALGADO Jr., DO DICTATED DATE/TIME: 11/09/242052 SIGNED BY: RADHA SALGADO Jr., DO SIGNED DATE/TIME: 11/09/242052 CC: [place] [address] Ph: [phone] DIAGNOSTIC IMAGING Diagnostic Imaging Report : [id number] Signed PATIENT: JOHNNIE NUNEZ ACCT: [id number] UNIT: [id number] : 1975 LOC: ER ROOM / BED: / AGE / SEX: 49 / F ADM STATUS: REG ER SERVICE 15 ORDERING PHYSICIAN: RIZWANA SORENSON DO PROCEDURE(s): RLDVT - RT Lower DVT REASON: post op ORDER NUMBER(s): [id number], ACCESSION NUMBER(s): [id number] RIGHT lower extremity venous duplex Clinical History: post op Comparison: US RT LOWER DVT on DOS: 10/15/24 Technique: Duplex Doppler evaluation of the deep venous systems of RIGHT lower extremities from the common femoral veins to the popliteal veins including color Doppler and spectral/pulsed waveform analysis was performed. Findings: RIGHT SIDE: The common femoral vein demonstrates appropriate compressibility and waveform variability. There is compressibility/patency of the great saphenous vein at the proximal thigh. The femoral vein demonstrates appropriate compressibility and waveform variability. The deep femoral vein demonstrates appropriate compressibility and waveform variability. The popliteal vein demonstrates appropriate compressibility and waveform variability. There is normal compressibility at the tibioperoneal trunk. Impression: 1. No right femoropopliteal venous thrombosis. ATED BY: RADHA SALGADO Jr., DO DICTATED DATE/TIME: 11/09/242051 SIGNED BY: RADHA SALGADO Jr., SIGNED DATE/TIME: 11/09/242051 CC: [place] [address] Ph: [phone] DIAGNOSTIC IMAGING Diagnostic Imaging Report : [id number] Signed PATIENT: JOHNNIE NUNEZ ACCT: [id number] UNIT: [id number] : 1975 LOC: ER ROOM / BED: / AGE / SEX: 49 / F ADM STATUS: REG ER SERVICE 15 ORDERING PHYSICIAN: RIZWANA SORENSON DO PROCEDURE(s): CAPIV - CT CHEST/AB/PL W CON- IV ONLY REASON: R/O PE, CP AND RLQ HIP PAIN ORDER NUMBER(s): [id number], ACCESSION NUMBER(s): [id number] PROCEDURE: CT CT CHEST/AB/PL W CON- IV ONLY 11/09/2024 08:32 PM INDICATION: R/O PE, CP AND RLQ HIP PAIN COMPARISON: None TECHNIQUE: Coverage: Thorax, abdomen and pelvis IV contrast: Administered Phases: Arterial Multiplanar 3-D Maximum Intensity Projection images (MIP) reconstructions were created by the technologist in the coronal and sagittal planes as part of the CT angiography protocol. Adverse events: None Medication laboratory values were reviewed to verify the patient meets criteria for contrast administration. All CT scans at this medical facility are performed using dose modulation techniques as appropriate to a performed exam including the following: Automated exposure control was utilized; adjustment of the MA and/or KV according to patient size; and use of iterative reconstruction technique. Radiation dose: CTDIvol 17.74 mGy, DLP 1569.2 mGy*cm. FINDINGS: Lower neck: Mildly prominent thyroid without discrete lesion. Cardiovascular: Suboptimal pulmonary angiogram. No emboli in the 1st and 2nd order branches of the pulmonary arteries. Aorta is normal in caliber. The heart is normal in size. Coronary artery calcification seen. Lungs: No focal consolidation. No pleural effusion. No pneumothorax. The airways are patent. Hepatobiliary: Unremarkable. Spleen: Unremarkable. Pancreas: Unremarkable. Adrenal Glands: Unremarkable. tract: The kidneys are normal in size bilaterally without hydronephrosis or nephrolithiasis. The urinary bladder is unremarkable. GI tract: Changes of gastric bypass surgery.. No evidence of small bowel obstruction. Scattered colonic diverticula are noted without evidence of diverticulitis. The appendix is normal. Lymphatics: No mesenteric, retroperitoneal or periportal lymphadenopathy. Vasculature: Aorta is normal in caliber. Scattered calcified plaques are noted. An infrarenal IVC filter is in place Pelvic Organs: Anteverted uterus. A 3.3 cm left ovarian cyst noted. Bones/soft tissues: Postoperative changes of right hip total arthroplasty noted. A large subcutaneous fluid collection lateral to the right hip measuring approximately 14 cm in craniocaudal and 7.8 cm in AP. Mild lumbar levoscoliosis, multilevel posterior facet arthropathy. Other: None. IMPRESSION: 1. Suboptimal pulmonary angiogram with poor opacification of the pulmonary arteries. No emboli are seen in the 1st and 2nd order branches. The lobar, segmental subsegmental branches are not well evaluated. 2. No acute abnormality in the chest, abdomen and pelvis. 3. Recent postoperative changes of the right hip a large, 14 x 7.8 cm reed bcutaneous fluid collection over the lateral aspect of the right hip most likely postsurgical fluid collection such as seroma, hematoma or developing abscess. Recommend correlation by ultrasound and aspiration under ultrasound if clinically indicated. ATED BY: CONCHITA MCKEON MD DICTATED DATE/TIME: 11/09/242140 SIGNED BY: CONCHITA MCKEON MD SIGNED DATE/TIME: 11/09/242140 CC: Time of 1ST Reevaluation: 19:17 Reevaluation 1ST: Unchanged Patient Education/Counseling: Diagnosis, Treatment Family Education/Counseling: No Family Present Comments Patient presented with the above HPI.---extremity pain and postsurgical pain with a high susceptibility for infection---workup was initiated. patient was found with the above mentioned diagnosis. the following medications were ordered: please refer to order lists of meds and tests obtained by myself Dr. Sorenson. Patient ED course and VS have been stabilized. Patient has been reassessed in the ED and remained in a stable condition. Pertinent incidental findings were discussed with the patient and/or family. Patient/family voices understanding and is agreeable with plan. Patient has been observed in the ED adequate length of time to insure impr ovement/stability. Escalation of care considered: Consideration of escalation to observation or admission Patient was ADMITTED to the medicine team for further evaluation and treatment of their presentation. Patient was found with elevated D-dimer. CT angiogram of the chest was obtained. Patient complains of worsening right hip right lower quadrant pain status post multiple surgeries recently. CT scan of abdomen and pelvis with contrast was obtained. Findings suggestive of seroma versus abscess that would need further evaluation. The patient was already on IV antibiotics. Patient was given pain control. All the reports of any imaging studies that were ordered by myself were reviewed by myself. Departure 1 Departure Time of Disposition: 19:51 Impression: Primary Impression: Right upper limb pain Additional Impressions: Right lower quadrant abdominal pain Chest pain Postoperative complication Seroma Elevated d-dimer Disposition: ADMITTED INPATIENT Admit to: [facility] Condition: Guarded Discharged With: Self Critical Care Note Critical Care Time?: Yes (45 min-critical care time only) I personally scribed for RIZWANA SORENSON DO ([email or web address]) on 11/09/24 at 19:31. Electronically submitted by Qi Trevino ([facility]). I personally scribed for RIZWANA SORENSON DO ([email or web address]) on 11/09/24 at 19:41. Electronically submitted by Qi Trevino ([facility]). I personally scribed for RIZWANA SORENSON DO ([email or web address]) on 11/09/24 at 21:36. Electronically submitted by Qi Trevino ([facility]). I personally scribed for RIZWANA SORENSON DO ([email or web address]) on 11/09/24 at 21:51. Electronically submitted by Qi Trevino ([facility]). RIZWANA SORENSON DO Nov 09, 2024 19:31
[2024-11-09] MEDS ORDERED: HYDROcodone-ACET 5/325MG TAB PO ONE (20:00)
[2024-11-09] MEDS: fentaNYL CITRATE 100 MCG/2 ML VL IV ONE (20:12)
--- NOTE | 2024-11-09 20:54 | DVH ---
RIGHT lower extremity venous duplex Clinical History: post op Comparison: US RT LOWER DVT on DOS: 10/15/24 Technique: Duplex Doppler evaluation of the deep venous systems of RIGHT lower extremities from the common femor al veins to the popliteal veins including color Doppler and spectral/pulsed waveform analysis was per formed. Findings: RIGHT SIDE: The common femoral vein demonstrates appropriate compressibility and waveform variability. There is compressibility/patency of the great saphenous vein at the proximal thigh. The femoral vein demonstrates appropriate compressibility and waveform variability. The deep femoral vein demonstrates appropriate compressibility and waveform variability. The popliteal vein demonstrates appropriate compressibility and waveform variability. There is normal compressibility at the tibioperoneal trunk. Impression: 1. No right femoropopliteal venous thrombosis.
--- NOTE | 2024-11-09 20:56 | DVH ---
RIGHT Upper Extremity Venous Duplex Clinical History: pain Comparison: US RT LOWER DVT on DOS: 10/15/24 Technique: Duplex Doppler evaluation of the venous system of the RIGHT lower neck and upper extremity including color Doppler and spectral/pulsed waveform analysis was performed. Findings: The internal jugular vein demonstrates appropriate compressibility and waveform variability. The subclavian vein is patent on color Doppler evaluation without intraluminal thrombus and demonstra celena waveform variability. The visualized portion of the brachiocephalic vein is patent on color Doppler evaluation without intr aluminal thrombus and demonstrates waveform variability. The axillary vein demonstrates appropriate compressibility and waveform variability. The brachial veins demonstrate appropriate compressibility and patency on Doppler evaluation. The basilic vein demonstrates appropriate compressibility and patency on Doppler evaluation. The cephalic vein demonstrates appropriate compressibility and patency on Doppler evaluation. Impression: 1. No venous thrombus identified in the RIGHT upper extremity vessels evaluated above. 2. If clinical concern/symptoms persist or worsen, short-interval follow-up study is suggested.
[2024-11-09] MEDS: IOHEXOL 350 MG/ML 100ML IJ ONE (21:10)
--- NOTE | 2024-11-09 21:43 | DVH ---
PROCEDURE: CT CT CHEST/AB/PL W CON- IV ONLY 11/09/2024 08:32 PM INDICATION: R/O PE, CP AND RLQ HIP PAIN COMPARISON: None TECHNIQUE: Coverage: Thorax, abdomen and pelvis IV contrast: Administered Phases: Arterial Multiplanar 3-D Maximum Intensity Projection images (MIP) reconstructions were created by the radha kraft in the coronal and sagittal planes as part of the CT angiography protocol. Adverse events: None Medication laboratory values were reviewed to verify the patient meets criteria for contrast administ ration. All CT scans at this medical facility are performed using dose modulation techniques as appropriate t o a performed exam including the following: Automated exposure control was utilized; adjustment of th e MA and/or KV according to patient size; and use of iterative reconstruction technique. Radiation dose: CTDIvol 17.74 mGy, DLP 1569.2 mGy*cm. FINDINGS: Lower neck: Mildly prominent thyroid without discrete lesion. Cardiovascular: Suboptimal pulmonary angiogram. No emboli in the 1st and 2nd order branches of the p ulmonary arteries. Aorta is normal in caliber. The heart is normal in size. Coronary artery calcifica tion seen. Lungs: No focal consolidation. No pleural effusion. No pneumothorax. The airways are patent. Hepatobiliary: Unremarkable. Spleen: Unremarkable. Pancreas: Unremarkable. Adrenal Glands: Unremarkable. tract: The kidneys are normal in size bilaterally without hydronephrosis or nephrolithiasis. The u rinary bladder is unremarkable. GI tract: Changes of gastric bypass surgery.. No evidence of small bowel obstruction. Scattered colon ic diverticula are noted without evidence of diverticulitis. The appendix is normal. Lymphatics: No mesenteric, retroperitoneal or periportal lymphadenopathy. Vasculature: Aorta is normal in caliber. Scattered calcified plaques are noted. An infrarenal IVC martin ter is in place Pelvic Organs: Anteverted uterus. A 3.3 cm left ovarian cyst noted. Bones/soft tissues: Postoperative changes of right hip total arthroplasty noted. A large subcutaneou s fluid collection lateral to the right hip measuring approximately 14 cm in craniocaudal and 7.8 cm in AP. Mild lumbar levoscoliosis, multilevel posterior facet arthropathy. Other: None. IMPRESSION: 1. Suboptimal pulmonary angiogram with poor opacification of the pulmonary arteries. No emboli are s een in the 1st and 2nd order branches. The lobar, segmental subsegmental branches are not well evalua magalie. 2. No acute abnormality in the chest, abdomen and pelvis. 3. Recent postoperative changes of the right hip a large, 14 x 7.8 cm subcutaneous fluid collection o bro the lateral aspect of the right hip most likely postsurgical fluid collection such as seroma, hem atoma or developing abscess. Recommend correlation by ultrasound and aspiration under ultrasound if clinically indicated.
[2024-11-09] MEDS ORDERED: ACETAMINOPHEN 325 MG TAB PO PRN (21:45)
[2024-11-09] MEDS ORDERED: MORPHINE SULFATE INJ 2 MG/ml SYRG IV PRN (21:45)
[2024-11-09] MEDS ORDERED: HYDROcodone-ACET 5/325MG TAB PO PRN (21:45)
[2024-11-09] MEDS ORDERED: NITROGLYCERIN 0.4 MG SL TAB SL PRN (21:45)
[2024-11-09 22:00] VITALS: PULSE 81; RESP 18; O2SAT 97
[2024-11-09] MEDS: SODIUM CHLOR 0.9% PF (SALINE LOCK) 10ML VIAL/SYR IV SCH (22:13)
[2024-11-09] MEDS: SODIUM CHLORIDE 0.9% 1,000 ML IV SCH (22:14)
[2024-11-09] MEDS ORDERED: VANCOMYCIN PER PHARMACY 0 MG IV SCH (22:15)
[2024-11-09 22:44] LABS: Amphetamine Screen, Urine Neg (NEGATIVE); Barbiturate Scree,Urine Neg (NEGATIVE); Benzodiazephine Screen, Urine Neg (NEGATIVE); Cocaine Screen, Urine Neg (NEGATIVE); Opiate Scree,Urine Pos (NEGATIVE); Phencyclidine Screen, Urine Neg (NEGATIVE)
[2024-11-09] MEDS ORDERED: VANCOMYCIN 2,000 MG in D5W 5% 500 ML IV ONE (22:45)
[2024-11-09 22:48] LABS: Cannabinoid Screen, Urine Pos (NEGATIVE)
[2024-11-09 22:49] LABS: Urine Bacteria FEW /hpf (None Seen); Urine Blood Negative /uL (Negative); Urine Budding Yeast OCCASIONAL /hpf (None Seen); Urine Clarity Clear (Clear); Urine Color Yellow (Yellow); Urine Mucus FEW (None Seen); Urine Protein, UAD TRACE (Negative); Urine Squamous Epithelial Cell FEW /hpf (<5); Urine Urobilinogen Normal (Negative); Urine WBC 2 /HPF (0-5)
[2024-11-09 22:49] LABS: INR 0.97 (0.9-1.15); Partial Thromboplastin Time 24.5 SEC (24.5-34.5); Prothrombin Time 10.3 sec (9.3-11.8)
[2024-11-09] MEDS: cefTRIAXone 2GM/50ML D5W 50 ML IV ONE (22:54)
[2024-11-09] MEDS: MORPHINE SULFATE INJ 2 MG/ml SYRG IV PRN (22:56)
[2024-11-09 23:04] LABS: Magnesium 1.7 mg/dL (1.6-2.6)
[2024-11-09 23:17] LABS: Blood Alcohol 4.5 mg/dL (<10)
[2024-11-09 23:57] LABS: COVID19 ANTIGEN SOFIA FIA NEGATIVE (NEGATIVE); Rapid Influenza A Negative (Negative); Rapid Influenza B Negative (Negative)
[2024-11-10] VITALS (8 sets, daily range): BP systolic 123–174; BP diastolic 72–97; PULSE 61–93; RESP 12–18; TEMP 98.1–98.3; O2SAT 94–97
[2024-11-10] MEDS: ONDANSETRON HCL 4 MG/2 ML VIAL IV PRN (00:17)
--- NOTE | 2024-11-10 00:17 | DVHHPRES ---
History of Present Illness Resident Creating Document: ESTEFANIA CARABALLO RESIDENT History of Present Illness JOHNNIE NUNEZ is a 20 years old female with a PMH of HTN, chronic pain syndrome, type 2 DM, osteoarthritis, COPD, CVA, HLD presented to the ED with the chief complaints of right arm pain and right chest pain for 1 week where PICC line was placed. Patient reported chest pain is right-sided which is sharp going down to the right groin but no associated factors. Patient reported that she has been recently discharged from this facility on 10/21/24 after a 2 week admission due to right hip dislocation and postsurgical complication and infection(operative cultures preliminary showed gram negative rods on gram gardiner but no growth is seen ). Patient is currently on IV antibiotics vancomycin and ceftriaxone 2 g and Percocet. Today due to right upper arm discomfort her PCP sent her to rule out DVT. Patient reported she has been having pain and not improved her symptoms since discharge. Patient is still reporting occasional fevers, chills, sweats. PMH: HTN, chronic pain syndrome, type 2 DM, osteoarthritis, COPD, CVA, HLD PSH: Hysterectomy, tubal ligation, , right hip replacement Family history: Reviewed, noncontributory Social history: Lives with the family. denied smoking, alcohol and other drug abuse Allergies: No known allergies Review of Systems Constitutional: Yes: Weakness Eyes: No: Pain, Vision change, Conjunctivae inflammation, Eyelid inflammation, Other, Redness ENT: No: Ear pain, Ear discharge, Nose pain, Nose discharge, Nose congestion, Mouth pain, Mouth swelling, Throat pain, Throat swelling, Other Respiratory: Cough Cardiovascular: Chest Pain (rt sided) Gastrointestinal: No: Nausea, Vomiting, Abdominal Pain, Diarrhea, Constipation, Melena, Hematochezia, Other Genitourinary: No Dysuria, No Frequency, No Incontinence, No Hematuria, No Retention, No Other Musculoskeletal: other (Hip pain right side) Skin: No: Rash, Lesions, Jaundice, Bruising, Other Neurological: No: Weakness, Numbness, Incoordination, Change in speech, Confusion, Seizures, Other Allergies: Coded Allergies: No Known Drug Allergy (Verified Allergy, Unknown, 03/18/18) Medications Current Medications Medications Dose Ordered Sig/Lesia Route Start Time Stop Time Status Last Admin Dose Admin Sodium Chloride 10 ml Q8HR IV 11/09/24 22:00 11/09/24 22:13 10 ML Sodium Chloride 1,000 ml @ 60 mls/hr [id number] IV 11/09/24 21:45 11/09/24 22:14 60 MLS/HR Acetaminophen/ Hydrocodone Bitart 1 tab Q4HP PRN PO 11/09/24 21:45 Enoxaparin Sodium 40 mg DAILY SC 11/10/24 10:00 Acetaminophen 650 mg Q6HP PRN PO 11/09/24 21:45 Morphine Sulfate 2 mg Q4HPRN PRN IV 11/09/24 21:45 11/09/24 22:56 2 MG Nitroglycerin 0.4 mg Q5MINP PRN SL 11/09/24 21:45 Morphine Sulfate 2 mg Q30M PRN IV 11/09/24 21:45 Vancomycin HCl 0 ml @ 0 mls/hr UD IV 11/09/24 22:15 UNV Ceftriaxone Sodium/Dextrose 50 ml @ 50 mls/hr DAILY IV 11/10/24 10:00 Ondansetron HCl 4 mg Q4HPRN PRN IV 11/10/24 00:15 Exam Vital Signs Vital Signs Date Time Temp Pulse Resp B/P (MAP) Pulse Ox O2 Delivery O2 Flow Rate FiO2 11/10/24 00:00 71 12 131/79 (96) 94 11/09/24 22:00 98.1 98.1 11/09/24 22:00 Room Air* 0 21 Exam General Appearance: Alert, Oriented X3, Cooperative, Not in acute distress HEENT: Atraumatic, Mucous membranes moist/pink Respiratory: Clear to auscultation, Normal air movement Cardiovascular: Regular rate, Normal S1, Normal S2, No murmurs Abdominal: Active bowel sounds, Soft, no distention, no tenderness Extremities: PICC line in place RUL, right hip tenderness but no edema Skin: No Significant rash, except past surgical scars Neuro: Normal speech, sensorimotor deficits none Psych/Mental Status: Mental status NL, Mood NL Nurse was there as sharperone during examination Labs/Xrays Labs Test 11/09/24 23:14 11/09/24 22:19 11/09/24 19:25 11/09/24 18:24 Range/Units Influenza Type A Antigen Negative Negative Influenza Type B Antigen Negative Negative SARS-CoV-2 Antigen (Rapid) Negative NEGATIVE Prothrombin Time 10.3 9.3-11.8 sec Prothrombin Time INR 0.97 0.9-1.15 Activated Partial Thromboplast Time 24.5 24.5-34.5 SEC Lactic Acid Level 1.1 0.4-2.0 mmol/L Magnesium Level 1.7 1.6-2.6 mg/dL Thyroid Stimulating Hormone (TSH) 1.88 0.55-4.78 uIU/mL Plasma/Serum Blood Alcohol 4.5 <10 mg/dL Urine Color Yellow Yellow Urine Clarity Clear Clear Urine pH 7.0 5.0-9.0 Urine Specific [place] 1.030 1.001-1.035 Urine Protein Trace H Negative Urine Ketones Negative Negative Urine Blood Negative Negative /uL Urine Nitrite Negative Negative Urine Bilirubin Negative Negative Urine Urobilinogen Normal Negative mg/dL Urine Leukocyte Esterase Negative Negative /uL Urine RBC 3 0 - 4 /hpf Urine Microscopic WBC 2 0-5 /HPF Urine Squamous Epithelial Cells Few <5 /hpf Urine Bacteria Few H None Seen /hpf Urine Mucus Few None Seen Urine Yeast (Budding) Occasional None Seen /hpf Urine Glucose Normal Normal mg/dL Urine Opiates Screen Pos NEGATIVE Urine Fentanyl Screen Neg NEGATIVE Urine Barbiturates Screen Neg NEGATIVE Urine Phencyclidine Screen Neg NEGATIVE Urine Amphetamines Screen Neg NEGATIVE Urine Benzodiazepines Screen Neg NEGATIVE Urine Cocaine Screen Neg NEGATIVE Urine Cannabinoids Screen Pos NEGATIVE Troponin I High Sensitivity < 3 L </=34 ng/L Test 11/09/24 17:12 Range/Units White Blood Count 8.2 4.4-10.8 10^3/uL Red Blood Count 3.85 L 4.0-5.20 10^6/uL Hemoglobin 13.2 12.2-16.2 g/dL Hematocrit 38.3 36.0-46.0 % Mean Corpuscular Volume 99.4 80.0-100.0 fL Mean Corpuscular Hemoglobin 34.3 H 28.0-32.0 pg Mean Corpuscular Hemoglobin Concent 34.5 32.0-36.0 g/dL Red Cell Distribution Width 14.9 H 11.8-14.3 % Platelet Count 221 140-450 10^3/uL Mean Platelet Volume 7.8 6.9-10.8 fL Neutrophils (%) (Auto) 67.4 37.0-80.0 % Lymphocytes (%) (Auto) 19.8 10.0-50.0 % Monocytes (%) (Auto) 5.5 0.0-12.0 % Eosinophils (%) (Auto) 6.7 0.0-7.0 % Basophils (%) (Auto) 0.6 0.0-2.0 % Neutrophils # (Auto) 5.5 1.6-8.6 10 ^3/uL Lymphocytes # (Auto) 1.6 0.4-5.4 10 ^3/uL Monocytes # (Auto) 0.4 0-1.3 10 ^3/uL Eosinophils # (Auto) 0.5 0-0.8 10 ^3/uL Basophils # (Auto) 0.1 0-0.2 10 ^3/uL Nucleated Red Blood Cells 0.0 % D-Dimer, Quantitative 4.09 H 0.0-0.49 mg/L FEU Sodium Level 137 136-145 mmol/L Potassium Level 3.6 3.5-5.1 mmol/L Chloride Level 106 98-107 mmol/L Carbon Dioxide Level 22 20-31 mmol/L Anion Gap 9 5-15 Blood Urea Nitrogen 11 9-23 mg/dL Creatinine 0.68 0.550-1.02 mg/dL Glomerular Filtration Rate Calc 107 >90 mL/min BUN/Creatinine Ratio 16.2 10.0-20.0 Serum Glucose 88 74-106 mg/dL Calcium Level 9.1 8.7-10.4 mg/dL Total Bilirubin 0.5 0.2-1.0 mg/dL Aspartate Amino Transferase (AST) 25 13-40 U/L Alanine Aminotransferase (ALT) 12 7-40 U/L Alkaline Phosphatase 62 46-116 U/L B-Type Natriuretic Peptide 7.86 0-100 pg/mL Total Protein 6.7 5.7-8.2 g/dL Albumin 3.9 3.2-4.8 g/dL Assessment/Plan Assessment/Plan # rule out upper right extremity DVT -DVT scan negative # rule out PE # rule out ACS -CT chest abdomen pelvis with contrast showed no signs of PE -reviewed EKG and troponins were negative # possible seroma versus hematoma versus abscess in right hip -evident on CT -consulted Orthopedics -continuing IV antibiotics vanco and ceftriaxone 2 g - consider IR consult # cannabinoid abuse disorder -consult regarding cessation for more than 17 minutes Protonix Lovenox Cardiac diet Goals of care discussed with the patient for more than 27 minutes: Full code status Case discussed with Dr. Maher, patient Plan discussed with: Patient My Orders Orders - ESTEFANIA CARABALLO RESIDENT Procedure Category Date Status Time Admit ADMIT 11/09/24 Transmitted 21:35 Allergies JULIET 11/09/24 In Process 21:35 Code Status CODE 11/09/24 Transmitted 21:35 Sodium Chloride Lock PHA 11/09/24 In Process (Saline Lock Ns) 22:00 Sodium Chloride 0.9% PHA 11/09/24 In Process 21:45 Hydrocodone-Acet PHA 11/09/24 In Process 5/325mg Tab ([place] 21:45 Enoxaparin Sodium PHA 11/10/24 In Process (Lovenox) 10:00 Complete Blood Count LAB 11/10/24 Logged 04:00 Comprehensive LAB 11/10/24 Logged Metabolic Panel 04:00 Cardiac DIET 11/10/24 Transmitted Diet-2gna,Lofat,Lochol Breakfast Condition: Stable JULIET 11/09/24 In Process 21:35 Acetaminophen Tablet PHA 11/09/24 In Process (Tylenol Tablet) 21:45 Morphine Sulfate PHA 11/09/24 In Process Injection 21:45 Nitroglycerin PHA 11/09/24 In Process Sublingual (Ntrostat 21:45 Morphine Sulfate PHA 11/09/24 In Process Injection 21:45 Oxygen By Nasal RT 11/09/24 Transmitted Cannula 21:35 Stat Ekg For Chest JULIET 11/09/24 In Process Pain 21:35 Notify Md Of Changes JULIET 11/09/24 In Process From Base 21:35 * Orthopedic Consult CONS 11/09/24 Transmitted 22:15 Vancomycin Per PHA 11/09/24 Pending Pharmacy 22:15 Ceftriaxone 2gm/50ml PHA 11/10/24 In Process D5w (Rocephin 2gm/5 10:00 Vancomycin PHA 11/09/24 In Process (Vancomycin Hcl) 22:45 Date of Service: Nov 09, 2024 Billing Provider: FABIAN MAHER MD Common Visit Codes: [id number] INP/OBS CARE (HIGH) ETSEFANIA CARABALLO RESIDENT Nov 10, 2024 00:17 FABIAN MAHER MD Nov 10, 2024 10:18
[2024-11-10] MEDS ORDERED: VANCOMYCIN 1.75GM/350ML 350 ML IV SCH (00:30)
[2024-11-10] MEDS: VANCOMYCIN 1GM/250mL NS or D5W KIT IV ONE ×2 (01:12→02:19)
[2024-11-10] MEDS: InsuLIN REG 1unit/0.01ml Soln (100units/ml) SC SCH (06:30)
[2024-11-10] MEDS ORDERED: DEXTROSE (50%) 50ML SYRG IV PRN (06:30)
[2024-11-10] MEDS: ACCU-CHEK COMFORT CURVE STRIP VI SCH (06:30)
[2024-11-10 07:10] LABS: Basophils # (auto) 0 10 ^3/uL (0-0.2); Eosinophils # (auto) 0.6 10 ^3/uL (0-0.8); Lymphocytes # (auto) 1.4 10 ^3/uL (0.4-5.4); Mean Corpuscular Volume 99.7 fL (80.0-100.0); Monocytes # (auto) 0.5 10 ^3/uL (0-1.3); Neutrophils # (auto) 3.7 10 ^3/uL (1.6-8.6)
[2024-11-10 07:12] LABS: Basophils % (auto) 0.5 % (0.0-2.0); Eosinophils % (auto) 9.4 % (0.0-7.0); Hematocrit 34.7 % (36.0-46.0); Hemoglobin 12.3 g/dL (12.2-16.2); Lymphocytes % (auto) 23.3 % (10.0-50.0); Mean Corpuscular Hemoglobin 35.3 pg (28.0-32.0); Mean Corpuscular Hgb Conc. 35.4 g/dL (32.0-36.0); Monocytes % (auto) 7.6 % (0.0-12.0); Neutrophils % (auto) 59.2 % (37.0-80.0); Nucleated Red Blood Cells % 0.1 %; Platelet Count (auto) 188 10^3/uL (140-450); Red Blood Cells 3.49 10^6/uL (4.0-5.20); Red Cell Distribution Width 14.9 % (11.8-14.3); White Blood Cell 6.2 10^3/uL (4.4-10.8)
[2024-11-10 07:13] LABS: Alanine Aminotransferase 12 U/L (7-40); Albumin 3.6 g/dL (3.2-4.8); Alkaline Phosphatase 55 U/L (46-116); Anion Gap 10 (5-15); Aspartate Aminotransferase 20 U/L (13-40); BUN/Creatinine Ratio 16.1 (10.0-20.0); Bilirubin, Total 0.5 mg/dL (0.2-1.0); Blood Urea Nitrogen 10 mg/dL (9-23); Calcium 9.4 mg/dL (8.7-10.4); Carbon Dioxide 23 mmol/L (20-31); Chloride 104 mmol/L (98-107); Glucose 79 mg/dL (74-106); Sodium 137 mmol/L (136-145); Total Protein 6.1 g/dL (5.7-8.2)
[2024-11-10 07:20] LABS: Potassium 3.3 mmol/L (3.5-5.1)
--- NOTE | 2024-11-10 07:53 | DVH ---
EXAM: US right hip CLINICAL INDICATION: RT HIP SEROMA TECHNIQUE: Real-time ultrasound of the right hip with image documentation. COMPARISON: US RIGHT LOWER EXTREMITY ULTRASOU on DOS: 09/10/24 FINDINGS: SOFT TISSUES: Fluid is noted in the region of the incision, likely seroma measuring up to 7.1 x 4.2 by 5.1 cm. OTHER FINDINGS: . IMPRESSION: Fluid is noted in the region of the incision, likely seroma measuring up to 7.1 x 4.2 by 5.1 cm.
[2024-11-10] MEDS: ENOXAPARIN SOD 40 MG/0.4 ML SYRINGE SC SCH (10:23)
[2024-11-10] MEDS: cefTRIAXone 2GM/50ML D5W 50 ML IV SCH (10:24)
[2024-11-10 11:21] LABS: Erythrocyte Sedimentation Rate 10 mm/hr (0-20)
--- NOTE | 2024-11-10 11:30 | DVH ---
US US GUIDANCE FOR NEEDLE PLACEME, HISTORY: Right hip fluid collection evaluation and aspiration PROCEDURE: An informed consent was obtained. The patient was placed supine on the gurney. . The suspi cious right hip fluid collection was localized with ultrasound and the overlying skin prepped with ch lorhexidine which was allowed to dry and draped in the usual sterile fashion. Time out was performed and infiltrated with 1% Xylocaine. With US guidance, 19-gauge centesis needle catheter was advanced i nto the fluid collection. Small amount was aspirated for appropriate microbiology/cytology/microbiolo gy and cytology analysis.. Approximately 310 cc of serosanguinous fluid was aspirated. The catheter was removed. No immediate complication was identified. FINDINGS: Limited US scan of through the right hip demonstrates a fluid collection in the right hip. Collection appears complex. which is decreased in size. IMPRESSION: Successful US guided aspiration of a right fluid collection/effusion with 310 mL serosanguinous flui d removed.
[2024-11-10 12:00] LABS: Urine Amorphous Crystal FEW /hpf (None Seen); Urine Bacteria FEW /hpf (None Seen); Urine Blood Negative /uL (Negative); Urine Budding Yeast MODERATE /hpf (None Seen); Urine Clarity Ex.Turbid (Clear); Urine Color Light-Orange (Yellow); Urine Protein, UAD Negative (Negative); Urine Specific Gravity 1.029 (1.001-1.035); Urine Squamous Epithelial Cell FEW /hpf (<5); Urine Urobilinogen Normal (Negative); Urine WBC 16 /HPF (0-5)
--- NOTE | 2024-11-10 13:38 | DVHPNRES ---
Progress Note Date Seen: Nov 10, 2024 Resident Creating Document: NATASHA HUNG RESIDENT Medical Necessity Reason Pt with a Central, PICC or Fol: Yes The following are medically ne: Miller Catheter Reason for miller catheter: Total Immobilization Subjective Review of Systems Patient is a 49-year-old female with past medical history of DM, COPD, TIA in 2014, dyslipidemia, hypertension, chronic pain, osteoarthritis, DVT, CHF, fibromyalgia, bilateral Madison's cysts, who comes in due to right arm pain. According to the patient, patient had a right hip replacement surgery due to severe osteoarthritis and decreased mobility in May of 2024, however, patient required a repeat surgery with possible debridement in October 2024 after which patient was discharged with a PICC line and IV vancomycin and ceftriaxone on 10/21/2024. Per patient, for the last one week pain in her right upper extremity at the site of PICC line insertion has progressively gotten worse with radiation to right chest, along with that; she also notes having increasing right hip pain with radiation to the right lower extremity. Per patient symptoms were assocciated with severe generalized weakness, at the reccomensation of her home health nurse, she presented to the ER. At baseline patient uses a cane and walker to ambulate, prior to her surgery in May also patient had decreased mobility due to her severe osteoarthritis. Past surgical history: Right hip replacement, gastric bypass surgery, IVC filters Home medications: Aspirin, carvedilol, cyclobenzaprine, fenofibrate, furosemide, gabapentin, insulin, lisinopril, losartan, meloxicam, methotrexate, morphine, oxycodone, tirzapatide Past Hospitalization: Discharge on 10/21/2024 from the [facility] Social & Personal history: Patient lives with her family. Smokes half a pack of cigarettes per day for the last 35 years. Occasionally drinks alcohol, last drink was 2 days ago. Uses marijuana occasionally, denies using any other drugs. Allergies: Denies Patient seen and examined at bedside. Patient is alert and oriented to time, place person and responding to all questions. General: Fatigue, chills Eyes: No Pain, No Vision change, No Conjunctivae inflammation, No Eyelid inflammation, No Other, No Redness ENT: No Ear pain, No Ear discharge, No Nose pain, No Nose discharge, No Nose congestion, No Mouth pain, No Mouth swelling, No Throat pain, No Throat swelling, No Other Cardiovascular: No Chest Pain, Palpitations, Orthopnea, No Paroxysmal No Dyspnea, No Edema, No Lt Headedness, No Other Respiratory: Cough, Shortness of breath, No SOB with exertion, No Wheezing, No Hemoptysis, No Pleuritic Pain, No Sputum, No Other Gastrointestinal: Nausea, Vomiting, No Abdominal Pain, No Diarrhea, No Constipation, No Melena, No Hematochezia, No Other Genitourinary: No Dysuria, No Frequency, No Incontinence, No Hematuria, No Retention, No Other Musculoskeletal: No other, No neck pain, No shoulder pain, No arm pain, No back pain, No hand pain, No leg pain, No foot pain Skin: No Rash, No Lesions, No Jaundice, No Bruising, No Other Objective vital signs Vital Sign Date Time Temp Pulse Resp B/P (MAP) Pulse Ox O2 Delivery O2 Flow Rate FiO2 11/10/24 10:00 74 12 132/73 (92) 97 11/10/24 08:00 98.3 98.3 11/09/24 22:00 Room Air* 0 21 Total Intake and Output 11/09/24 11/09/24 11/10/24 15:00 23:00 07:00 Intake Total 1030 ml Balance 1030 ml medications Current Medications Medications Dose Ordered Sig/Lesia Route Start Time Stop Time Status Last Admin Dose Admin Sodium Chloride 10 ml Q8HR IV 11/09/24 22:00 11/10/24 05:56 10 ML Sodium Chloride 1,000 ml @ 60 mls/hr [id number] IV 11/09/24 21:45 11/09/24 22:14 60 MLS/HR Acetaminophen/ Hydrocodone Bitart 1 tab Q4HP PRN PO 11/09/24 21:45 Enoxaparin Sodium 40 mg DAILY SC 11/10/24 10:00 11/10/24 10:23 40 MG Acetaminophen 650 mg Q6HP PRN PO 11/09/24 21:45 Morphine Sulfate 2 mg Q4HPRN PRN IV 11/09/24 21:45 11/10/24 08:21 2 MG Nitroglycerin 0.4 mg Q5MINP PRN SL 11/09/24 21:45 Morphine Sulfate 2 mg Q30M PRN IV 11/09/24 21:45 Vancomycin HCl 0 ml @ 0 mls/hr UD IV 11/09/24 22:15 UNV Ceftriaxone Sodium/Dextrose 50 ml @ 50 mls/hr DAILY IV 11/10/24 10:00 11/10/24 10:24 50 MLS/HR Ondansetron HCl 4 mg Q4HPRN PRN IV 11/10/24 00:15 11/10/24 08:21 4 MG Diagnostic Test (Pha) 1 strip ACHS 11/10/24 07:00 11/10/24 11:30 1 STRIP Insulin Human Regular ACHS SC 11/10/24 07:00 Dextrose 50 ml UD PRN IV 11/10/24 06:30 Examination General Appearance: Cooperative. Well developed. Well nourished. NAD. Dry mucous membranes Head Exam: Normal inspection Neck Exam: Normal inspection. Non-tender. Normal alignment Pulmonary/Respiratory: Chest non-tender. Clear bilateral breath sounds, no crackles, bilateral wheezing. Cardiovascular/Chest: Regular rate and rhythm. No murmurs. No JVD. Peripheral Pulses: 2+ Radial (R). 2+ Radial (L). 2+ Pedal (R). 2+ Pedal (L) Abdominal Exam: Normal bowel sounds. Soft. normal abdomen, no visible veins, Nontender. No hepatospenomegaly. No masses Lower extremities: Negative lower extremity edema. Right hip swollen and tender to palpation, right calf soreness Neuro/Mental Status: A&O x4. Coherent. Thoughts/Psych: Normal thought pattern. Appropriate mood and affect. Good judgement and insight Skin Exam: Normal inspection. Normal color. Warm. Dry laboratory and microbiology Laboratory Tests 11/10/24 05:30 Test 11/10/24 05:30 Range/Units Serum Glucose 79 74-106 mg/dL Labs and/or images reviewed: Labs reviewed by me, Image(s) reviewed by me Problem List/Assessment/Plan Problem List/Assessment/Plan Right hip fluid collection seroma versus developing abscess? Generalized weakness S/p right hip replacement in May 2024 with revision in October 2024 Ruled out right lower extremity DVT - right lower extremity Doppler: No right femoropopliteal venous thrombosis - CT pelvis with IV contrast: 3. Recent postoperative changes of the right hip a large, 14 x 7.8 cm subcutaneous fluid collection over the lateral aspect of the right hip most likely postsurgical fluid collection such as seroma, hematoma or developing abscess. Recommend correlation by ultrasound and aspiration under ultrasound if clinically indicated. - patient underwent right hip fluid aspiration under ultrasound guidance with removal of 310 mL serosanguineous fluid - ultrasound right hip: Fluid noted in the region of the incision, likely seroma measuring up to 7.1 x4 0.2 x 5.1 cm - IV vancomycin per pharmacy, IV ceftriaxone 2 g - IV NS at 60 cc/hour - consulted Orthopedics Right upper extremity PICC line tenderness - right upper extremity Doppler: No venous thrombus identified in the right upper extremity vessels - removed previous PICC line, placed new PICC line Ruled out pulmonary embolism - CXR: No acute cardiopulmonary - CT chest abdomen pelvis with IV contrast: uboptimal pulmonary angiogram with poor opacification of the pulmonary arteries. No emboli are seen in the 1st and 2nd order branches. The lobar, segmental subsegmental branches are not well evaluated. No acute abnormality in the chest, abdomen and pelvis. Type 2 diabetes, A1c < for in October 2024 - mild sliding scale insulin Chronic pain Osteoarthritis Fibromyalgia - Tylenol as needed for mild pain - [place] 5 as needed for moderate pain - resumed home medication oxycodone 10 mg q.i.d. - resumed home medication morphine p.o. extended release 15 mg b.i.d. COPD, currently stable - ipratropium levalbuterol med nebs q.6 hours as needed History of TIA Dyslipidemia Hypertension - aspirin 81 mg - resumed home medication losartan, currently holding other antihypertensive as blood pressure within goal range Cannabis use disorder - counseled DVT prophylaxis: Levonox 40mg Goals of care: Full code, discussed for >16 minutes on 11/10/2024 Plan discussed with patient Plan discussed with Dr. Echeverria Plan discussed with: Patient, Other (RN) My Orders My Orders Orders - NATASHA HUNG RESIDENT Procedure Category Date Status Time Insert/Manage Urinary JULIET 11/10/24 In Process Catheter 10:10 * Picc Line Consult CONS 11/10/24 Transmitted 11:43 Picc Line Assessment JULIET 11/10/24 In Process 11:58 D/C Picc Line ORDERS 11/10/24 Transmitted 11:58 Wound Culture W/ Gs DIOR 11/10/24 Uncollected 11:58 Date of Service: Nov 10, 2024 Billing Provider: MAMI ECHEVERRIA MD Common Visit Codes: [id number] INP/OBS CARE(HIGH) NATASHA HUNG RESIDENT Nov 10, 2024 13:38 MAMI ECHEVERRIA MD Nov 17, 2024 14:26
[2024-11-10] MEDS ORDERED: LEVALBUTEROL HCL 1.25 MG/3 ML NEB NEB PRN (13:45)
[2024-11-10] MEDS ORDERED: IPRATROPIUM BROM 0.5 MG/2.5ML INH SOL NEB PRN (13:45)
[2024-11-10] MEDS: VANCOMYCIN 1GM/250ML KIT 250 ML IV SCH (14:00)
--- NOTE | 2024-11-10 15:31 | DVHINCON2 ---
Date of service: Nov 10, 2024 Reason for Consultation Right arm and chest pain and right hip pain S/P total hip arthroplasty and explant History of Present Illness Patient was brought to the hospital due to concerns of right arm and chest pain for the last week and was brought to the hospital and had a cardio workup which did not reveal any acute findings and had approximately 300 mL of serosanguineous fluid aspirated with Interventional Radiology earlier today. Patient reports noticing some drainage coming out from the insertion site of her PICC line but has otherwise been doing well without any other complaints or concerns. Past Medical History HTN, chronic pain syndrome, type 2 DM, osteoarthritis, COPD, CVA, HLD Past Surgical History Hysterectomy, tubal ligation, , right hip replacement Family History: Cancer (lung) father GRANDMOM FH: schizophrenia brother Family history: Arthritis Family history: Asthma brother Family history: Cardiovascular disease mother father Family history: Diabetes mellitus mother Family history: Hypercholesterolemia (situation) Family history: Hypertension Family history: Thyroid disorder Renal stone Stroke mother father No Family History of: Alcoholism Cancer of colon Chronic obstructive lung disease (situation) Family history: Alzheimer's disease Family history: Autoimmune disease (situation) Family history: Blood disorder Family history: Congenital anomaly Family history: Coronary thrombosis Family history: Depression (situation) Family history: Diabetes in Family history: Glaucoma Family history: Osteoporosis Family history: Suicide (situation) Ischemic heart disease Malignant melanoma Malignant neoplasm of breast Malignant neoplasm of lung Malignant neoplasm of ovary Prostate cancer Seizure disorder (situation) Family History Noncontributory Social History Patient denies smoking, EtOH, or illicit substance abuse Allergies: Coded Allergies: No Known Drug Allergy (Verified Allergy, Unknown, 03/18/18) Home Meds Active Scripts Lisinopril (Lisinopril) 10 Mg Tab, 10 MG PO BID for 30 Days, #60 TAB Prov:JUSTO MICHEL AGACNPBC 06/12/17 Insulin Regular (Human) (Novolin R) 100 Unit/Ml Inj, 0 UNITS SC ACHS for 30 Days, INJ Prov:JUSTO MICHEL AGACNPBC 06/12/17 Carvedilol (COREG) 3.125 Mg Tab, 6.25 MG PO Q12HR for 30 Days, #120 TAB Prov:JUSTO MICHEL AGACNPBC 06/12/17 Aspirin (Asa) 81 Mg Ch, 81 MG PO DAILY for 30 Days Prov:JUSTO MICHEL AGACNPBC 06/12/17 Reported Medications Morphine Sulfate (Morphine Sulfate) 15 Mg Tab, 1 TAB PO BID, #60 TAB 09/08/24 Oxycodone W/ Acetaminophen (Percocet 5/325MG) 1 Tab Tb, 1 TAB PO QID, #120 TAB 05/25/24 Morphine Sulfate (Morphine Sulfate) 15 Mg Tab, 15 MG PO, TAB 05/25/24 Cyclobenzaprine HCl (Cyclobenzaprine Hydrochlo) 15 Mg Cap, 15 MG PO, CAP 05/25/24 Cholecalciferol (VITAMIN D3) 2,000 Unit Tab, 1 TAB PO DAILY, #30 TAB 5 Refills 05/25/24 Furosemide (Lasix) 40 Mg Tab, 40 MG PO, TAB 05/25/24 Meloxicam (Meloxicam) 15 Mg Tab, 1 TAB PO DAILY, #30 TAB 2 Refills 05/25/24 Upadacitinib (Rinvoq) 15 Mg Tab, 15 MG PO, TAB 05/25/24 Fenofibrate (Fenofibrate) 54 Mg Tab, 1 TAB PO DAILY, #30 TAB 5 Refills 05/25/24 Tirzepatide (Mounjaro) 7.5 Mg/0.5 Ml Inj, SC QWEEKLY 03/20/23 Losartan Potassium (Losartan Potassium) 100 Mg Tab, 1 TAB PO DAILY 11/12/22 Gabapentin (Gabapentin) 300 Mg Cap, 300 MG PO BID 11/12/22 Methotrexate (Methotrexate) 2.5 Mg Tab, 2.5 MG PO QWEEKLY, TAB 8 tablets weekly 11/17/13 Current Medications Current Medications Medications (Trade) Dose Ordered Sig/Lesia Route PRN Reason Start Time Stop Time Status Last Admin Sodium Chloride (Saline Lock Ns) 10 ml Q8HR IV 11/09/24 22:00 11/10/24 05:56 Sodium Chloride 1,000 ml @ 60 mls/hr [id number] IV 11/09/24 21:45 11/09/24 22:14 Acetaminophen/ Hydrocodone Bitart ([place] 5/325MG Tab) 1 tab Q4HP PRN PO MODERATE PAIN (4-6 PAIN SCALE) 11/09/24 21:45 11/10/24 13:31 DC Enoxaparin Sodium (Lovenox) 40 mg DAILY SC 11/10/24 10:00 11/10/24 10:23 Acetaminophen (Tylenol Tablet) 650 mg Q6HP PRN PO PAIN SCALE 1-3 OR TEMP>100.4 11/09/24 21:45 Morphine Sulfate 2 mg Q4HPRN PRN IV SEVERE PAIN (7-10 PAIN SCALE) 11/09/24 21:45 11/10/24 13:31 DC 11/10/24 13:29 Nitroglycerin (Ntrostat Sublingual) 0.4 mg Q5MINP PRN SL FOR CHEST PAIN 11/09/24 21:45 11/10/24 13:31 DC Morphine Sulfate 2 mg Q30M PRN IV FOR CHEST PAIN 11/09/24 21:45 11/10/24 13:31 DC Vancomycin HCl 0 ml @ 0 mls/hr UD IV 11/09/24 22:15 Ceftriaxone Sodium/Dextrose 50 ml @ 50 mls/hr DAILY IV 11/10/24 10:00 11/10/24 10:24 Ondansetron HCl (Zofran) 4 mg Q4HPRN PRN IV NAUSEA / VOMITING 11/10/24 00:15 11/10/24 08:21 Vancomycin HCl 350 ml @ 200 mls/hr Q12H IV 11/10/24 00:30 11/10/24 00:48 DC Diagnostic Test (Pha) (Accu-Chek Comfort Curve T) 1 strip ACHS 11/10/24 07:00 11/10/24 11:30 Insulin Human Regular (InsuLIN R) ACHS SC 11/10/24 07:00 Dextrose 50 ml UD PRN IV Blood Sugar LESS THAN 60 11/10/24 06:30 Morphine Sulfate (Oramorph Sustained Release Tab) 15 mg BID PO 11/10/24 22:00 Oxycodone HCl 10 mg Q6H PO 11/10/24 13:30 Acetaminophen (Tylenol Tablet) 325 mg Q6H PO 11/10/24 13:30 Ipratropium [place] (Atrovent Medneb) 0.5 mg Q6HPRN PRN NEB SHORTNESS OF BREATH 11/10/24 13:45 Levalbuterol HCl (Xopenex Medneb) 1.25 mg Q6HR PRN NEB wheezing 11/10/24 13:45 Aspirin 81 mg DAILY PO 11/11/24 10:00 Losartan Potassium (Cozaar Tablet) 50 mg DAILY PO 11/11/24 10:00 Vancomycin HCl 250 ml @ 250 mls/hr Q10H IV 11/10/24 14:00 Hydromorphone HCl (Dilaudid Tablet) 2 mg Q4HP PRN PO SEVERE PAIN (7-10 PAIN SCALE) 11/10/24 15:15 UNV Review of Systems 10 point review of systems negative except as per HPI Vital Signs Vital Signs Date Time Temp Pulse Resp B/P (MAP) Pulse Ox O2 Delivery O2 Flow Rate FiO2 11/10/24 14:18 97 Room Air* 0 21 11/10/24 14:10 98.3 61 12 174/97 98.3 Physical Exam General appearance: A&O x4 in no acute distress HEENT: Normal ENT inspection, pharynx normal, TMs normal Neck: Full range of motion, nontender, normal inspection Respiratory: Chest nontender, without accessory muscle use, no respiratory distress Cardiovascular: No edema, no JVD, normal peripheral pulses Gastrointestinal: Soft, nontender, no organomegaly. Musculoskeletal: Right hip range of motion grossly limited with pain on movement, no calf tenderness, normal capillary refill, no pedal edema, neurovascularly intact. Skin: Dry, normal color, warm Lymphatic: No adenopathy Labs/Diagnostic Data Labs Test 11/10/24 11:10 11/10/24 10:43 11/10/24 08:06 11/10/24 05:30 Range/Units Urine Color Light-orange Yellow Urine Clarity Ex.turbid Clear Urine pH 7.0 5.0-9.0 Urine Specific [place] 1.029 1.001-1.035 Urine Protein Negative Negative Urine Ketones Negative Negative Urine Blood Negative Negative /uL Urine Nitrite Negative Negative Urine Bilirubin Negative Negative Urine Urobilinogen Normal Negative mg/dL Urine Leukocyte Esterase Trace Negative /uL Urine RBC 3 0 - 4 /hpf Urine Microscopic WBC 16 H 0-5 /HPF Urine Squamous Epithelial Cells Few <5 /hpf Urine Amorphous Crystals Few None Seen /hpf Urine Bacteria Few H None Seen /hpf Urine Yeast (Budding) Moderate None Seen /hpf Urine Glucose Normal Normal mg/dL Erythrocyte Sedimentation Rate 10 0-20 mm/hr C-Reactive Protein High Sensitivity 0.67 <1.0 mg/dL White Blood Count 6.2 4.4-10.8 10^3/uL Red Blood Count 3.49 L 4.0-5.20 10^6/uL Hemoglobin 12.3 12.2-16.2 g/dL Hematocrit 34.7 L 36.0-46.0 % Mean Corpuscular Volume 99.7 80.0-100.0 fL Mean Corpuscular Hemoglobin 35.3 H 28.0-32.0 pg Mean Corpuscular Hemoglobin Concent 35.4 32.0-36.0 g/dL Red Cell Distribution Width 14.9 H 11.8-14.3 % Platelet Count 188 140-450 10^3/uL Mean Platelet Volume 7.8 6.9-10.8 fL Neutrophils (%) (Auto) 59.2 37.0-80.0 % Lymphocytes (%) (Auto) 23.3 10.0-50.0 % Monocytes (%) (Auto) 7.6 0.0-12.0 % Eosinophils (%) (Auto) 9.4 H 0.0-7.0 % Basophils (%) (Auto) 0.5 0.0-2.0 % Neutrophils # (Auto) 3.7 1.6-8.6 10 ^3/uL Lymphocytes # (Auto) 1.4 0.4-5.4 10 ^3/uL Monocytes # (Auto) 0.5 0-1.3 10 ^3/uL Eosinophils # (Auto) 0.6 0-0.8 10 ^3/uL Basophils # (Auto) 0 0-0.2 10 ^3/uL Nucleated Red Blood Cells 0.1 % Sodium Level 137 136-145 mmol/L Potassium Level 3.3 L 3.5-5.1 mmol/L Chloride Level 104 98-107 mmol/L Carbon Dioxide Level 23 20-31 mmol/L Anion Gap 10 5-15 Blood Urea Nitrogen 10 9-23 mg/dL Creatinine 0.62 0.550-1.02 mg/dL Glomerular Filtration Rate Calc 109 >90 mL/min BUN/Creatinine Ratio 16.1 10.0-20.0 Serum Glucose 79 74-106 mg/dL Calcium Level 9.4 8.7-10.4 mg/dL Total Bilirubin 0.5 0.2-1.0 mg/dL Aspartate Amino Transferase (AST) 20 13-40 U/L Alanine Aminotransferase (ALT) 12 7-40 U/L Alkaline Phosphatase 55 46-116 U/L Total Protein 6.1 5.7-8.2 g/dL Albumin 3.6 3.2-4.8 g/dL Test 11/09/24 23:14 11/09/24 22:19 11/09/24 19:25 11/09/24 18:24 Range/Units Influenza Type A Antigen Negative Negative Influenza Type B Antigen Negative Negative SARS-CoV-2 Antigen (Rapid) Negative NEGATIVE Prothrombin Time 10.3 9.3-11.8 sec Prothrombin Time INR 0.97 0.9-1.15 Activated Partial Thromboplast Time 24.5 24.5-34.5 SEC Lactic Acid Level 1.1 0.4-2.0 mmol/L Magnesium Level 1.7 1.6-2.6 mg/dL Thyroid Stimulating Hormone (TSH) 1.88 0.55-4.78 uIU/mL Plasma/Serum Blood Alcohol 4.5 <10 mg/dL Urine Mucus Few None Seen Urine Opiates Screen Pos NEGATIVE Urine Fentanyl Screen Neg NEGATIVE Urine Barbiturates Screen Neg NEGATIVE Urine Phencyclidine Screen Neg NEGATIVE Urine Amphetamines Screen Neg NEGATIVE Urine Benzodiazepines Screen Neg NEGATIVE Urine Cocaine Screen Neg NEGATIVE Urine Cannabinoids Screen Pos NEGATIVE Troponin I High Sensitivity < 3 L </=34 ng/L Test 11/09/24 17:12 Range/Units D-Dimer, Quantitative 4.09 H 0.0-0.49 mg/L FEU B-Type Natriuretic Peptide 7.86 0-100 pg/mL Right lower extremity ultrasound reviewed and demonstrated: Fluid noted in the region of the incision likely seroma measuring 7.1 x 4.2 x 5.2cm Assessment Right hip seroma S/P total hip arthroplasty with explant Plan/Recommendation I had a lengthy discussion with the patient and after discussing her case and reviewing her imaging studies with Dr. Martin we have recommended continuing observation and currently pending fluid analysis of 300 mL serosanguineous fluid aspirated from patient's right hip for further evaluation. We will reconvene with the patient once fluid analysis has been completed to discuss results and determine the course of action. She understood and agreed. Thank for allowing us to participate in the care of your patient Plan discussed with: Patient MILES RODRIGUEZ AGAPITO Nov 10, 2024 15:31
[2024-11-10] MEDS: POTASSIUM EFFERVESENT TAB 25 MEQ PO ONE (16:26)
[2024-11-10] MEDS: HYDROmorphone HCL 2 MG TAB PO PRN (16:27)
[2024-11-10] MEDS: ACETAMINOPHEN 325 MG TAB PO SCH (16:27)
[2024-11-10] MEDS: oxyCODONE HCL 5MG TAB PO SCH (16:28)
[2024-11-10] MEDS: LIDOCAINE 1% (LOCAL ANESTH.) PF 5ml SDV ID ONE (19:30)
[2024-11-10] MEDS: MORPHINE SULF 15mg ER tab PO SCH (23:21)
[2024-11-10] MEDS: SODIUM CHLOR 0.9% PF (SALINE LOCK) 10ML VIAL/SYR IV SCH (23:21)
[2024-11-11] VITALS (7 sets, daily range): BP systolic 111–142; BP diastolic 53–92; PULSE 62–88; RESP 16–18; TEMP 97.7–98.6; O2SAT 93–97
[2024-11-11] MEDS: HYDROmorphone HCL 2 MG/ML VL/or syr IV ONE ×2 (00:17→13:56)
[2024-11-11] MEDS: diphenhdrAMINE HCL 50 MG/1 ML VL IV ONE (01:19)
[2024-11-11 06:30] LABS: Basophils # (auto) 0 10 ^3/uL (0-0.2); Basophils % (auto) 0.3 % (0.0-2.0); Eosinophils # (auto) 0.5 10 ^3/uL (0-0.8); Hematocrit 36.1 % (36.0-46.0); Hemoglobin 12.3 g/dL (12.2-16.2); Lymphocytes # (auto) 1.1 10 ^3/uL (0.4-5.4); Lymphocytes % (auto) 18.9 % (10.0-50.0); Mean Corpuscular Hemoglobin 33.8 pg (28.0-32.0); Mean Corpuscular Volume 99.6 fL (80.0-100.0); Monocytes # (auto) 0.5 10 ^3/uL (0-1.3); Monocytes % (auto) 7.9 % (0.0-12.0); Neutrophils # (auto) 3.8 10 ^3/uL (1.6-8.6); Neutrophils % (auto) 63.9 % (37.0-80.0); Nucleated Red Blood Cells % 0.2 %; Platelet Count (auto) 171 10^3/uL (140-450); Red Blood Cells 3.62 10^6/uL (4.0-5.20); Red Cell Distribution Width 15.1 % (11.8-14.3)
[2024-11-11 06:43] LABS: Anion Gap 8 (5-15); Carbon Dioxide 25 mmol/L (20-31); Chloride 106 mmol/L (98-107); Potassium 3.6 mmol/L (3.5-5.1); Sodium 139 mmol/L (136-145)
[2024-11-11 06:45] LABS: Calcium 9.2 mg/dL (8.7-10.4)
[2024-11-11 06:50] LABS: Glucose 73 mg/dL (74-106)
[2024-11-11 06:51] LABS: BUN/Creatinine Ratio 12.3 (10.0-20.0); Blood Urea Nitrogen 8 mg/dL (9-23)
[2024-11-11] MEDS: LOSARTAN POTASSIUM 50 MG TAB PO SCH (10:04)
[2024-11-11] MEDS: ASPirin 81 mg TAB PO SCH (10:04)
[2024-11-11] MEDS ORDERED: MORPHINE SULFATE 4 MG/ML SYR/VIAL IV PRN (12:00)
[2024-11-11 12:07] LABS: Protein, Body Fluid 3.6 g/dL (.)
--- NOTE | 2024-11-11 12:43 | DVHDS2 ---
Discharge Summary Date of Admission Nov 09, 2024 at 21:35 Date of Discharge: Nov 11, 2024 Labs/Diagnostic Data: Laboratory Results Test 11/11/24 11:13 11/11/24 05:41 11/10/24 11:10 11/10/24 10:43 POC Glucose 90 mg/dl (70-106) White Blood Count 6.0 10^3/uL (4.4-10.8) Red Blood Count 3.62 10^6/uL (4.0-5.20) Hemoglobin 12.3 g/dL (12.2-16.2) Hematocrit 36.1 % (36.0-46.0) Mean Corpuscular Volume 99.6 fL (80.0-100.0) Mean Corpuscular Hemoglobin 33.8 pg (28.0-32.0) Mean Corpuscular Hemoglobin Concent 34.0 g/dL (32.0-36.0) Red Cell Distribution Width 15.1 % (11.8-14.3) Platelet Count 171 10^3/uL (140-450) Mean Platelet Volume 7.3 fL (6.9-10.8) Neutrophils (%) (Auto) 63.9 % (37.0-80.0) Lymphocytes (%) (Auto) 18.9 % (10.0-50.0) Monocytes (%) (Auto) 7.9 % (0.0-12.0) Eosinophils (%) (Auto) 9.0 % (0.0-7.0) Basophils (%) (Auto) 0.3 % (0.0-2.0) Neutrophils # (Auto) 3.8 10 ^3/uL (1.6-8.6) Lymphocytes # (Auto) 1.1 10 ^3/uL (0.4-5.4) Monocytes # (Auto) 0.5 10 ^3/uL (0-1.3) Eosinophils # (Auto) 0.5 10 ^3/uL (0-0.8) Basophils # (Auto) 0 10 ^3/uL (0-0.2) Nucleated Red Blood Cells 0.2 % Sodium Level 139 mmol/L (136-145) Potassium Level 3.6 mmol/L (3.5-5.1) Chloride Level 106 mmol/L (98-107) Carbon Dioxide Level 25 mmol/L (20-31) Anion Gap 8 (5-15) Blood Urea Nitrogen 8 mg/dL (9-23) Creatinine 0.65 mg/dL (0.550-1.02) Glomerular Filtration Rate Calc 108 mL/min (>90) BUN/Creatinine Ratio 12.3 (10.0-20.0) Serum Glucose 73 mg/dL (74-106) Calcium Level 9.2 mg/dL (8.7-10.4) Body Fluid Glucose 62 mg/dL (.) Body Fluid Total Protein 3.6 g/dL (.) Urine Color Light-orange (Yellow) Urine Clarity Ex.turbid (Clear) Urine pH 7.0 (5.0-9.0) Urine Specific [place] 1.029 (1.001-1.035) Urine Protein Negative (Negative) Urine Ketones Negative (Negative) Urine Blood Negative /uL (Negative) Urine Nitrite Negative (Negative) Urine Bilirubin Negative (Negative) Urine Urobilinogen Normal mg/dL (Negative) Urine Leukocyte Esterase Trace /uL (Negative) Urine RBC 3 /hpf (0 - 4) Urine Microscopic WBC 16 /HPF (0-5) Urine Squamous Epithelial Cells Few /hpf (<5) Urine Amorphous Crystals Few /hpf (None Seen) Urine Bacteria Few /hpf (None Seen) Urine Yeast (Budding) Moderate /hpf (None Seen) Urine Glucose Normal mg/dL (Normal) Test 11/10/24 08:06 11/10/24 05:30 11/09/24 23:14 11/09/24 22:19 Erythrocyte Sedimentation Rate 10 mm/hr (0-20) C-Reactive Protein High Sensitivity 0.67 mg/dL (<1.0) Total Bilirubin 0.5 mg/dL (0.2-1.0) Aspartate Amino Transferase (AST) 20 U/L (13-40) Alanine Aminotransferase (ALT) 12 U/L (7-40) Alkaline Phosphatase 55 U/L (46-116) Total Protein 6.1 g/dL (5.7-8.2) Albumin 3.6 g/dL (3.2-4.8) Influenza Type A Antigen Negative (Negative) Influenza Type B Antigen Negative (Negative) SARS-CoV-2 Antigen (Rapid) Negative (NEGATIVE) Prothrombin Time 10.3 sec (9.3-11.8) Prothrombin Time INR 0.97 (0.9-1.15) Activated Partial Thromboplast Time 24.5 SEC (24.5-34.5) Lactic Acid Level 1.1 mmol/L (0.4-2.0) Magnesium Level 1.7 mg/dL (1.6-2.6) Thyroid Stimulating Hormone (TSH) 1.88 uIU/mL (0.55-4.78) Plasma/Serum Blood Alcohol 4.5 mg/dL (<10) Test 11/09/24 19:25 11/09/24 18:24 11/09/24 17:12 Urine Mucus Few (None Seen) Urine Opiates Screen Pos (NEGATIVE) Urine Fentanyl Screen Neg (NEGATIVE) Urine Barbiturates Screen Neg (NEGATIVE) Urine Phencyclidine Screen Neg (NEGATIVE) Urine Amphetamines Screen Neg (NEGATIVE) Urine Benzodiazepines Screen Neg (NEGATIVE) Urine Cocaine Screen Neg (NEGATIVE) Urine Cannabinoids Screen Pos (NEGATIVE) Troponin I High Sensitivity < 3 ng/L (</=34) D-Dimer, Quantitative 4.09 mg/L FEU (0.0-0.49) B-Type Natriuretic Peptide 7.86 pg/mL (0-100) Other Laboratory Tests 11/11/24 05:41 Brief Hx & Hospital Course: Patient was brought to the hospital due to concerns of chest pain and right arm pain that has been progressively worsening over the last few days but on workup was not found to have any cardiac abnormalities and has been feeling better in regards to those symptoms since being admitted. Patient reports continued right hip pain with movement but no worsening of her symptoms or any drainage of her incision site. Patient reports that her PICC line was draining some yellowish discharge and had that when removed and a new PICC line placed which was well tolerated. Patient was feeling significantly better since her initial evaluation and would like to go home. Condition at Discharge: Stable Final Diagnosis/Problems List Right hip pain Discharge Disposition: Home Discharge Instruct/Medications Diet: Regular Activity: See Comment Activity comment: Patient to remain partially weight-bearing with the assistance of a walker Follow Up/Referral: Patient to follow up with our office as previously scheduled Medications: Continue previously prescribed medication Discharge Statement: "Patient was advised to return to the ER or call 911 if any headaches, dizziness, shortness of breath, chest pain, abdominal pain, bleeding, fevers, or worsening of medical condition. Patient was counseled about treatment plan, medications, possible side effects, patientverbalized understanding. All questions were answered to the best of my ability. This discharge took greater then 30 minutes in planning, reviewing documentation, counseling the patient, and discussing with other team members." ASSESSMENT ASSESSMENT Assessment Right hip pain MILES RODRIGUEZ Nov 11, 2024 12:43
--- NOTE | 2024-11-11 12:47 | DVHPN2 ---
Progress Note - Dictate Date Seen: Nov 11, 2024 Medical Necessity Reason Pt with a Central, PICC or Fol: Yes The following are medically ne: Miller Catheter Reason for miller catheter: Total Immobilization Subjective Patient was sitting up comfortably in bed during my evaluation reports some continued hip pain that is being minimally improved with the help of pain medication. Patient reports that her PICC line was changed and was well tolerated without complications. Patient denied any changes in her symptoms in regards to her right hip reports her chest pain and right arm pain has significantly improved. Patient is otherwise feeling well denying any other complaints or concerns during my evaluation and would like to go home. vital signs Vital Sign Date Time Temp Pulse Resp B/P (MAP) Pulse Ox O2 Delivery O2 Flow Rate FiO2 11/11/24 10:04 142/70 11/11/24 09:00 97.8 74 18 93 97.8 11/11/24 08:00 Room Air* 0 21 Total Intake and Output 11/10/24 11/10/24 11/11/24 15:00 23:00 07:00 Intake Total 780 ml 240 ml 250 ml Output Total 300 ml 1400 ml Balance 780 ml -60 ml -1150 ml medications Current Medications Medications Dose Ordered Sig/Lesia Route Start Time Stop Time Status Last Admin Dose Admin Sodium Chloride 10 ml Q8HR IV 11/09/24 22:00 11/11/24 06:40 10 ML Sodium Chloride 1,000 ml @ 60 mls/hr [id number] IV 11/09/24 21:45 11/10/24 14:25 60 MLS/HR Enoxaparin Sodium 40 mg DAILY SC 11/10/24 10:00 11/11/24 10:05 40 MG Acetaminophen 650 mg Q6HP PRN PO 11/09/24 21:45 Vancomycin HCl 0 ml @ 0 mls/hr UD IV 11/09/24 22:15 Ceftriaxone Sodium/Dextrose 50 ml @ 50 mls/hr DAILY IV 11/10/24 10:00 11/11/24 10:04 50 MLS/HR Ondansetron HCl 4 mg Q4HPRN PRN IV 11/10/24 00:15 11/10/24 19:56 4 MG Diagnostic Test (Pha) 1 strip ACHS 11/10/24 07:00 11/11/24 11:30 1 STRIP Insulin Human Regular ACHS SC 11/10/24 07:00 Dextrose 50 ml UD PRN IV 11/10/24 06:30 Morphine Sulfate 15 mg BID PO 11/10/24 22:00 11/11/24 10:05 15 MG Oxycodone HCl 10 mg Q6H PO 11/10/24 13:30 11/11/24 02:27 10 MG Acetaminophen 325 mg Q6H PO 11/10/24 13:30 11/11/24 02:27 325 MG Ipratropium [place] 0.5 mg Q6HPRN PRN NEB 11/10/24 13:45 Levalbuterol HCl 1.25 mg Q6HR PRN NEB 11/10/24 13:45 Aspirin 81 mg DAILY PO 11/11/24 10:00 11/11/24 10:04 81 MG Losartan Potassium 50 mg DAILY PO 11/11/24 10:00 11/11/24 10:04 50 MG Vancomycin HCl 250 ml @ 250 mls/hr Q10H IV 11/10/24 14:00 11/11/24 10:06 250 MLS/HR Sodium Chloride 10 ml QSHIFT@10,22 IV 11/10/24 22:00 11/11/24 10:05 10 ML Morphine Sulfate 4 mg Q8HP PRN IV 11/11/24 12:00 objective General appearance: A&O x4 in no acute distress HEENT: Normal ENT inspection, pharynx normal, TMs normal Neck: Full range of motion, nontender, normal inspection Respiratory: Chest nontender, without accessory muscle use, no respiratory distress Cardiovascular: No edema, no JVD, normal peripheral pulses Gastrointestinal: Soft, nontender, no organomegaly. Musculoskeletal: Right hip range of motion grossly limited with pain on movement, no calf tenderness, normal capillary refill, no pedal edema, neurovascularly intact. Skin: Dry, normal color, warm Lymphatic: No adenopathy laboratory and microbiology Laboratory Tests 11/11/24 05:41 Test 11/11/24 05:41 Range/Units Serum Glucose 73 L 74-106 mg/dL Assessment/Plan Right hip seroma S/P total hip arthroplasty with explant I had a lengthy discussion with the patient and after discussing her case and reviewing her aspiration results with Dr. Martin we have recommended that the patient be discharged home with further treatment on an outpatient basis. Given the aspiration of her hip revealed about 300 mL of serosanguineous fluid without any growth on culture from her most recent surgery our concern for a new infection is low and advised to continue with current antibiotics as previously prescribed and will adjust antibiotics if needed depending on Infectious Disease recommendation once culture results have been completed. I spoke with patient who reports that she would like to just go home as she just wanted to make sure that she had nothing life-threatening going on. We will have the patient to follow up with our office on an outpatient basis as previously scheduled. She understood and agreed. Plan discussed with: Patient MILES RODRIGUEZ Nov 11, 2024 12:47
== END 2024-11-11 15:37 | disposition home or self-care (01) | DRG 721 ==
LOC: ER 16:54 → EDBD 16:54 → OVERFLOW 21:35 → EAST 11-10 22:14
PROVIDERS: ADMIT Student in an Organized Health Care Education/Training Program; ATTEND Emergency Medicine
PROC: 0S993ZZ Drainage of Right Hip Joint, Percutaneous Approach (ICD-10-PCS; principal; 2024-11-10)
PROC: 02HV33Z Insertion of Infusion Device into Superior Vena Cava, Percutaneous Approach (ICD-10-PCS; 2024-11-10)
PROC: B548ZZA Ultrasonography of Superior Vena Cava, Guidance (ICD-10-PCS; 2024-11-10)
PROC: 02PYX3Z Removal of Infusion Device from Great Vessel, External Approach (ICD-10-PCS; 2024-11-10)
DX: T80.211A Bloodstream infection due to central venous catheter, initial encounter (principal); M96.842 Postprocedural seroma of a musculoskeletal structure following a musculoskeletal system procedure; E11.9 Type 2 diabetes mellitus without complications; E66.01 Morbid (severe) obesity due to excess calories; J44.9 Chronic obstructive pulmonary disease, unspecified; M79.7 Fibromyalgia; I10 Essential (primary) hypertension; N39.0 Urinary tract infection, site not specified; F12.10 Cannabis abuse, uncomplicated; Z20.822 Contact with and (suspected) exposure to COVID-19; E78.00 Pure hypercholesterolemia, unspecified; Z96.641 Presence of right artificial hip joint; F17.210 Nicotine dependence, cigarettes, uncomplicated; G89.4 Chronic pain syndrome; Z68.37 Body mass index [BMI] 37.0-37.9, adult; Z86.73 Personal history of transient ischemic attack (TIA), and cerebral infarction without residual deficits; Z90.710 Acquired absence of both cervix and uterus; Z79.4 Long term (current) use of insulin; Z79.899 Other long term (current) drug therapy; Z79.82 Long term (current) use of aspirin; Z79.891 Long term (current) use of opiate analgesic; Z79.84 Long term (current) use of oral hypoglycemic drugs; Z80.1 Family history of malignant neoplasm of trachea, bronchus and lung; Z81.8 Family history of other mental and behavioral disorders; Z82.5 Family history of asthma and other chronic lower respiratory diseases; Z82.49 Family history of ischemic heart disease and other diseases of the circulatory system; Z83.3 Family history of diabetes mellitus; Z80.0 Family history of malignant neoplasm of digestive organs; Z87.442 Personal history of urinary calculi; Z82.3 Family history of stroke; Z82.62 Family history of osteoporosis; Z82.0 Family history of epilepsy and other diseases of the nervous system; Z80.41 Family history of malignant neoplasm of ovary; Z80.3 Family history of malignant neoplasm of breast; Z80.8 Family history of malignant neoplasm of other organs or systems
CPT/HCPCS: 36415; 36569; 71045; 71260; 74177; 76881; 76942; 80048; 80053; 80307; 80320; 81001; 82962; 83605; 83735; 83880; 84443; 84484; 85025; 85379; 85610; 85652; 85730; 86141; 87205; 87426; 87804; 93005; 93971; 96365; 96375; 99291; C1729; G0378; J2405